=== PATIENT | male | born 1970 | race Hispanic/Latino ===

== ENCOUNTER 2020-05-13 13:30 | Observation (INO) | payer OTHER ==
--- OUTSIDE RECORDS SUMMARY | 2020-05-13 13:32 | XMS REPORT | Continuity of Care Document ---
:1970 Author Organization [facility] t Address [facility] John [address] [place] [id number] Care Team Providers Name Role Phone Unavailable Unavailable Unavailable Problems This patient has no known problems. Allergies, Adverse Reactions, Alerts This patient has no known allergies or adverse reactions. Medications This patient has no known medications. Procedures This patient has no known procedures. Results Test Description Test Time Test Comments Results Result Comments Source Comprehensive Metabolic Panel 2019-04-06 10:54:12 Test Item Value Reference Range Interpretation Comme nts Sodium Level (test code = Sodium Level) 142 mmol/L 136-145 Potassium Level (test code = Potassium Level) 4.3 mmol/L 3.5-5.1 Chloride Level (test code = Chloride Level) 110 mmol/L 98-107 H CO2 (test code = CO2) 25 mmol/L 21-32 Anion Gap (test code = Anion Gap) 7 mmol/L 7-16 BUN (test code = BUN) 13 mg/dL 7-18 Creatinine Level (test code = Creatinine Level) 1.1 mg/dL 0.7-1. 3 Glucose Level (test code = Glucose Level) 91 mg/dL 74-106 Calcium Level (test code = Calcium Level) 8.9 mg/dL 8.5-10.1 Alk Phos (test code = Alk Phos) 59 IntlUnit/L 45-122 Bilirubin Total (test code = Bilirubin Total) 0.5 mg/dL 0.2-1.0 Albumin Level (test code = Albumin Level) 4.2 g/dL 3.4-5.0 Protein Total (test code = Protein Total) 7.6 g/dL 6.4-8.2 ALT (test code = ALT) 51 IntlUnit/L 12-78 AST (test code = AST) 28 IntlUnit/L 10-34 Comprehensive Metabolic [id number] 10:54:12 Test Item Value Reference Range Interpretation Comments Sodium Level (test code = 142 mmol/L 136-145 Sodium Level) Potassium Level (test code 4.3 mmol/L 3.5-5.1 = Potassium Level) Chloride Level (test code 110 mmol/L 98-107 H = Chloride Level) CO2 (test code = CO2) 25 mmol/L 21-32 Anion Gap (test code = 7 mmol/L 7-16 Anion Gap) BUN (test code = BUN) 13 mg/dL 7-18 Creatinine Level (test 1.1 mg/dL 0.7-1.3 code = Creatinine Level) Glucose Level (test code = 91 mg/dL 74-106 Glucose Level) Calcium Level (test code = 8.9 mg/dL 8.5-10.1 Calcium Level) Alk Phos (test code = Alk 59 IntlUnit/L 45-122 Phos) Bilirubin Total (test code 0.5 mg/dL 0.2-1.0 = Bilirubin Total) Albumin Level (test code = 4.2 g/dL 3.4-5.0 Albumin Level) Protein Total (test code = 7.6 g/dL 6.4-8.2 Protein Total) ALT (test code = ALT) 51 IntlUnit/L 12-78 AST (test code = AST) 28 IntlUnit/L 10-34 eGFR AA (test code = eGFR >60 mL/min/1.73 m2 N AA) Comprehensive Metabolic [id number] 10:54:12 Test Item Value Reference Range Interpretation Comments Sodium Level (test code = 142 mmol/L 136-145 Sodium Level) Potassium Level (test code 4.3 mmol/L 3.5-5.1 = Potassium Level) Chloride Level (test code 110 mmol/L 98-107 H = Chloride Level) CO2 (test code = CO2) 25 mmol/L 21-32 Anion Gap (test code = 7 mmol/L 7-16 Anion Gap) BUN (test code = BUN) 13 mg/dL 7-18 Creatinine Level (test 1.1 mg/dL 0.7-1.3 code = Creatinine Level) Glucose Level (test code = 91 mg/dL 74-106 Glucose Level) Calcium Level (test code = 8.9 mg/dL 8.5-10.1 Calcium Level) Alk Phos (test code = Alk 59 IntlUnit/L 45-122 Phos) Bilirubin Total (test code 0.5 mg/dL 0.2-1.0 = Bilirubin Total) Albumin Level (test code = 4.2 g/dL 3.4-5.0 Albumin Level) Protein Total (test code = 7.6 g/dL 6.4-8.2 Protein Total) ALT (test code = ALT) 51 IntlUnit/L 12-78 AST (test code = AST) 28 IntlUnit/L 10-34 eGFR AA (test code = eGFR >60 mL/min/1.73 m2 N AA) eGFR Non-AA (test code = >60 mL/min/1.73 m2 N eGFR Non-AA) CT Brain/Head w/o [id number] 10:40:27Patient: PADMINI ENG Date/Time04/06/2019 10:30 CDTReason for ExamFacial droopReportInformation: Left facial droop, Bagley's palsyCT scan of the brain without contrastMultiplanar reformatted images of the head were obtained without intravenous contrastNo acute intracranial hemorrhage, gross masses, mass effects, midline shifts or extra-axial collections are noted. The ventricular system is normal and midline. Ruiz-white matter interface is pre served. No focal bony calvarial abnormality is noted.IMPRESSION:1. Negative CT scan of the brainRadiation dose lowering techniques were used with automated exposure control, adjusting the mA according to patient's size. Final Dictated by: MD Myrick Gustavo MDictated DT/TM: 04/06/2019 10:33 amSigned by: MD Myrick Gustavo MSigned (Electronic Signature): 04/06/2019 10:40 amComplete Blood Count with [id number] 10:36:20 Test Item Value Reference Range Interpretation Comments WBC (test code = WBC) 7.4 x10 4.8-10.8 RBC (test code = RBC) 4.85 x10 4.60-6.20 Hgb (test code = Hgb) 15.9 g/dL 14.0-18.0 MCV (test code = MCV) 94.6 fL 80.0-95.0 Hct (test code = Hct) 45.9 % 38.0-52.0 RDW (test code = RDW) 13.5 % 11.5-14.5 MCHC (test code = MCHC) 34.7 g/dL 31.0-36.0 MCH (test code = MCH) 32.8 pg 26.0-32.0 H Platelets (test code = 247 x10 140-440 Platelets) MPV (test code = MPV) 8.7 fL 7.5-11.2 Slide Review (test code Auto N Resu lt created by = Slide Review) GL_SET_SLIDE _REVIEW_A UTO Automated [id number] 10:36:20 Test Item Value Reference Range Interpretation Comments Neutro Auto (test code = Neutro Auto) 66.4 % N Lymph Auto (test code = Lymph Auto) 20.4 % N Citrus Auto (test code = Citrus Auto) 9.2 % N Eos, Auto (test code = Eos, Auto) 2.9 % N Basophil Auto (test code = Basophil 1.1 % N Auto) Neutro Absolute (test code = Neutro 4.9 x10 2.7-7.3 Absolute) Lymph Absolute (test code = Lymph 1.5 x10 0.8-3.5 Absolute) Citrus Absolute (test code = Citrus 0.7 x10 0.3-0.9 Absolute) Eos Absolute (test code = Eos 0.2 x10 0.0-0.3 Absolute) Baso Absolute (test code = Baso 0.1 x10 0.0-0.1 Absolute)
[2020-05-13] MEDS ORDERED: Ringers Lactate 1,000 ML IV ONE ×2 (14:37→15:43)
[2020-05-13 14:48] LABS: Absolute Lymphocytes (CBC) 1.7 K/uL (0.7-4.9); Basophils % 0.7 % (0-1.3); Hematocrit 43.9 % (39.6-49.0); Lymphocytes % 14.5 % (15.3-44.8); MPV 9.5 fL (7.6-11.3); RBC Red Blood Cell Count 4.49 M/uL (4.33-5.43)
[2020-05-13 15:05] LABS: ALT/SGPT 68 U/L (12-78); AST/SGOT 41 U/L (15-37); Albumin 3.8 g/dL (3.4-5.0); Alkaline Phosphatase 56 U/L (45-117); BUN Blood Urea Nitrogen 27 mg/dL (7-18); Bicarbonate 24 mmol/L (21-32); Bilirubin Direct < 0.1 mg/dL (0-0.2); Bilirubin Total 0.4 mg/dL (0.2-1.0); Creatine Phosphokinase 275 U/L (39-308); Glucose Level 164 mg/dL (74-106); Magnesium 2.2 mg/dL (1.8-2.4); NT PRO-BNP 64 pg/mL (<125); Potassium 4.4 mmol/L (3.5-5.1); Protein, Total 7.2 g/dL (6.4-8.2); Sodium Level 139 mmol/L (136-145); Troponin (Emerg Dept Use Only) < 0.02 ng/mL (0.0-0.045)
--- NOTE | 2020-05-13 15:18 | RAD REPORT ---
EXAM DESCRIPTION: RAD - Chest Single View - 05/13/2020 3:00 pm CLINICAL HISTORY: dizzy, shortness of breath COMPARISON: None TECHNIQUE: AP portable chest image was obtained 05/13/2020 3:00 pm . FINDINGS: Lung volumes are low. Large body habitus contributes to accentuated lung markings. No pulm onary edema, failure or focal lung parenchymal process suspected. Heart and vasculature are normal. N o measurable pleural effusion and no pneumothorax. No acute bony abnormality seen. No acute aortic fi ndings suspected. IMPRESSION: Limited portable study without acute cardiopulmonary finding.
--- NOTE | 2020-05-13 16:02 | ER ---
Nurse's Notes [facility] Name: Bebo Diaz Jr Age: 49 yrs Sex: Male : 1970 Arrival Date: 05/13/2020 Time: 13:33 Bed 6 Private MD: Diagnosis: Hypotension;Acute kidney failure Presentation: 05/13 13:43 Chief complaint: Dizziness and lethargy after working in the heat since 0700 today. hb Also reports taking diet pills form [place]. [place] N/V/D/cough. VAN NEGATIVE. Coronavirus screen: At this time, the client does not indicate any symptoms associated with coronavirus-19. Ebola Screen: No symptoms or risks identified at this time. Initial Sepsis Screen: Does the patient meet any 2 criteria? Systolic BP < 90 mmHg. HR > 90 bpm. No. Patient's initial sepsis screen is negative. Does the patient have a suspected source of infection? No. Patient's initial sepsis screen is negative. Risk Assessment: Do you want to hurt yourself or someone else? Patient reports no desire to harm self or others. Onset of symptoms was May 13, 2020. 13:43 Method Of Arrival: Ambulatory hb 13:43 Acuity: SOFIA 2 hb Historical: - Allergies: 13:46 No Known Allergies; hb - Home Meds: 13:46 Lisinopril Oral [Active]; unknown diet pill [Active]; hb - PMHx: 13:46 Hypertension; hb - PSHx: 13:46 Kidney CA removal; hb - Immunization history:: Adult Immunizations up to date. - Social history:: Smoking status: Patient reports the use of cigarette tobacco products, denies chronic smoking, but will smoke occasionally. Screenin:31 Abuse screen: Denies threats or abuse. Denies injuries from another. Nutritional iw screening: No deficits noted. Tuberculosis screening: No symptoms or risk factors identified. Fall Risk IV access (20 points). Assessment: 14:31 General: Appears in no apparent distress. Behavior is calm, cooperative. General: iw Denies fever, feeling ill, fatigue. Pain: Denies pain. Neuro: Level of Consciousness is awake, alert, obeys commands, Oriented to person, place, time, situation, Moves all extremities. Full function Reports dizziness. Cardiovascular: Patient's skin is warm and dry. Respiratory: Airway is patent Respiratory effort is even, unlabored, Respiratory pattern is regular, Denies cough, shortness of breath labored breathing. GI: Patient currently denies diarrhea, nausea, vomiting. : Denies burning with urination. Derm: Skin is intact, is healthy with good turgor. Musculoskeletal: Range of motion: intact in all extremities. 16:30 Reassessment: Patient appears in no apparent distress at this time. Patient and/or iw family updated on plan of care and expected duration. Pain level reassessed. Patient is alert, oriented x 3, equal unlabored respirations, skin warm/dry/pink. 18:00 Reassessment: Patient appears in no apparent distress at this time. Patient and/or iw family updated on plan of care and expected duration. Pain level reassessed. Patient is alert, oriented x 3, equal unlabored respirations, skin warm/dry/pink. Patient states feeling better. Patient states symptoms have improved. 19:21 Reassessment: was reported that pt went to bathroom and never came back to the room. pt iw not in bathroom, not in lobby. Vital Signs: 13:43 BP 76 / 49; Pulse 103; Resp 16; Temp 97.2; Pulse Ox 95% on R/A; Weight 130.18 kg; hb Height 5 ft. 10 in. (177.80 cm); Pain 6/10; 14:55 BP 77 / 51; Pulse 97; Resp 18 S; Pulse Ox 95% on R/A; iw 15:01 BP 81 / 47; iw 16:38 BP 104 / 67; Pulse 87; Resp 16 S; Pulse Ox 98% on R/A; iw 18:00 BP 110 / 68; Pulse 79; Resp 16; Pulse Ox 98% on R/A; Pain 0/10; iw 13:43 Body Mass Index 41.18 (130.18 kg, 177.80 cm) hb ED Course: 13:33 Patient arrived in ED. mr 13:45 Triage completed. hb 13:46 Cayden Brooks PA is PHCP. jr8 13:46 Steven Morrison MD is Attending Physician. jr8 13:46 Arm band placed on. hb 13:48 Janessa Estrada, RN is Primary Nurse. iw 14:30 Initial lab(s) drawn, by me, sent to lab. Inserted saline lock: 20 gauge in left iw antecubital area, using aseptic technique. Blood collected. 15:00 XRAY Chest (1 view) In Process Unspecified. EDMS 16:01 Levi Rawls MD is Hospitalizing Provider. jr8 18:00 No provider procedures requiring assistance completed. Patient admitted, IV remains in iw place. Administered Medications: 14:30 Drug: Ringers - Lactated Ringers Solution 1000 ml Route: IV; Rate: bolus; Site: left iw antecubital; 15:30 Follow up: IV Status: Completed infusion iw 15:51 Drug: Ringers - Lactated Ringers Solution 1000 ml Route: IV; Rate: bolus; Site: left iw antecubital; 17:00 Follow up: IV Status: Completed infusion iw Outcome: 16:01 Decision to Hospitalize by Provider. jr8 19:20 Eloped from patient exam room, after seeing physician Time discovered patient gone: iw May 13, 2020 at 19:20 19:22 Patient left the ED. iw Signatures: Dispatcher [employer] EDAL Tracy Carvajal mr Janessa Estrada, RN RN Cayden Brooks PA PA jr8 Pauline Cox, PEYTON RN hb
--- NOTE | 2020-05-13 16:02 | EDPHYS ---
Physician Documentation [facility] Name: Bebo Diaz Jr Age: 49 yrs Sex: Male : 1970 Arrival Date: 05/13/2020 Time: 13:33 Bed 6 Private MD: ED Physician Steevn Morrison HPI: 05/13 16:09 This 49 yrs old Male presents to ER via Ambulatory with complaints of Blood jr8 Pressure Problem. 16:09 Patient stated that after he got home from work this afternoon for break. Started to jr8 feel "foggy" and dizzy. Stated that his significant other took his BP and found that it was low. Initially went back to work but told his boss after he started to feel worse. Brought him to ED at that time. Patient hypotensive in triage upon arrival. History of partial nephrectomies from renal cancer in past. Has been seeing pencil inspector for routine check up and was started recently on lisinopril 40mg QD. Has also been taking phentermine for weight loss . Onset: The symptoms/episode began/occurred acutely, today. Severity of symptoms: At their worst the symptoms were moderate. The patient has not experienced similar symptoms in the past. The patient has not recently seen a physician. Historical: - Allergies: 13:46 No Known Allergies; hb - Home Meds: 13:46 Lisinopril Oral [Active]; unknown diet pill [Active]; hb - PMHx: 13:46 Hypertension; hb - PSHx: 13:46 Kidney CA removal; hb - Immunization history:: Adult Immunizations up to date. - Social history:: Smoking status: Patient reports the use of cigarette tobacco products, denies chronic smoking, but will smoke occasionally. ROS: 16:09 Eyes: Negative for injury, pain, redness, and discharge, ENT: Negative for injury, jr8 pain, and discharge, Neck: Negative for injury, pain, and swelling, Cardiovascular: Negative for chest pain, palpitations, and edema, Respiratory: Negative for shortness of breath, cough, wheezing, and pleuritic chest pain, Abdomen/GI: Negative for abdominal pain, nausea, vomiting, diarrhea, and constipation, Back: Negative for injury and pain, MS/Extremity: Negative for injury and deformity, Skin: Negative for injury, rash, and discoloration. 16:09 Constitutional: Positive for fatigue. 16:09 Neuro: Positive for dizziness. Exam: 16:09 Eyes: Pupils equal round and reactive to light, extra-ocular motions intact. Lids and jr8 lashes normal. Conjunctiva and sclera are non-icteric and not injected. Cornea within normal limits. Periorbital areas with no swelling, redness, or edema. ENT: Nares patent. No nasal discharge, no septal abnormalities noted. Tympanic membranes are normal and external auditory canals are clear. Oropharynx with no redness, swelling, or masses, exudates, or evidence of obstruction, uvula midline. Mucous membranes moist. Neck: Trachea midline, no thyromegaly or masses palpated, and no cervical lymphadenopathy. Supple, full range of motion without nuchal rigidity, or vertebral point tenderness. No Meningismus. Cardiovascular: Regular rate and rhythm with a normal S1 and S2. No gallops, murmurs, or rubs. Normal PMI, no JVD. No pulse deficits. Respiratory: Lungs have equal breath sounds bilaterally, clear to auscultation and percussion. No rales, rhonchi or wheezes noted. No increased work of breathing, no retractions or nasal flaring. Abdomen/GI: Soft, non-tender, with normal bowel sounds. No distension or tympany. No guarding or rebound. No evidence of tenderness throughout. Back: No spinal tenderness. No costovertebral tenderness. Full range of motion. Skin: Warm, dry with normal turgor. Normal color with no rashes, no lesions, and no evidence of cellulitis. MS/ Extremity: Pulses equal, no cyanosis. Neurovascular intact. Full, normal range of motion. Neuro: Awake and alert, GCS 15, oriented to person, place, time, and situation. Cranial nerves II-XII grossly intact. Motor strength 5/5 in all extremities. Sensory grossly intact. Cerebellar exam normal. Normal gait. Vital Signs: 13:43 BP 76 / 49; Pulse 103; Resp 16; Temp 97.2; Pulse Ox 95% on R/A; Weight 130.18 kg; hb Height 5 ft. 10 in. (177.80 cm); Pain 6/10; 14:55 BP 77 / 51; Pulse 97; Resp 18 S; Pulse Ox 95% on R/A; iw 15:01 BP 81 / 47; iw 16:38 BP 104 / 67; Pulse 87; Resp 16 S; Pulse Ox 98% on R/A; iw 18:00 BP 110 / 68; Pulse 79; Resp 16; Pulse Ox 98% on R/A; Pain 0/10; iw 13:43 Body Mass Index 41.18 (130.18 kg, 177.80 cm) hb MDM: 14:00 Patient medically screened. noy 16:12 Data reviewed: vital signs, nurses notes, lab test result(s), radiologic studies, plain jr films, ultrasound. Data interpreted: Pulse oximetry: on room air is 95 %. Interpretation: normal. Counseling: I had a detailed discussion with the patient and/or guardian regarding: the historical points, exam findings, and any diagnostic results supporting the discharge/admit diagnosis, lab results, radiology results, the need for further work-up and treatment in the hospital. ED course: Reviewed labs that patient had drawn by pencil inspector about 2 weeks ago. Shows normal renal function at that time. Now in Acute Kidney failure. 05/13 14:01 Order name: Basic Metabolic Panel; Complete Time: 15:10 [facility] 05/13 14:01 Order name: CBC with Diff; Complete Time: 14:51 05/13 14:01 Order name: LFT's; Complete Time: 15:10 [facility] 05/13 14:01 Order name: Magnesium; Complete Time: 15:10 05/13 14:01 Order name: NT PRO-BNP; Complete Time: 15:10 05/13 14:01 Order name: PT-INR; Complete Time: 15:10 05/13 14:01 Order name: Troponin (emerg Dept Use Only); Complete Time: 15:10 05/13 14:01 Order name: XRAY Chest (1 view); Complete Time: 15:35 05/13 14:01 Order name: CK; Complete Time: 15:10 [facility] 05/13 16:01 Order name: Rp Exam Complete US 05/13 17:23 Order name: US; Complete Time: 17:31 EDMO 05/13 14:01 Order name: EKG; Complete Time: 14:01 05/13 14:01 Order name: Cardiac monitoring; Complete Time: 17:22 [facility] 05/13 14:01 Order name: EKG - Nurse/Tech; Complete Time: 17:22 [facility] 05/13 14:01 Order name: IV Saline Lock; Complete Time: 17:22 [facility] 05/13 14:01 Order name: Labs collected and sent; Complete Time: 17: [facility] 05/13 14:01 Order name: O2 Per Protocol; Complete Time: 17: 05/13 14:01 Order name: O2 Sat Monitoring; Complete Time: 17: [facility] 05/13 16:46 Order name: CONS Physician Consult EDMS Administered Medications: 14:30 Drug: Ringers - Lactated Ringers Solution 1000 ml Route: IV; Rate: bolus; Site: left iw antecubital; 15:30 Follow up: IV Status: Completed infusion iw 15:51 Drug: Ringers - Lactated Ringers Solution 1000 ml Route: IV; Rate: bolus; Site: left iw antecubital; 17:00 Follow up: IV Status: Completed infusion Disposition: 05/14 08:04 Co-signature as Attending Physician, Steven Morrison MD I agree with the assessment and noy plan of care. Disposition: 05/13/20 19:11 Patient left the facility after being seen by provider. Preliminary diagnosis are Hypotension, Acute kidney failure. - Patient left due to unknown. - Condition is Serious. - Problem is new. - Symptoms are unchanged. Signatures: Dispatcher [employer] Kavita Duarte RN RN dw Anderson, Corey, MD MD cha Williams, Irene RN PEYTON Cayden Brooks PA PA jr8 Pauline Cox RN RN Corrections: (The following items were deleted from the chart) 05/13 17:56 16:01 Hospitalization Ordered by Levi Rawls MD for Inpatient Admission. Preliminary diagnosis is Acute kidney failure; Hypotension. Bed requested for Telemetry/MedSurg (Inpatient). Status is Inpatient Admission. Condition is Fair. Problem is new. Symptoms have improved. [facility] 19:09 17:56 05/13/2020 16:01 Hospitalization Ordered by Levi Rawls MD for Inpatient noy Admission. Preliminary diagnosis is Acute kidney failure; Hypotension. Bed requested for Telemetry/MedSurg (Inpatient). Status is Inpatient Admission. Condition is Fair. Problem is new. Symptoms have improved. 19:22 19:11 05/13/2020 19:11 Patient left the facility after being seen by provider. iw Preliminary diagnosis is Hypotension; Acute kidney failure. Reason stated they are leaving due to unknown. Condition is Serious. Problem is new. Symptoms are unchanged. noy
[2020-05-13] MEDS ORDERED: ONDANSETRON 4 MG/2 ML VIAL IV PRN (16:46)
[2020-05-13] MEDS ORDERED: ACETAMINOPHEN 500 MG TAB PO PRN (16:46)
--- NOTE | 2020-05-13 16:54 | P.HP ---
Certification for Inpatient Patient admitted to: Observation With expected LOS: <2 Midnights Patient will require the following post-hospital care: None Practitioner: I am a practitioner with admitting privileges, knowledge of patient current condition, hospital course, and medical plan of care. Services: Services provided to patient in accordance with Admission requirements found in Title 42 Section 412.3 of the Code of Federal Regulations <Jhoan Melgoza - Last Filed: 05/13/20 16:49> Patient History Date of Service: 05/13/20 Primary Care Provider: Александр Mcfarlane MD Reason for admission: Acute kidney injury/hypotension History of Present Illness: 49-year-old male with past medical history of essential hypertension and partial bilateral nephrectomies greater than 10 years ago presents to the emergency room with complaints of dizziness and lethargy after working in the heat all day starting at 7:00 a.m.. Patient states that after going home for lunch he felt dizzy. His girlfriend took his blood pressure and it was low. His girlfriend encourage him to come to the emergency room. In the emergency room patient was hypotensive on arrival. Blood pressure of 76/49. Pulse rate of 103 and a respiratory rate of 16. His temperature is 97.2 and his room air oxygen was 95%. He is not septic. Patient states he was started on lisinopril 40 mg daily dose approximately 1 month ago. In the emergency room lab work indicates it elevated creatinine level of 2.73. Patient's prior lab work done at his PCPs office shows a creatinine level of 0.90 one month ago prior to starting the lisinopril. Renal ultrasound shows no acute pathology. There is evidence of prior scarring from the nephrectomies 10 years ago. On exam patient is stable. He is alert and oriented x4. Denies pain better after IV fluids. His concerned about his kidneys. Patient also states that he has been taking phentermine. A diet medication he got from [place]. Patient will be placed in observation overnite and further evaluated. Home medications list reviewed: No - Past Medical/Surgical History Has patient received pneumonia vaccine in the past: No Diabetic: No -: Essential hypertension -: Partial bilateral nephrectomy Psychosocial/ Personal History: Lives at home with girlfriend. - Social History Smoking Status: Never smoker Alcohol use: No CD- Drugs: No Caffeine use: No Place of Residence: Home <Jhoan Melgoza - Last Filed: 05/13/20 16:49> Date of Service: 05/13/20 <CurlyAlistairaskar - Last Filed: 05/13/20 18:04> Review of Systems General: Weakness, As per HPI Eyes: Unremarkable ENT: Unremarkable Respiratory: Unremarkable Cardiovascular: Light Headedness, As per HPI Gastrointestinal: Unremarkable Genitourinary: Unremarkable Musculoskeletal: As per HPI Integumentary: Unremarkable Neurological: Weakness, As per HPI <Jhoan Melgoza - Last Filed: 05/13/20 16:49> Physical Examination - Vital Signs Temperature: 97.2 F Blood Pressure: 81/47 Pulse: 97 Respirations: 18 Pulse Ox (%): 95 (RA) - Physical Exam General: Alert, In no apparent distress, Oriented x3, Cooperative HEENT: Atraumatic, Normocephalic, PERRLA Neck: Supple, No Thyromegaly, Other (Trachea midline) Respiratory: Clear to auscultation bilaterally, Normal air movement Cardiovascular: No edema, Normal pulses, Normal S1 S2, Irregular heart rate/rhythm (Tachycardic) Capillary refill: <2 Seconds Gastrointestinal: Normal bowel sounds, Soft and benign, Non-distended Musculoskeletal: No clubbing, No swelling, No contractures, No erythema Integumentary: No rashes, No breakdown, No significant lesion, No tenderness/swelling Neurological: Normal gait, Normal speech, Normal strength at 5/5 x4 extr, Normal tone - Studies Laboratory Data (last 24 hrs) 05/13/20 14:20: PT 11.8, INR 1.00 05/13/20 14:20: WBC 11.5 H, Hgb 14.5, Hct 43.9, Plt Count 275 05/13/20 14:20: Sodium 139, Potassium 4.4, BUN 27 H, Creatinine 2.73 H, Glucose 164 H, Magnesium 2.2, Total Bilirubin 0.4, AST 41 H, ALT 68, Alkaline Phosphatase 56 <hJoan Melgoza - Last Filed: 05/13/20 16:49> - Studies Laboratory Data (last 24 hrs) 05/13/20 14:20: PT 11.8, INR 1.00 05/13/20 14:20: WBC 11.5 H, Hgb 14.5, Hct 43.9, Plt Count 275 05/13/20 14:20: Sodium 139, Potassium 4.4, BUN 27 H, Creatinine 2.73 H, Glucose 164 H, Magnesium 2.2, Total Bilirubin 0.4, AST 41 H, ALT 68, Alkaline Phosphatase 56 <Alistair Rawls - Last Filed: 05/13/20 18:04> Assessment and Plan - Plan Impression: Acute kidney injury with hypotension: Dehydration: Phentermine Diet pills: Plan: Acute kidney injury with hypotension: Patient was recently started on lisinopril 40 mg daily dose. 1 month ago patient's renal function was normal at 0.90 from lab work faxed by PCP. Will stop lisinopril. Will continue IV hydration and monitoring creatinine levels daily. Will consult Nephrology. Patient was also hypotensive on arrival. This was likely a combination of the medications as well as dehydration. Patient was working all day in the heat and was not drinking enough fluids. Will continue with hydration as above and monitor vitals and daily labs. Dehydration: Continue IV fluids as above. Monitor vitals. Phentermine Diet pills: Patient states that he has been taking phentermine diet pills that he bought in [place]. Counseled. Discharge Plan: Home Plan to discharge in: 48 Hours - Advance Directives Does patient have a Living Will: No Does patient have a Durable POA for Healthcare: No - Code Status/Comfort Care Code Status Assessed: Yes Time Spent Managing Pts Care (In Minutes): 55 <Jhoan Melgoza - Last Filed: 05/13/20 16:49> Physician Review: Patient Assessed, Agree with Above Assessment and Plan Physician Review Additional Text: Patient was seen and examined and findings were discussed Agree with the assessment and plan as documented by the SUSAN <Alistair Rawls - Last Filed: 05/13/20 18:04>
[2020-05-13] MEDS ORDERED: NA CHLORIDE 0.9% 1,000 ML IV SCH (17:00)
[2020-05-13] MEDS ORDERED: HEPARIN 5000 UNIT/ML 1 ML VIAL SQ SCH (17:00)
[2020-05-13 17:09] VITALS: TEMP 97.2
--- NOTE | 2020-05-13 17:21 | RAD REPORT ---
EXAM DESCRIPTION: US - Renal Ultrasound-Complete - 05/13/2020 4:57 pm CLINICAL HISTORY: renal failure COMPARISON: None FINDINGS: The right kidney measures 9.1 x 6.9 cm. The left kidney measures 13.5 x 6.3 cm. History i ndicates prior partial right nephrectomy. This may explain the size asymmetry. Renal cortical thickne ss and echogenicity are normal. No hydronephrosis or suspicious renal mass. Normal perfusion evident both kidneys. No bladder wall thickening or mass. No intraluminal stone or mass. IMPRESSION: No hydronephrosis or suspicious renal mass. No other significant findings.
[2020-05-13 19:34] VITALS: O2SAT 98
[2020-05-13 19:35] VITALS: BP 110/68
== END 2020-05-13 19:00 | disposition left against medical advice (07) ==
LOC: ER 13:30 → ERHOLD 16:47 → 2ND 18:50
PROVIDERS: ADMIT Family Medicine; ATTEND Family Medicine
DX: N17.9 Acute kidney failure, unspecified (principal); I95.9 Hypotension, unspecified; E86.0 Dehydration; I10 Essential (primary) hypertension; Z85.528 Personal history of other malignant neoplasm of kidney; Z90.5 Acquired absence of kidney; F17.210 Nicotine dependence, cigarettes, uncomplicated
CPT/HCPCS: 96365; 93005; 85025; 80048; 36415; 83735; 82550; 85610; 80076; 84484; 83880; 71045; 76770; 99284; 96366; J7120 ×2; G0378 ×2

== ENCOUNTER 2021-01-20 09:51 | Emergency (ER) | payer OTHER ==
--- OUTSIDE RECORDS SUMMARY | 2021-01-20 09:53 | XMS REPORT | Continuity of Care Document ---
:1970 Author Organization [facility] t Address [address] [place] [address] Care Team Providers Name Role Phone Lab, [facility] Fam Pob I Attending Clinician Unavailable Doctor Unassigned, Name Attending Clinician Unavailable Problems This patient has no known problems. Allergies, Adverse Reactions, Alerts This patient has no known allergies or adverse reactions. Medications This patient has no known medications. Procedures This patient has no known procedures. Encounters Start End Encounter Admission Attending Care Care Encounter Source Date/Time Date/Time Type Type Clinicians Facility Department ID 2020-09-28 2020-09-28 Laboratory Lab, [facility] [id number] 10:19:14 10:39:14 Only Fam Pob I Health [id number] [place] [id number] Professio [phone] nal [address] One 2020-09-28 2020-09-28 Letter Doctor ENA [id number] 00:00:00 00:00:00 (Out) Unassigned, ALEX [id number] [place] [facility] [id number] 2020-05-19 2020-05-19 Laboratory Lab, [facility] [id number] 09:26:05 09:46:05 Only Fam Pob I Health [id number] [place] [id number] [facility] [phone] nal 044 [address] One 2020-05-19 2020-05-19 Letter Doctor ENA [id number] 00:00:00 00:00:00 (Out) UnassignedALEX [id number] [place] [facility] [id number] 2020-05-19 2020-05-19 Letter Doctor ENA [id number] 00:00:00 00:00:00 (Out) UnassignedALEX [id number] [place] [facility] [id number] Results Test Description Test Time Test Comments [...] = AST) 28 IntlUnit/L 10-34 Comprehensive Metabolic [id number] 10:54:12 Test Item Value Reference Range Interpretation [...] >60 mL/min/1.73 m2 N AA) Comprehensive Metabolic [id number] 10:54:12 Test Item Value Reference Range Interpretation [...] m2 N eGFR Non-AA) CT Brain/Head w/o [id number] 10:40:27Patient: PADMINI ENG Date/Time04/06/2019 10:30 CDTReason for [...] Myrick Gustavo MSigned (Electronic Signature): 04/06/2019 10:40 amAutomated [id number] 10:36:20 Test Item Value Reference Range Interpretation Comments Neutro Auto (test code = Neutro Auto) 66.4 % N Lymph Auto (test code = Lymph Auto) 20.4 % N [place] Auto (test code = [place] Auto) 9.2 % N Eos, Auto (test code = Eos, Auto) 2.9 % N Basophil Auto (test code = Basophil 1.1 % N Auto) Neutro Absolute (test code = Neutro 4.9 x10 2.7-7.3 Absolute) Lymph Absolute (test code = Lymph 1.5 x10 0.8-3.5 Absolute) [place] Absolute (test code = [place] 0.7 x10 0.3-0.9 Absolute) Eos Absolute (test code = Eos 0.2 x10 0.0-0.3 Absolute) Baso Absolute (test code = Baso 0.1 x10 0.0-0.1 Absolute) Complete Blood Count with [id number] 10:36:20 Test Item Value Reference Range Interpretation [...]
[2021-01-20 10:51] LABS: Absolute Lymphocytes (CBC) 1.3 K/uL (0.7-4.9); Basophils % 0.6 % (0-1.3); Hematocrit 46.9 % (39.6-49.0); Lymphocytes % 14.1 % (15.3-44.8); MPV 9.4 fL (7.6-11.3); RBC Red Blood Cell Count 4.79 M/uL (4.33-5.43)
[2021-01-20 10:58] LABS: Protime INR 1.08
[2021-01-20 11:12] LABS: ALT/SGPT 49 U/L (12-78); AST/SGOT 29 U/L (15-37); Albumin 3.6 g/dL (3.4-5.0); Alkaline Phosphatase 60 U/L (45-117); BUN Blood Urea Nitrogen 24 mg/dL (7-18); Bicarbonate 29 mmol/L (21-32); Bilirubin Direct 0.2 mg/dL (0-0.2); Bilirubin Total 0.8 mg/dL (0.2-1.0); Glucose Level 103 mg/dL (74-106); Magnesium 2.3 mg/dL (1.8-2.4); NT PRO-BNP 110 pg/mL (<125); Potassium 3.8 mmol/L (3.5-5.1); Protein, Total 7.2 g/dL (6.4-8.2); Sodium Level 139 mmol/L (136-145); Troponin (Emerg Dept Use Only) < 0.02 ng/mL (0.0-0.045)
--- NOTE | 2021-01-20 11:55 | RAD REPORT ---
EXAM DESCRIPTION: RAD - Chest Single View - 01/20/2021 11:45 am CLINICAL HISTORY: Dyspnea;Chest pain COMPARISON: April 2020 TECHNIQUE: AP portable chest image was obtained 01/20/2021 11:45 am . FINDINGS: Lungs are clear. Heart and vasculature are normal. No measurable pleural effusion and no p neumothorax. No acute bony abnormality seen. No acute aortic findings suspected. IMPRESSION: No acute cardiopulmonary process. No significant change from comparison study.
--- NOTE | 2021-01-20 12:04 | ER ---
Nurse's Notes [facility] Name: Bebo Diaz Jr Age: 50 yrs Sex: Male : 1970 Arrival Date: 01/20/2021 Time: 09:54 Bed 14 Private MD: Diagnosis: Malaise and fatigue;Dyspnea;Chest pain, unspecified Presentation: 01/20 10:16 Chief complaint: Patient states: Intermittent SOB and chest pain x months. Coronavirus ss screen: Client denies travel out of the [place] in the last 14 days. Ebola Screen: Patient denies exposure to infectious person. Patient denies travel to an Ebola-affected area in the 21 days before illness onset. Initial Sepsis Screen: Does the patient meet any 2 criteria? No. Patient's initial sepsis screen is negative. Does the patient have a suspected source of infection? No. Patient's initial sepsis screen is negative. Risk Assessment: Do you want to hurt yourself or someone else? Patient reports no desire to harm self or others. Onset of symptoms is unknown. 10:16 Method Of Arrival: Ambulatory ss 10:16 Acuity: SOFIA 3 ss Triage Assessment: 10:20 General: Appears in no apparent distress. Behavior is calm, cooperative, appropriate ll1 for age. Pain: Complains of pain in chest Quality of pain is described as aching, Pain began off/on for months. Neuro: No deficits noted. Cardiovascular: Reports chest pain, shortness of breath, Heart tones S1 S2 Capillary refill < 3 seconds Clubbing of nail beds is absent JVD is absent Patient's skin is warm and dry. Rhythm is regular. Respiratory: Reports shortness of breath at rest Airway is patent Trachea midline Respiratory effort is even, unlabored, Respiratory pattern is regular, symmetrical, Breath sounds are clear bilaterally. GI: No deficits noted. Historical: - Allergies: 10:18 No Known Allergies; ss - Home Meds: 10:18 "sometimes takes 's BP meds from [place]. Reportedly Atenolol." [Active]; ss - PMHx: 10:18 Hypertension; ss - PSHx: 10:18 Kidney CA removal; ss - Immunization history:: Adult Immunizations up to date. - Social history:: Smoking status: Patient reports the use of cigarette tobacco products, smokes one pack cigarettes per day. Screenin:55 Abuse screen: Denies threats or abuse. Nutritional screening: No deficits noted. ll1 Tuberculosis screening: No symptoms or risk factors identified. Fall Risk IV access (20 points). Total Johansen Fall Scale indicates No Risk (0-24 pts). Assessment: 11:20 Reassessment: No changes from previously documented assessment. Patient and/or family ll1 updated on plan of care and expected duration. Pain level reassessed. Patient is alert, oriented x 3, equal unlabored respirations, skin warm/dry/pink. 12:13 Pain: Pain does not radiate. ll1 Vital Signs: 10:16 BP 106 / 79; Pulse 70; Resp 17; Temp 97.9(O); Pulse Ox 96% on R/A; Weight 127.01 kg; ss Height 5 ft. 10 in. (177.80 cm); Pain 7/10; 11:39 BP 108 / 67; Pulse 66; Resp 17; Pulse Ox 94% on R/A; ll1 12:13 BP 118 / 79; Pulse 69; Resp 18; Pulse Ox 95% on R/A; ll1 10:16 Body Mass Index 40.18 (127.01 kg, 177.80 cm) ED Course: 09:54 Patient arrived in ED. ds1 10:06 Arm band placed on Patient placed in an exam room, on a stretcher. ll1 10:07 Lucinda Flores FNP-C is PHCP. kb 10:07 Steven Morrison MD is Attending Physician. kb 10:17 Triage completed. ss 10:20 Inserted saline lock: 20 gauge in right antecubital area, using aseptic technique. ll1 Blood collected. 10:34 Mary Truong, PEYTON is Primary Nurse. ll1 10:55 Patient has correct armband on for positive identification. Bed in low position. Call ll1 light in reach. Side rails up X 1. panel monitor on. Pulse ox on. NIBP on. 10:55 No provider procedures requiring assistance completed. Patient maintains SpO2 ll1 saturation greater than 95% on room air. 11:45 XRAY Chest (1 view) In Process Unspecified. EDMS 12:12 IV discontinued, intact, bleeding controlled, No redness/swelling at site. Pressure ll1 dressing applied. Administered Medications: No medications were administered Outcome: 12:04 Discharge ordered by . kb 12:13 Discharged to home ambulatory. ll1 12:13 Condition: stable 12:13 Discharge instructions given to patient, family, Instructed on discharge instructions, follow up and referral plans. Demonstrated understanding of instructions, follow-up care. 12:14 Patient left the ED. ll1 Signatures: Dispatcher [employer] EDHI Lucinda Flores, GRACE-C MEN'S CUSTOM HAIR PIECE CONSULTANT-Lorin Comer ds1 Lizette Horan RN RN ss Lewis, Lynsay, RN RN [facility]
--- NOTE | 2021-01-20 12:04 | EDPHYS ---
Physician Documentation [facility] Name: Bebo Diaz Jr Age: 50 yrs Sex: Male : 1970 Arrival Date: 01/20/2021 Time: 09:54 Bed 14 Private MD: ED Physician Steven Morrison HPI: 01/20 16:32 This 50 yrs old Male presents to ER via Ambulatory with complaints of Chest kb Pain, Shortness Of Breath. 16:32 The patient or guardian reports chest pain that is located primarily in the chest kb diffusely. Onset: "months ago". The pain does not radiate. Associated signs and symptoms: Pertinent positives: shortness of breath. The chest pain is described as dull. Duration: The patient or guardian reports multiple episodes, that are intermittent, that wax and wane, with no pattern. Modifying factors: The symptoms are alleviated by nothing. the symptoms are aggravated by nothing. Severity of pain: At its worst the pain was mild in the emergency department the pain has resolved. The patient has not experienced similar symptoms in the past. The patient has not recently seen a physician. Pt reports chest pain and shortness of breath that started months ago. Pt states "I'm just tired of it." Pt reports fatigue as well. States he thinks he has hypertension and his is treating it with atenolol that was purchased in [place]. States he doesn't always take it, only when he's feeling like his BP is high. . Historical: - Allergies: 10:18 No Known Allergies; ss - Home Meds: 10:18 "sometimes takes 's BP meds from [place]. Reportedly Atenolol." [Active]; ss - PMHx: 10:18 Hypertension; ss - PSHx: 10:18 Kidney CA removal; ss - Immunization history:: Adult Immunizations up to date. - Social history:: Smoking status: Patient reports the use of cigarette tobacco products, smokes one pack cigarettes per day. ROS: 16:31 Constitutional: Negative for fever, chills, and weight loss, Abdomen/GI: Negative for kb abdominal pain, nausea, vomiting, diarrhea, and constipation, Back: Negative for injury and pain, MS/Extremity: Negative for injury and deformity, Skin: Negative for injury, rash, and discoloration, Neuro: Negative for headache, weakness, numbness, tingling, and seizure. 16:31 Cardiovascular: Positive for chest pain, Negative for edema, orthopnea, palpitations, paroxysmal nocturnal dyspnea. 16:31 Respiratory: Positive for shortness of breath. Exam: 16:31 Constitutional: This is a well developed, well nourished patient who is awake, alert, kb and in no acute distress. Head/Face: Normocephalic, atraumatic. Cardiovascular: Regular rate and rhythm with a normal S1 and S2. No gallops, murmurs, or rubs. No pulse deficits. Respiratory: Respirations even and unlabored. No increased work of breathing, no retractions or nasal flaring. Abdomen/GI: Soft, non-tender. No distention Skin: Warm, dry with normal turgor. Normal color. MS/ Extremity: Pulses equal, no cyanosis. Neurovascular intact. Full, normal range of motion. Neuro: Awake and alert, GCS 15, oriented to person, place, time, and situation. Moves all extremities. Normal gait. 16:31 Cardiovascular: Edema: pedal edema. Vital Signs: 10:16 BP 106 / 79; Pulse 70; Resp 17; Temp 97.9(O); Pulse Ox 96% on R/A; Weight 127.01 kg; ss Height 5 ft. 10 in. (177.80 cm); Pain 7/10; 11:39 BP 108 / 67; Pulse 66; Resp 17; Pulse Ox 94% on R/A; ll1 12:13 BP 118 / 79; Pulse 69; Resp 18; Pulse Ox 95% on R/A; ll1 10:16 Body Mass Index 40.18 (127.01 kg, 177.80 cm) ss MDM: 10:07 Patient medically screened. kb 16:30 Data reviewed: vital signs, nurses notes. Data interpreted: Pulse oximetry: on room air kb is 95 %. Interpretation: normal. Counseling: I had a detailed discussion with the patient and/or guardian regarding: the historical points, exam findings, and any diagnostic results supporting the discharge/admit diagnosis, lab results, radiology results, the need for outpatient follow up, a refuse driver, a family practitioner, to return to the emergency department if symptoms worsen or persist or if there are any questions or concerns that arise at home. 16:39 ED course: Pt has first appt with a PCP on Saturday. Educated not to take any atenolol kb unless it is prescribed to him. Educated to check BP morning and night, keep a log and take it to the appt on Saturday. . 01/20 10:19 Order name: Basic Metabolic Panel kb 01/20 10:19 Order name: CBC with Diff; Complete Time: 11:07 kb 01/20 10:19 Order name: LFT's kb 01/20 10:19 Order name: Magnesium; Complete Time: 11:15 kb 01/20 10:19 Order name: NT PRO-BNP; Complete Time: 11:15 kb 01/20 10:19 Order name: PT-INR; Complete Time: 11:07 kb 01/20 10:19 Order name: Troponin (emerg Dept Use Only); Complete Time: 11:15 kb 01/20 10:19 Order name: XRAY Chest (1 view); Complete Time: 11:56 kb 01/20 10:19 Order name: EKG; Complete Time: 10:20 kb 01/20 10:19 Order name: Cardiac monitoring; Complete Time: 10:34 kb 01/20 10:19 Order name: EKG - Nurse/Tech; Complete Time: 10:34 kb 01/20 10:20 Order name: Basic Metabolic Panel; Complete Time: 11:15 EDMS 01/20 10:20 Order name: Liver (Hepatic) Function; Complete Time: 11:15 EDMS 01/20 12:04 Order name: TSH; Complete Time: 16:40 kb 01/20 10:19 Order name: IV Saline Lock; Complete Time: 10:34 kb 01/20 10:19 Order name: Labs collected and sent; Complete Time: 10:34 kb 01/20 10:19 Order name: O2 Per Protocol; Complete Time: 10:34 kb 01/20 10:19 Order name: O2 Sat Monitoring; Complete Time: 10:34 kb Administered Medications: No medications were administered Disposition: 01/21 07:27 Co-signature as Attending Physician, Steven Morrison MD I agree with the assessment and noy plan of care. Disposition: 01/20/21 12:04 Discharged to Home. Impression: Malaise and fatigue, Dyspnea, Chest pain, unspecified. - Condition is Stable. - Discharge Instructions: Shortness of Breath, [id number], Nonspecific Chest Pain, [id number]. - Work release form, Medication Reconciliation Form, Thank You Letter, Antibiotic Education, Prescription Opioid Use form. - Follow up: Emergency Department; When: As needed; Reason: Worsening of condition. Follow up: Private Physician; When: 2 - 3 days; Reason: Recheck today's complaints, Continuance of care, Re-evaluation by your physician. Signatures: Dispatcher [employer] EDNH Lucinda Flores, PARTY SUPPLY SPECIALIST-C PARTY SUPPLY SPECIALIST-Steven Cristina MD MD cha Smirch, Shelby, RN RN ss Mary Truong RN RN ll1 Corrections: (The following items were deleted from the chart) 01/20 12:14 12:04 01/20/2021 12:04 Discharged to Home. Impression: Malaise and fatigue; Dyspnea; ll1 Chest pain, unspecified. Condition is Stable. Forms are Medication Reconciliation Form, Thank You Letter, Antibiotic Education, Prescription Opioid Use. Follow up: Emergency Department; When: As needed; Reason: Worsening of condition. Follow up: Private Physician; When: 2 - 3 days; Reason: Recheck today's complaints, Continuance of care, Re-evaluation by your physician. kb
[2021-01-20 15:04] VITALS: TEMP 97.9
[2021-01-20 15:05] VITALS: BP 118/79; O2SAT 95
--- NOTE | 2021-01-21 10:18 | EKG ---
Test Date: 2021-01-20 Test Time: 10:32:49 Internet Marketing Analyst: JACQUES MEASUREMENT RESULTS: Intervals: Rate: 68 [place]: 256 QRSD: 102 QT: 400 QTc: 425 [place]: P: 24 [place]: 256 QRS: -40 T: 101 INTERPRETIVE STATEMENTS: Sinus rhythm with 1st degree AV block Left axis deviation T wave abnormality, consider lateral ischemia Abnormal ECG Compared to ECG 05/13/2020 16:59:24 Left-axis deviation now present T-wave abnormality now present Possible ischemia now present Electronically Signed On 01-21-21 10:15:35 CDT by Zak Rodriguez
== END 2021-01-20 12:14 | disposition home or self-care (01) ==
LOC: ER 09:51
DX: R07.9 Chest pain, unspecified (principal); R53.81 Other malaise; R53.83 Other fatigue; I10 Essential (primary) hypertension; F17.210 Nicotine dependence, cigarettes, uncomplicated; Z85.528 Personal history of other malignant neoplasm of kidney
CPT/HCPCS: 36415; 71045; 80048; 80076; 83735; 83880; 84443; 84484; 85025; 85610; 93005; 99285

== ENCOUNTER 2023-04-21 11:35 | Emergency (ER) | payer OTHER ==
--- OUTSIDE RECORDS SUMMARY | 2023-04-21 11:47 | XMS REPORT | Continuity of Care Document ---
:1970 Author Organization [facility] t Address [address] [facility] [address] [place] [address] Care Team Providers Name Role Phone Zack Wilcox MD Primary Care Physician Ángel Redman Attending Clinician Unavailable HOLLY DE PAZ Attending Clinician Unavailable JOSEPH DEL VALLE Attending Clinician Unavailable CHANELLE DIAZ Attending Clinician Unavailable NGOZI KWOK Attending Clinician Unavailable Zack Wilcox MD Attending Clinician Ngozi Mireles Attending Clinician Lab, [facility] Attending Clinician Unavailable ELSI DIMAS Attending Clinician Unavailable ELSI DIMAS Attending Clinician Unavailable ZACK WILCOX Attending Clinician Unavailable GOLDIE ALCALA Attending Clinician Unavailable Goldie Alcala OD Attending Clinician Nilton Cain MD Attending Clinician Doctor Unassigned, [place] Attending Clinician Unavailable NILTON CAIN Attending Clinician Unavailable Draw, [facility] Attending Clinician Unavailable Diamond Sneed MD Attending Clinician [phone] [facility], [facility] Attending Clinician UnavailARRON Rizvi Attending Clinician Unavailable VITALIY IVERSON Attending Clinician Unavailable VITALIY IVERSON Attending Clinician Unavailable Collette Salinas MD Attending Clinician [phone] COLLETTE SALINAS Attending Clinician Unavailable Poncho Barlow MD Attending Clinician PONCHO BARLOW Attending Clinician Unavailable PONCHO BARLOW Attending Clinician Unavailable 1, [facility] Sleep Lab Bed Attending Clinician Unavailable JYOTI ANTHONY Attending Clinician Unavailable PRAVEENA PABON Attending Clinician Unavailable Efrain Sousa Attending Clinician Unavailable KERRI FUENTES Attending Clinician Unavailable Kerri Roberson Attending Clinician FELIPE BRADSHAW Attending Clinician Unavailable Be Barber Attending Clinician BE CASEY Attending Clinician Unavailable Adam Rutherford Attending Clinician ADAM PAULA Attending Clinician Unavailable PAIGE BERNAL Attending Clinician Unavailable [facility] Attending Clinician Unavailable SHAW CRAMER Attending Clinician Unavailable 2, [facility] Lab Attending Clinician Unavailable LILY ANGULO Attending Clinician Unavailable SPENCER PAGAN Attending Clinician Unavailable Spencer Pagan MD Attending Clinician Holly De Paz MD Attending Clinician Frank Solorio MD Attending Clinician Santy Charles Attending Clinician Unavailable Jb NAVAS Attending Clinician Unavailable Ekaterina PACJb Attending Clinician Only, Adc Test Attending Clinician Unavailable Johanny Hill Attending Clinician KEVIN ORTEGA Attending Clinician Unavailable TALHA VASQUEZ Attending Clinician Unavailable Lab, Adc Fam Pob I Attending Clinician Unavailable CHUYITA BRADSHAW Attending Clinician Unavailable ALIDA ROBBINS Attending Clinician Unavailable Cardiology, Tdc Attending Clinician Unavailable Michelle Douglass MD Attending Clinician Unavailable Chon Cabrera MD Attending Clinician HOLLY DE PAZ Admitting Clinician Unavailable ELSI DIMAS Admitting Clinician Unavailable NILTON CAIN Admitting Clinician Unavailable Zack Wilcox Admitting Clinician Unavailable KERRI FUENTES Admitting Clinician Unavailable BE CASEY Admitting Clinician Unavailable ZACK WILCOX Admitting Clinician Unavailable SPENCER PAGAN Admitting Clinician Unavailable Jb NAVAS Admitting Clinician Unavailable Holly De Paz MD Admitting Clinician Payers Payer Name Policy Type Policy Number Effective Date Expiration Date S triston CIGNA II [id number] 2019 00:00:00 CIGNA C1 [id number] 2020 [facility] - 00:00:00 [facility] Problems Condition Condition Condition Status Onset Resolution Last Treating Co mments Source Name Details Category Date Date Treatment Clinician Date 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 2-08 ity of 00:00: [place] 00 Medical Branch Watery Watery Disease Active 2021-10 Univers eyes eyes 2-08 ity of 00:00: [place] 00 Medical Branch Acute Acute Disease Active Univers renal renal 9- ity of failure failure 00:00: [place] syndrome syndrome 00 [facility] Cystic Cystic Disease Active Univers kidney kidney 9- ity of disease, disease, 00:00: [place] acquired acquired [facility] Alcoholism Alcoholism Disease Active U nivers 9- ity of 00:00: [place] 00 Medical Branch Chronic Chronic Disease Active Univers pain of pain of 8-17 ity of left knee left [place] 00:[place] JOCELIN JOCELIN Disease Active Univers (obstructi (obstructi 8-17 it y of ve sleep ve sleep 00:00: [place] apnea) apnea) 00 Medical Branch Lesion of Lesion of Disease Active Uni vers left left 5-31 ity of [place] 00:00: [place] kidney kidney 00 Medical Branch Lesion of Lesion of Disease Active Uni vers left left 5-31 ity of [place] 00:00: [place] kidney kidney 00 Medical Branch Pyelonephr Pyelonephr Disease Active U nivers itis of itis of 5-31 ity of right right 00:00: [place] kidney kidney 00 Medical Branch Chronic Chronic Disease Active Univers midline midline 531 ity of low back low back 00:00: [place] pain pain 00 Medical without without Branch sciatica sciatica Pain Pain Disease Active Univers management management 5 it y of contract contract 00:00: [place] signed signed 00 Medical Branch Arthritis, Arthritis, Disease Active U nivers multiple multiple 5-31 ity of joint joint 00:00: [place] involvemen involvemen 00 Me dical t t Branch E-coli UTI E-coli UTI Disease Active U nivers 4-21 ity of 00:00: [place] 00 Medical Branch Hyperglyce Hyperglyce Disease Active U nivers jennifer due to jennifer due to 4-21 it y of type 2 type 2 00:00: [place] diabetes diabetes 00 Medica l mellitus mellitus Branch Primary Primary Disease Active Univers malignant malignant 4-21 ity of neoplasm neoplasm 00:00: [place] of kidney of kidney 00 [facility] Branch Vitamin D Vitamin D Disease Active Uni vers deficiency deficiency 4-21 it y of 00:00: [place] 00 Medical Branch Need for Need for Disease Active Unive rs hepatitis hepatitis 4-21 ity of C C 00:00: [place] screening screening 00 [facility] test test Branch Need for Need for Disease Active Unive rs influenza influenza 4-21 ity of vaccinatio vaccinatio 00:[place] 00 [place] Dyslipidem Dyslipidem Disease Active U nivers ia ia 4-21 ity of 00:00: [place] 00 Medical Branch Hepatic Hepatic Disease Active Univers steatosis steatosis 4-21 ity of 00:00: [place] 00 Medical Branch Enlarged Enlarged Disease Active Unive rs liver liver 4-21 ity of 00:00: [place] 00 Medical Branch Gouty Gouty Disease Active Univers arthritis arthritis 4-07 ity of 00:00: [place] 00 Medical Branch Gouty Gouty Disease Active Univers arthritis arthritis 4-07 ity of 00:00: [place] 00 Medical Branch Moderate Moderate Disease Active Unive rs right right 4-07 ity of ankle ankle 00:00: [place] sprain, sprain, 00 Medical initial initial Branch encounter encounter Anxiety, Anxiety, Disease Active Unive rs generalize generalize 4-07 it y of d d 00:00: [place] 00 Medical Branch Mild Mild Disease Active Univers depression depression 4-07 it y of 00:00: [place] 00 Medical Branch Bladder Bladder Disease Active Univers wall wall 4-07 ity of thickening thickening 00:00[place] Primary Primary Disease Active Univers insomnia insomnia 4-07 ity of 00:00: [place] 00 Medical Branch Hyperplast Hyperplast Disease Active U nivers ic polyp ic polyp 4-07 ity of of sigmoid of sigmoid 00:[place] colon colon 00 Medical [place] Alcohol Alcohol Disease Active Univers use use 4-07 ity of 00:00: [place] 00 Medical Branch Chronic Chronic Disease Active Univers seasonal seasonal 4-07 ity of allergic allergic 00:00: [place] rhinitis rhinitis 00 Medica l Branch Diverticul Diverticul Disease Active U nivers osis of osis of 4-07 ity of colon colon 00:00: [place] without without 00 Medical diverticul diverticul Br anch itis itis Acute Acute Disease Active Univers renal renal 7-17 ity of failure failure 00:00: [place] 00 Medical Branch Hyperkalem Hyperkalem Disease Active U nivers ia ia 7-17 ity of 00:00: [place] 00 Medical Branch Chronic Chronic Disease Active Univers right right 7-17 ity of flank pain flank pain 00:00: [place] Type 2 Type 2 Disease Active Univers diabetes diabetes 7-17 ity of mellitus mellitus 00:00: [place] without without 00 Medical complicati complicati Br anch on, on, without without long-term long-term current current use of use of insulin insulin Benign Benign Disease Active Univers hypertensi hypertensi 7-17 it y of on with on with 00:00: [place] chronic chronic 00 Medical kidney kidney Branch disease disease Morbid Morbid Disease Active Univers obesity obesity 6-18 ity of 00:00: [place] Medical Branch Obesity Obesity Disease Active Univers (BMI (BMI 6-05 ity of 30-39.9) 30-39.9) 00:00: [place] Medical Branch Screening, Screening, Disease Active U nivers lipid lipid 6-05 ity of 00:00: [place] Medical Branch Right Right Disease Active Overview: Univer s renal mass renal mass 5-29 Formattin ity of 00:00: g of this note Medical might be Branch different from the original. Added automatic ally from request for surgery [id number] Carcinoma Problem Active Com mon of kidney, Spirit unspecifie - [facility] d [facility] [id number] RUQ Problem Active Common abdominal Spirit pain - [facility] [id number] NICOLAS (acute Problem Active C ommon [id number] kidney Spirit injury) [facility] [id number] History of Problem Active Co mmon partial Spirit nephrectom - [facility] y [facility] [id number] History of Problem Active Co mmon incarcerat Spirit ion [facility] [id number] Urinary Problem Active Common tract Spirit infection - [facility] without [facility] site Medical unspecifie Center d [id number] Right hand Problem Active C ommon [id number] pain Spirit [facility] [id number] Essential Problem Active Comm on hypertensi Spirit on [facility] [id number] Mixed Problem Active Common hyperlipid Spirit emia [facility] [id number] Noncomplia Problem Active Co mmon nce with Spirit medication - [facility] regimen [facility] Weight Weight Problem Active Common gain gain Spirit [facility] Hyperglyce Elevated Problem Active Com mon jennifer blood Spirit sugar - [facility] Joint Joint Problem Active Common swelling swelling Spirit - [facility] [id number] BMI Problem Active Common 40.0-44.9, Spirit adult - [facility] [id number] Type 2 Problem Active Common diabetes [facility] mellitus - [facility] with [facility] long-term current use of insulin Allergies, Adverse Reactions, Alerts Allergy Allergy Status Severity Reaction(s) Onset Inactive Treating Comm ents Source Name Type Date Date Clinician No Known DA Active U 2021-10 [facility] Allergie 0-04 Clear s 00:00: [place] 00 [facility] NO KNOWN Drug Active Univers ALLERGIE Class ity of S [facility] Social History Social Habit Start Date Stop Date Quantity Comments Source History SDOH University o f [facility] SDOH University o f Alcohol Std Drinks [facility] History SDWV University o f Alcohol Binge [facility] Gender identity [facility] Sexual orientation [facility] History of Tobacco Current Smoker Co mmon Spirit - Use [facility] Alcohol intake 2023-03-19 2023-03-19 Ex-drinker University 00:00:00 00:00:00 (finding) [facility] Exposure to 2023-01-04 2023-01-14 Not sure University SARS-CoV-2 (event) 00:00:00 13:31:00 [facility] Cigarettes smoked 2022-05-10 2022-05-10 Univers ity of current (pack per 00:00:00 00:00:00 [facility]) - Reported Branch Cigarette 2022-05-10 2022-05-10 University of pack-years 00:00:00 00:00:00 [facility] Tobacco use and 2022-05-10 2022-05-10 Former smokeless Uni versity of exposure 00:00:00 00:00:00 tobacco user [facility] [place] [facility] Tobacco Comment 2022-05-10 2022-05-10 smokes on Universit y of 00:00:00 00:00:00 weekends [facility] History of Social 2022-02-28 2022-02-[address] function 00:00:00 00:00:00 Hospital Alcohol Comment 2021-12-01 2021-12-01 quit 10/2021 Universi ty of 00:00:00 00:00:00 [facility] Sex [birth year] [facility] 00:00:[facility] 00:[facility]:00 Hospital Smoking Status Start Date Stop Date Source Tobacco smoking [facility] consumption unknown Ex-smoker 2022-05-10 00:00:00 2022-05-10 University o f [place] 00:00:00 [facility] Current Smoker 2021-04-12 00:00:00 [facility] - [facility] Ce nter Medications Ordered Filled Start Stop Current Ordering Indication Dosage Frequency Signature Comments Components Source Medication Medication Date Date Medication? Clinician (SIG) Name Name TRIAMTERENE Yes [id number] TAKE 1/2 Univers -HYDROCHLOR 7-03 TABLET BY ity of OTHIAZID 00:00: MOUTH IN [place] 37.5-25 mg 00 THE Medical tablet MORNING Branch FLUTICASONE Yes [id number] SPRAY 1 Univers PROPIONATE 6-22 SPRAY INTO ity of 50 00:00: EACH [place] mcg/actuati 00 NOSTRIL Medic al on nasal EVERY DAY Branch spray FLUTICASONE Yes [id number] SPRAY 1 Univers PROPIONATE 6-22 SPRAY INTO ity of 50 00:00: EACH [place] mcg/actuati 00 NOSTRIL Medic al on nasal EVERY DAY Branch spray iopamidol 2022- No [id number] 100mL 100 mL, Univers (ISOVUE 03-26 Intravenou ity o f 370-500 mL) 16:00: 15:13 s, ONCE, 1 [place] injection 00 :00 dose, On Medica l 100 mL [facility] 03/26/23 at 1100, Routine GLIPIZIDE 5 Yes [id number] TAKE 1 Univers mg tablet 6-12 TABLET BY ity o f 00:00: MOUTH [place] 00 EVERY DAY Medical IN THE Branch MORNING GLIPIZIDE 5 Yes [id number] TAKE 1 Univers mg tablet 6-12 TABLET BY ity o f 00:00: MOUTH [place] 00 EVERY DAY Medical IN THE Branch MORNING GLIPIZIDE 5 Yes [id number] TAKE 1 Univers mg tablet 6-12 TABLET BY ity o f 00:00: MOUTH [place] 00 EVERY DAY Medical IN THE [place] MORNING GLIPIZIDE 5 Yes [id number] TAKE 1 Univers mg tablet 6-12 TABLET BY ity o f 00:00: MOUTH [place] 00 EVERY DAY Medical IN THE [place] MORNING GLIPIZIDE 5 2022-0 Yes [id number] TAKE 1 Univers mg tablet 6-12 TABLET BY ity o f 00:00: MOUTH [place] 00 EVERY DAY Medical IN THE [place] MORNING NaCl 0.9% 2022-0 2023- No 1000mL at 999 Uni vers (NS) bolus 6-06 06-06 mL/hr, ity of infusion 17:30: 17:59 1,000 mL, [place] as 1,000 mL 00 :00 IV Medical Infusion, [place] ONCE, 1 dose, On Sat03/19/23 at 1230, FELI cyclobenzap 0 Yes 1 TABLET Un daly rine 10 mg 4-11 NEEDED ity of tablet 00:00: FOR MUSCLE [place] 00 SPASMS Medical ORALLY AT Branch BEDTIME 30 DAYS cyclobenzap 0 Yes 1 TABLET Un daly rine 10 mg 4-11 NEEDED ity of tablet 00:00: FOR MUSCLE [place] 00 SPASMS Medical ORALLY AT Branch BEDTIME 30 DAYS cyclobenzap 2022-0 Yes 1 TABLET Un daly rine 10 mg 4-11 NEEDED ity of tablet 00:00: FOR MUSCLE [place] 00 SPASMS Medical ORALLY AT Branch BEDTIME 30 DAYS cyclobenzap 2022-0 Yes 1 TABLET Un daly rine 10 mg 4-11 NEEDED ity of tablet 00:00: FOR MUSCLE [place] 00 SPASMS Medical ORALLY AT Branch BEDTIME 30 DAYS cyclobenzap 2022-0 Yes 1 TABLET Un daly rine 10 mg 4-11 NEEDED ity of tablet 00:00: FOR MUSCLE [place] 00 SPASMS Medical ORALLY AT Branch BEDTIME 30 DAYS cyclobenzap 2022-0 Yes 1 TABLET Un daly rine 10 mg 4-11 NEEDED ity of tablet 00:00: FOR MUSCLE [place] 00 SPASMS Medical ORALLY AT Branch BEDTIME 30 DAYS cyclobenzap 2022-0 Yes 1 TABLET Un daly rine 10 mg 4-11 NEEDED ity of tablet 00:00: FOR MUSCLE [place] 00 SPASMS Medical ORALLY AT Branch BEDTIME 30 DAYS cyclobenzap 2022-0 Yes 1 TABLET Un daly rine 10 mg 4-11 NEEDED ity of tablet 00:00: FOR MUSCLE [place] 00 SPASMS Medical ORALLY AT Branch BEDTIME 30 DAYS cyclobenzap 3-0 Yes 1 TABLET Un daly rine 10 mg 4-11 NEEDED ity of tablet 00:00: FOR MUSCLE SPASMS Medical ORALLY AT Branch BEDTIME 30 DAYS cyclobenzap 3-0 Yes 1 TABLET Un daly rine 10 mg 4-11 NEEDED ity of tablet 00:00: FOR MUSCLE SPASMS Medical ORALLY AT Branch BEDTIME 30 DAYS cyclobenzap 3-0 Yes 1 TABLET Un daly rine 10 mg 4-11 NEEDED ity of tablet 00:00: FOR MUSCLE SPASMS Medical ORALLY AT Branch BEDTIME 30 DAYS cyclobenzap 3-0 Yes 1 TABLET Un daly rine 10 mg 4-11 NEEDED ity of tablet 00:00: FOR MUSCLE SPASMS Medical ORALLY AT Branch BEDTIME 30 DAYS cyclobenzap 3-0 Yes 1 TABLET Un daly rine 10 mg 4-11 NEEDED ity of tablet 00:00: FOR MUSCLE SPASMS Medical ORALLY AT Branch BEDTIME 30 DAYS METHOCARBAM 2023-0 Yes [id number] TAKE 1 Univers OL 750 mg 2-07 TABLET BY ity o f tablet 00:00: MOUTH [place] 00 EVERY 6 Medical HOURS Branch NEEDED FOR MUSCLE SPASM METHOCARBAM 2023-0 Yes [id number] TAKE 1 Univers OL 750 mg 2-07 TABLET BY ity o f tablet 00:00: MOUTH [place] 00 EVERY 6 Medical HOURS Branch NEEDED FOR MUSCLE SPASM METHOCARBAM 2023-0 Yes [id number] TAKE 1 Univers OL 750 mg 2-07 TABLET BY ity o f tablet 00:00: MOUTH [place] 00 EVERY 6 Medical HOURS Branch NEEDED FOR MUSCLE SPASM METHOCARBAM 2023-0 Yes [id number] TAKE 1 Univers OL 750 mg 2-07 TABLET BY ity o f tablet 00:00: MOUTH [place] 00 EVERY 6 Medical HOURS Branch NEEDED FOR MUSCLE SPASM METHOCARBAM 2023-0 Yes [id number] TAKE 1 Univers OL 750 mg 2-07 TABLET BY ity o f tablet 00:00: MOUTH [place] 00 EVERY 6 Medical HOURS Branch NEEDED FOR MUSCLE SPASM METHOCARBAM 2023-0 Yes [id number] TAKE 1 Univers OL 750 mg 2-07 TABLET BY ity o f tablet 00:00: MOUTH [place] 00 EVERY 6 Medical HOURS Branch NEEDED FOR MUSCLE SPASM METHOCARBAM 2023-0 Yes [id number] TAKE 1 Univers OL 750 mg 2-07 TABLET BY ity o f tablet 00:00: MOUTH [place] 00 EVERY 6 Medical HOURS Branch NEEDED FOR MUSCLE SPASM METHOCARBAM 2023-0 Yes [id number] TAKE 1 Univers OL 750 mg 2-07 TABLET BY ity o f tablet 00:00: MOUTH [place] 00 EVERY 6 Medical HOURS Branch NEEDED FOR MUSCLE SPASM METHOCARBAM 2023-0 Yes [id number] TAKE 1 Univers OL 750 mg 2-07 TABLET BY ity o f tablet 00:00: MOUTH [place] 00 EVERY 6 Medical HOURS Branch NEEDED FOR MUSCLE SPASM METHOCARBAM 2023-0 Yes [id number] TAKE 1 Univers OL 750 mg 2-07 TABLET BY ity o f tablet 00:00: MOUTH [place] 00 EVERY 6 Medical HOURS Branch NEEDED FOR MUSCLE SPASM METHOCARBAM 2023-0 Yes [id number] TAKE 1 Univers OL 750 mg 2-07 TABLET BY ity o f tablet 00:00: MOUTH [place] 00 EVERY 6 Medical HOURS Branch NEEDED FOR MUSCLE SPASM METHOCARBAM 2023-0 Yes [id number] TAKE 1 Univers OL 750 mg 2-07 TABLET BY ity o f tablet 00:00: MOUTH [place] 00 EVERY 6 Medical HOURS Branch NEEDED FOR MUSCLE SPASM METHOCARBAM 2023-0 Yes [id number] TAKE 1 Univers OL 750 mg 2-07 TABLET BY ity o f tablet 00:00: MOUTH [place] 00 EVERY 6 Medical HOURS Branch NEEDED FOR MUSCLE SPASM METHOCARBAM 2023-0 Yes [id number] TAKE 1 Univers OL 750 mg 2-07 TABLET BY ity o f tablet 00:00: MOUTH [place] 00 EVERY 6 Medical HOURS Branch NEEDED FOR MUSCLE SPASM METHOCARBAM 2023-0 Yes [id number] TAKE 1 Univers OL 750 mg 2-07 TABLET BY ity o f tablet 00:00: MOUTH [place] 00 EVERY 6 Medical HOURS Branch NEEDED FOR MUSCLE SPASM METHOCARBAM 2023-0 Yes [id number] TAKE 1 Univers OL 750 mg 2-07 TABLET BY ity o f tablet 00:00: MOUTH [place] 00 EVERY 6 Medical HOURS Branch NEEDED FOR MUSCLE SPASM METHOCARBAM 2023-0 Yes [id number] TAKE 1 Univers OL 750 mg 2-07 TABLET BY ity o f tablet 00:00: MOUTH [place] 00 EVERY 6 Medical HOURS Branch NEEDED FOR MUSCLE SPASM METHOCARBAM 2023-0 Yes [id number] TAKE 1 Univers OL 750 mg 2-07 TABLET BY ity o f tablet 00:00: MOUTH [place] 00 EVERY 6 Medical HOURS Branch NEEDED FOR MUSCLE SPASM METHOCARBAM 2023-0 Yes [id number] TAKE 1 Univers OL 750 mg 2-07 TABLET BY ity o f tablet 00:00: MOUTH [place] 00 EVERY 6 Medical HOURS Branch NEEDED FOR MUSCLE SPASM METHOCARBAM 2023-0 Yes [id number] TAKE 1 Univers OL 750 mg 2-07 TABLET BY ity o f tablet 00:00: MOUTH [place] 00 EVERY 6 Medical HOURS Branch NEEDED FOR MUSCLE SPASM METHOCARBAM 2023-0 Yes [id number] TAKE 1 Univers OL 750 mg 2-07 TABLET BY ity o f tablet 00:00: MOUTH [place] 00 EVERY 6 Medical HOURS Branch NEEDED FOR MUSCLE SPASM METHOCARBAM 2023-0 Yes [id number] TAKE 1 Univers OL 750 mg 2-07 TABLET BY ity o f tablet 00:00: MOUTH [place] 00 EVERY 6 Medical HOURS Branch NEEDED FOR MUSCLE SPASM METHOCARBAM 2023-0 Yes [id number] TAKE 1 Univers OL 750 mg 2-07 TABLET BY ity o f tablet 00:00: MOUTH [place] 00 EVERY 6 Medical HOURS Branch NEEDED FOR MUSCLE SPASM METHOCARBAM 2023-0 Yes [id number] TAKE 1 Univers OL 750 mg 2-07 TABLET BY ity o f tablet 00:00: MOUTH [place] 00 EVERY 6 Medical HOURS Branch NEEDED FOR MUSCLE SPASM METHOCARBAM 2023-0 Yes [id number] TAKE 1 Univers OL 750 mg 2-07 TABLET BY ity o f tablet 00:00: MOUTH [place] 00 EVERY 6 Medical HOURS Branch NEEDED FOR MUSCLE SPASM METHOCARBAM 2023-0 Yes [id number] TAKE 1 Univers OL 750 mg 2-07 TABLET BY ity o f tablet 00:00: MOUTH [place] 00 EVERY 6 Medical HOURS Branch NEEDED FOR MUSCLE SPASM METHOCARBAM 2023-0 Yes [id number] TAKE 1 Univers OL 750 mg 2-07 TABLET BY ity o f tablet 00:00: MOUTH [place] 00 EVERY 6 Medical HOURS Branch NEEDED FOR MUSCLE SPASM METHOCARBAM 2023-0 Yes [id number] TAKE 1 Univers OL 750 mg 2-07 TABLET BY ity o f tablet 00:00: MOUTH [place] 00 EVERY 6 Medical HOURS Branch NEEDED FOR MUSCLE SPASM METHOCARBAM 2023-0 Yes [id number] TAKE 1 Univers OL 750 mg 2-07 TABLET BY ity o f tablet 00:00: MOUTH [place] 00 EVERY 6 Medical HOURS Branch NEEDED FOR MUSCLE SPASM METHOCARBAM 2023-0 Yes [id number] TAKE 1 Univers OL 750 mg 2-07 TABLET BY ity o f tablet 00:00: MOUTH [place] 00 EVERY 6 Medical HOURS Branch NEEDED FOR MUSCLE SPASM METHOCARBAM 2023-0 Yes [id number] TAKE 1 Univers OL 750 mg 1-17 TABLET BY ity o f tablet 00:00: MOUTH [place] 00 EVERY 6 Medical HOURS Branch NEEDED FOR MUSCLE SPASM METHOCARBAM 2023-0 Yes [id number] TAKE 1 Univers OL 750 mg 1-17 TABLET BY ity o f tablet 00:00: MOUTH [place] 00 EVERY 6 Medical HOURS Branch NEEDED FOR MUSCLE SPASM METHOCARBAM 2023-0 Yes [id number] TAKE 1 Univers OL 750 mg 1-17 TABLET BY ity o f tablet 00:00: MOUTH [place] 00 EVERY 6 Medical HOURS Branch NEEDED FOR MUSCLE SPASM METHOCARBAM 2023-0 Yes [id number] TAKE 1 Univers OL 750 mg 1-17 TABLET BY ity o f tablet 00:00: MOUTH [place] 00 EVERY 6 Medical HOURS Branch NEEDED FOR MUSCLE SPASM METHOCARBAM 2023-0 Yes [id number] TAKE 1 Univers OL 750 mg 1-17 TABLET BY ity o f tablet 00:00: MOUTH [place] 00 EVERY 6 Medical HOURS Branch NEEDED FOR MUSCLE SPASM METHOCARBAM 2023-0 2023- No [id number] TAKE 1 Univers OL 750 mg 1-17 02-07 TABLET BY ity of tablet 00:00: 00:00 MOUTH [place] 00 :00 EVERY 6 Medical HOURS Branch NEEDED FOR MUSCLE SPASM metFORMIN 2021-10 Yes [id number] 1000mg Take 1 Univers 1,000 mg 2-08 tablet by ity of tablet 00:00: mouth in [place] 00 the Medical morning Branch and 1 tablet in the evening. Take with meals. glipiZIDE 5 2021-10 Yes [id number] 5mg Take 1 Univers mg tablet 2-08 tablet by ity o f 00:00: mouth in [place] 00 the Medical morning. Branch PEG 2021-10 Yes [id number] 1[drp] Place 1 U nivers 400-Hyprome 2-08 9109 Drop in ity o f llose-Glyce 00:00: each eye 2 [place] rin (DRY 00 (two) Medical EYE RELIEF) times Branch 1-0.2-0.2 % daily as Drop needed (Dry Eye). Lidocaine 5 2021-10 Yes [id number] APPLY 5 Univers % cream 2-08 GRAM TO ity of 00:00: AREA(S) 2 [place] 00 (TWO) Medical TIMES Branch DAILY NEEDED FOR PAIN (SCALE 4-6) NEEDED Diclofenac 2021-10 Yes [id number] Apply to Univers Sodium 2-08 area(s) 4 ity of (VOLTAREN) 00:00: (four) [place] 1 % gel 00 times Medical daily. Branch Apply 4 g qid ezetimibe 2021-10 Yes [id number] 10mg Take 1 U nivers 10 mg 2-08 tablet by ity of tablet 00:00: mouth in [place] 00 the Medical morning. Branch atorvastati 2021-10 Yes [id number] 20mg Take 1 Univers n 20 mg 2-08 tablet by ity of tablet 00:00: mouth at [place] 00 bedtime. Medical Branch allopurinoL 2021-10 Yes [id number] 100mg Take 1 [facility] 100 mg 2-08 tablet by [facility] tablet 00:00: mouth in [place] the Medical morning. Branch amLODIPine 2021-10 Yes [id number] 5mg Take 1 [facility] 5 mg tablet 2-08 tablet by [facility] of 00:00: mouth in [place] 00 the Medical morning. Branch atenoloL 2021-10 Yes [id number] 100mg Take 1 [facility] 100 mg 2-08 tablet by [facility] tablet 00:00: mouth in [place] 00 the Medical morning. Branch triamterene 2021-10 Yes [id number] .5{tbl} Take 0.5 [facility] -hydrochlor 2-08 tablets by it y of othiazid 00:00: mouth in [place] 37.5-25 mg 00 the Medical tablet morning. Branch metFORMIN 2021-10 Yes [id number] 1000mg Take 1 [facility] 1,000 mg 2-08 tablet by [facility] of tablet 00:00: mouth in [place] 00 the Medical morning Branch and 1 tablet in the evening. Take with meals. glipiZIDE 5 2021-10 Yes [id number] 5mg Take 1 [facility] mg tablet 2-08 tablet by it[facility] o f 00:00: mouth in [place] 00 the Medical morning. Branch PEG 2021-10 Yes [id number] 1[drp] Place 1 [facility] n[facility] 400-Hyprome 2-08 9109 Drop in ity o f llose-Glyce 00:00: each eye 2 [place] rin (DRY 00 (two) Medical EYE RELIEF) times Branch 1-0.2-0.2 % daily as Drop needed (Dry Eye). Lidocaine 5 2021-10 Yes [id number] APPLY 5 [facility] % cream 2-08 GRAM TO ity of 00:00: AREA(S) 2 [place] 00 (TWO) Medical TIMES Branch DAILY NEEDED FOR PAIN (SCALE 4-6) NEEDED Diclofenac 2021-10 Yes [id number] Apply to [facility] Sodium 2-08 area(s) 4 ity of (VOLTAREN) 00:00: (four) [place] 1 % gel 00 times Medical daily. Branch Apply 4 g qid ezetimibe 2021-10 Yes [id number] 10mg Take 1 [facility] 10 mg 2-08 tablet by [facility] of tablet 00:00: mouth in [place] 00 the Medical morning. Branch atorvastati 2021-10 Yes [id number] 20mg Take 1 [facility] n 20 mg 2-08 tablet by [facility] of tablet 00:00: mouth at [place] 00 bedtime. Medical Branch allopurinoL 2021-10 Yes [id number] 100mg Take 1 [facility] 100 mg 2-08 tablet by [facility] of tablet 00:00: mouth in [place] 00 the Medical morning. Branch amLODIPine 2021-10 Yes [id number] 5mg Take 1 [facility] 5 mg tablet 2-08 tablet by [facility] of 00:00: mouth in [place] 00 the Medical morning. Branch atenoloL 2021-10 Yes [id number] 100mg Take 1 [facility] 100 mg 2-08 tablet by [facility] of tablet 00:00: mouth in [place] 00 the Medical morning. Branch triamterene 2021-10 Yes [id number] .5{tbl} Take 0.5 [facility] -hydrochlor 2-08 tablets by it y of othiazid 00:00: mouth in [place] 37.5-25 mg 00 the Medical tablet morning. Branch metFORMIN 2021-10 Yes [id number] 1000mg Take 1 [facility] 1,000 mg 2-08 tablet by [facility] of tablet 00:00: mouth in [place] 00 the Medical morning Branch and 1 tablet in the evening. Take with meals. glipiZIDE 5 2021-10 Yes [id number] 5mg Take 1 [facility] mg tablet 2-08 tablet by it[facility] o f 00:00: mouth in [place] 00 the Medical morning. Branch PEG 2021-10 Yes [id number] 1[drp] Place 1 [facility] n[facility] 400-Hyprome 2-08 9109 Drop in ity o f llose-Glyce 00:00: each eye 2 [place] rin (DRY 00 (two) Medical EYE RELIEF) times Branch 1-0.2-0.2 % daily as Drop needed (Dry Eye). Lidocaine 5 2021-10 Yes [id number] APPLY 5 [facility] % cream 2-08 GRAM TO ity of 00:00: AREA(S) 2 [place] 00 (TWO) Medical TIMES Branch DAILY NEEDED FOR PAIN (SCALE 4-6) NEEDED Diclofenac 2021-10 Yes [id number] Apply to [facility] Sodium 2-08 area(s) 4 ity of (VOLTAREN) 00:00: (four) [place] 1 % gel 00 times Medical daily. Branch Apply 4 g qid ezetimibe 2021-10 Yes [id number] 10mg Take 1 [facility] 10 mg 2-08 tablet by [facility] of tablet 00:00: mouth in [place] 00 the Medical morning. Branch atorvastati 2021-10 Yes [id number] 20mg Take 1 [facility] n 20 mg 2-08 tablet by [facility] of tablet 00:00: mouth at [place] 00 bedtime. Medical Branch allopurinoL 2021-10 Yes [id number] 100mg Take 1 [facility] 100 mg 2-08 tablet by [facility] of tablet 00:00: mouth in [place] 00 the Medical morning. Branch amLODIPine 2021-10 Yes [id number] 5mg Take 1 [facility] 5 mg tablet 2-08 tablet by [facility] of 00:00: mouth in [place] 00 the Medical morning. Branch atenoloL 2021-10 Yes [id number] 100mg Take 1 [facility] 100 mg 2-08 tablet by [facility] of tablet 00:00: mouth in [place] 00 the Medical morning. Branch triamterene 2021-10 Yes [id number] .5{tbl} Take 0.5 [facility] -hydrochlor 2-08 tablets by it y of othiazid 00:00: mouth in [place] 37.5-25 mg 00 the Medical tablet morning. Branch metFORMIN 2021-10 Yes [id number] 1000mg Take 1 [facility] 1,000 mg 2-08 tablet by [facility] of tablet 00:00: mouth in [place] 00 the Medical morning Branch and 1 tablet in the evening. Take with meals. glipiZIDE 5 2021-10 Yes [id number] 5mg Take 1 [facility] mg tablet 2-08 tablet by ity o f 00:00: mouth in [place] 00 the Medical morning. Branch PEG 2021-10 Yes [id number] 1[drp] Place 1 [facility] n[facility] 400-Hyprome 2-08 9109 Drop in ity o f llose-Glyce 00:00: each eye 2 [place] rin (DRY 00 (two) Medical EYE RELIEF) times Branch 1-0.2-0.2 % daily as Drop needed (Dry Eye). Lidocaine 5 2021-10 Yes [id number] APPLY 5 [facility] % cream 2-08 GRAM TO ity of 00:00: AREA(S) 2 [place] 00 (TWO) Medical TIMES Branch DAILY NEEDED FOR PAIN (SCALE 4-6) NEEDED Diclofenac 2021-10 Yes [id number] Apply to [facility] Sodium 2-08 area(s) 4 ity of (VOLTAREN) 00:00: (four) [place] 1 % gel 00 times Medical daily. Branch Apply 4 g qid ezetimibe 2021-10 Yes [id number] 10mg Take 1 [facility] 10 mg 2-08 tablet by [facility] of tablet 00:00: mouth in [place] 00 the Medical morning. Branch atorvastati 2021-10 Yes [id number] 20mg Take 1 [facility] n 20 mg 2-08 tablet by [facility] of tablet 00:00: mouth at [place] 00 bedtime. Medical Branch allopurinoL 2021-10 Yes [id number] 100mg Take 1 [facility] 100 mg 2-08 tablet by [facility] of tablet 00:00: mouth in [place] 00 the Medical morning. Branch amLODIPine 2021-10 Yes [id number] 5mg Take 1 [facility] 5 mg tablet 2-08 tablet by [facility] of 00:00: mouth in [place] 00 the Medical morning. Branch atenoloL 2021-10 Yes [id number] 100mg Take 1 [facility] 100 mg 2-08 tablet by [facility] of tablet 00:00: mouth in [place] 00 the Medical morning. Branch triamterene 2021-10 Yes [id number] .5{tbl} Take 0.5 [facility] -hydrochlor 2-08 tablets by it y of othiazid 00:00: mouth in [place] 37.5-25 mg 00 the Medical tablet morning. Branch metFORMIN 2021-10 Yes [id number] 1000mg Take 1 [facility] 1,000 mg 2-08 tablet by [facility] of tablet 00:00: mouth in [place] 00 the Medical morning Branch and 1 tablet in the evening. Take with meals. glipiZIDE 5 2021-10 Yes [id number] 5mg Take 1 [facility] mg tablet 2-08 tablet by ity o f 00:00: mouth in [place] 00 the Medical morning. Branch PEG 2021-10 Yes [id number] 1[drp] Place 1 [facility] n[facility] 400-Hyprome 2-08 9109 Drop in ity o f llose-Glyce 00:00: each eye 2 [place] rin (DRY 00 (two) Medical EYE RELIEF) times Branch 1-0.2-0.2 % daily as Drop needed (Dry Eye). Lidocaine 5 2021-10 Yes [id number] APPLY 5 [facility] % cream 2-08 GRAM TO ity of 00:00: AREA(S) 2 [place] 00 (TWO) Medical TIMES Branch DAILY NEEDED FOR PAIN (SCALE 4-6) NEEDED Diclofenac 2021-10 Yes [id number] Apply to [facility] Sodium 2-08 area(s) 4 ity of (VOLTAREN) 00:00: (four) [place] 1 % gel 00 times Medical daily. Branch Apply 4 g qid ezetimibe 2021-10 Yes [id number] 10mg Take 1 [facility] 10 mg 2-08 tablet by [facility] of tablet 00:00: mouth in [place] 00 the Medical morning. Branch atorvastati 2021-10 Yes [id number] 20mg Take 1 [facility] n 20 mg 2-08 tablet by [facility] of tablet 00:00: mouth at [place] 00 bedtime. Medical Branch allopurinoL 2021-10 Yes [id number] 100mg Take 1 [facility] 100 mg 2-08 tablet by [facility] of tablet 00:00: mouth in [place] 00 the Medical morning. Branch amLODIPine 2021-10 Yes [id number] 5mg Take 1 [facility] 5 mg tablet 2-08 tablet by [facility] of 00:00: mouth in [place] 00 the Medical morning. Branch atenoloL 2021-10 Yes [id number] 100mg Take 1 [facility] 100 mg 2-08 tablet by [facility] of tablet 00:00: mouth in [place] 00 the Medical morning. Branch triamterene 2021-10 Yes [id number] .5{tbl} Take 0.5 [facility] -hydrochlor 2-08 tablets by it y of othiazid 00:00: mouth in [place] 37.5-25 mg 00 the Medical tablet morning. Branch metFORMIN 2021-10 Yes [id number] 1000mg Take 1 [facility] 1,000 mg 2-08 tablet by [facility] of tablet 00:00: mouth in [place] 00 the Medical morning Branch and 1 tablet in the evening. Take with meals. glipiZIDE 5 2021-10 Yes [id number] 5mg Take 1 [facility] mg tablet 2-08 tablet by ity o f 00:00: mouth in [place] 00 the Medical morning. Branch PEG 2021-10 Yes [id number] 1[drp] Place 1 [facility] n[facility] 400-Hyprome 2-08 9109 Drop in ity o f llose-Glyce 00:00: each eye 2 [place] rin (DRY 00 (two) Medical EYE RELIEF) times Branch 1-0.2-0.2 % daily as Drop needed (Dry Eye). Lidocaine 5 2021-10 Yes [id number] APPLY 5 [facility] % cream 2-08 GRAM TO ity of 00:00: AREA(S) 2 [place] 00 (TWO) Medical TIMES Branch DAILY NEEDED FOR PAIN (SCALE 4-6) NEEDED Diclofenac 2021-10 Yes [id number] Apply to [facility] Sodium 2-08 area(s) 4 ity of (VOLTAREN) 00:00: (four) [place] 1 % gel 00 times Medical daily. Branch Apply 4 g qid ezetimibe 2021-10 Yes [id number] 10mg Take 1 [facility] 10 mg 2-08 tablet by [facility] of tablet 00:00: mouth in [place] 00 the Medical morning. Branch atorvastati 2021-10 Yes [id number] 20mg Take 1 [facility] n 20 mg 2-08 tablet by it[facility] of tablet 00:00: mouth at [place] 00 bedtime. Medical Branch allopurinoL 2021-10 Yes [id number] 100mg Take 1 [facility] 100 mg 2-08 tablet by it[facility] of tablet 00:00: mouth in [place] 00 the Medical morning. Branch amLODIPine 2021-10 Yes [id number] 5mg Take 1 [facility] 5 mg tablet 2-08 tablet by [facility] of 00:00: mouth in [place] the Medical morning. Branch atenoloL 2021-10 Yes [id number] 100mg Take 1 [facility] 100 mg 2-08 tablet by [facility] of tablet 00:00: mouth in [place] 00 the Medical morning. Branch triamterene 2021-10 Yes [id number] .5{tbl} Take 0.5 [facility] -hydrochlor 2-08 tablets by it y of othiazid 00:00: mouth in [place] 37.5-25 mg 00 the Medical tablet morning. Branch metFORMIN 2021-10 Yes [id number] 1000mg Take 1 [facility] 1,000 mg 2-08 tablet by it[facility] of tablet 00:00: mouth in [place] 00 the Medical morning Branch and 1 tablet in the evening. Take with meals. glipiZIDE 5 2021-10 Yes [id number] 5mg Take 1 [facility] mg tablet 2-08 tablet by ity o f 00:00: mouth in [place] the Medical morning. Branch PEG 2021-10 Yes [id number] 1[drp] Place 1 [facility] n[facility] 400-Hyprome 2-08 9109 Drop in ity o f llose-Glyce 00:00: each eye 2 [place] rin (DRY 00 (two) Medical EYE RELIEF) times Branch 1-0.2-0.2 % daily as Drop needed (Dry Eye). Lidocaine 5 2021-10 Yes [id number] APPLY 5 [facility] % cream 2-08 GRAM TO ity of 00:00: AREA(S) 2 [place] 00 (TWO) Medical TIMES Branch DAILY NEEDED FOR PAIN (SCALE 4-6) NEEDED Diclofenac 2021-10 Yes [id number] Apply to [facility] Sodium 2-08 area(s) 4 ity of (VOLTAREN) 00:00: (four) [place] 1 % gel 00 times Medical daily. Branch Apply 4 g qid ezetimibe 2021-10 Yes [id number] 10mg Take 1 [facility] 10 mg 2-08 tablet by [facility] of tablet 00:00: mouth in [place] 00 the Medical morning. Branch atorvastati 2021-10 Yes [id number] 20mg Take 1 [facility] n 20 mg 2-08 tablet by it[facility] of tablet 00:00: mouth at [place] 00 bedtime. Medical Branch allopurinoL 2021-10 Yes [id number] 100mg Take 1 [facility] 100 mg 2-08 tablet by it[facility] of tablet 00:00: mouth in [place] 00 the Medical morning. Branch amLODIPine 2021-10 Yes [id number] 5mg Take 1 [facility] 5 mg tablet 2-08 tablet by [facility] of 00:00: mouth in [place] 00 the Medical morning. Branch atenoloL 2021-10 Yes [id number] 100mg Take 1 [facility] 100 mg 2-08 tablet by [facility] of tablet 00:00: mouth in [place] 00 the Medical morning. Branch triamterene 2021-10 Yes [id number] .5{tbl} Take 0.5 [facility] -hydrochlor 2-08 tablets by it y of othiazid 00:00: mouth in [place] 37.5-25 mg 00 the Medical tablet morning. Branch metFORMIN 2021-10 Yes [id number] 1000mg Take 1 [facility] 1,000 mg 2-08 tablet by [facility] of tablet 00:00: mouth in [place] 00 the Medical morning Branch and 1 tablet in the evening. Take with meals. glipiZIDE 5 2021-10 Yes [id number] 5mg Take 1 [facility] mg tablet 2-08 tablet by ity o f 00:00: mouth in [place] 00 the Medical morning. Branch PEG 2021-10 Yes [id number] 1[drp] Place 1 [facility] n[facility] 400-Hyprome 2-08 9109 Drop in ity o f llose-Glyce 00:00: each eye 2 [place] rin (DRY 00 (two) Medical EYE RELIEF) times Branch 1-0.2-0.2 % daily as Drop needed (Dry Eye). Lidocaine 5 2021-10 Yes [id number] APPLY 5 [facility] % cream 2-08 GRAM TO ity of 00:00: AREA(S) 2 [place] 00 (TWO) Medical TIMES Branch DAILY NEEDED FOR PAIN (SCALE 4-6) NEEDED Diclofenac 2021-10 Yes [id number] Apply to [facility] Sodium 2-08 area(s) 4 ity of (VOLTAREN) 00:00: (four) [place] 1 % gel 00 times Medical daily. Branch Apply 4 g qid ezetimibe 2021-10 Yes [id number] 10mg Take 1 [facility] 10 mg 2-08 tablet by it[facility] of tablet 00:00: mouth in [place] 00 the Medical morning. Branch atorvastati 2021-10 Yes [id number] 20mg Take 1 [facility] n 20 mg 2-08 tablet by [facility] of tablet 00:00: mouth at [place] 00 bedtime. Medical Branch allopurinoL 2021-10 Yes [id number] 100mg Take 1 [facility] 100 mg 2-08 tablet by [facility] of tablet 00:00: mouth in [place] 00 the Medical morning. Branch amLODIPine 2021-10 Yes [id number] 5mg Take 1 [facility] 5 mg tablet 2-08 tablet by [facility] of 00:00: mouth in [place] 00 the Medical morning. Branch atenoloL 2021-10 Yes [id number] 100mg Take 1 [facility] 100 mg 2-08 tablet by [facility] of tablet 00:00: mouth in [place] 00 the Medical morning. Branch triamterene 2021-10 Yes [id number] .5{tbl} Take 0.5 [facility] -hydrochlor 2-08 tablets by it y of othiazid 00:00: mouth in [place] 37.5-25 mg 00 the Medical tablet morning. Branch metFORMIN 2021-10 Yes [id number] 1000mg Take 1 [facility] 1,000 mg 2-08 tablet by ity of tablet 00:00: mouth in [place] 00 the Medical morning Branch and 1 tablet in the evening. Take with meals. glipiZIDE 5 2021-10 Yes [id number] 5mg Take 1 [facility] mg tablet 2-08 tablet by ity o f 00:00: mouth in [place] 00 the Medical morning. Branch PEG 2021-10 Yes [id number] 1[drp] Place 1 [facility] n[facility] 400-Hyprome 2-08 9109 Drop in ity o f llose-Glyce 00:00: each eye 2 [place] rin (DRY 00 (two) Medical EYE RELIEF) times Branch 1-0.2-0.2 % daily as Drop needed (Dry Eye). Lidocaine 5 2021-10 Yes [id number] APPLY 5 [facility] % cream 2-08 GRAM TO ity of 00:00: AREA(S) 2 [place] 00 (TWO) Medical TIMES Branch DAILY NEEDED FOR PAIN (SCALE 4-6) NEEDED Diclofenac 2021-10 Yes [id number] Apply to [facility] Sodium 2-08 area(s) 4 ity of (VOLTAREN) 00:00: (four) [place] 1 % gel 00 times Medical daily. Branch Apply 4 g qid ezetimibe 2021-10 Yes [id number] 10mg Take 1 [facility] 10 mg 2-08 tablet by ity of tablet 00:00: mouth in [place] 00 the Medical morning. Branch atorvastati 2021-10 Yes [id number] 20mg Take 1 [facility] n 20 mg 2-08 tablet by ity of tablet 00:00: mouth at [place] 00 bedtime. Medical Branch allopurinoL 2021-10 Yes [id number] 100mg Take 1 [facility] 100 mg 2-08 tablet by ity of tablet 00:00: mouth in [place] 00 the Medical morning. Branch amLODIPine 2021-10 Yes [id number] 5mg Take 1 [facility] 5 mg tablet 2-08 tablet by ity of 00:00: mouth in [place] 00 the Medical morning. Branch atenoloL 2021-10 Yes [id number] 100mg Take 1 [facility] 100 mg 2-08 tablet by [facility] of tablet 00:00: mouth in [place] 00 the Medical morning. Branch triamterene 2021-10 Yes [id number] .5{tbl} Take 0.5 [facility] -hydrochlor 2-08 tablets by it y of othiazid 00:00: mouth in [place] 37.5-25 mg 00 the Medical tablet morning. Branch metFORMIN 2021-10 Yes [id number] 1000mg Take 1 [facility] 1,000 mg 2-08 tablet by ity of tablet 00:00: mouth in [place] 00 the Medical morning Branch and 1 tablet in the evening. Take with meals. glipiZIDE 5 2021-10 Yes [id number] 5mg Take 1 [facility] mg tablet 2-08 tablet by ity o f 00:00: mouth in [place] 00 the Medical morning. Branch PEG 2021-10 Yes [id number] 1[drp] Place 1 [facility] n[facility] 400-Hyprome 2-08 9109 Drop in ity o f llose-Glyce 00:00: each eye 2 [place] rin (DRY 00 (two) Medical EYE RELIEF) times Branch 1-0.2-0.2 % daily as Drop needed (Dry Eye). Lidocaine 5 2021-10 Yes [id number] APPLY 5 [facility] % cream 2-08 GRAM TO ity of 00:00: AREA(S) 2 [place] 00 (TWO) Medical TIMES Branch DAILY NEEDED FOR PAIN (SCALE 4-6) NEEDED Diclofenac 2021-10 Yes [id number] Apply to [facility] Sodium 2-08 area(s) 4 ity of (VOLTAREN) 00:00: (four) [place] 1 % gel 00 times Medical daily. Branch Apply 4 g qid ezetimibe 2021-10 Yes [id number] 10mg Take 1 [facility] 10 mg 2-08 tablet by it[facility] of tablet 00:00: mouth in [place] 00 the Medical morning. Branch atorvastati 2021-10 Yes [id number] 20mg Take 1 [facility] n 20 mg 2-08 tablet by it[facility] of tablet 00:00: mouth at [place] [address] bedtime. Medical Branch allopurinoL 2021-10 Yes [id number] 100mg Take 1 [facility] 100 mg 2-08 tablet by it[facility] of tablet 00:00: mouth in [place] the Medical morning. Branch amLODIPine 2021-10 Yes [id number] 5mg Take 1 [facility] 5 mg tablet 2-08 tablet by ity of 00:00: mouth in [place] 00 the Medical morning. Branch atenoloL 2021-10 Yes [id number] 100mg Take 1 [facility] 100 mg 2-08 tablet by [facility] of tablet 00:00: mouth in [place] the Medical morning. Branch triamterene 2021-10 Yes [id number] .5{tbl} Take 0.5 [facility] -hydrochlor 2-08 tablets by it y of othiazid 00:00: mouth in [place] 37.5-25 mg 00 the Medical tablet morning. Branch metFORMIN 2021-10 Yes [id number] 1000mg Take 1 [facility] 1,000 mg 2-08 tablet by ity of tablet 00:00: mouth in [place] 00 the Medical morning Branch and 1 tablet in the evening. Take with meals. glipiZIDE 5 2021-10 Yes [id number] 5mg Take 1 [facility] mg tablet 2-08 tablet by ity o f 00:00: mouth in [place] 00 the Medical morning. Branch PEG 2021-10 Yes [id number] 1[drp] Place 1 U n[facility] 400-Hyprome 2-08 9109 Drop in ity o f llose-Glyce 00:00: each eye 2 [place] rin (DRY 00 (two) Medical EYE RELIEF) times Branch 1-0.2-0.2 % daily as Drop needed (Dry Eye). Lidocaine 5 2021-10 Yes [id number] APPLY 5 [facility] % cream 2-08 GRAM TO ity of 00:00: AREA(S) 2 [place] 00 (TWO) Medical TIMES Branch DAILY NEEDED FOR PAIN (SCALE 4-6) NEEDED Diclofenac 2021-10 Yes [id number] Apply to [facility] Sodium 2-08 area(s) 4 ity of (VOLTAREN) 00:00: (four) [place] 1 % gel 00 times Medical daily. Branch Apply 4 g qid ezetimibe 2021-10 Yes [id number] 10mg Take 1 [facility] 10 mg 2-08 tablet by [facility]y of tablet 00:00: mouth in [place] 00 the Medical morning. Branch atorvastati 2021-10 Yes [id number] 20mg Take 1 [facility] n 20 mg 2-08 tablet by it[facility] of tablet 00:00: mouth at [place] 00 bedtime. Medical Branch allopurinoL 2021-10 Yes [id number] 100mg Take 1 [facility] 100 mg 2-08 tablet by ity of tablet 00:00: mouth in [place] 00 the Medical morning. Branch amLODIPine 2021-10 Yes [id number] 5mg Take 1 [facility] 5 mg tablet 2-08 tablet by [facility]y of 00:00: mouth in [place] 00 the Medical morning. Branch atenoloL 2021-10 Yes [id number] 100mg Take 1 [facility] 100 mg 2-08 tablet by [facility] of tablet 00:00: mouth in [place] 00 the Medical morning. Branch triamterene 2021-10 Yes [id number] .5{tbl} Take 0.5 [facility] -hydrochlor 2-08 tablets by it y of othiazid 00:00: mouth in [place] 37.5-25 mg 00 the Medical tablet morning. Branch metFORMIN 2021-10 Yes [id number] 1000mg Take 1 [facility] 1,000 mg 2-08 tablet by ity of tablet 00:00: mouth in [place] 00 the Medical morning Branch and 1 tablet in the evening. Take with meals. glipiZIDE 5 2021-10 Yes [id number] 5mg Take 1 [facility] mg tablet 2-08 tablet by ity o f 00:00: mouth in [place] 00 the Medical morning. Branch PEG 2021-10 Yes [id number] 1[drp] Place 1 U nivers 400-Hyprome 2-08 9109 Drop in ity o f llose-Glyce 00:00: each eye 2 [place] rin (DRY 00 (two) Medical EYE RELIEF) times Branch 1-0.2-0.2 % daily as Drop needed (Dry Eye). Lidocaine 5 2021-10 Yes [id number] APPLY 5 [facility] % cream 2-08 GRAM TO ity of 00:00: AREA(S) 2 [place] 00 (TWO) Medical TIMES Branch DAILY NEEDED FOR PAIN (SCALE 4-6) NEEDED Diclofenac 2021-10 Yes [id number] Apply to [facility] Sodium 2-08 area(s) 4 ity of (VOLTAREN) 00:00: (four) [place] 1 % gel 00 times Medical daily. Branch Apply 4 g qid ezetimibe 2021-10 Yes [id number] 10mg Take 1 [facility] 10 mg 2-08 tablet by ity of tablet 00:00: mouth in [place] 00 the Medical morning. Branch atorvastati 2021-10 Yes [id number] 20mg Take 1 [facility] n 20 mg 2-08 tablet by ity of tablet 00:00: mouth at [place] 00 bedtime. Medical Branch allopurinoL 2021-10 Yes [id number] 100mg Take 1 [facility] 100 mg 2-08 tablet by ity of tablet 00:00: mouth in [place] 00 the Medical morning. Branch amLODIPine 2021-10 Yes [id number] 5mg Take 1 [facility] 5 mg tablet 2-08 tablet by ity of 00:00: mouth in [place] 00 the Medical morning. Branch atenoloL 2021-10 Yes [id number] 100mg Take 1 [facility] 100 mg 2-08 tablet by [facility]y of tablet 00:00: mouth in [place] 00 the Medical morning. Branch triamterene 2021-10 Yes [id number] .5{tbl} Take 0.5 [facility] -hydrochlor 2-08 tablets by it y of othiazid 00:00: mouth in [place] 37.5-25 mg 00 the Medical tablet morning. Branch metFORMIN 2021-10 Yes [id number] 1000mg Take 1 [facility] 1,000 mg 2-08 tablet by ity of tablet 00:00: mouth in [place] 00 the Medical morning Branch and 1 tablet in the evening. Take with meals. glipiZIDE 5 2021-10 Yes [id number] 5mg Take 1 [facility] mg tablet 2-08 tablet by ity o f 00:00: mouth in [place] 00 the Medical morning. Branch PEG 2021-10 Yes [id number] 1[drp] Place 1 U nivers 400-Hyprome 2-08 9109 Drop in ity o f llose-Glyce 00:00: each eye 2 [place] rin (DRY 00 (two) Medical EYE RELIEF) times Branch 1-0.2-0.2 % daily as Drop needed (Dry Eye). Lidocaine 5 2021-10 Yes [id number] APPLY 5 [facility] % cream 2-08 GRAM TO ity of 00:00: AREA(S) 2 [place] 00 (TWO) Medical TIMES Branch DAILY NEEDED FOR PAIN (SCALE 4-6) NEEDED Diclofenac 2021-10 Yes [id number] Apply to [facility] Sodium 2-08 area(s) 4 ity of (VOLTAREN) 00:00: (four) [place] 1 % gel 00 times Medical daily. Branch Apply 4 g qid ezetimibe 2021-10 Yes [id number] 10mg Take 1 [facility] n[facility] 10 mg 2-08 tablet by ity of tablet 00:00: mouth in [place] 00 the Medical morning. Branch atorvastati 2021-10 Yes [id number] 20mg Take 1 [facility] n 20 mg 2-08 tablet by ity of tablet 00:00: mouth at [place] 00 bedtime. Medical Branch allopurinoL 2021-10 Yes [id number] 100mg Take 1 [facility] 100 mg 2-08 tablet by ity of tablet 00:00: mouth in [place] 00 the Medical morning. Branch amLODIPine 2021-10 Yes [id number] 5mg Take 1 [facility] n[facility] 5 mg tablet 2-08 tablet by [facility]y of 00:00: mouth in [place] 00 the Medical morning. Branch atenoloL 2021-10 Yes [id number] 100mg Take 1 [facility] 100 mg 2-08 tablet by ity of tablet 00:00: mouth in [place] 00 the Medical morning. Branch triamterene 2021-10 Yes [id number] .5{tbl} Take 0.5 [facility] -hydrochlor 2-08 tablets by it y of othiazid 00:00: mouth in [place] 37.5-25 mg 00 the Medical tablet morning. Branch metFORMIN 2021-10 Yes [id number] 1000mg Take 1 [facility] 1,000 mg 2-08 tablet by ity of tablet 00:00: mouth in [place] 00 the Medical morning Branch and 1 tablet in the evening. Take with meals. glipiZIDE 5 2021-10 Yes [id number] 5mg Take 1 [facility] mg tablet 2-08 tablet by ity o f 00:00: mouth in [place] 00 the Medical morning. Branch PEG 2021-10 Yes [id number] 1[drp] Place 1 U nivers 400-Hyprome 2-08 9109 Drop in ity o f llose-Glyce 00:00: each eye 2 [place] rin (DRY 00 (two) Medical EYE RELIEF) times Branch 1-0.2-0.2 % daily as Drop needed (Dry Eye). Lidocaine 5 2021-10 Yes [id number] APPLY 5 [facility] % cream 2-08 GRAM TO ity of 00:00: AREA(S) 2 [place] 00 (TWO) Medical TIMES Branch DAILY NEEDED FOR PAIN (SCALE 4-6) NEEDED Diclofenac 2021-10 Yes [id number] Apply to [facility] Sodium 2-08 area(s) 4 ity of (VOLTAREN) 00:00: (four) [place] 1 % gel 00 times Medical daily. Branch Apply 4 g qid ezetimibe 2021-10 Yes [id number] 10mg Take 1 [facility] 10 mg 2-08 tablet by [facility] of tablet 00:00: mouth in [place] 00 the Medical morning. Branch atorvastati 2021-10 Yes [id number] 20mg Take 1 [facility] n 20 mg 2-08 tablet by [facility]y of tablet 00:00: mouth at [place] [address] bedtime. Medical Branch allopurinoL 2021-10 Yes [id number] 100mg Take 1 [facility] 100 mg 2-08 tablet by [facility]y of tablet 00:00: mouth in [place] 00 the Medical morning. Branch amLODIPine 2021-10 Yes [id number] 5mg Take 1 [facility] 5 mg tablet 2-08 tablet by [facility] of 00:00: mouth in [place] 00 the Medical morning. Branch atenoloL 2021-10 Yes [id number] 100mg Take 1 [facility] 100 mg 2-08 tablet by [facility] of tablet 00:00: mouth in [place] 00 the Medical morning. Branch triamterene 2021-10 Yes [id number] .5{tbl} Take 0.5 [facility] -hydrochlor 2-08 tablets by it y of othiazid 00:00: mouth in [place] 37.5-25 mg 00 the Medical tablet morning. Branch metFORMIN 2021-10 Yes [id number] 1000mg Take 1 [facility] 1,000 mg 2-08 tablet by ity of tablet 00:00: mouth in [place] 00 the Medical morning Branch and 1 tablet in the evening. Take with meals. glipiZIDE 5 2021-10 Yes [id number] 5mg Take 1 [facility] mg tablet 2-08 tablet by ity o f 00:00: mouth in [place] 00 the Medical morning. Branch PEG 2021-10 Yes [id number] 1[drp] Place 1 [facility] nivers 400-Hyprome 2-08 9109 Drop in ity o f llose-Glyce 00:00: each eye 2 [place] rin (DRY 00 (two) Medical EYE RELIEF) times Branch 1-0.2-0.2 % daily as Drop needed (Dry Eye). Lidocaine 5 2021-10 Yes [id number] APPLY 5 [facility] % cream 2-08 GRAM TO ity of 00:00: AREA(S) 2 [place] 00 (TWO) Medical TIMES Branch DAILY NEEDED FOR PAIN (SCALE 4-6) NEEDED Diclofenac 2021-10 Yes [id number] Apply to [facility] Sodium 2-08 area(s) 4 ity of (VOLTAREN) 00:00: (four) [place] 1 % gel 00 times Medical daily. Branch Apply 4 g qid ezetimibe 2021-10 Yes [id number] 10mg Take 1 [facility] 10 mg 2-08 tablet by [facility] of tablet 00:00: mouth in [place] 00 the Medical morning. Branch atorvastati 2021-10 Yes [id number] 20mg Take 1 [facility] n 20 mg 2-08 tablet by [facility] of tablet 00:00: mouth at [place] 00 bedtime. Medical Branch allopurinoL 2021-10 Yes [id number] 100mg Take 1 [facility] 100 mg 2-08 tablet by [facility] of tablet 00:00: mouth in [place] 00 the Medical morning. Branch amLODIPine 2021-10 Yes [id number] 5mg Take 1 [facility] 5 mg tablet 2-08 tablet by [facility] of 00:00: mouth in [place] 00 the Medical morning. Branch atenoloL 2021-10 Yes [id number] 100mg Take 1 [facility] 100 mg 2-08 tablet by [facility] of tablet 00:00: mouth in [place] 00 the Medical morning. Branch triamterene 2021-10 Yes [id number] .5{tbl} Take 0.5 [facility] -hydrochlor 2-08 tablets by it y of othiazid 00:00: mouth in [place] 37.5-25 mg 00 the Medical tablet morning. Branch metFORMIN 2021-10 Yes [id number] 1000mg Take 1 [facility] 1,000 mg 2-08 tablet by ity of tablet 00:00: mouth in [place] 00 the Medical morning Branch and 1 tablet in the evening. Take with meals. glipiZIDE 5 2021-10 Yes [id number] 5mg Take 1 [facility] mg tablet 2-08 tablet by ity o f 00:00: mouth in [place] 00 the Medical morning. Branch PEG 2021-10 Yes [id number] 1[drp] Place 1 [facility] nivers 400-Hyprome 2-08 9109 Drop in ity o f llose-Glyce 00:00: each eye 2 [place] rin (DRY 00 (two) Medical EYE RELIEF) times Branch 1-0.2-0.2 % daily as Drop needed (Dry Eye). Lidocaine 5 2021-10 Yes [id number] APPLY 5 [facility] % cream 2-08 GRAM TO ity of 00:00: AREA(S) 2 [place] 00 (TWO) Medical TIMES Branch DAILY NEEDED FOR PAIN (SCALE 4-6) NEEDED Diclofenac 2021-10 Yes [id number] Apply to [facility] Sodium 2-08 area(s) 4 ity of (VOLTAREN) 00:00: (four) [place] 1 % gel 00 times Medical daily. Branch Apply 4 g qid ezetimibe 2021-10 Yes [id number] 10mg Take 1 [facility] 10 mg 2-08 tablet by [facility] of tablet 00:00: mouth in [place] 00 the Medical morning. Branch atorvastati 2021-10 Yes [id number] 20mg Take 1 [facility] n 20 mg 2-08 tablet by [facility] of tablet 00:00: mouth at [place] 00 bedtime. Medical Branch allopurinoL 2021-10 Yes [id number] 100mg Take 1 [facility] 100 mg 2-08 tablet by [facility] of tablet 00:00: mouth in [place] 00 the Medical morning. Branch amLODIPine 2021-10 Yes [id number] 5mg Take 1 [facility] 5 mg tablet 2-08 tablet by [facility] of 00:00: mouth in [place] 00 the Medical morning. Branch atenoloL 2021-10 Yes [id number] 100mg Take 1 [facility] 100 mg 2-08 tablet by [facility] of tablet 00:00: mouth in [place] 00 the Medical morning. Branch triamterene 2021-10 Yes [id number] .5{tbl} Take 0.5 [facility] -hydrochlor 2-08 tablets by it y of othiazid 00:00: mouth in [place] 37.5-25 mg 00 the Medical tablet morning. Branch metFORMIN 2021-10 Yes [id number] 1000mg Take 1 [facility] 1,000 mg 2-08 tablet by ity of tablet 00:00: mouth in [place] 00 the Medical morning Branch and 1 tablet in the evening. Take with meals. glipiZIDE 5 2021-10 Yes [id number] 5mg Take 1 [facility] mg tablet 2-08 tablet by ity o f 00:00: mouth in [place] 00 the Medical morning. Branch PEG 2021-10 Yes [id number] 1[drp] Place 1 [facility] nivers 400-Hyprome 2-08 9109 Drop in ity o f llose-Glyce 00:00: each eye 2 [place] rin (DRY 00 (two) Medical EYE RELIEF) times Branch 1-0.2-0.2 % daily as Drop needed (Dry Eye). Lidocaine 5 2021-10 Yes [id number] APPLY 5 [facility] % cream 2-08 GRAM TO ity of 00:00: AREA(S) 2 [place] 00 (TWO) Medical TIMES Branch DAILY NEEDED FOR PAIN (SCALE 4-6) NEEDED Diclofenac 2021-10 Yes [id number] Apply to [facility] Sodium 2-08 area(s) 4 ity of (VOLTAREN) 00:00: (four) [place] 1 % gel 00 times Medical daily. Branch Apply 4 g qid ezetimibe 2021-10 Yes [id number] 10mg Take 1 [facility] 10 mg 2-08 tablet by [facility] of tablet 00:00: mouth in [place] 00 the Medical morning. Branch atorvastati 2021-10 Yes [id number] 20mg Take 1 [facility] n 20 mg 2-08 tablet by [facility] of tablet 00:00: mouth at [place] 00 bedtime. Medical Branch allopurinoL 2021-10 Yes [id number] 100mg Take 1 [facility] 100 mg 2-08 tablet by ity of tablet 00:00: mouth in [place] 00 the Medical morning. Branch amLODIPine 2021-10 Yes [id number] 5mg Take 1 [facility] 5 mg tablet 2-08 tablet by [facility] of 00:00: mouth in [place] 00 the Medical morning. Branch atenoloL 2021-10 Yes [id number] 100mg Take 1 [facility] 100 mg 2-08 tablet by [facility] of tablet 00:00: mouth in [place] 00 the Medical morning. Branch triamterene 2021-10 Yes [id number] .5{tbl} Take 0.5 [facility] -hydrochlor 2-08 tablets by it y of othiazid 00:00: mouth in [place] 37.5-25 mg 00 the Medical tablet morning. Branch metFORMIN 2021-10 Yes [id number] 1000mg Take 1 [facility] 1,000 mg 2-08 tablet by ity of tablet 00:00: mouth in [place] 00 the Medical morning Branch and 1 tablet in the evening. Take with meals. glipiZIDE 5 2021-10 Yes [id number] 5mg Take 1 [facility] mg tablet 2-08 tablet by ity o f 00:00: mouth in [place] 00 the Medical morning. Branch PEG 2021-10 Yes [id number] 1[drp] Place 1 [facility] nivers 400-Hyprome 2-08 9109 Drop in ity o f llose-Glyce 00:00: each eye 2 [place] rin (DRY 00 (two) Medical EYE RELIEF) times Branch 1-0.2-0.2 % daily as Drop needed (Dry Eye). Lidocaine 5 2021-10 Yes [id number] APPLY 5 [facility] % cream 2-08 GRAM TO ity of 00:00: AREA(S) 2 [place] 00 (TWO) Medical TIMES Branch DAILY NEEDED FOR PAIN (SCALE 4-6) NEEDED Diclofenac 2021-10 Yes [id number] Apply to [facility] Sodium 2-08 area(s) 4 [facility]y of (VOLTAREN) 00:00: (four) [place] 1 % gel 00 times Medical daily. Branch Apply 4 g qid ezetimibe 2021-10 Yes [id number] 10mg Take 1 [facility] 10 mg 2-08 tablet by [facility] of tablet 00:00: mouth in [place] 00 the Medical morning. Branch atorvastati 2021-10 Yes [id number] 20mg Take 1 [facility] n 20 mg 2-08 tablet by ity of tablet 00:00: mouth at [place] [address] bedtime. Medical Branch allopurinoL 2021-10 Yes [id number] 100mg Take 1 [facility] 100 mg 2-08 tablet by ity of tablet 00:00: mouth in [place] 00 the Medical morning. Branch amLODIPine 2021-10 Yes [id number] 5mg Take 1 [facility] 5 mg tablet 2-08 tablet by it[facility] of 00:00: mouth in [place] 00 the Medical morning. Branch atenoloL 2021-10 Yes [id number] 100mg Take 1 [facility] 100 mg 2-08 tablet by [facility] of tablet 00:00: mouth in [place] 00 the Medical morning. Branch triamterene 2021-10 Yes [id number] .5{tbl} Take 0.5 [facility] -hydrochlor 2-08 tablets by it y of othiazid 00:00: mouth in [place] 37.5-25 mg 00 the Medical tablet morning. Branch metFORMIN 2021-10 Yes [id number] 1000mg Take 1 [facility] 1,000 mg 2-08 tablet by ity of tablet 00:00: mouth in [place] 00 the Medical morning Branch and 1 tablet in the evening. Take with meals. glipiZIDE 5 2021-10 Yes [id number] 5mg Take 1 [facility] mg tablet 2-08 tablet by ity o f 00:00: mouth in [place] 00 the Medical morning. Branch PEG 2021-10 Yes [id number] 1[drp] Place 1 [facility] n[facility] 400-Hyprome 2-08 9109 Drop in ity o f llose-Glyce 00:00: each eye 2 [place] rin (DRY 00 (two) Medical EYE RELIEF) times Branch 1-0.2-0.2 % daily as Drop needed (Dry Eye). Lidocaine 5 2021-10 Yes [id number] APPLY 5 [facility] % cream 2-08 GRAM TO ity of 00:00: AREA(S) 2 [place] 00 (TWO) Medical TIMES Branch DAILY NEEDED FOR PAIN (SCALE 4-6) NEEDED Diclofenac 2021-10 Yes [id number] Apply to [facility] Sodium 2-08 area(s) 4 ity of (VOLTAREN) 00:00: (four) [place] 1 % gel 00 times Medical daily. Branch Apply 4 g qid ezetimibe 2021-10 Yes [id number] 10mg Take 1 [facility] 10 mg 2-08 tablet by it[facility] of tablet 00:00: mouth in [place] 00 the Medical morning. Branch atorvastati 2021-10 Yes [id number] 20mg Take 1 [facility] n 20 mg 2-08 tablet by it[facility] of tablet 00:00: mouth at [place] 00 bedtime. Medical Branch allopurinoL 2021-10 Yes [id number] 100mg Take 1 [facility] 100 mg 2-08 tablet by ity of tablet 00:00: mouth in [place] 00 the Medical morning. Branch amLODIPine 2021-10 Yes [id number] 5mg Take 1 [facility] 5 mg tablet 2-08 tablet by [facility] of 00:00: mouth in [place] the Medical morning. Branch atenoloL 2021-10 Yes [id number] 100mg Take 1 [facility] 100 mg 2-08 tablet by [facility] of tablet 00:00: mouth in [place] the Medical morning. Branch triamterene 2021-10 Yes [id number] .5{tbl} Take 0.5 [facility] -hydrochlor 2-08 tablets by it y of othiazid 00:00: mouth in [place] 37.5-25 mg 00 the Medical tablet morning. Branch metFORMIN 2021-10 Yes [id number] 1000mg Take 1 [facility] 1,000 mg 2-08 tablet by ity of tablet 00:00: mouth in [place] 00 the Medical morning Branch and 1 tablet in the evening. Take with meals. glipiZIDE 5 2021-10 Yes [id number] 5mg Take 1 [facility] mg tablet 2-08 tablet by ity o f 00:00: mouth in [place] 00 the Medical morning. Branch PEG 2021-10 Yes [id number] 1[drp] Place 1 [facility] nivers 400-Hyprome 2-08 9109 Drop in ity o f llose-Glyce 00:00: each eye 2 [place] rin (DRY 00 (two) Medical EYE RELIEF) times Branch 1-0.2-0.2 % daily as Drop needed (Dry Eye). Lidocaine 2021-10 Yes [id number] APPLY 5 [facility] % cream 2-08 GRAM TO ity of 00:00: AREA(S) 2 [place] 00 (TWO) Medical TIMES Branch DAILY NEEDED FOR PAIN (SCALE 4-6) NEEDED Diclofenac 2021-10 Yes [id number] Apply to [facility] Sodium 2-08 area(s) 4 [facility]y of (VOLTAREN) 00:00: (four) [place] 1 % gel 00 times Medical daily. Branch Apply 4 g qid ezetimibe 2021-10 Yes [id number] 10mg Take 1 [facility] 10 mg 2-08 tablet by [facility] of tablet 00:00: mouth in [place] 00 the Medical morning. Branch atorvastati 2021-10 Yes [id number] 20mg Take 1 [facility] n 20 mg 2-08 tablet by ity of tablet 00:00: mouth at [place] [address] bedtime. Medical Branch allopurinoL 2021-10 Yes [id number] 100mg Take 1 [facility] 100 mg 2-08 tablet by ity of tablet 00:00: mouth in [place] the Medical morning. Branch amLODIPine 2021-10 Yes [id number] 5mg Take 1 [facility] 5 mg tablet 2-08 tablet by [facility] of 00:00: mouth in [place] the Medical morning. Branch atenoloL 2021-10 Yes [id number] 100mg Take 1 [facility] 100 mg 2-08 tablet by [facility] of tablet 00:00: mouth in [place] 00 the Medical morning. Branch triamterene 2021-10 Yes [id number] .5{tbl} Take 0.5 [facility] -hydrochlor 2-08 tablets by it y of othiazid 00:00: mouth in [place] 37.5-25 mg 00 the Medical tablet morning. Branch metFORMIN 2021-10 Yes [id number] 1000mg Take 1 [facility] 1,000 mg 2-08 tablet by ity of tablet 00:00: mouth in [place] 00 the Medical morning Branch and 1 tablet in the evening. Take with meals. glipiZIDE 5 2021-10 Yes [id number] 5mg Take 1 [facility] mg tablet 2-08 tablet by ity o f 00:00: mouth in [place] 00 the Medical morning. Branch PEG 2021-10 Yes [id number] 1[drp] Place 1 [facility] nivers 400-Hyprome 2-08 9109 Drop in ity o f llose-Glyce 00:00: each eye 2 [place] rin (DRY 00 (two) Medical EYE RELIEF) times Branch 1-0.2-0.2 % daily as Drop needed (Dry Eye). Lidocaine 5 2021-10 Yes [id number] APPLY 5 [facility] % cream 2-08 GRAM TO ity of 00:00: AREA(S) 2 [place] 00 (TWO) Medical TIMES Branch DAILY NEEDED FOR PAIN (SCALE 4-6) NEEDED Diclofenac 2021-10 Yes [id number] Apply to [facility] Sodium 2-08 area(s) 4 ity of (VOLTAREN) 00:00: (four) [place] 1 % gel 00 times Medical daily. Branch Apply 4 g qid ezetimibe 2021-10 Yes [id number] 10mg Take 1 [facility] 10 mg 2-08 tablet by ity of tablet 00:00: mouth in [place] 00 the Medical morning. Branch atorvastati 2021-10 Yes [id number] 20mg Take 1 [facility] n 20 mg 2-08 tablet by ity of tablet 00:00: mouth at [place] [address] bedtime. Medical Branch allopurinoL 2021-10 Yes [id number] 100mg Take 1 [facility] 100 mg 2-08 tablet by ity of tablet 00:00: mouth in [place] 00 the Medical morning. Branch amLODIPine 2021-10 Yes [id number] 5mg Take 1 [facility] 5 mg tablet 2-08 tablet by it[facility] of 00:00: mouth in [place] 00 the Medical morning. Branch atenoloL 2021-10 Yes [id number] 100mg Take 1 [facility] 100 mg 2-08 tablet by it[facility] of tablet 00:00: mouth in [place] 00 the Medical morning. Branch triamterene 2021-10 Yes [id number] .5{tbl} Take 0.5 [facility] -hydrochlor 2-08 tablets by it y of othiazid 00:00: mouth in [place] 37.5-25 mg 00 the Medical tablet morning. Branch metFORMIN 2021-10 Yes [id number] 1000mg Take 1 [facility] 1,000 mg 2-08 tablet by ity of tablet 00:00: mouth in [place] 00 the Medical morning Branch and 1 tablet in the evening. Take with meals. glipiZIDE 5 2021-10 Yes [id number] 5mg Take 1 [facility] mg tablet 2-08 tablet by ity o f 00:00: mouth in [place] 00 the Medical morning. Branch PEG 2021-10 Yes [id number] 1[drp] Place 1 [facility] nivers 400-Hyprome 2-08 9109 Drop in ity o f llose-Glyce 00:00: each eye 2 [place] rin (DRY 00 (two) Medical EYE RELIEF) times Branch 1-0.2-0.2 % daily as Drop needed (Dry Eye). Lidocaine 5 2021-10 Yes [id number] APPLY 5 [facility] % cream 2-08 GRAM TO ity of 00:00: AREA(S) 2 [place] 00 (TWO) Medical TIMES Branch DAILY NEEDED FOR PAIN (SCALE 4-6) NEEDED Diclofenac 2021-10 Yes [id number] Apply to [facility] Sodium 2-08 area(s) 4 ity of (VOLTAREN) 00:00: (four) [place] 1 % gel 00 times Medical daily. Branch Apply 4 g qid ezetimibe 2021-10 Yes [id number] 10mg Take 1 [facility] 10 mg 2-08 tablet by ity of tablet 00:00: mouth in [place] 00 the Medical morning. Branch atorvastati 2021-10 Yes [id number] 20mg Take 1 [facility] n 20 mg 2-08 tablet by ity of tablet 00:00: mouth at [place] [address] bedtime. Medical Branch allopurinoL 2021-10 Yes [id number] 100mg Take 1 [facility] 100 mg 2-08 tablet by ity of tablet 00:00: mouth in [place] 00 the Medical morning. Branch amLODIPine 2021-10 Yes [id number] 5mg Take 1 [facility] 5 mg tablet 2-08 tablet by ity of 00:00: mouth in [place] 00 the Medical morning. Branch atenoloL 2021-10 Yes [id number] 100mg Take 1 [facility] 100 mg 2-08 tablet by ity of tablet 00:00: mouth in [place] 00 the Medical morning. Branch triamterene 2021-10 Yes [id number] .5{tbl} Take 0.5 [facility] -hydrochlor 2-08 tablets by it y of othiazid 00:00: mouth in [place] 37.5-25 mg 00 the Medical tablet morning. Branch metFORMIN 2021-10 Yes [id number] 1000mg Take 1 [facility] 1,000 mg 2-08 tablet by ity of tablet 00:00: mouth in [place] 00 the Medical morning Branch and 1 tablet in the evening. Take with meals. glipiZIDE 5 2021-10 Yes [id number] 5mg Take 1 [facility] mg tablet 2-08 tablet by ity o f 00:00: mouth in [place] 00 the Medical morning. Branch PEG 2021-10 Yes [id number] 1[drp] Place 1 U nivers 400-Hyprome 2-08 9109 Drop in ity o f llose-Glyce 00:00: each eye 2 [place] rin (DRY 00 (two) Medical EYE RELIEF) times Branch 1-0.2-0.2 % daily as Drop needed (Dry Eye). Lidocaine 5 2021-10 Yes [id number] APPLY 5 [facility] % cream 2-08 GRAM TO ity of 00:00: AREA(S) 2 [place] 00 (TWO) Medical TIMES Branch DAILY NEEDED FOR PAIN (SCALE 4-6) NEEDED Diclofenac 2021-10 Yes [id number] Apply to [facility] Sodium 2-08 area(s) 4 ity of (VOLTAREN) 00:00: (four) [place] 1 % gel 00 times Medical daily. Branch Apply 4 g qid ezetimibe 2021-10 Yes [id number] 10mg Take 1 [facility] 10 mg 2-08 tablet by ity of tablet 00:00: mouth in [place] 00 the Medical morning. Branch atorvastati 2021-10 Yes [id number] 20mg Take 1 [facility] n 20 mg 2-08 tablet by ity of tablet 00:00: mouth at [place] 00 bedtime. Medical Branch allopurinoL 2021-10 Yes [id number] 100mg Take 1 [facility] 100 mg 2-08 tablet by ity of tablet 00:00: mouth in [place] 00 the Medical morning. Branch amLODIPine 2021-10 Yes [id number] 5mg Take 1 [facility] 5 mg tablet 2-08 tablet by ity of 00:00: mouth in [place] 00 the Medical morning. Branch atenoloL 2021-10 Yes [id number] 100mg Take 1 [facility] 100 mg 2-08 tablet by ity of tablet 00:00: mouth in [place] 00 the Medical morning. Branch triamterene 2021-10 Yes [id number] .5{tbl} Take 0.5 [facility] -hydrochlor 2-08 tablets by it y of othiazid 00:00: mouth in [place] 37.5-25 mg 00 the Medical tablet morning. Branch metFORMIN 2021-10 Yes [id number] 1000mg Take 1 [facility] 1,000 mg 2-08 tablet by ity of tablet 00:00: mouth in [place] 00 the Medical morning Branch and 1 tablet in the evening. Take with meals. glipiZIDE 5 2021-10 Yes [id number] 5mg Take 1 [facility] mg tablet 2-08 tablet by ity o f 00:00: mouth in [place] 00 the Medical morning. Branch PEG 2021-10 Yes [id number] 1[drp] Place 1 U nivers 400-Hyprome 2-08 9109 Drop in ity o f llose-Glyce 00:00: each eye 2 [place] rin (DRY 00 (two) Medical EYE RELIEF) times Branch 1-0.2-0.2 % daily as Drop needed (Dry Eye). Lidocaine 5 2021-10 Yes [id number] APPLY 5 [facility] % cream 2-08 GRAM TO ity of 00:00: AREA(S) 2 [place] 00 (TWO) Medical TIMES Branch DAILY NEEDED FOR PAIN (SCALE 4-6) NEEDED Diclofenac 2021-10 Yes [id number] Apply to [facility] Sodium 2-08 area(s) 4 ity of (VOLTAREN) 00:00: (four) [place] 1 % gel 00 times Medical daily. Branch Apply 4 g qid ezetimibe 2021-10 Yes [id number] 10mg Take 1 [facility] 10 mg 2-08 tablet by ity of tablet 00:00: mouth in [place] 00 the Medical morning. Branch atorvastati 2021-10 Yes [id number] 20mg Take 1 [facility] n 20 mg 2-08 tablet by ity of tablet 00:00: mouth at [place] 00 bedtime. Medical Branch allopurinoL 2021-10 Yes [id number] 100mg Take 1 [facility] 100 mg 2-08 tablet by ity of tablet 00:00: mouth in [place] 00 the Medical morning. Branch amLODIPine 2021-10 Yes [id number] 5mg Take 1 [facility] 5 mg tablet 2-08 tablet by ity of 00:00: mouth in [place] 00 the Medical morning. Branch atenoloL 2021-10 Yes [id number] 100mg Take 1 [facility] 100 mg 2-08 tablet by ity of tablet 00:00: mouth in [place] 00 the Medical morning. Branch triamterene 2021-10 Yes [id number] .5{tbl} Take 0.5 [facility] -hydrochlor 2-08 tablets by it y of othiazid 00:00: mouth in [place] 37.5-25 mg 00 the Medical tablet morning. Branch metFORMIN 2021-10 Yes [id number] 1000mg Take 1 [facility] 1,000 mg 2-08 tablet by ity of tablet 00:00: mouth in [place] 00 the Medical morning Branch and 1 tablet in the evening. Take with meals. glipiZIDE 5 2021-10 Yes [id number] 5mg Take 1 [facility] mg tablet 2-08 tablet by ity o f 00:00: mouth in [place] 00 the Medical morning. Branch PEG 2021-10 Yes [id number] 1[drp] Place 1 U nivers 400-Hyprome 2-08 9109 Drop in ity o f llose-Glyce 00:00: each eye 2 [place] rin (DRY 00 (two) Medical EYE RELIEF) times Branch 1-0.2-0.2 % daily as Drop needed (Dry Eye). Lidocaine 5 2021-10 Yes [id number] APPLY 5 [facility] % cream 2-08 GRAM TO ity of 00:00: AREA(S) 2 [place] 00 (TWO) Medical TIMES Branch DAILY NEEDED FOR PAIN (SCALE 4-6) NEEDED Diclofenac 2021-10 Yes [id number] Apply to [facility] Sodium 2-08 area(s) 4 ity of (VOLTAREN) 00:00: (four) [place] 1 % gel 00 times Medical daily. Branch Apply 4 g qid ezetimibe 2021-10 Yes [id number] 10mg Take 1 [facility] n[facility] 10 mg 2-08 tablet by ity of tablet 00:00: mouth in [place] 00 the Medical morning. Branch atorvastati 2021-10 Yes [id number] 20mg Take 1 [facility] n 20 mg 2-08 tablet by ity of tablet 00:00: mouth at [place] 00 bedtime. Medical Branch allopurinoL 2021-10 Yes [id number] 100mg Take 1 [facility] 100 mg 2-08 tablet by ity of tablet 00:00: mouth in [place] 00 the Medical morning. Branch amLODIPine 2021-10 Yes [id number] 5mg Take 1 [facility] n[facility] 5 mg tablet 2-08 tablet by ity of 00:00: mouth in [place] 00 the Medical morning. Branch atenoloL 2021-10 Yes [id number] 100mg Take 1 [facility] 100 mg 2-08 tablet by ity of tablet 00:00: mouth in [place] 00 the Medical morning. Branch triamterene 2021-10 Yes [id number] .5{tbl} Take 0.5 [facility] -hydrochlor 2-08 tablets by it y of othiazid 00:00: mouth in [place] 37.5-25 mg 00 the Medical tablet morning. Branch metFORMIN 2021-10 Yes [id number] 1000mg Take 1 [facility] 1,000 mg 2-08 tablet by ity of tablet 00:00: mouth in [place] 00 the Medical morning Branch and 1 tablet in the evening. Take with meals. glipiZIDE 5 2021-10 Yes [id number] 5mg Take 1 [facility] mg tablet 2-08 tablet by ity o f 00:00: mouth in [place] 00 the Medical morning. Branch PEG 2021-10 Yes [id number] 1[drp] Place 1 U nivers 400-Hyprome 2-08 9109 Drop in ity o f llose-Glyce 00:00: each eye 2 [place] rin (DRY 00 (two) Medical EYE RELIEF) times Branch 1-0.2-0.2 % daily as Drop needed (Dry Eye). Lidocaine 5 2021-10 Yes [id number] APPLY 5 [facility] % cream 2-08 GRAM TO ity of 00:00: AREA(S) 2 [place] 00 (TWO) Medical TIMES Branch DAILY NEEDED FOR PAIN (SCALE 4-6) NEEDED Diclofenac 2021-10 Yes [id number] Apply to [facility] Sodium 2-08 area(s) 4 ity of (VOLTAREN) 00:00: (four) [place] 1 % gel 00 times Medical daily. Branch Apply 4 g qid ezetimibe 2021-10 Yes [id number] 10mg Take 1 [facility] nivers 10 mg 2-08 tablet by [facility]y of tablet 00:00: mouth in [place] 00 the Medical morning. Branch atorvastati 2021-10 Yes [id number] 20mg Take 1 [facility] n 20 mg 2-08 tablet by ity of tablet 00:00: mouth at [place] 00 bedtime. Medical Branch allopurinoL 2021-10 Yes [id number] 100mg Take 1 [facility] 100 mg 2-08 tablet by ity of tablet 00:00: mouth in [place] 00 the Medical morning. Branch amLODIPine 2021-10 Yes [id number] 5mg Take 1 [facility] n[facility] 5 mg tablet 2-08 tablet by [facility]y of 00:00: mouth in [place] 00 the Medical morning. Branch atenoloL 2021-10 Yes [id number] 100mg Take 1 [facility] 100 mg 2-08 tablet by [facility] of tablet 00:00: mouth in [place] 00 the Medical morning. Branch triamterene 2021-10 Yes [id number] .5{tbl} Take 0.5 [facility] -hydrochlor 2-08 tablets by it y of othiazid 00:00: mouth in [place] 37.5-25 mg 00 the Medical tablet morning. Branch metFORMIN 2021-10 Yes [id number] 1000mg Take 1 [facility] 1,000 mg 2-08 tablet by ity of tablet 00:00: mouth in [place] 00 the Medical morning Branch and 1 tablet in the evening. Take with meals. PEG 2021-10 Yes [id number] 1[drp] Place 1 U nivers 400-Hyprome 2-08 9109 Drop in ity o f llose-Glyce 00:00: each eye 2 [place] rin (DRY 00 (two) Medical EYE RELIEF) times Branch 1-0.2-0.2 % daily as Drop needed (Dry Eye). Lidocaine 5 2021-10 Yes [id number] APPLY 5 [facility] % cream 2-08 GRAM TO ity of 00:00: AREA(S) 2 [place] 00 (TWO) Medical TIMES Branch DAILY NEEDED FOR PAIN (SCALE 4-6) NEEDED Diclofenac 2021-10 Yes [id number] Apply to [facility] Sodium 2-08 area(s) 4 ity of (VOLTAREN) 00:00: (four) [place] 1 % gel 00 times Medical daily. Branch Apply 4 g qid ezetimibe 2021-10 Yes [id number] 10mg Take 1 [facility] nivers 10 mg 2-08 tablet by [facility]y of tablet 00:00: mouth in [place] 00 the Medical morning. Branch atorvastati 2021-10 Yes [id number] 20mg Take 1 [facility] n 20 mg 2-08 tablet by ity of tablet 00:00: mouth at [place] 00 bedtime. Medical Branch allopurinoL 2021-10 Yes [id number] 100mg Take 1 [facility] 100 mg 2-08 tablet by ity of tablet 00:00: mouth in [place] 00 the Medical morning. Branch amLODIPine 2021-10 Yes [id number] 5mg Take 1 [facility] nivers 5 mg tablet 2-08 tablet by [facility]y of 00:00: mouth in [place] 00 the Medical morning. Branch atenoloL 2021-10 Yes [id number] 100mg Take 1 [facility] 100 mg 2-08 tablet by [facility] of tablet 00:00: mouth in [place] 00 the Medical morning. Branch triamterene 2021-10 Yes [id number] .5{tbl} Take 0.5 [facility] -hydrochlor 2-08 tablets by it y of othiazid 00:00: mouth in [place] 37.5-25 mg 00 the Medical tablet morning. Branch metFORMIN 2021-10 Yes [id number] 1000mg Take 1 [facility] 1,000 mg 2-08 tablet by ity of tablet 00:00: mouth in [place] 00 the Medical morning Branch and 1 tablet in the evening. Take with meals. PEG 2021-10 Yes [id number] 1[drp] Place 1 U nivers 400-Hyprome 2-08 9109 Drop in ity o f llose-Glyce 00:00: each eye 2 [place] rin (DRY 00 (two) Medical EYE RELIEF) times Branch 1-0.2-0.2 % daily as Drop needed (Dry Eye). Lidocaine 5 2021-10 Yes [id number] APPLY 5 [facility] % cream 2-08 GRAM TO ity of 00:00: AREA(S) 2 [place] 00 (TWO) Medical TIMES Branch DAILY NEEDED FOR PAIN (SCALE 4-6) NEEDED Diclofenac 2021-10 Yes [id number] Apply to [facility] Sodium 2-08 area(s) 4 ity of (VOLTAREN) 00:00: (four) [place] 1 % gel 00 times Medical daily. Branch Apply 4 g qid ezetimibe 2021-10 Yes [id number] 10mg Take 1 [facility] n[facility] 10 mg 2-08 tablet by [facility]y of tablet 00:00: mouth in [place] 00 the Medical morning. Branch atorvastati 2021-10 Yes [id number] 20mg Take 1 [facility] n 20 mg 2-08 tablet by ity of tablet 00:00: mouth at [place] 00 bedtime. Medical Branch allopurinoL 2021-10 Yes [id number] 100mg Take 1 [facility] 100 mg 2-08 tablet by [facility] of tablet 00:00: mouth in [place] 00 the Medical morning. Branch amLODIPine 2021-10 Yes [id number] 5mg Take 1 [facility] 5 mg tablet 2-08 tablet by ity of 00:00: mouth in [place] 00 the Medical morning. Branch atenoloL 2021-10 Yes [id number] 100mg Take 1 [facility] 100 mg 2-08 tablet by ity of tablet 00:00: mouth in [place] 00 the Medical morning. Branch triamterene 2021-10 Yes [id number] .5{tbl} Take 0.5 [facility] -hydrochlor 2-08 tablets by it y of othiazid 00:00: mouth in [place] 37.5-25 mg 00 the Medical tablet morning. Branch metFORMIN 2021-10 Yes [id number] 1000mg Take 1 [facility] 1,000 mg 2-08 tablet by ity of tablet 00:00: mouth in [place] 00 the Medical morning Branch and 1 tablet in the evening. Take with meals. PEG 2021-10 Yes [id number] 1[drp] Place 1 U nivers 400-Hyprome 2-08 9109 Drop in ity o f llose-Glyce 00:00: each eye 2 [place] rin (DRY 00 (two) Medical EYE RELIEF) times Branch 1-0.2-0.2 % daily as Drop needed (Dry Eye). Lidocaine 5 2021-10 Yes [id number] APPLY 5 [facility] % cream 2-08 GRAM TO ity of 00:00: AREA(S) 2 [place] 00 (TWO) Medical TIMES Branch DAILY NEEDED FOR PAIN (SCALE 4-6) NEEDED Diclofenac 2021-10 Yes [id number] Apply to [facility] Sodium 2-08 area(s) 4 ity of (VOLTAREN) 00:00: (four) [place] 1 % gel 00 times Medical daily. Branch Apply 4 g qid ezetimibe 2021-10 Yes [id number] 10mg Take 1 [facility] 10 mg 2-08 tablet by ity of tablet 00:00: mouth in [place] 00 the Medical morning. Branch atorvastati 2021-10 Yes [id number] 20mg Take 1 [facility] n 20 mg 2-08 tablet by ity of tablet 00:00: mouth at [place] 00 bedtime. Medical Branch allopurinoL 2021-10 Yes [id number] 100mg Take 1 [facility] 100 mg 2-08 tablet by ity of tablet 00:00: mouth in [place] 00 the Medical morning. Branch amLODIPine 2021-10 Yes [id number] 5mg Take 1 [facility] 5 mg tablet 2-08 tablet by ity of 00:00: mouth in [place] 00 the Medical morning. Branch atenoloL 2021-10 Yes [id number] 100mg Take 1 [facility] 100 mg 2-08 tablet by ity of tablet 00:00: mouth in [place] 00 the Medical morning. Branch triamterene 2021-10 Yes [id number] .5{tbl} Take 0.5 [facility] -hydrochlor 2-08 tablets by it y of othiazid 00:00: mouth in [place] 37.5-25 mg 00 the Medical tablet morning. Branch metFORMIN 2021-10 Yes [id number] 1000mg Take 1 [facility] 1,000 mg 2-08 tablet by ity of tablet 00:00: mouth in [place] 00 the Medical morning Branch and 1 tablet in the evening. Take with meals. PEG 2021-10 Yes [id number] 1[drp] Place 1 [facility] nivers 400-Hyprome 2-08 9109 Drop in ity o f llose-Glyce 00:00: each eye 2 [place] rin (DRY 00 (two) Medical EYE RELIEF) times Branch 1-0.2-0.2 % daily as Drop needed (Dry Eye). Lidocaine 5 2021-10 Yes [id number] APPLY 5 [facility] % cream 2-08 GRAM TO ity of 00:00: AREA(S) 2 [place] 00 (TWO) Medical TIMES Branch DAILY NEEDED FOR PAIN (SCALE 4-6) NEEDED Diclofenac 2021-10 Yes [id number] Apply to [facility] Sodium 2-08 area(s) 4 ity of (VOLTAREN) 00:00: (four) [place] 1 % gel 00 times Medical daily. Branch Apply 4 g qid ezetimibe 2021-10 Yes [id number] 10mg Take 1 [facility] 10 mg 2-08 tablet by ity of tablet 00:00: mouth in [place] 00 the Medical morning. Branch atorvastati 2021-10 Yes [id number] 20mg Take 1 [facility] n 20 mg 2-08 tablet by ity of tablet 00:00: mouth at [place] 00 bedtime. Medical Branch allopurinoL 2021-10 Yes [id number] 100mg Take 1 [facility] 100 mg 2-08 tablet by ity of tablet 00:00: mouth in [place] 00 the Medical morning. Branch amLODIPine 2021-10 Yes [id number] 5mg Take 1 [facility] 5 mg tablet 2-08 tablet by ity of 00:00: mouth in [place] 00 the Medical morning. Branch atenoloL 2021-10 Yes [id number] 100mg Take 1 [facility] 100 mg 2-08 tablet by ity of tablet 00:00: mouth in [place] 00 the Medical morning. Branch triamterene 2021-10 Yes [id number] .5{tbl} Take 0.5 [facility] -hydrochlor 2-08 tablets by it y of othiazid 00:00: mouth in [place] 37.5-25 mg 00 the Medical tablet morning. Branch metFORMIN 2021-10 Yes [id number] 1000mg Take 1 [facility] 1,000 mg 2-08 tablet by ity of tablet 00:00: mouth in [place] 00 the Medical morning Branch and 1 tablet in the evening. Take with meals. PEG 2021-10 Yes [id number] 1[drp] Place 1 [facility] nivers 400-Hyprome 2-08 9109 Drop in ity o f llose-Glyce 00:00: each eye 2 [place] rin (DRY 00 (two) Medical EYE RELIEF) times Branch 1-0.2-0.2 % daily as Drop needed (Dry Eye). Lidocaine 5 2021-10 Yes [id number] APPLY 5 [facility] % cream 2-08 GRAM TO ity of 00:00: AREA(S) 2 [place] 00 (TWO) Medical TIMES Branch DAILY NEEDED FOR PAIN (SCALE 4-6) NEEDED Diclofenac 2021-10 Yes [id number] Apply to [facility] Sodium 2-08 area(s) 4 ity of (VOLTAREN) 00:00: (four) [place] 1 % gel 00 times Medical daily. Branch Apply 4 g qid ezetimibe 2021-10 Yes [id number] 10mg Take 1 [facility] 10 mg 2-08 tablet by ity of tablet 00:00: mouth in [place] 00 the Medical morning. Branch atorvastati 2021-10 Yes [id number] 20mg Take 1 [facility] n 20 mg 2-08 tablet by ity of tablet 00:00: mouth at [place] 00 bedtime. Medical Branch allopurinoL 2021-10 Yes [id number] 100mg Take 1 [facility] 100 mg 2-08 tablet by ity of tablet 00:00: mouth in [place] 00 the Medical morning. Branch amLODIPine 2021-10 Yes [id number] 5mg Take 1 [facility] 5 mg tablet 2-08 tablet by ity of 00:00: mouth in [place] the Medical morning. Branch atenoloL 2021-10 Yes [id number] 100mg Take 1 [facility] 100 mg 2-08 tablet by ity of tablet 00:00: mouth in [place] 00 the Medical morning. Branch metFORMIN 2021-10 Yes [id number] 1000mg Take 1 [facility] 1,000 mg 2-08 tablet by ity of tablet 00:00: mouth in [place] 00 the Medical morning Branch and 1 tablet in the evening. Take with meals. PEG 2021-10 Yes [id number] 1[drp] Place 1 [facility] nivers 400-Hyprome 2-08 9109 Drop in ity o f llose-Glyce 00:00: each eye 2 [place] rin (DRY 00 (two) Medical EYE RELIEF) times Branch 1-0.2-0.2 % daily as Drop needed (Dry Eye). Lidocaine 5 2021-10 Yes [id number] APPLY 5 [facility] % cream 2-08 GRAM TO ity of 00:00: AREA(S) 2 [place] 00 (TWO) Medical TIMES Branch DAILY NEEDED FOR PAIN (SCALE 4-6) NEEDED Diclofenac 2021-10 Yes [id number] Apply to [facility] Sodium 2-08 area(s) 4 ity of (VOLTAREN) 00:00: (four) [place] 1 % gel 00 times Medical daily. Branch Apply 4 g qid ezetimibe 2021-10 Yes [id number] 10mg Take 1 [facility] 10 mg 2-08 tablet by ity of tablet 00:00: mouth in [place] 00 the Medical morning. Branch atorvastati 2021-10 Yes [id number] 20mg Take 1 [facility] n 20 mg 2-08 tablet by ity of tablet 00:00: mouth at [place] [address] bedtime. Medical Branch allopurinoL 2021-10 Yes [id number] 100mg Take 1 [facility] 100 mg 2-08 tablet by ity of tablet 00:00: mouth in [place] 00 the Medical morning. Branch amLODIPine 2021-10 Yes [id number] 5mg Take 1 [facility] 5 mg tablet 2-08 tablet by ity of 00:00: mouth in [place] 00 the Medical morning. Branch atenoloL 2021-10 Yes [id number] 100mg Take 1 [facility] 100 mg 2-08 tablet by ity of tablet 00:00: mouth in [place] 00 the Medical morning. Branch triamterene 2021-10 Yes [id number] .5{tbl} Take 0.5 [facility] -hydrochlor 2-08 tablets by it y of othiazid 00:00: mouth in [place] 37.5-25 mg 00 the Medical tablet morning. Branch methocarbam 2021-10 Yes [id number] 750mg Take 1 [facility] oL 750 mg 2-08 tablet by ity o f tablet 00:00: mouth [place] 00 every 6 Medical (six) Branch hours as needed (MUSCLE SPASM). metFORMIN 2021-10 Yes [id number] 1000mg Take 1 [facility] 1,000 mg 2-08 tablet by ity of tablet 00:00: mouth in [place] 00 the Medical morning Branch and 1 tablet in the evening. Take with meals. glipiZIDE 5 2021-10 Yes [id number] 5mg Take 1 [facility] mg tablet 2-08 tablet by ity o f 00:00: mouth in [place] 00 the Medical morning. Branch PEG 2021-10 Yes [id number] 1[drp] Place 1 [facility] n[facility] 400-Hyprome 2-08 9109 Drop in ity o f llose-Glyce 00:00: each eye 2 [place] rin (DRY 00 (two) Medical EYE RELIEF) times Branch 1-0.2-0.2 % daily as Drop needed (Dry Eye). Lidocaine 5 2021-10 Yes [id number] APPLY 5 [facility] % cream 2-08 GRAM TO ity of 00:00: AREA(S) 2 [place] 00 (TWO) Medical TIMES Branch DAILY NEEDED FOR PAIN (SCALE 4-6) NEEDED Diclofenac 2021-10 Yes [id number] Apply to [facility] Sodium 2-08 area(s) 4 ity of (VOLTAREN) 00:00: (four) [place] 1 % gel 00 times Medical daily. Branch Apply 4 g qid ezetimibe 2021-10 Yes [id number] 10mg Take 1 [facility] 10 mg 2-08 tablet by ity of tablet 00:00: mouth in [place] 00 the Medical morning. Branch atorvastati 2021-10 Yes [id number] 20mg Take 1 [facility] n 20 mg 2-08 tablet by ity of tablet 00:00: mouth at [place] 00 bedtime. Medical Branch allopurinoL 2021-10 Yes [id number] 100mg Take 1 [facility] 100 mg 2-08 tablet by ity of tablet 00:00: mouth in [place] 00 the Medical morning. Branch amLODIPine 2021-10 Yes [id number] 5mg Take 1 [facility] 5 mg tablet 2-08 tablet by ity of 00:00: mouth in [place] 00 the Medical morning. Branch atenoloL 2021-10 Yes [id number] 100mg Take 1 [facility] 100 mg 2-08 tablet by ity of tablet 00:00: mouth in [place] 00 the Medical morning. Branch triamterene 2021-10 Yes [id number] .5{tbl} Take 0.5 [facility] -hydrochlor 2-08 tablets by it y of othiazid 00:00: mouth in [place] 37.5-25 mg 00 the Medical tablet morning. Branch methocarbam 2021-10 Yes [id number] 750mg Take 1 [facility] oL 750 mg 2-08 tablet by ity o f tablet 00:00: mouth [place] 00 every 6 Medical (six) Branch hours as needed (MUSCLE SPASM). metFORMIN 2021-10 Yes [id number] 1000mg Take 1 [facility] 1,000 mg 2-08 tablet by ity of tablet 00:00: mouth in [place] 00 the Medical morning Branch and 1 tablet in the evening. Take with meals. glipiZIDE 5 2021-10 Yes [id number] 5mg Take 1 [facility] mg tablet 2-08 tablet by ity o f 00:00: mouth in [place] 00 the Medical morning. Branch PEG 2021-10 Yes [id number] 1[drp] Place 1 [facility] nivers 400-Hyprome 2-08 9109 Drop in ity o f llose-Glyce 00:00: each eye 2 [place] rin (DRY 00 (two) Medical EYE RELIEF) times Branch 1-0.2-0.2 % daily as Drop needed (Dry Eye). Lidocaine 5 2021-10 Yes [id number] APPLY 5 [facility] % cream 2-08 GRAM TO ity of 00:00: AREA(S) 2 [place] 00 (TWO) Medical TIMES Branch DAILY NEEDED FOR PAIN (SCALE 4-6) NEEDED Diclofenac 2021-10 Yes [id number] Apply to [facility] Sodium 2-08 area(s) 4 ity of (VOLTAREN) 00:00: (four) [place] 1 % gel 00 times Medical daily. Branch Apply 4 g qid ezetimibe 2021-10 Yes [id number] 10mg Take 1 [facility] n[facility] 10 mg 2-08 tablet by ity of tablet 00:00: mouth in [place] 00 the Medical morning. Branch atorvastati 2021-10 Yes [id number] 20mg Take 1 [facility] n 20 mg 2-08 tablet by ity of tablet 00:00: mouth at [place] 00 bedtime. Medical Branch allopurinoL 2021-10 Yes [id number] 100mg Take 1 [facility] 100 mg 2-08 tablet by ity of tablet 00:00: mouth in [place] 00 the Medical morning. Branch amLODIPine 2021-10 Yes [id number] 5mg Take 1 [facility] 5 mg tablet 2-08 tablet by ity of 00:00: mouth in [place] 00 the Medical morning. Branch atenoloL 2021-10 Yes [id number] 100mg Take 1 [facility] d[facility] 100 mg 2-08 tablet by ity of tablet 00:00: mouth in [place] 00 the Medical morning. Branch triamterene 2021-10 Yes [id number] .5{tbl} Take 0.5 [facility] -hydrochlor 2-08 tablets by it y of othiazid 00:00: mouth in [place] 37.5-25 mg 00 the Medical tablet morning. Branch methocarbam 2021-10 Yes [id number] 750mg Take 1 [facility] oL 750 mg 2-08 tablet by ity o f tablet 00:00: mouth [place] 00 every 6 Medical (six) Branch hours as needed (MUSCLE SPASM). metFORMIN 2021-10 Yes [id number] 1000mg Take 1 [facility] 1,000 mg 2-08 tablet by ity of tablet 00:00: mouth in [place] 00 the Medical morning Branch and 1 tablet in the evening. Take with meals. glipiZIDE 5 2021-10 Yes [id number] 5mg Take 1 [facility] mg tablet 2-08 tablet by ity o f 00:00: mouth in [place] 00 the Medical morning. Branch PEG 2021-10 Yes [id number] 1[drp] Place 1 U nivers 400-Hyprome 2-08 9109 Drop in ity o f llose-Glyce 00:00: each eye 2 [place] rin (DRY 00 (two) Medical EYE RELIEF) times Branch 1-0.2-0.2 % daily as Drop needed (Dry Eye). Lidocaine 5 2021-10 Yes [id number] APPLY 5 [facility] % cream 2-08 GRAM TO ity of 00:00: AREA(S) 2 [place] 00 (TWO) Medical TIMES Branch DAILY NEEDED FOR PAIN (SCALE 4-6) NEEDED Diclofenac 2021-10 Yes [id number] Apply to [facility] Sodium 2-08 area(s) 4 ity of (VOLTAREN) 00:00: (four) [place] 1 % gel 00 times Medical daily. Branch Apply 4 g qid ezetimibe 2021-10 Yes [id number] 10mg Take 1 [facility] n[facility] 10 mg 2-08 tablet by ity of tablet 00:00: mouth in [place] 00 the Medical morning. Branch atorvastati 2021-10 Yes [id number] 20mg Take 1 [facility] n 20 mg 2-08 tablet by ity of tablet 00:00: mouth at [place] [address] bedtime. Medical Branch allopurinoL 2021-10 Yes [id number] 100mg Take 1 [facility] 100 mg 2-08 tablet by ity of tablet 00:00: mouth in [place] 00 the Medical morning. Branch amLODIPine 2021-10 Yes [id number] 5mg Take 1 [facility] 5 mg tablet 2-08 tablet by ity of 00:00: mouth in [place] 00 the Medical morning. Branch atenoloL 2021-10 Yes [id number] 100mg Take 1 [facility] 100 mg 2-08 tablet by ity of tablet 00:00: mouth in [place] 00 the Medical morning. Branch triamterene 2021-10 Yes [id number] .5{tbl} Take 0.5 [facility] -hydrochlor 2-08 tablets by it y of othiazid 00:00: mouth in [place] 37.5-25 mg 00 the Medical tablet morning. Branch methocarbam 2021-10 Yes [id number] 750mg Take 1 [facility] oL 750 mg 2-08 tablet by ity o f tablet 00:00: mouth [place] 00 every 6 Medical (six) Branch hours as needed (MUSCLE SPASM). metFORMIN 2021-10 Yes [id number] 1000mg Take 1 [facility] 1,000 mg 2-08 tablet by ity of tablet 00:00: mouth in [place] 00 the Medical morning Branch and 1 tablet in the evening. Take with meals. glipiZIDE 5 2021-10 Yes [id number] 5mg Take 1 [facility] mg tablet 2-08 tablet by ity o f 00:00: mouth in [place] 00 the Medical morning. Branch PEG 2021-10 Yes [id number] 1[drp] Place 1 U nivers 400-Hyprome 2-08 9109 Drop in ity o f llose-Glyce 00:00: each eye 2 [place] rin (DRY 00 (two) Medical EYE RELIEF) times Branch 1-0.2-0.2 % daily as Drop needed (Dry Eye). Lidocaine 5 2021-10 Yes [id number] APPLY 5 [facility] % cream 2-08 GRAM TO ity of 00:00: AREA(S) 2 [place] 00 (TWO) Medical TIMES Branch DAILY NEEDED FOR PAIN (SCALE 4-6) NEEDED Diclofenac 2021-10 Yes [id number] Apply to [facility] Sodium 2-08 area(s) 4 ity of (VOLTAREN) 00:00: (four) [place] 1 % gel 00 times Medical daily. Branch Apply 4 g qid ezetimibe 2021-10 Yes [id number] 10mg Take 1 [facility] nivers 10 mg 2-08 tablet by ity of tablet 00:00: mouth in [place] 00 the Medical morning. Branch atorvastati 2021-10 Yes [id number] 20mg Take 1 [facility] n 20 mg 2-08 tablet by ity of tablet 00:00: mouth at [place] 00 bedtime. Medical Branch allopurinoL 2021-10 Yes [id number] 100mg Take 1 [facility] 100 mg 2-08 tablet by ity of tablet 00:00: mouth in [place] 00 the Medical morning. Branch amLODIPine 2021-10 Yes [id number] 5mg Take 1 [facility] n[facility] 5 mg tablet 2-08 tablet by ity of 00:00: mouth in [place] 00 the Medical morning. Branch atenoloL 2021-10 Yes [id number] 100mg Take 1 [facility] d[facility] 100 mg 2-08 tablet by ity of tablet 00:00: mouth in [place] 00 the Medical morning. Branch triamterene 2021-10 Yes [id number] .5{tbl} Take 0.5 [facility] -hydrochlor 2-08 tablets by it y of othiazid 00:00: mouth in [place] 37.5-25 mg 00 the Medical tablet morning. Branch metFORMIN 2021-10 Yes [id number] 1000mg Take 1 [facility] 1,000 mg 2-08 tablet by ity of tablet 00:00: mouth in [place] 00 the Medical morning Branch and 1 tablet in the evening. Take with meals. glipiZIDE 5 2021-10 Yes [id number] 5mg Take 1 [facility] mg tablet 2-08 tablet by ity o f 00:00: mouth in [place] 00 the Medical morning. Branch PEG 2021-10 Yes [id number] 1[drp] Place 1 U nivers 400-Hyprome 2-08 9109 Drop in ity o f llose-Glyce 00:00: each eye 2 [place] rin (DRY 00 (two) Medical EYE RELIEF) times Branch 1-0.2-0.2 % daily as Drop needed (Dry Eye). Lidocaine 5 2021-10 Yes [id number] APPLY 5 [facility] % cream 2-08 GRAM TO ity of 00:00: AREA(S) 2 [place] 00 (TWO) Medical TIMES Branch DAILY NEEDED FOR PAIN (SCALE 4-6) NEEDED Diclofenac 2021-10 Yes [id number] Apply to [facility] Sodium 2-08 area(s) 4 ity of (VOLTAREN) 00:00: (four) [place] 1 % gel 00 times Medical daily. Branch Apply 4 g qid ezetimibe 2021-10 Yes [id number] 10mg Take 1 [facility] nivers 10 mg 2-08 tablet by ity of tablet 00:00: mouth in [place] 00 the Medical morning. Branch atorvastati 2021-10 Yes [id number] 20mg Take 1 [facility] n 20 mg 2-08 tablet by ity of tablet 00:00: mouth at [place] 00 bedtime. Medical Branch allopurinoL 2021-10 Yes [id number] 100mg Take 1 [facility] 100 mg 2-08 tablet by ity of tablet 00:00: mouth in [place] 00 the Medical morning. Branch amLODIPine 2021-10 Yes [id number] 5mg Take 1 [facility] n[facility] 5 mg tablet 2-08 tablet by ity of 00:00: mouth in [place] 00 the Medical morning. Branch atenoloL 2021-10 Yes [id number] 100mg Take 1 [facility] d[facility] 100 mg 2-08 tablet by ity of tablet 00:00: mouth in [place] 00 the Medical morning. Branch triamterene 2021-10 Yes [id number] .5{tbl} Take 0.5 [facility] -hydrochlor 2-08 tablets by it y of othiazid 00:00: mouth in [place] 37.5-25 mg 00 the Medical tablet morning. Branch metFORMIN 2021-10 Yes [id number] 1000mg Take 1 [facility] 1,000 mg 2-08 tablet by ity of tablet 00:00: mouth in [place] 00 the Medical morning Branch and 1 tablet in the evening. Take with meals. glipiZIDE 5 2021-10 Yes [id number] 5mg Take 1 [facility] mg tablet 2-08 tablet by ity o f 00:00: mouth in [place] 00 the Medical morning. Branch PEG 2021-10 Yes [id number] 1[drp] Place 1 U nivers 400-Hyprome 2-08 9109 Drop in ity o f llose-Glyce 00:00: each eye 2 [place] rin (DRY 00 (two) Medical EYE RELIEF) times Branch 1-0.2-0.2 % daily as Drop needed (Dry Eye). Lidocaine 5 2021-10 Yes [id number] APPLY 5 [facility] % cream 2-08 GRAM TO ity of 00:00: AREA(S) 2 [place] 00 (TWO) Medical TIMES Branch DAILY NEEDED FOR PAIN (SCALE 4-6) NEEDED Diclofenac 2021-10 Yes [id number] Apply to [facility] Sodium 2-08 area(s) 4 ity of (VOLTAREN) 00:00: (four) [place] 1 % gel 00 times Medical daily. Branch Apply 4 g qid ezetimibe 2021-10 Yes [id number] 10mg Take 1 [facility] nivers 10 mg 2-08 tablet by ity of tablet 00:00: mouth in [place] 00 the Medical morning. Branch atorvastati 2021-10 Yes [id number] 20mg Take 1 [facility] n 20 mg 2-08 tablet by ity of tablet 00:00: mouth at [place] 00 bedtime. Medical Branch allopurinoL 2021-10 Yes [id number] 100mg Take 1 [facility] 100 mg 2-08 tablet by ity of tablet 00:00: mouth in [place] 00 the Medical morning. Branch amLODIPine 2021-10 Yes [id number] 5mg Take 1 U nivers 5 mg tablet 2-08 tablet by ity of 00:00: mouth in [place] 00 the Medical morning. Branch atenoloL 2021-10 Yes [id number] 100mg Take 1 Un d[facility] 100 mg 2-08 tablet by ity of tablet 00:00: mouth in [place] 00 the Medical morning. Branch triamterene 2021-10 Yes [id number] .5{tbl} Take 0.5 [facility] -hydrochlor 2-08 tablets by it y of othiazid 00:00: mouth in [place] 37.5-25 mg 00 the Medical tablet morning. Branch metFORMIN 2021-10 Yes [id number] 1000mg Take 1 [facility] 1,000 mg 2-08 tablet by ity of tablet 00:00: mouth in [place] 00 the Medical morning Branch and 1 tablet in the evening. Take with meals. glipiZIDE 5 2021-10 Yes [id number] 5mg Take 1 [facility] mg tablet 2-08 tablet by ity o f 00:00: mouth in [place] 00 the Medical morning. Branch PEG 2021-10 Yes [id number] 1[drp] Place 1 U nivers 400-Hyprome 2-08 9109 Drop in ity o f llose-Glyce 00:00: each eye 2 [place] rin (DRY 00 (two) Medical EYE RELIEF) times Branch 1-0.2-0.2 % daily as Drop needed (Dry Eye). Lidocaine 5 2021-10 Yes [id number] APPLY 5 [facility] % cream 2-08 GRAM TO ity of 00:00: AREA(S) 2 [place] 00 (TWO) Medical TIMES Branch DAILY NEEDED FOR PAIN (SCALE 4-6) NEEDED Diclofenac 2021-10 Yes [id number] Apply to [facility] Sodium 2-08 area(s) 4 ity of (VOLTAREN) 00:00: (four) [place] 1 % gel 00 times Medical daily. Branch Apply 4 g qid ezetimibe 2021-10 Yes [id number] 10mg Take 1 U nivers 10 mg 2-08 tablet by ity of tablet 00:00: mouth in [place] 00 the Medical morning. Branch atorvastati 2021-10 Yes [id number] 20mg Take 1 [facility] n 20 mg 2-08 tablet by ity of tablet 00:00: mouth at [place] 00 bedtime. Medical Branch allopurinoL 2021-10 Yes [id number] 100mg Take 1 [facility] 100 mg 2-08 tablet by ity of tablet 00:00: mouth in [place] 00 the Medical morning. Branch amLODIPine 2021-10 Yes [id number] 5mg Take 1 U nivers 5 mg tablet 2-08 tablet by ity of 00:00: mouth in [place] 00 the Medical morning. Branch atenoloL 2021-10 Yes [id number] 100mg Take 1 Un daly 100 mg 2-08 tablet by ity of tablet 00:00: mouth in [place] 00 the Medical morning. Branch triamterene 2021-10 Yes [id number] .5{tbl} Take 0.5 [facility] -hydrochlor 2-08 tablets by it y of othiazid 00:00: mouth in [place] 37.5-25 mg 00 the Medical tablet morning. Branch triamterene 2021-10- No [id number] .5{tbl} Take 0.5 [facility] -hydrochlor 2-08 - tablets by i ty of othiazid 00:00: 00:00 mouth in [facility] s 37.5-25 mg 00 :00 the Medical tablet morning. Branch glipiZIDE 5 2021-10- No [id number] 5mg Take 1 [facility] mg tablet 2-05 19-12 tablet by ity of 00:00: 00:00 mouth in [place] 00 :00 the Medical morning. Branch glipiZIDE 5 2021-10- No [id number] 5mg Take 1 [facility] mg tablet 2-08 -12 tablet by ity of 00:00: 00:00 mouth in [place] 00 :00 the Medical morning. Branch methocarbam 2021-10- No [id number] 750mg Take 1 [facility] oL 750 mg 2-10-30 tablet by ity of tablet 00:00: 00:00 mouth [place] 00 :00 every 6 Medical (six) Branch hours as needed (MUSCLE SPASM). ATORVASTATI 2021-10 Yes [id number] TAKE 1 [facility] N 20 mg 0-03 TABLET BY ity of tablet 00:00: MOUTH [place] 00 EVERYDAY Medical AT BEDTIME Branch ATORVASTATI 2021-10 Yes [id number] TAKE 1 [facility] N 20 mg 0-03 TABLET BY ity of tablet 00:00: MOUTH [place] 00 EVERYDAY Medical AT BEDTIME Branch ATORVASTATI 2021-10 Yes [id number] TAKE 1 [facility] N 20 mg 0-03 TABLET BY ity of tablet 00:00: MOUTH [place] 00 EVERYDAY Medical AT BEDTIME [facility] 2021-10 Yes [id number] TAKE 1 [facility] N 20 mg 0-03 TABLET BY ity of tablet 00:00: MOUTH [place] 00 EVERYDAY Medical AT BEDTIME [facility] 2021-10 Yes [id number] TAKE 1 [facility] N 20 mg 0-03 TABLET BY ity of tablet 00:00: MOUTH [place] 00 EVERYDAY Medical AT BEDTIME [facility] 2021-10 Yes [id number] TAKE 1 [facility] N 20 mg 0-03 TABLET BY ity of tablet 00:00: MOUTH [place] 00 EVERYDAY Medical AT BEDTIME [facility] 2021-10 Yes [id number] TAKE 1 [facility] N 20 mg 0-03 TABLET BY ity of tablet 00:00: MOUTH [place] 00 EVERYDAY Medical AT BEDTIME [facility] 2021-10 Yes [id number] TAKE 1 [facility] N 20 mg 0-03 TABLET BY ity of tablet 00:00: MOUTH [place] 00 EVERYDAY Medical AT BEDTIME [facility] 2021-10 Yes [id number] TAKE 1 [facility] N 20 mg 0-03 TABLET BY ity of tablet 00:00: MOUTH [place] 00 EVERYDAY Medical AT BEDTIME [facility] 2021-10 Yes [id number] TAKE 1 [facility] N 20 mg 0-03 TABLET BY ity of tablet 00:00: MOUTH [place] 00 EVERYDAY Medical AT BEDTIME [facility] 2021-10 Yes [id number] TAKE 1 [facility] N 20 mg 0-03 TABLET BY ity of tablet 00:00: MOUTH [place] 00 EVERYDAY Medical AT BEDTIME [facility] 2021-10- No [id number] TAKE 1 [facility] N 20 mg 0-03 12-08 TABLET BY ity of tablet 00:00: 00:00 MOUTH [place] 00 :00 EVERYDAY Medical AT BEDTIME [place] [facility] No [id number] TAKE 1 [facility] N 20 mg 0-03 12-08 TABLET BY ity of tablet 00:00: 00:00 MOUTH [place] 00 :00 EVERYDAY Medical AT BEDTIME [place] CHOLECALCIF 0 Yes [id number] TAKE 1 [facility] LILLI, 9-30 CAPSULE BY ity of VITAMIN D3, 00:00: MOUTH [place] 50 mcg 00 EVERY DAY Medical (2,000 Branch unit) capsule fluticasone 0 Yes [id number] SPRAY 1 [facility] propionate 9-30 SPRAY INTO ity of 50 00:00: EACH [place] mcg/actuati 00 NOSTRIL Medic al on nasal EVERY DAY Branch spray METFORMIN 0 Yes [id number] TAKE 1 U nivers 1,000 mg 9-30 TABLET BY ity of tablet 00:00: MOUTH [place] 00 TWICE A Medical DAY WITH Branch MEALS ATENOLOL 2021-0 Yes [id number] TAKE 1 [facility] vers 100 mg 9-30 TABLET BY ity of tablet 00:00: MOUTH [place] 00 EVERY DAY Medical Branch CHOLECALCIF 2021-0 Yes [id number] TAKE 1 [facility] LILLI, 9-30 CAPSULE BY ity of VITAMIN D3, 00:00: MOUTH [place] 50 mcg 00 EVERY DAY Medical (2,000 Branch unit) capsule fluticasone 2021-0 Yes [id number] SPRAY 1 [facility] propionate 9-30 SPRAY INTO ity of 50 00:00: EACH [place] mcg/actuati 00 NOSTRIL Medic al on nasal EVERY DAY Branch spray METFORMIN 2021-0 Yes [id number] TAKE 1 U nivers 1,000 mg 9-30 TABLET BY ity of tablet 00:00: MOUTH [place] 00 TWICE A Medical DAY WITH Branch MEALS ATENOLOL 2021-0 Yes [id number] TAKE 1 [facility] vers 100 mg 9-30 TABLET BY ity of tablet 00:00: MOUTH [place] 00 EVERY DAY Medical Branch CHOLECALCIF 2021-0 Yes [id number] TAKE 1 [facility] LILLI, 9-30 CAPSULE BY ity of VITAMIN D3, 00:00: MOUTH [place] 50 mcg 00 EVERY DAY Medical (2,000 Branch unit) capsule fluticasone 2021-0 Yes [id number] SPRAY 1 [facility] propionate 9-30 SPRAY INTO ity of 50 00:00: EACH [place] mcg/actuati 00 NOSTRIL Medic al on nasal EVERY DAY Branch spray METFORMIN 2021-0 Yes [id number] TAKE 1 [facility] nivers 1,000 mg 9-30 TABLET BY ity of tablet 00:00: MOUTH [place] 00 TWICE A Medical DAY WITH Branch MEALS ATENOLOL 2021-0 Yes [id number] TAKE 1 [facility] vers 100 mg 9-30 TABLET BY ity of tablet 00:00: MOUTH [place] 00 EVERY DAY Medical Branch CHOLECALCIF 2021-0 Yes [id number] TAKE 1 [facility] LILLI, 9-30 CAPSULE BY ity of VITAMIN D3, 00:00: MOUTH [place] 50 mcg 00 EVERY DAY Medical (2,000 Branch unit) capsule fluticasone 2021-0 Yes [id number] SPRAY 1 [facility] propionate 9-30 SPRAY INTO ity of 50 00:00: EACH [place] mcg/actuati 00 NOSTRIL Medic al on nasal EVERY DAY Branch spray METFORMIN 2021-0 Yes [id number] TAKE 1 [facility] nivers 1,000 mg 9-30 TABLET BY ity of tablet 00:00: MOUTH [place] 00 TWICE A Medical DAY WITH Branch MEALS ATENOLOL 2021-0 Yes [id number] TAKE 1 [facility] vers 100 mg 9-30 TABLET BY ity of tablet 00:00: MOUTH [place] 00 EVERY DAY Medical Branch CHOLECALCIF 2021-0 Yes [id number] TAKE 1 [facility] LILLI, 9-30 CAPSULE BY ity of VITAMIN D3, 00:00: MOUTH [place] 50 mcg 00 EVERY DAY Medical (2,000 Branch unit) capsule fluticasone 2021-0 Yes [id number] SPRAY 1 [facility] propionate 9-30 SPRAY INTO ity of 50 00:00: EACH [place] mcg/actuati 00 NOSTRIL Medic al on nasal EVERY DAY Branch spray METFORMIN 2021-0 Yes [id number] TAKE 1 [facility] nivers 1,000 mg 9-30 TABLET BY ity of tablet 00:00: MOUTH [place] 00 TWICE A Medical DAY WITH Branch MEALS ATENOLOL 2021-0 Yes [id number] TAKE 1 [facility] vers 100 mg 9-30 TABLET BY ity of tablet 00:00: MOUTH [place] 00 EVERY DAY Medical Branch CHOLECALCIF 2021-0 Yes [id number] TAKE 1 [facility] LILLI, 9-30 CAPSULE BY ity of VITAMIN D3, 00:00: MOUTH [place] 50 mcg 00 EVERY DAY Medical (2,000 Branch unit) capsule fluticasone 2021-0 Yes [id number] SPRAY 1 [facility] propionate 9-30 SPRAY INTO ity of 50 00:00: EACH [place] mcg/actuati 00 NOSTRIL Medic al on nasal EVERY DAY Branch spray METFORMIN 2021-0 Yes [id number] TAKE 1 [facility] 1,000 mg 9-30 TABLET BY ity of tablet 00:00: MOUTH [place] 00 TWICE A Medical DAY WITH Branch MEALS ATENOLOL 2021-0 Yes [id number] TAKE 1 [facility] vers 100 mg 9-30 TABLET BY ity of tablet 00:00: MOUTH [place] 00 EVERY DAY Medical Branch CHOLECALCIF 2021-0 Yes [id number] TAKE 1 [facility] LILLI, 9-30 CAPSULE BY ity of VITAMIN D3, 00:00: MOUTH [place] 50 mcg 00 EVERY DAY Medical (2,000 Branch unit) capsule fluticasone 2021-0 Yes [id number] SPRAY 1 [facility] propionate 9-30 SPRAY INTO ity of 50 00:00: EACH [place] mcg/actuati 00 NOSTRIL Medic al on nasal EVERY DAY Branch spray METFORMIN 2021-0 Yes [id number] TAKE 1 [facility] nivers 1,000 mg 9-30 TABLET BY ity of tablet 00:00: MOUTH [place] 00 TWICE A Medical DAY WITH Branch MEALS ATENOLOL 2021-0 Yes [id number] TAKE 1 [facility] vers 100 mg 9-30 TABLET BY ity of tablet 00:00: MOUTH [place] 00 EVERY DAY Medical Branch CHOLECALCIF 2021-0 Yes [id number] TAKE 1 [facility] LILLI, 9-30 CAPSULE BY ity of VITAMIN D3, 00:00: MOUTH [place] 50 mcg 00 EVERY DAY Medical (2,000 Branch unit) capsule fluticasone 2021-0 Yes [id number] SPRAY 1 [facility] propionate 9-30 SPRAY INTO ity of 50 00:00: EACH [place] mcg/actuati 00 NOSTRIL Medic al on nasal EVERY DAY Branch spray METFORMIN 2021-0 Yes [id number] TAKE 1 [facility] nivers 1,000 mg 9-30 TABLET BY ity of tablet 00:00: MOUTH [place] 00 TWICE A Medical DAY WITH Branch MEALS ATENOLOL 2021-0 Yes [id number] TAKE 1 [facility] vers 100 mg 9-30 TABLET BY ity of tablet 00:00: MOUTH [place] 00 EVERY DAY Medical Branch CHOLECALCIF 2021-0 Yes [id number] TAKE 1 [facility] LILLI, 9-30 CAPSULE BY ity of VITAMIN D3, 00:00: MOUTH [place] 50 mcg 00 EVERY DAY Medical (2,000 Branch unit) capsule fluticasone 2021-0 Yes [id number] SPRAY 1 [facility] propionate 9-30 SPRAY INTO ity of 50 00:00: EACH [place] mcg/actuati 00 NOSTRIL Medic al on nasal EVERY DAY Branch spray METFORMIN 2021-0 Yes [id number] TAKE 1 [facility] nivers 1,000 mg 9-30 TABLET BY ity of tablet 00:00: MOUTH [place] 00 TWICE A Medical DAY WITH Branch MEALS ATENOLOL 2021-0 Yes [id number] TAKE 1 [facility] vers 100 mg 9-30 TABLET BY ity of tablet 00:00: MOUTH [place] 00 EVERY DAY Medical Branch CHOLECALCIF 2021-0 Yes [id number] TAKE 1 [facility] LILLI, 9-30 CAPSULE BY ity of VITAMIN D3, 00:00: MOUTH [place] 50 mcg 00 EVERY DAY Medical (2,000 Branch unit) capsule fluticasone 2021-0 Yes [id number] SPRAY 1 [facility] propionate 9-30 SPRAY INTO ity of 50 00:00: EACH [place] mcg/actuati 00 NOSTRIL Medic al on nasal EVERY DAY Branch spray METFORMIN 2021-0 Yes [id number] TAKE 1 [facility] nivers 1,000 mg 9-30 TABLET BY ity of tablet 00:00: MOUTH [place] 00 TWICE A Medical DAY WITH Branch MEALS ATENOLOL 2021-0 Yes [id number] TAKE 1 [facility] vers 100 mg 9-30 TABLET BY ity of tablet 00:00: MOUTH [place] 00 EVERY DAY Medical Branch CHOLECALCIF 2021-0 Yes [id number] TAKE 1 [facility] LILLI, 9-30 CAPSULE BY ity of VITAMIN D3, 00:00: MOUTH [place] 50 mcg 00 EVERY DAY Medical (2,000 Branch unit) capsule fluticasone 2021-0 Yes [id number] SPRAY 1 [facility] propionate 9-30 SPRAY INTO ity of 50 00:00: EACH [place] mcg/actuati 00 NOSTRIL Medic al on nasal EVERY DAY Branch spray METFORMIN 2021-0 Yes [id number] TAKE 1 [facility] nivers 1,000 mg 9-30 TABLET BY ity of tablet 00:00: MOUTH [place] 00 TWICE A Medical DAY WITH Branch MEALS ATENOLOL 2021-0 Yes [id number] TAKE 1 [facility] vers 100 mg 9-30 TABLET BY ity of tablet 00:00: MOUTH [place] 00 EVERY DAY Medical Branch CHOLECALCIF 2021-0 Yes [id number] TAKE 1 [facility] LILLI, 9-30 CAPSULE BY ity of VITAMIN D3, 00:00: MOUTH [place] 50 mcg 00 EVERY DAY Medical (2,000 Branch unit) capsule fluticasone 2021-0 Yes [id number] SPRAY 1 [facility] propionate 9-30 SPRAY INTO ity of 50 00:00: EACH [place] mcg/actuati 00 NOSTRIL Medic al on nasal EVERY DAY Branch spray CHOLECALCIF 2021-0 Yes [id number] TAKE 1 [facility] LILLI, 9-30 CAPSULE BY ity of VITAMIN D3, 00:00: MOUTH [place] 50 mcg 00 EVERY DAY Medical (2,000 Branch unit) capsule fluticasone 2022-0 Yes [id number] SPRAY 1 [facility] propionate 9-30 SPRAY INTO ity of 50 00:00: EACH [place] mcg/actuati 00 NOSTRIL Medic al on nasal EVERY DAY Branch spray CHOLECALCIF 2022-0 Yes [id number] TAKE 1 [facility] LILLI, 9-30 CAPSULE BY ity of VITAMIN D3, 00:00: MOUTH [place] 50 mcg 00 EVERY DAY Medical (2,000 Branch unit) capsule fluticasone 2022-0 Yes [id number] SPRAY 1 [facility] propionate 9-30 SPRAY INTO ity of 50 00:00: EACH [place] mcg/actuati 00 NOSTRIL Medic al on nasal EVERY DAY Branch spray CHOLECALCIF 2022-0 Yes [id number] TAKE 1 [facility] LILLI, 9-30 CAPSULE BY ity of VITAMIN D3, 00:00: MOUTH [place] 50 mcg 00 EVERY DAY Medical (2,000 Branch unit) capsule fluticasone 2022-0 Yes [id number] SPRAY 1 [facility] propionate 9-30 SPRAY INTO ity of 50 00:00: EACH [place] mcg/actuati 00 NOSTRIL Medic al on nasal EVERY DAY Branch spray CHOLECALCIF 2022-0 Yes [id number] TAKE 1 [facility] LILLI, 9-30 CAPSULE BY ity of VITAMIN D3, 00:00: MOUTH [place] 50 mcg 00 EVERY DAY Medical (2,000 Branch unit) capsule fluticasone 2022-0 Yes [id number] SPRAY 1 [facility] propionate 9-30 SPRAY INTO ity of 50 00:00: EACH [place] mcg/actuati 00 NOSTRIL Medic al on nasal EVERY DAY Branch spray CHOLECALCIF 2022-0 Yes [id number] TAKE 1 [facility] LILLI, 9-30 CAPSULE BY ity of VITAMIN D3, 00:00: MOUTH [place] 50 mcg 00 EVERY DAY Medical (2,000 Branch unit) capsule fluticasone 2022-0 Yes [id number] SPRAY 1 [facility] propionate 9-30 SPRAY INTO ity of 50 00:00: EACH [place] mcg/actuati 00 NOSTRIL Medic al on nasal EVERY DAY Branch spray CHOLECALCIF 2022-0 Yes [id number] TAKE 1 [facility] LILLI, 9-30 CAPSULE BY ity of VITAMIN D3, 00:00: MOUTH [place] 50 mcg 00 EVERY DAY Medical (2,000 Branch unit) capsule fluticasone 2022-0 Yes [id number] SPRAY 1 [facility] propionate 9-30 SPRAY INTO ity of 50 00:00: EACH [place] mcg/actuati 00 NOSTRIL Medic al on nasal EVERY DAY Branch spray CHOLECALCIF 2022-0 Yes [id number] TAKE 1 [facility] LILLI, 9-30 CAPSULE BY ity of VITAMIN D3, 00:00: MOUTH [place] 50 mcg 00 EVERY DAY Medical (2,000 Branch unit) capsule fluticasone 2022-0 Yes [id number] SPRAY 1 [facility] propionate 9-30 SPRAY INTO ity of 50 00:00: EACH [place] mcg/actuati 00 NOSTRIL Medic al on nasal EVERY DAY Branch spray CHOLECALCIF 2022-0 Yes [id number] TAKE 1 [facility] LILLI, 9-30 CAPSULE BY ity of VITAMIN D3, 00:00: MOUTH [place] 50 mcg 00 EVERY DAY Medical (2,000 Branch unit) capsule fluticasone 2022-0 Yes [id number] SPRAY 1 [facility] propionate 9-30 SPRAY INTO ity of 50 00:00: EACH [place] mcg/actuati 00 NOSTRIL Medic al on nasal EVERY DAY Branch spray CHOLECALCIF 2022-0 Yes [id number] TAKE 1 [facility] LILLI, 9-30 CAPSULE BY ity of VITAMIN D3, 00:00: MOUTH [place] 50 mcg 00 EVERY DAY Medical (2,000 Branch unit) capsule fluticasone 2022-0 Yes [id number] SPRAY 1 [facility] propionate 9-30 SPRAY INTO ity of 50 00:00: EACH [place] mcg/actuati 00 NOSTRIL Medic al on nasal EVERY DAY Branch spray CHOLECALCIF 2022-0 Yes [id number] TAKE 1 [facility] LILLI, 9-30 CAPSULE BY ity of VITAMIN D3, 00:00: MOUTH [place] 50 mcg 00 EVERY DAY Medical (2,000 Branch unit) capsule fluticasone 2022-0 Yes [id number] SPRAY 1 [facility] propionate 9-30 SPRAY INTO ity of 50 00:00: EACH [place] mcg/actuati 00 NOSTRIL Medic al on nasal EVERY DAY Branch spray CHOLECALCIF 2022-0 Yes [id number] TAKE 1 [facility] LILLI, 9-30 CAPSULE BY ity of VITAMIN D3, 00:00: MOUTH [place] 50 mcg 00 EVERY DAY Medical (2,000 Branch unit) capsule fluticasone 2022-0 Yes [id number] SPRAY 1 [facility] propionate 9-30 SPRAY INTO ity of 50 00:00: EACH [place] mcg/actuati 00 NOSTRIL Medic al on nasal EVERY DAY Branch spray CHOLECALCIF 2022-0 Yes [id number] TAKE 1 [facility] LILLI, 9-30 CAPSULE BY ity of VITAMIN D3, 00:00: MOUTH [place] 50 mcg 00 EVERY DAY Medical (2,000 Branch unit) capsule fluticasone 2022-0 Yes [id number] SPRAY 1 [facility] propionate 9-30 SPRAY INTO ity of 50 00:00: EACH [place] mcg/actuati 00 NOSTRIL Medic al on nasal EVERY DAY Branch spray CHOLECALCIF 2021-0 Yes [id number] TAKE 1 [facility] LILLI, 9-30 CAPSULE BY ity of VITAMIN D3, 00:00: MOUTH [place] 50 mcg 00 EVERY DAY Medical (2,000 Branch unit) capsule fluticasone 2-0 Yes [id number] SPRAY 1 [facility] propionate 9-30 SPRAY INTO ity of 50 00:00: EACH [place] mcg/actuati 00 NOSTRIL Medic al on nasal EVERY DAY Branch spray CHOLECALCIF 2021-0 Yes [id number] TAKE 1 [facility] LILLI, 9-30 CAPSULE BY ity of VITAMIN D3, 00:00: MOUTH [place] 50 mcg 00 EVERY DAY Medical (2,000 Branch unit) capsule fluticasone 2022-0 Yes [id number] SPRAY 1 [facility] propionate 9-30 SPRAY INTO ity of 50 00:00: EACH [place] mcg/actuati 00 NOSTRIL Medic al on nasal EVERY DAY Branch spray CHOLECALCIF 2022-0 Yes [id number] TAKE 1 [facility] LILLI, 9-30 CAPSULE BY ity of VITAMIN D3, 00:00: MOUTH [place] 50 mcg 00 EVERY DAY Medical (2,000 Branch unit) capsule fluticasone 2022-0 Yes [id number] SPRAY 1 [facility] propionate 9-30 SPRAY INTO ity of 50 00:00: EACH [place] mcg/actuati 00 NOSTRIL Medic al on nasal EVERY DAY Branch spray CHOLECALCIF 2022-0 Yes [id number] TAKE 1 [facility] LILLI, 9-30 CAPSULE BY ity of VITAMIN D3, 00:00: MOUTH [place] 50 mcg 00 EVERY DAY Medical (2,000 Branch unit) capsule fluticasone 2022-0 Yes [id number] SPRAY 1 [facility] propionate 9-30 SPRAY INTO ity of 50 00:00: EACH [place] mcg/actuati 00 NOSTRIL Medic al on nasal EVERY DAY Branch spray CHOLECALCIF 2022-0 Yes [id number] TAKE 1 [facility] LILLI, 9-30 CAPSULE BY ity of VITAMIN D3, 00:00: MOUTH [place] 50 mcg 00 EVERY DAY Medical (2,000 Branch unit) capsule fluticasone 2022-0 Yes [id number] SPRAY 1 [facility] propionate 9-30 SPRAY INTO ity of 50 00:00: EACH [place] mcg/actuati 00 NOSTRIL Medic al on nasal EVERY DAY Branch spray CHOLECALCIF 2022-0 Yes [id number] TAKE 1 [facility] LILLI, 9-30 CAPSULE BY ity of VITAMIN D3, 00:00: MOUTH [place] 50 mcg 00 EVERY DAY Medical (2,000 Branch unit) capsule fluticasone 2022-0 Yes [id number] SPRAY 1 [facility] propionate 9-30 SPRAY INTO ity of 50 00:00: EACH [place] mcg/actuati 00 NOSTRIL Medic al on nasal EVERY DAY Branch spray CHOLECALCIF 2022-0 Yes [id number] TAKE 1 [facility] LILLI, 9-30 CAPSULE BY ity of VITAMIN D3, 00:00: MOUTH [place] 50 mcg 00 EVERY DAY Medical (2,000 Branch unit) capsule fluticasone 2022-0 Yes [id number] SPRAY 1 [facility] propionate 9-30 SPRAY INTO ity of 50 00:00: EACH [place] mcg/actuati 00 NOSTRIL Medic al on nasal EVERY DAY Branch spray CHOLECALCIF 2022-0 Yes [id number] TAKE 1 [facility] LILLI, 9-30 CAPSULE BY ity of VITAMIN D3, 00:00: MOUTH [place] 50 mcg 00 EVERY DAY Medical (2,000 Branch unit) capsule fluticasone 2022-0 Yes [id number] SPRAY 1 [facility] propionate 9-30 SPRAY INTO ity of 50 00:00: EACH [place] mcg/actuati 00 NOSTRIL Medic al on nasal EVERY DAY Branch spray CHOLECALCIF 2022-0 Yes [id number] TAKE 1 [facility] LILLI, 9-30 CAPSULE BY ity of VITAMIN D3, 00:00: MOUTH [place] 50 mcg 00 EVERY DAY Medical (2,000 Branch unit) capsule fluticasone 2022-0 Yes [id number] SPRAY 1 [facility] propionate 9-30 SPRAY INTO ity of 50 00:00: EACH [place] mcg/actuati 00 NOSTRIL Medic al on nasal EVERY DAY Branch spray CHOLECALCIF 2022-0 Yes [id number] TAKE 1 [facility] LILLI, 9-30 CAPSULE BY ity of VITAMIN D3, 00:00: MOUTH [place] 50 mcg 00 EVERY DAY Medical (2,000 Branch unit) capsule fluticasone 2022-0 Yes [id number] SPRAY 1 [facility] propionate 9-30 SPRAY INTO ity of 50 00:00: EACH [place] mcg/actuati 00 NOSTRIL Medic al on nasal EVERY DAY Branch spray CHOLECALCIF 2022-0 Yes [id number] TAKE 1 [facility] LILLI, 9-30 CAPSULE BY ity of VITAMIN D3, 00:00: MOUTH [place] 50 mcg 00 EVERY DAY Medical (2,000 Branch unit) capsule fluticasone 2022-0 Yes [id number] SPRAY 1 [facility] propionate 9-30 SPRAY INTO ity of 50 00:00: EACH [place] mcg/actuati 00 NOSTRIL Medic al on nasal EVERY DAY Branch spray CHOLECALCIF 2022-0 Yes [id number] TAKE 1 [facility] LILLI, 9-30 CAPSULE BY ity of VITAMIN D3, 00:00: MOUTH [place] 50 mcg 00 EVERY DAY Medical (2,000 Branch unit) capsule fluticasone 2022-0 Yes [id number] SPRAY 1 [facility] propionate 9-30 SPRAY INTO ity of 50 00:00: EACH [place] mcg/actuati 00 NOSTRIL Medic al on nasal EVERY DAY Branch spray CHOLECALCIF 2022-0 Yes [id number] TAKE 1 [facility] LILLI, 9-30 CAPSULE BY ity of VITAMIN D3, 00:00: MOUTH [place] 50 mcg 00 EVERY DAY Medical (2,000 Branch unit) capsule fluticasone 2022-0 Yes [id number] SPRAY 1 [facility] propionate 9-30 SPRAY INTO ity of 50 00:00: EACH [place] mcg/actuati 00 NOSTRIL Medic al on nasal EVERY DAY Branch spray CHOLECALCIF 2022-0 Yes [id number] TAKE 1 [facility] LILLI, 9-30 CAPSULE BY ity of VITAMIN D3, 00:00: MOUTH [place] 50 mcg 00 EVERY DAY Medical (2,000 Branch unit) capsule fluticasone 2022-0 Yes [id number] SPRAY 1 [facility] propionate 9-30 SPRAY INTO ity of 50 00:00: EACH [place] mcg/actuati 00 NOSTRIL Medic al on nasal EVERY DAY Branch spray CHOLECALCIF 2022-0 Yes [id number] TAKE 1 [facility] LILLI, 9-30 CAPSULE BY ity of VITAMIN D3, 00:00: MOUTH [place] 50 mcg 00 EVERY DAY Medical (2,000 Branch unit) capsule fluticasone 2022-0 Yes [id number] SPRAY 1 [facility] propionate 9-30 SPRAY INTO ity of 50 00:00: EACH [place] mcg/actuati 00 NOSTRIL Medic al on nasal EVERY DAY Branch spray CHOLECALCIF 2022-0 Yes [id number] TAKE 1 [facility] LILLI, 9-30 CAPSULE BY ity of VITAMIN D3, 00:00: MOUTH [place] 50 mcg 00 EVERY DAY Medical (2,000 Branch unit) capsule fluticasone 2022-0 Yes [id number] SPRAY 1 [facility] propionate 9-30 SPRAY INTO ity of 50 00:00: EACH [place] mcg/actuati 00 NOSTRIL Medic al on nasal EVERY DAY Branch spray CHOLECALCIF 2022-0 Yes [id number] TAKE 1 [facility] LILLI, 9-30 CAPSULE BY ity of VITAMIN D3, 00:00: MOUTH [place] 50 mcg 00 EVERY DAY Medical (2,000 Branch unit) capsule fluticasone 2022-0 Yes [id number] SPRAY 1 [facility] propionate 9-30 SPRAY INTO ity of 50 00:00: EACH [place] mcg/actuati 00 NOSTRIL Medic al on nasal EVERY DAY Branch spray CHOLECALCIF 2022-0 Yes [id number] TAKE 1 [facility] LILLI, 9-30 CAPSULE BY ity of VITAMIN D3, 00:00: MOUTH [place] 50 mcg 00 EVERY DAY Medical (2,000 Branch unit) capsule fluticasone 2022-0 Yes [id number] SPRAY 1 [facility] propionate 9-30 SPRAY INTO ity of 50 00:00: EACH [place] mcg/actuati 00 NOSTRIL Medic al on nasal EVERY DAY Branch spray CHOLECALCIF 2022-0 Yes [id number] TAKE 1 [facility] LILLI, 9-30 CAPSULE BY ity of VITAMIN D3, 00:00: MOUTH [place] 50 mcg 00 EVERY DAY Medical (2,000 Branch unit) capsule fluticasone 2022-0 Yes [id number] SPRAY 1 [facility] propionate 9-30 SPRAY INTO ity of 50 00:00: EACH [place] mcg/actuati 00 NOSTRIL Medic al on nasal EVERY DAY Branch spray CHOLECALCIF 2022-0 Yes [id number] TAKE 1 [facility] LILLI, 9-30 CAPSULE BY ity of VITAMIN D3, 00:00: MOUTH [place] 50 mcg 00 EVERY DAY Medical (2,000 Branch unit) capsule fluticasone 2022-0 Yes [id number] SPRAY 1 [facility] propionate 9-30 SPRAY INTO ity of 50 00:00: EACH [place] mcg/actuati 00 NOSTRIL Medic al on nasal EVERY DAY Branch spray CHOLECALCIF 2022-0 Yes [id number] TAKE 1 [facility] LILLI, 9-30 CAPSULE BY ity of VITAMIN D3, 00:00: MOUTH [place] 50 mcg 00 EVERY DAY Medical (2,000 Branch unit) capsule fluticasone 2022-0 Yes [id number] SPRAY 1 [facility] propionate 9-30 SPRAY INTO ity of 50 00:00: EACH [place] mcg/actuati 00 NOSTRIL Medic al on nasal EVERY DAY Branch spray CHOLECALCIF 2022-0 Yes [id number] TAKE 1 [facility] LILLI, 9-30 CAPSULE BY ity of VITAMIN D3, 00:00: MOUTH [place] 50 mcg 00 EVERY DAY Medical (2,000 Branch unit) capsule fluticasone 2022-0 Yes [id number] SPRAY 1 [facility] propionate 9-30 SPRAY INTO ity of 50 00:00: EACH [place] mcg/actuati 00 NOSTRIL Medic al on nasal EVERY DAY Branch spray CHOLECALCIF 2022-0 Yes [id number] TAKE 1 [facility] LLILI, 9-30 CAPSULE BY ity of VITAMIN D3, 00:00: MOUTH [place] 50 mcg 00 EVERY DAY Medical (2,000 Branch unit) capsule fluticasone 2022-0 Yes [id number] SPRAY 1 [facility] propionate 9-30 SPRAY INTO ity of 50 00:00: EACH [place] mcg/actuati 00 NOSTRIL Medic al on nasal EVERY DAY Branch spray CHOLECALCIF 2022-0 Yes [id number] TAKE 1 [facility] LILLI, 9-30 CAPSULE BY ity of VITAMIN D3, 00:00: MOUTH [place] 50 mcg 00 EVERY DAY Medical (2,000 Branch unit) capsule fluticasone 2022-0 Yes [id number] SPRAY 1 [facility] propionate 9-30 SPRAY INTO ity of 50 00:00: EACH [place] mcg/actuati 00 NOSTRIL Medic al on nasal EVERY DAY Branch spray CHOLECALCIF 2022-0 Yes [id number] TAKE 1 [facility] LILLI, 9-30 CAPSULE BY ity of VITAMIN D3, 00:00: MOUTH [place] 50 mcg 00 EVERY DAY Medical (2,000 Branch unit) capsule CHOLECALCIF 2022-0 Yes [id number] TAKE 1 [facility] LILLI, 9-30 CAPSULE BY ity of VITAMIN D3, 00:00: MOUTH [place] 50 mcg 00 EVERY DAY Medical (2,000 Branch unit) capsule fluticasone 2022- No [id number] SPRAY 1 [facility] propionate 07-13 SPRAY INTO it y of 50 00:00: 00:00 EACH [place] mcg/actuati 00 :00 NOSTRIL Medic al on nasal EVERY DAY Branch spray METFORMIN 2021- No [id number] TAKE 1 [facility] 1,000 mg 07-1308 TABLET BY ity o f tablet 00:00: 00:00 MOUTH [place] 00 :00 TWICE A Medical DAY WITH Branch MEALS ATENOLOL 2021- No [id number] TAKE 1 [facility] daly 100 mg 07-13 TABLET BY ity of tablet 00:00: 00:00 MOUTH [place] 00 :00 EVERY DAY Medical Branch METFORMIN 2021- No [id number] TAKE 1 [facility] 1,000 mg 07-13 TABLET BY ity o f tablet 00:00: 00:00 MOUTH [place] 00 :00 TWICE A Medical DAY WITH Branch MEALS ATENOLOL 2021- No [id number] TAKE 1 Un daly 100 mg 07-13 TABLET BY ity of tablet 00:00: 00:00 MOUTH [place] 00 :00 EVERY DAY Medical Branch colchicine Yes 1.2mg 1.2 mg, Uni vers (COLCRYS) 07-07 Oral, ity of tablet 1.2 14:00: DAILY, [place] mg 00 First dose Medical on Sat Branch 07/07/22 at 0900, Until Discontinu ed, FELI dexamethaso 2021- No 10mg 10 mg, Uni vers ne sod phos 07-06 Slow IV ity of PF 23:45: 23:42 Push, [place] injection 00 :00 ONCE, 1 Medical 10 mg dose, On Branch 07/06/22 at 1845, 1 mL ketorolac 2021- No 30mg 30 mg, Unive rs (TORADOL) 07-06 Slow IV ity of injection 23:45: 23:42 Push, [place] 30 mg 00 :00 ONCE, 1 Medical dose, On Branch 07/06/22 at 1845, FELI HYDROcodone 2021- No 1{tbl} 1 tablet, Univers -acetaminop 07-06 Oral, ONCE i ty of hen (NORCO) 23:00: 22:30 NOW, 1 [place] as 10-325 mg 00 :00 dose, On Medica l tablet 1 Fri Branch tablet 07/06/22 at 1800, Routine colchicine 2021- No [id number] .6mg Take 1 [facility] 0.6 mg 07-06 tablet by ity of tablet 00:00: 04:59 mouth in [place] 00 :00 the Medical morning Branch and 1 tablet in the evening. Do all this for 3 days. methylPREDN 2021- No [id number] 80mg [facility] ISolone 06-21 ity of acetate 22:45: 16:08 [place] (DEPO-MEDRO 00 :00 Medical L) Branch injection 80 mg methylPREDN 2021- No [id number] 80mg 80 mg, Univers ISolone 06-21 Intra-jovanna ity o f acetate 22:45: 16:08 [place], [place] (DEPO-MEDRO 00 :00 ONCE, 1 Medic al L) dose, On Branch injection Danni 06/21/22 80 mg at 1745, Routine amoxicillin Yes [id number] 1{tbl} Take 1 Univers -clavulanat 9-01 tablet by ity of e 00:00: mouth in [place] (AUGMENTIN) 00 the Medical 875-125 mg morning Branch per tablet and 1 tablet in the evening. TRIAMTERENE Yes [id number] TAKE 1/2 Univers -HYDROCHLOR 9-01 TABLET BY ity of OTHIAZID 00:00: MOUTH [place] 37.5-25 mg 00 EVERY DAY Medi terri tablet Branch amoxicillin 0 Yes [id number] 1{tbl} Take 1 Univers -clavulanat 9-01 tablet by ity of e 00:00: mouth in [place] (AUGMENTIN) 00 the Medical 875-125 mg morning Branch per tablet and 1 tablet in the evening. TRIAMTERENE 0 Yes [id number] TAKE 1/2 Univers -HYDROCHLOR 9-01 TABLET BY ity of OTHIAZID 00:00: MOUTH [place] 37.5-25 mg 00 EVERY DAY Medi terri tablet Branch amoxicillin 2022-0 Yes [id number] 1{tbl} Take 1 Univers -clavulanat 9-01 tablet by ity of e 00:00: mouth in [place] (AUGMENTIN) 00 the Medical 875-125 mg morning Branch per tablet and 1 tablet in the evening. TRIAMTERENE 2022-0 Yes [id number] TAKE 1/2 Univers -HYDROCHLOR 9-01 TABLET BY ity of OTHIAZID 00:00: MOUTH [place] 37.5-25 mg 00 EVERY DAY Medi terri tablet Branch amoxicillin 2022-0 Yes [id number] 1{tbl} Take 1 Univers -clavulanat 9-01 tablet by ity of e 00:00: mouth in [place] (AUGMENTIN) 00 the Medical 875-125 mg morning Branch per tablet and 1 tablet in the evening. TRIAMTERENE 2022-0 Yes [id number] TAKE 1/2 Univers -HYDROCHLOR 9-01 TABLET BY ity of OTHIAZID 00:00: MOUTH [place] 37.5-25 mg 00 EVERY DAY Medi terri tablet Branch amoxicillin 2022-0 Yes [id number] 1{tbl} Take 1 Univers -clavulanat 9-01 tablet by ity of e 00:00: mouth in [place] (AUGMENTIN) 00 the Medical 875-125 mg morning Branch per tablet and 1 tablet in the evening. TRIAMTERENE 2-0 Yes [id number] TAKE 1/2 Univers -HYDROCHLOR 9-01 TABLET BY ity of OTHIAZID 00:00: MOUTH [place] 37.5-25 mg 00 EVERY DAY Medi terir tablet Branch amoxicillin 2022-0 Yes [id number] 1{tbl} Take 1 Univers -clavulanat 9-01 tablet by ity of e 00:00: mouth in [place] (AUGMENTIN) 00 the Medical 875-125 mg morning Branch per tablet and 1 tablet in the evening. TRIAMTERENE 2022-0 Yes [id number] TAKE 1/2 Univers -HYDROCHLOR 9-01 TABLET BY ity of OTHIAZID 00:00: MOUTH [place] 37.5-25 mg 00 EVERY DAY Medi terri tablet Branch amoxicillin 2022-0 Yes [id number] 1{tbl} Take 1 Univers -clavulanat 9-01 tablet by ity of e 00:00: mouth in [place] (AUGMENTIN) 00 the Medical 875-125 mg morning Branch per tablet and 1 tablet in the evening. TRIAMTERENE 2022-0 Yes [id number] TAKE 1/2 [facility] -HYDROCHLOR 9-01 TABLET BY ity of OTHIAZID 00:00: MOUTH [place] 37.5-25 mg 00 EVERY DAY Medi terri tablet Branch amoxicillin 2022-0 Yes [id number] 1{tbl} Take 1 Univers -clavulanat 9-01 tablet by ity of e 00:00: mouth in [place] (AUGMENTIN) 00 the Medical 875-125 mg morning Branch per tablet and 1 tablet in the evening. TRIAMTERENE 2022-0 Yes [id number] TAKE 1/2 [facility] -HYDROCHLOR 9-01 TABLET BY ity of OTHIAZID 00:00: MOUTH [place] 37.5-25 mg 00 EVERY DAY Medi terri tablet Branch amoxicillin 2022-0 Yes [id number] 1{tbl} Take 1 [facility] -clavulanat 9-01 tablet by ity of e 00:00: mouth in [place] (AUGMENTIN) 00 the Medical 875-125 mg morning Branch per tablet and 1 tablet in the evening. TRIAMTERENE 2022-0 Yes [id number] TAKE 1/2 [facility] -HYDROCHLOR 9-01 TABLET BY [facility] of OTHIAZID 00:00: MOUTH [place] 37.5-25 mg 00 EVERY DAY Medi terri tablet Branch amoxicillin 2022-0 Yes [id number] 1{tbl} Take 1 [facility] -clavulanat 9-01 tablet by [facility]y of e 00:00: mouth in [place] (AUGMENTIN) 00 the Medical 875-125 mg morning Branch per tablet and 1 tablet in the evening. TRIAMTERENE 2022-0 Yes [id number] TAKE 1/2 [facility] -HYDROCHLOR 9-01 TABLET BY ity of OTHIAZID 00:00: MOUTH [place] 37.5-25 mg 00 EVERY DAY Medi terri tablet Branch amoxicillin 2022-0 Yes [id number] 1{tbl} Take 1 [facility] -clavulanat 9-01 tablet by [facility] of e 00:00: mouth in [place] (AUGMENTIN) 00 the Medical 875-125 mg morning Branch per tablet and 1 tablet in the evening. TRIAMTERENE 2022-0 Yes [id number] TAKE 1/2 [facility] -HYDROCHLOR 9-01 TABLET BY ity of OTHIAZID 00:00: MOUTH [place] 37.5-25 mg 00 EVERY DAY Medi terri tablet Branch amoxicillin 2022-0 Yes [id number] 1{tbl} Take 1 [facility] -clavulanat 9-01 tablet by ity of e 00:00: mouth in [place] (AUGMENTIN) 00 the Medical 875-125 mg morning Branch per tablet and 1 tablet in the evening. TRIAMTERENE 2022-0 Yes [id number] TAKE 1/2 [facility] -HYDROCHLOR 9-01 TABLET BY ity of OTHIAZID 00:00: MOUTH [place] 37.5-25 mg 00 EVERY DAY Medi terri tablet Branch amoxicillin 2-0 Yes [id number] 1{tbl} Take 1 [facility] -clavulanat 9-01 tablet by ity of e 00:00: mouth in [place] (AUGMENTIN) 00 the Medical 875-125 mg morning Branch per tablet and 1 tablet in the evening. TRIAMTERENE 2-0 Yes [id number] TAKE 1/2 [facility] -HYDROCHLOR 9-01 TABLET BY ity of OTHIAZID 00:00: MOUTH [place] 37.5-25 mg 00 EVERY DAY Medi terri tablet Branch amoxicillin 2-0 Yes [id number] 1{tbl} Take 1 [facility] -clavulanat 9-01 tablet by ity of e 00:00: mouth in [place] (AUGMENTIN) 00 the Medical 875-125 mg morning Branch per tablet and 1 tablet in the evening. TRIAMTERENE 2-0 Yes [id number] TAKE 1/2 [facility] -HYDROCHLOR 9-01 TABLET BY ity of OTHIAZID 00:00: MOUTH [place] 37.5-25 mg 00 EVERY DAY Medi terri tablet Branch amoxicillin 2022-0 Yes [id number] 1{tbl} Take 1 [facility] -clavulanat 9-01 tablet by ity of e 00:00: mouth in [place] (AUGMENTIN) 00 the Medical 875-125 mg morning Branch per tablet and 1 tablet in the evening. TRIAMTERENE 2-0 Yes [id number] TAKE 1/2 [facility] -HYDROCHLOR 9-01 TABLET BY ity of OTHIAZID 00:00: MOUTH [place] 37.5-25 mg 00 EVERY DAY Medi terri tablet Branch amoxicillin 2022-0 2022- No [id number] 1{tbl} Take 1 [facility] -clavulanat 9-01 12-08 tablet by it y of e 00:00: 00:00 mouth in [place] (AUGMENTIN) 00 :00 the Medical 875-125 mg morning Branch per tablet and 1 tablet in the evening. TRIAMTERENE 2021- No [id number] TAKE 1/2 [facility] -HYDROCHLOR 06-14 TABLET BY it y of OTHIAZID 00:00: 00:00 MOUTH [place] 37.5-25 mg 00 :00 EVERY DAY Medi terri tablet Branch amoxicillin 2021- No [id number] 1{tbl} Take 1 [facility] -clavulanat 06-14 tablet by it y of e 00:00: 00:00 mouth in [place] (AUGMENTIN) 00 :00 the Medical 875-125 mg morning Branch per tablet and 1 tablet in the evening. TRIAMTERENE 2021- No [id number] TAKE 1/2 [facility] -HYDROCHLOR 06-14 TABLET BY it y of OTHIAZID 00:00: 00:00 MOUTH [place] 37.5-25 mg 00 :00 EVERY DAY Medi terri tablet Branch LIDOCAINE 5 2021- Yes [id number] APPLY 5 [facility] % cream 8-19 GRAM TO ity of 00:00: AREA(S) 2 [place] [address] (TWO) Medical TIMES Branch DAILY NEEDED FOR PAIN (SCALE 4-6) NEEDED LIDOCAINE 5 2021-0 Yes [id number] APPLY 5 [facility] % cream 8-19 GRAM TO ity of 00:00: AREA(S) 2 [place] [address] (TWO) Medical TIMES Branch DAILY NEEDED FOR PAIN (SCALE 4-6) NEEDED LIDOCAINE 5 2021-0 Yes [id number] APPLY 5 [facility] % cream 8-19 GRAM TO ity of 00:00: AREA(S) 2 [place] [address] (TWO) Medical TIMES Branch DAILY NEEDED FOR PAIN (SCALE 4-6) NEEDED LIDOCAINE 5 2021-0 Yes [id number] APPLY 5 [facility] % cream 8-19 GRAM TO ity of 00:00: AREA(S) 2 [place] [address] (TWO) Medical TIMES Branch DAILY NEEDED FOR PAIN (SCALE 4-6) NEEDED LIDOCAINE 5 2021-0 Yes [id number] APPLY 5 [facility] % cream 8-19 GRAM TO ity of 00:00: AREA(S) 2 [place] [address] (TWO) Medical TIMES Branch DAILY NEEDED FOR PAIN (SCALE 4-6) NEEDED LIDOCAINE 5 2021-0 Yes [id number] APPLY 5 [facility] % cream 8-19 GRAM TO ity of 00:00: AREA(S) 2 [place] (TWO) Medical TIMES Branch DAILY NEEDED FOR PAIN (SCALE 4-6) NEEDED LIDOCAINE 5 2021-0 Yes [id number] APPLY 5 [facility] % cream 8-19 GRAM TO ity of 00:00: AREA(S) 2 [place] (TWO) Medical TIMES Branch DAILY NEEDED FOR PAIN (SCALE 4-6) NEEDED LIDOCAINE 5 2021-0 Yes [id number] APPLY 5 [facility] % cream 8-19 GRAM TO ity of 00:00: AREA(S) 2 [place] (TWO) Medical TIMES Branch DAILY NEEDED FOR PAIN (SCALE 4-6) NEEDED LIDOCAINE 5 2021-0 Yes [id number] APPLY 5 [facility] % cream 8-19 GRAM TO ity of 00:00: AREA(S) 2 [place] (TWO) Medical TIMES Branch DAILY NEEDED FOR PAIN (SCALE 4-6) NEEDED LIDOCAINE 5 2021-0 Yes [id number] APPLY 5 [facility] % cream 8-19 GRAM TO ity of 00:00: AREA(S) 2 [place] (TWO) Medical TIMES Branch DAILY NEEDED FOR PAIN (SCALE 4-6) NEEDED LIDOCAINE 5 2021-0 Yes [id number] APPLY 5 [facility] % cream 8-19 GRAM TO ity of 00:00: AREA(S) 2 [place] (TWO) Medical TIMES Branch DAILY NEEDED FOR PAIN (SCALE 4-6) NEEDED LIDOCAINE 5 2021-0 Yes [id number] APPLY 5 [facility] % cream 8-19 GRAM TO ity of 00:00: AREA(S) 2 [place] (TWO) Medical TIMES Branch DAILY NEEDED FOR PAIN (SCALE 4-6) NEEDED LIDOCAINE 5 2021-0 Yes [id number] APPLY 5 [facility] % cream 8-19 GRAM TO ity of 00:00: AREA(S) 2 [place] (TWO) Medical TIMES Branch DAILY NEEDED FOR PAIN (SCALE 4-6) NEEDED LIDOCAINE 5 2021-0 Yes [id number] APPLY 5 [facility] % cream 8-19 GRAM TO ity of 00:00: AREA(S) 2 [place] (TWO) Medical TIMES Branch DAILY NEEDED FOR PAIN (SCALE 4-6) NEEDED LIDOCAINE 5 2021-0 Yes [id number] APPLY 5 [facility] % cream 8-19 GRAM TO ity of 00:00: AREA(S) 2 [place] 00 (TWO) Medical TIMES Branch DAILY NEEDED FOR PAIN (SCALE 4-6) NEEDED LIDOCAINE 5 2021-0 2021- No [id number] APPLY 5 [facility] % cream 8-19 12-08 GRAM TO ity of 00:00: 00:00 AREA(S) 2 [place] 00 :00 (TWO) Medical TIMES Branch DAILY NEEDED FOR PAIN (SCALE 4-6) NEEDED LIDOCAINE 5 2-0 2021- No [id number] APPLY 5 [facility] % cream 8-19 12-08 GRAM TO ity of 00:00: 00:00 AREA(S) 2 [place] 00 :00 (TWO) Medical TIMES Branch DAILY NEEDED FOR PAIN (SCALE 4-6) NEEDED methocarbam 2022-0 Yes [id number] 750mg Take 1 [facility] oL 750 mg 8-17 tablet by ity o f tablet 00:00: mouth 4 [place] 00 (four) Medical times Branch daily. Diclofenac 2-0 Yes [id number] Apply to [facility] Sodium 8-17 area(s) 4 ity of (VOLTAREN) 00:00: (four) [place] 1 % gel 00 times Medical daily. Branch Apply 4 g qid methocarbam 2-0 Yes [id number] 750mg Take 1 [facility] oL 750 mg 8-17 tablet by ity o f tablet 00:00: mouth 4 [place] (four) Medical times Branch daily. Diclofenac 2022-0 Yes [id number] Apply to [facility] Sodium 8-17 area(s) 4 ity of (VOLTAREN) 00:00: (four) [place] 1 % gel 00 times Medical daily. Branch Apply 4 g qid methocarbam 2022-0 Yes [id number] 750mg Take 1 [facility] oL 750 mg 8-17 tablet by ity o f tablet 00:00: mouth 4 [place] 00 (four) Medical times Branch daily. Diclofenac 2022-0 Yes [id number] Apply to [facility] Sodium 8-17 area(s) 4 ity of (VOLTAREN) 00:00: (four) [place] 1 % gel 00 times Medical daily. Branch Apply 4 g qid methocarbam 2022-0 Yes [id number] 750mg Take 1 [facility] oL 750 mg 8-17 tablet by ity o f tablet 00:00: mouth 4 [place] 00 (four) Medical times Branch daily. Diclofenac 2022-0 Yes [id number] Apply to [facility] Sodium 8-17 area(s) 4 ity of (VOLTAREN) 00:00: (four) [place] 1 % gel 00 times Medical daily. Branch Apply 4 g qid methocarbam 2022-0 Yes [id number] 750mg Take 1 [facility] oL 750 mg 8-17 tablet by ity o f tablet 00:00: mouth 4 [place] 00 (four) Medical times Branch daily. Diclofenac 2022-0 Yes [id number] Apply to [facility] Sodium 8-17 area(s) 4 ity of (VOLTAREN) 00:00: (four) [place] 1 % gel 00 times Medical daily. Branch Apply 4 g qid methocarbam 2022-0 Yes [id number] 750mg Take 1 [facility] oL 750 mg 8-17 tablet by ity o f tablet 00:00: mouth 4 [place] 00 (four) Medical times Branch daily. Diclofenac 2022-0 Yes [id number] Apply to [facility] Sodium 8-17 area(s) 4 ity of (VOLTAREN) 00:00: (four) [place] 1 % gel 00 times Medical daily. Branch Apply 4 g qid methocarbam 2022-0 Yes [id number] 750mg Take 1 [facility] oL 750 mg 8-17 tablet by ity o f tablet 00:00: mouth 4 [place] (four) Medical times Branch daily. Diclofenac 2022-0 Yes [id number] Apply to [facility] Sodium 8-17 area(s) 4 ity of (VOLTAREN) 00:00: (four) [place] 1 % gel 00 times Medical daily. Branch Apply 4 g qid methocarbam 2022-0 Yes [id number] 750mg Take 1 [facility] oL 750 mg 8-17 tablet by ity o f tablet 00:00: mouth 4 [place] 00 (four) Medical times Branch daily. Diclofenac 2022-0 Yes [id number] Apply to [facility] Sodium 8-17 area(s) 4 ity of (VOLTAREN) 00:00: (four) [place] 1 % gel 00 times Medical daily. Branch Apply 4 g qid methocarbam 2022-0 Yes [id number] 750mg Take 1 [facility] oL 750 mg 8-17 tablet by ity o f tablet 00:00: mouth 4 [place] 00 (four) Medical times Branch daily. Diclofenac 2022-0 Yes [id number] Apply to [facility] Sodium 8-17 area(s) 4 ity of (VOLTAREN) 00:00: (four) [place] 1 % gel 00 times Medical daily. Branch Apply 4 g qid methocarbam 2022-0 Yes [id number] 750mg Take 1 [facility] oL 750 mg 8-17 tablet by ity o f tablet 00:00: mouth 4 [place] 00 (four) Medical times Branch daily. Diclofenac 2022-0 Yes [id number] Apply to [facility] Sodium 8-17 area(s) 4 ity of (VOLTAREN) 00:00: (four) [place] 1 % gel 00 times Medical daily. Branch Apply 4 g qid methocarbam 2022-0 Yes [id number] 750mg Take 1 [facility] oL 750 mg 8-17 tablet by ity o f tablet 00:00: mouth 4 [place] 00 (four) Medical times Branch daily. Diclofenac 2022-0 Yes [id number] Apply to [facility] Sodium 8-17 area(s) 4 ity of (VOLTAREN) 00:00: (four) [place] 1 % gel 00 times Medical daily. Branch Apply 4 g qid methocarbam 2022-0 Yes [id number] 750mg Take 1 [facility] oL 750 mg 8-17 tablet by ity o f tablet 00:00: mouth 4 00 (four) Medical times Branch daily. Diclofenac 2022-0 Yes [id number] Apply to [facility] Sodium 8-17 area(s) 4 ity of (VOLTAREN) 00:00: (four) [place] 1 % gel 00 times Medical daily. Branch Apply 4 g qid methocarbam 2022-0 Yes [id number] 750mg Take 1 [facility] oL 750 mg 8-17 tablet by ity o f tablet 00:00: mouth 4 [place] 00 (four) Medical times Branch daily. Diclofenac 2022-0 Yes [id number] Apply to [facility] Sodium 8-17 area(s) 4 ity of (VOLTAREN) 00:00: (four) [place] 1 % gel 00 times Medical daily. Branch Apply 4 g qid methocarbam 2022-0 Yes [id number] 750mg Take 1 [facility] oL 750 mg 8-17 tablet by ity o f tablet 00:00: mouth 4 [place] 00 (four) Medical times Branch daily. Diclofenac 2022-0 Yes [id number] Apply to [facility] Sodium 8-17 area(s) 4 ity of (VOLTAREN) 00:00: (four) [place] 1 % gel 00 times Medical daily. Branch Apply 4 g qid methocarbam 2-0 Yes [id number] 750mg Take 1 [facility] oL 750 mg 8-17 tablet by ity o f tablet 00:00: mouth 4 [place] 00 (four) Medical times Branch daily. Diclofenac 2022-0 Yes [id number] Apply to [facility] Sodium 8-17 area(s) 4 ity of (VOLTAREN) 00:00: (four) [place] 1 % gel 00 times Medical daily. Branch Apply 4 g qid methocarbam 2021-0 Yes [id number] 750mg Take 1 [facility] oL 750 mg 8-17 tablet by ity o f tablet 00:00: mouth 4 [place] 00 (four) Medical times Branch daily. methocarbam 2-0 Yes [id number] 750mg Take 1 [facility] oL 750 mg 8-17 tablet by ity o f tablet 00:00: mouth 4 [place] 00 (four) Medical times Branch daily. methocarbam 2-0 Yes [id number] 750mg Take 1 [facility] oL 750 mg 8-17 tablet by ity o f tablet 00:00: mouth 4 [place] 00 (four) Medical times Branch daily. methocarbam 2-0 Yes [id number] 750mg Take 1 [facility] oL 750 mg 8-17 tablet by ity o f tablet 00:00: mouth 4 [place] 00 (four) Medical times Branch daily. methocarbam 2-0 2023- No [id number] 750mg Take 1 [facility] oL 750 mg 8-17 01-17 tablet by ity of tablet 00:00: 00:00 mouth 4 [place] 00 :00 (four) Medical times Branch daily. Diclofenac 2-0 2022- No [id number] Apply to [facility] Sodium 8-17 12-08 area(s) 4 ity of (VOLTAREN) 00:00: 00:00 (four) [place] 1 % gel 00 :00 times Medical daily. Branch Apply 4 g qid Diclofenac 2021-0 2022- No [id number] Apply to [facility] Sodium 8-17 12-08 area(s) 4 ity of (VOLTAREN) 00:00: 00:00 (four) [place] 1 % gel 00 :00 times Medical daily. Branch Apply 4 g qid AMLODIPINE 2021-0 Yes [id number] TAKE 1 U nivers 5 mg tablet 7-11 TABLET BY ity of 00:00: MOUTH 00 EVERY DAY Medical Branch ALLOPURINOL 2-0 Yes [id number] TAKE 1 [facility] 100 mg 7-11 TABLET BY ity of tablet 00:00: MOUTH 00 EVERY DAY Medical Branch AMLODIPINE 2-0 Yes [id number] TAKE 1 U nivers 5 mg tablet 7-11 TABLET BY ity of 00:00: MOUTH EVERY DAY Medical Branch ALLOPURINOL 2021-0 Yes [id number] TAKE 1 [facility] 100 mg 7-11 TABLET BY ity of tablet 00:00: MOUTH 00 EVERY DAY Medical Branch AMLODIPINE 2021-0 Yes [id number] TAKE 1 U nivers 5 mg tablet 7-11 TABLET BY ity of 00:00: MOUTH EVERY DAY Medical Branch ALLOPURINOL 2021-0 Yes [id number] TAKE 1 [facility] 100 mg 7-11 TABLET BY ity of tablet 00:00: MOUTH EVERY DAY Medical Branch AMLODIPINE 2021-0 Yes [id number] TAKE 1 [facility] nivers 5 mg tablet 7-11 TABLET BY ity of 00:00: MOUTH EVERY DAY Medical Branch ALLOPURINOL 2021-0 Yes [id number] TAKE 1 [facility] 100 mg 7-11 TABLET BY ity of tablet 00:00: MOUTH 00 EVERY DAY Medical Branch AMLODIPINE 2-0 Yes [id number] TAKE 1 U nivers 5 mg tablet 7-11 TABLET BY ity of 00:00: MOUTH EVERY DAY Medical Branch ALLOPURINOL 2-0 Yes [id number] TAKE 1 [facility] 100 mg 7-11 TABLET BY ity of tablet 00:00: MOUTH 00 EVERY DAY Medical Branch AMLODIPINE 2-0 Yes [id number] TAKE 1 U nivers 5 mg tablet 7-11 TABLET BY ity of 00:00: MOUTH 00 EVERY DAY Medical Branch ALLOPURINOL 2-0 Yes [id number] TAKE 1 [facility] 100 mg 7-11 TABLET BY ity of tablet 00:00: MOUTH 00 EVERY DAY Medical Branch AMLODIPINE 2-0 Yes [id number] TAKE 1 U nivers 5 mg tablet 7-11 TABLET BY ity of 00:00: MOUTH 00 EVERY DAY Medical Branch ALLOPURINOL 2-0 Yes [id number] TAKE 1 [facility] 100 mg 7-11 TABLET BY ity of tablet 00:00: MOUTH 00 EVERY DAY Medical Branch AMLODIPINE 2022-0 Yes [id number] TAKE 1 U nivers 5 mg tablet 7-11 TABLET BY ity of 00:00: MOUTH 00 EVERY DAY Medical Branch ALLOPURINOL 2-0 Yes [id number] TAKE 1 [facility] 100 mg 7-11 TABLET BY ity of tablet 00:00: MOUTH 00 EVERY DAY Medical Branch AMLODIPINE 2-0 Yes [id number] TAKE 1 U nivers 5 mg tablet 7-11 TABLET BY ity of 00:00: MOUTH 00 EVERY DAY Medical Branch ALLOPURINOL 2-0 Yes [id number] TAKE 1 [facility] 100 mg 7-11 TABLET BY ity of tablet 00:00: MOUTH EVERY DAY Medical Branch AMLODIPINE 2-0 Yes [id number] TAKE 1 U nivers 5 mg tablet 7-11 TABLET BY ity of 00:00: MOUTH EVERY DAY Medical Branch ALLOPURINOL 2-0 Yes [id number] TAKE 1 [facility] 100 mg 7-11 TABLET BY ity of tablet 00:00: MOUTH EVERY DAY Medical Branch AMLODIPINE 2-0 Yes [id number] TAKE 1 [facility] nivers 5 mg tablet 7-11 TABLET BY ity of 00:00: MOUTH 00 EVERY DAY Medical Branch ALLOPURINOL 2-0 Yes [id number] TAKE 1 [facility] 100 mg 7-11 TABLET BY ity of tablet 00:00: MOUTH 00 EVERY DAY Medical Branch AMLODIPINE 2-0 Yes [id number] TAKE 1 [facility] nivers 5 mg tablet 7-11 TABLET BY ity of 00:00: MOUTH EVERY DAY Medical Branch ALLOPURINOL 2-0 Yes [id number] TAKE 1 [facility] 100 mg 7-11 TABLET BY ity of tablet 00:00: MOUTH 00 EVERY DAY Medical Branch AMLODIPINE 2-0 Yes [id number] TAKE 1 [facility] nivers 5 mg tablet 7-11 TABLET BY ity of 00:00: MOUTH 00 EVERY DAY Medical Branch ALLOPURINOL 2022-0 Yes [id number] TAKE 1 [facility] 100 mg 7-11 TABLET BY ity of tablet 00:00: MOUTH 00 EVERY DAY Medical Branch AMLODIPINE 2-0 Yes [id number] TAKE 1 [facility] nivers 5 mg tablet 7-11 TABLET BY ity of 00:00: MOUTH EVERY DAY Medical Branch ALLOPURINOL 2022-0 Yes [id number] TAKE 1 [facility] 100 mg 7-11 TABLET BY ity of tablet 00:00: MOUTH [place] 00 EVERY DAY Medical Branch AMLODIPINE 0 Yes [id number] TAKE 1 [facility] nivers 5 mg tablet 7-11 TABLET BY ity of 00:00: MOUTH [place] 00 EVERY DAY Medical Branch ALLOPURINOL 0 Yes [id number] TAKE 1 [facility] 100 mg 7-11 TABLET BY ity of tablet 00:00: MOUTH [place] EVERY DAY Medical Branch AMLODIPINE 2021-0 2021- No [id number] TAKE 1 [facility] 5 mg tablet 7-11 12-08 TABLET BY it y of 00:00: 00:00 MOUTH [place] 00 :00 EVERY DAY Medical Branch ALLOPURINOL 2021-0 2021- No [id number] TAKE 1 [facility] 100 mg 7-11 12-08 TABLET BY ity of tablet 00:00: 00:00 MOUTH [place] 00 :00 EVERY DAY Medical Branch AMLODIPINE 2021-0 2021- No [id number] TAKE 1 [facility] 5 mg tablet 7-11 12-08 TABLET BY it y of 00:00: 00:00 MOUTH [place] 00 :00 EVERY DAY Medical Branch ALLOPURINOL 0 2021- No [id number] TAKE 1 [facility] 100 mg 7-11 12-08 TABLET BY ity of tablet 00:00: 00:00 MOUTH [place] 00 :00 EVERY DAY Medical Branch FLUTICASONE Yes [id number] SPRAY 1 [facility] PROPIONATE 6-02 SPRAY INTO ity of 50 00:00: EACH [place] mcg/actuati 00 NOSTRIL Medic al on nasal EVERY DAY Branch spray FLUTICASONE Yes [id number] SPRAY 1 [facility] PROPIONATE 6-02 SPRAY INTO ity of 50 00:00: EACH [place] mcg/actuati 00 NOSTRIL Medic al on nasal EVERY DAY Branch spray FLUTICASONE Yes [id number] SPRAY 1 [facility] PROPIONATE 6-02 SPRAY INTO ity of 50 00:00: EACH [place] mcg/actuati 00 NOSTRIL Medic al on nasal EVERY DAY Branch spray FLUTICASONE Yes [id number] SPRAY 1 [facility] PROPIONATE 6-02 SPRAY INTO ity of 50 00:00: EACH [place] mcg/actuati 00 NOSTRIL Medic al on nasal EVERY DAY Branch spray atenoloL Yes [id number] 100mg Take 1 [facility] daly 100 mg 5-31 tablet by ity of tablet 00:00: mouth [place] 00 daily. Medical Branch atorvastati 2021-0 Yes [id number] 20mg Take 1 [facility] n 20 mg 5-31 tablet by ity of tablet 00:00: mouth at [place] 00 bedtime. Medical Branch metFORMIN 2021-0 Yes [id number] 1000mg Take 1 [facility] 1,000 mg 5-31 tablet by ity of tablet 00:00: mouth 2 (two) Medical times Branch daily with meals. ezetimibe 2021-0 Yes [id number] 10mg Take 1 [facility] nivers 10 mg 5-31 tablet by ity of tablet 00:00: mouth [place] 00 daily. Medical Branch atenoloL 2021-0 Yes [id number] 100mg Take 1 Un daly 100 mg 5-31 tablet by ity of tablet 00:00: mouth [place] 00 daily. Medical Branch atorvastati 2021-0 Yes [id number] 20mg Take 1 [facility] n 20 mg 5-31 tablet by ity of tablet 00:00: mouth at [place] 00 bedtime. Medical Branch metFORMIN 2021-0 Yes [id number] 1000mg Take 1 [facility] 1,000 mg 5-31 tablet by ity of tablet 00:00: mouth (two) Medical times Branch daily with meals. ezetimibe 2021-0 Yes [id number] 10mg Take 1 [facility] nivers 10 mg 5-31 tablet by ity of tablet 00:00: mouth [place] 00 daily. Medical Branch atenoloL 2021-0 Yes [id number] 100mg Take 1 Un daly 100 mg 5-31 tablet by ity of tablet 00:00: mouth [place] 00 daily. Medical Branch atorvastati 2021-0 Yes [id number] 20mg Take 1 [facility] n 20 mg 5-31 tablet by ity of tablet 00:00: mouth at [place] 00 bedtime. Medical Branch metFORMIN 2021-0 Yes [id number] 1000mg Take 1 [facility] 1,000 mg 5-31 tablet by ity of tablet 00:00: mouth 2 (two) Medical times Branch daily with meals. ezetimibe 2021-0 Yes [id number] 10mg Take 1 [facility] nivers 10 mg 5-31 tablet by ity of tablet 00:00: mouth [place] 00 daily. Medical Branch atenoloL 2021-0 Yes [id number] 100mg Take 1 Un daly 100 mg 5-31 tablet by ity of tablet 00:00: mouth [place] 00 daily. Medical Branch atorvastati 2021-0 Yes [id number] 20mg Take 1 [facility] n 20 mg 5-31 tablet by ity of tablet 00:00: mouth at [place] 00 bedtime. Medical Branch metFORMIN 2021-0 Yes [id number] 1000mg Take 1 [facility] 1,000 mg 5-31 tablet by ity of tablet 00:00: mouth 2 [place] 00 (two) Medical times Branch daily with meals. ezetimibe 2021-0 Yes [id number] 10mg Take 1 [facility] nivers 10 mg 5-31 tablet by ity of tablet 00:00: mouth [place] 00 daily. Medical Branch ezetimibe 2021-0 Yes [id number] 10mg Take 1 [facility] nivers 10 mg 5-31 tablet by ity of tablet 00:00: mouth [place] 00 daily. Medical Branch ezetimibe 2021-0 Yes [id number] 10mg Take 1 [facility] nivers 10 mg 5-31 tablet by ity of tablet 00:00: mouth [place] 00 daily. Medical Branch ezetimibe 2021-0 Yes [id number] 10mg Take 1 [facility] nivers 10 mg 5-31 tablet by ity of tablet 00:00: mouth [place] 00 daily. Medical Branch ezetimibe 2021-0 Yes [id number] 10mg Take 1 [facility] nivers 10 mg 5-31 tablet by ity of tablet 00:00: mouth [place] 00 daily. Medical Branch ezetimibe 2021-0 Yes [id number] 10mg Take 1 U nivers 10 mg 5-31 tablet by ity of tablet 00:00: mouth [place] 00 daily. Medical Branch ezetimibe 2021-0 Yes [id number] 10mg Take 1 [facility] nivers 10 mg 5-31 tablet by ity of tablet 00:00: mouth [place] 00 daily. Medical Branch ezetimibe 2021-0 Yes [id number] 10mg Take 1 [facility] nivers 10 mg 5-31 tablet by ity of tablet 00:00: mouth [place] 00 daily. Medical Branch ezetimibe 2021-0 Yes [id number] 10mg Take 1 [facility] nivers 10 mg 5-31 tablet by ity of tablet 00:00: mouth [place] 00 daily. Medical Branch ezetimibe 2021-0 Yes [id number] 10mg Take 1 [facility] nivers 10 mg 5-31 tablet by ity of tablet 00:00: mouth [place] 00 daily. Medical Branch ezetimibe 2021-0 Yes [id number] 10mg Take 1 [facility] nivers 10 mg 5-31 tablet by ity of tablet 00:00: mouth [place] 00 daily. Medical Branch ezetimibe 2021-0 Yes [id number] 10mg Take 1 [facility] nivers 10 mg 5-31 tablet by ity of tablet 00:00: mouth [place] 00 daily. Medical Branch ezetimibe 2021-0 2021- No [id number] 10mg Take 1 [facility] 10 mg 5-31 12-08 tablet by ity of tablet 00:00: 00:00 mouth [place] 00 :00 daily. Medical Branch ezetimibe 2021-0 2021- No [id number] 10mg Take 1 [facility] 10 mg 5-31 12-08 tablet by ity of tablet 00:00: 00:00 mouth [place] 00 :00 daily. Medical Branch atorvastati 2021-0 2021- No [id number] 20mg Take 1 [facility] n 20 mg 5-31 10-03 tablet by ity of tablet 00:00: 00:00 mouth at [place] 00 :00 bedtime. Medical Branch glipiZIDE 5 2021-0 Yes [id number] 5mg Take 1 [facility] mg tablet 5-01 tablet by ity o f 00:00: mouth [place] 00 daily. Medical Branch glipiZIDE 5 2021-0 Yes [id number] 5mg Take 1 [facility] mg tablet 5-01 tablet by ity o f 00:00: mouth [place] 00 daily. Medical Branch glipiZIDE 5 2021-0 Yes [id number] 5mg Take 1 [facility] mg tablet 5-01 tablet by ity o f 00:00: mouth [place] 00 daily. Medical Branch glipiZIDE 5 2021-0 Yes [id number] 5mg Take 1 [facility] mg tablet 5-01 tablet by ity o f 00:00: mouth [place] 00 daily. Medical Branch glipiZIDE 5 2021-0 Yes [id number] 5mg Take 1 [facility] mg tablet 5-01 tablet by ity o f 00:00: mouth [place] 00 daily. Medical Branch glipiZIDE 5 0 Yes [id number] 5mg Take 1 [facility] mg tablet 5-01 tablet by ity o f 00:00: mouth [place] 00 daily. Medical Branch glipiZIDE 5 2021-0 Yes [id number] 5mg Take 1 [facility] mg tablet 5-01 tablet by ity o f 00:00: mouth [place] 00 daily. Medical Branch glipiZIDE 5 2021-0 Yes [id number] 5mg Take 1 [facility] mg tablet 5-01 tablet by ity o f 00:00: mouth [place] 00 daily. Medical Branch glipiZIDE 5 0 Yes [id number] 5mg Take 1 [facility] mg tablet 5-01 tablet by ity o f 00:00: mouth [place] 00 daily. Medical Branch glipiZIDE 5 0 Yes [id number] 5mg Take 1 [facility] mg tablet 5-01 tablet by ity o f 00:00: mouth [place] 00 daily. Medical Branch glipiZIDE 5 0 Yes [id number] 5mg Take 1 [facility] mg tablet 5-01 tablet by ity o f 00:00: mouth [place] 00 daily. Medical Branch glipiZIDE 5 0 Yes [id number] 5mg Take 1 [facility] mg tablet 5-01 tablet by ity o f 00:00: mouth [place] 00 daily. Medical Branch glipiZIDE 5 0 Yes [id number] 5mg Take 1 [facility] mg tablet 5-01 tablet by ity o f 00:00: mouth [place] 00 daily. Medical Branch glipiZIDE 5 0 Yes [id number] 5mg Take 1 [facility] mg tablet 5-01 tablet by ity o f 00:00: mouth [place] 00 daily. Medical Branch glipiZIDE 5 0 Yes [id number] 5mg Take 1 [facility] mg tablet 5-01 tablet by ity o f 00:00: mouth [place] 00 daily. Medical Branch glipiZIDE 5 2021-0 2021- No [id number] 5mg Take 1 [facility] mg tablet 5-01 12-08 tablet by ity of 00:00: 00:00 mouth [place] 00 :00 daily. Medical Branch glipiZIDE 5 2021-0 2021- No [id number] 5mg Take 1 [facility] mg tablet 5- 12-08 tablet by ity of 00:00: 00:00 mouth [place] 00 :00 daily. Medical Branch methocarbam 2022-0 Yes [id number] 750mg Take 1 [facility] oL 750 mg 4-22 tablet by ity o f tablet 00:00: mouth [place] 00 every 6 Medical (six) Branch hours as needed (MUSCLE SPASM). methocarbam 2022-0 Yes [id number] 750mg Take 1 [facility] oL 750 mg 4-22 tablet by ity o f tablet 00:00: mouth [place] 00 every 6 Medical (six) Branch hours as needed (MUSCLE SPASM). methocarbam 2-0 Yes [id number] 750mg Take 1 [facility] oL 750 mg 4-22 tablet by ity o f tablet 00:00: mouth [place] 00 every 6 Medical (six) Branch hours as needed (MUSCLE SPASM). methocarbam 2022-0 Yes [id number] 750mg Take 1 [facility] oL 750 mg 4-22 tablet by ity o f tablet 00:00: mouth [place] 00 every 6 Medical (six) Branch hours as needed (MUSCLE SPASM). methocarbam 2-0 Yes [id number] 750mg Take 1 [facility] oL 750 mg 4-22 tablet by ity o f tablet 00:00: mouth [place] 00 every 6 Medical (six) Branch hours as needed (MUSCLE SPASM). methocarbam 2-0 Yes [id number] 750mg Take 1 [facility] oL 750 mg 4-22 tablet by ity o f tablet 00:00: mouth [place] 00 every 6 Medical (six) Branch hours as needed (MUSCLE SPASM). methocarbam 2022-0 Yes [id number] 750mg Take 1 [facility] oL 750 mg 4-22 tablet by ity o f tablet 00:00: mouth [place] 00 every 6 Medical (six) Branch hours as needed (MUSCLE SPASM). methocarbam 2022-0 Yes [id number] 750mg Take 1 [facility] oL 750 mg 4-22 tablet by [facility] o f tablet 00:00: mouth [place] 00 every 6 Medical (six) Branch hours as needed (MUSCLE SPASM). methocarbam 2022-0 Yes [id number] 750mg Take 1 [facility] o[facility] 750 mg 4-22 tablet by [facility] o f tablet 00:00: mouth [place] 00 every 6 Medical (six) Branch hours as needed (MUSCLE SPASM). methocarbam 2022-0 Yes [id number] 750mg Take 1 [facility] o[facility] 750 mg 4-22 tablet by [facility] o f tablet 00:00: mouth [place] 00 every 6 Medical (six) Branch hours as needed (MUSCLE SPASM). methocarbam 2021-0 Yes [id number] 750mg Take 1 [facility] oL 750 mg 4-22 tablet by [facility] o f tablet 00:00: mouth [place] 00 every 6 Medical (six) Branch hours as needed (MUSCLE SPASM). methocarbam 2021-0 Yes [id number] 750mg Take 1 [facility] oL 750 mg 4-22 tablet by [facility] o f tablet 00:00: mouth [place] 00 every 6 Medical (six) Branch hours as needed (MUSCLE SPASM). methocarbam 2021-0 Yes [id number] 750mg Take 1 [facility] oL 750 mg 4-22 tablet by [facility] o f tablet 00:00: mouth [place] 00 every 6 Medical (six) Branch hours as needed (MUSCLE SPASM). methocarbam 2021-0 Yes [id number] 750mg Take 1 [facility] oL 750 mg 4-22 tablet by [facility] o f tablet 00:00: mouth [place] 00 every 6 Medical (six) Branch hours as needed (MUSCLE SPASM). methocarbam 2021-0 Yes [id number] 750mg Take 1 [facility] oL 750 mg 4-22 tablet by [facility] o f tablet 00:00: mouth [place] 00 every 6 Medical (six) Branch hours as needed (MUSCLE SPASM). methocarbam 0 2021- No [id number] 750mg Take 1 [facility] oL 750 mg 4-22 12-08 tablet by [facility] of tablet 00:00: 00:00 mouth [place] 00 :00 every 6 Medical (six) Branch hours as needed (MUSCLE SPASM). methocarbam 2021-0 2021- No [id number] 750mg Take 1 [facility] oL 750 mg 4-22 12-08 tablet by [facility] of tablet 00:00: 00:00 mouth [place] 00 :00 every 6 Medical (six) Branch hours as needed (MUSCLE SPASM). doxepin 25 2021-0 Yes [id number] 25mg Take 1 [facility] mg capsule 4-21 capsule by [facility] of 00:00: mouth at [place] 00 bedtime. Medical Branch Cholecalcif 2021-0 Yes [id number] 2000U Take 1 [facility] lilli, 4-21 tablet by [facility] of Vitamin D3, 00:00: mouth [place] (VITAMIN 00 daily. Medical D3) 50 mcg Branch (2,000 unit) tablet doxepin 25 2021-0 Yes [id number] 25mg Take 1 [facility] mg capsule 4-21 capsule by [facility] of 00:00: mouth at [place] [address] bedtime. Medical Branch Cholecalcif 2021-0 Yes [id number] 2000U Take 1 [facility] lilli, 4-21 tablet by [facility] of Vitamin D3, 00:00: mouth [place] (VITAMIN 00 daily. Medical D3) 50 mcg Branch (2,000 unit) tablet doxepin 25 2021-0 Yes [id number] 25mg Take 1 [facility] mg capsule 4-21 capsule by [facility] of 00:00: mouth at [place] [address] bedtime. Medical Branch Cholecalcif 2021-0 Yes [id number] 1999U Take 1 [facility] lilli, 4-21 tablet by [facility] of Vitamin D3, 00:00: mouth [place] (VITAMIN 00 daily. Medical D3) 50 mcg Branch (2,000 unit) tablet doxepin 25 2021-0 Yes [id number] 25mg Take 1 [facility] mg capsule 4-21 capsule by [facility] of 00:00: mouth at [place] [address] bedtime. Medical Branch Cholecalcif 2021-0 Yes [id number] 1999U Take 1 [facility] lilli, 4-21 tablet by [facility] of Vitamin D3, 00:00: mouth [place] (VITAMIN 00 daily. Medical D3) 50 mcg Branch (2,000 unit) tablet doxepin 25 2021-0 Yes [id number] 25mg Take 1 [facility] mg capsule 4-21 capsule by [facility] of 00:00: mouth at [place] [address] bedtime. Medical Branch doxepin 25 2021-0 Yes [id number] 25mg Take 1 [facility] mg capsule 4-21 capsule by [facility] of 00:00: mouth at [place] [address] bedtime. Medical Branch doxepin 25 2021-0 Yes [id number] 25mg Take 1 [facility] mg capsule 4-21 capsule by [facility] of 00:00: mouth at [place] [address] bedtime. Medical Branch doxepin 25 2021-0 Yes [id number] 25mg Take 1 [facility] mg capsule 4-21 capsule by [facility] of 00:00: mouth at [place] [address] bedtime. Medical Branch doxepin 25 2021-0 Yes [id number] 25mg Take 1 [facility] mg capsule 4-21 capsule by [facility] of 00:00: mouth at [place] [address] bedtime. Medical Branch doxepin 25 0 Yes [id number] 25mg Take 1 [facility] mg capsule 4-21 capsule by [facility] of 00:00: mouth at [place] [address] bedtime. Medical Branch doxepin 25 0 Yes [id number] 25mg Take 1 [facility] mg capsule 4-21 capsule by [facility] of 00:00: mouth at [place] [address] bedtime. Medical Branch doxepin 25 2021-0 Yes [id number] 25mg Take 1 [facility] mg capsule 4-21 capsule by [facility] of 00:00: mouth at [place] [address] bedtime. Medical Branch doxepin 25 0 Yes [id number] 25mg Take 1 [facility] mg capsule 4-21 capsule by [facility] of 00:00: mouth at [place] [address] bedtime. Medical Branch doxepin 25 0 Yes [id number] 25mg Take 1 [facility] mg capsule 4-21 capsule by [facility] of 00:00: mouth at [place] [address] bedtime. Medical Branch doxepin 25 0 Yes [id number] 25mg Take 1 [facility] mg capsule 4-21 capsule by [facility] of 00:00: mouth at [place] [address] bedtime. Medical Branch doxepin 0 Yes [id number] 25mg Take 1 [facility] mg capsule 4-21 capsule by [facility] of 00:00: mouth at [place] [address] bedtime. Medical Branch doxepin 25 0 Yes [id number] 25mg Take 1 [facility] mg capsule 4-21 capsule by [facility] of 00:00: mouth at [place] [address] bedtime. Medical Branch doxepin 25 0 Yes [id number] 25mg Take 1 [facility] mg capsule 4-21 capsule by [facility] of 00:00: mouth at [place] [address] bedtime. Medical Branch doxepin 25 2021-0 Yes [id number] 25mg Take 1 [facility] mg capsule 4-21 capsule by [facility] of 00:00: mouth at [place] [address] bedtime. Medical Branch doxepin 25 2021-0 Yes [id number] 25mg Take 1 [facility] mg capsule 4-21 capsule by [facility] of 00:00: mouth at [place] [address] bedtime. Medical Branch doxepin 25 2021-0 Yes [id number] 25mg Take 1 [facility] mg capsule 4-21 capsule by [facility] of 00:00: mouth at [place] [address] bedtime. Medical Branch doxepin 25 0 Yes [id number] 25mg Take 1 [facility] mg capsule 4-21 capsule by [facility] of 00:00: mouth at [place] [address] bedtime. Medical Branch doxepin 25 0 Yes [id number] 25mg Take 1 [facility] mg capsule 4-21 capsule by [facility] of 00:00: mouth at [place] [address] bedtime. Medical Branch doxepin 25 0 Yes [id number] 25mg Take 1 [facility] mg capsule 4-21 capsule by [facility] of 00:00: mouth at [place] [address] bedtime. Medical Branch doxepin 25 0 Yes [id number] 25mg Take 1 [facility] mg capsule 4-21 capsule by [facility] of 00:00: mouth at [place] [address] bedtime. Medical Branch doxepin 25 0 Yes [id number] 25mg Take 1 [facility] mg capsule 4-21 capsule by [facility] of 00:00: mouth at [place] [address] bedtime. Medical Branch doxepin 25 0 Yes [id number] 25mg Take 1 [facility] mg capsule 4-21 capsule by [facility] of 00:00: mouth at [place] [address] bedtime. Medical Branch doxepin 0 Yes [id number] 25mg Take 1 [facility] mg capsule 4-21 capsule by [facility] of 00:00: mouth at [place] [address] bedtime. Medical Branch doxepin 25 0 Yes [id number] 25mg Take 1 [facility] mg capsule 4-21 capsule by [facility] of 00:00: mouth at [place] [address] bedtime. Medical Branch doxepin 25 0 Yes [id number] 25mg Take 1 [facility] mg capsule 4-21 capsule by [facility] of 00:00: mouth at [place] [address] bedtime. Medical Branch doxepin 25 0 Yes [id number] 25mg Take 1 [facility] mg capsule 4-21 capsule by [facility] of 00:00: mouth at [place] [address] bedtime. Medical Branch doxepin 25 2021-0 Yes [id number] 25mg Take 1 [facility] mg capsule 4-21 capsule by [facility] of 00:00: mouth at [place] [address] bedtime. Medical Branch doxepin 25 2021-0 Yes [id number] 25mg Take 1 [facility] mg capsule 4-21 capsule by [facility] of 00:00: mouth at [place] [address] bedtime. Medical Branch doxepin Yes [id number] 25mg Take 1 [facility] mg capsule 4-21 capsule by [facility] of 00:00: mouth at [place] bedtime. Medical Branch doxepin 25 0 Yes [id number] 25mg Take 1 [facility] mg capsule 4-21 capsule by [facility] of 00:00: mouth at [place] [address] bedtime. Medical Branch doxepin 25 0 Yes [id number] 25mg Take 1 [facility] mg capsule 4-21 capsule by [facility] of 00:00: mouth at [place] [address] bedtime. Medical Branch doxepin 25 0 Yes [id number] 25mg Take 1 [facility] mg capsule 4-21 capsule by [facility] of 00:00: mouth at [place] [address] bedtime. Medical Branch doxepin 25 0 Yes [id number] 25mg Take 1 [facility] mg capsule 4-21 capsule by [facility] of 00:00: mouth at [place] [address] bedtime. Medical Branch doxepin 0 Yes [id number] 25mg Take 1 [facility] mg capsule 4-21 capsule by [facility] of 00:00: mouth at [place] [address] bedtime. Medical Branch doxepin 0 Yes [id number] 25mg Take 1 [facility] mg capsule 4-21 capsule by [facility] of 00:00: mouth at [place] [address] bedtime. Medical Branch doxepin 0 Yes [id number] 25mg Take 1 [facility] mg capsule 4-21 capsule by [facility] of 00:00: mouth at [place] [address] bedtime. Medical Branch doxepin 25 0 Yes [id number] 25mg Take 1 [facility] mg capsule 4-21 capsule by [facility] of 00:00: mouth at [place] [address] bedtime. Medical Branch doxepin 25 0 Yes [id number] 25mg Take 1 [facility] mg capsule 4-21 capsule by [facility] of 00:00: mouth at [place] [address] bedtime. Medical Branch doxepin 25 0 Yes [id number] 25mg Take 1 [facility] mg capsule 4-21 capsule by [facility] of 00:00: mouth at [place] [address] bedtime. Medical Branch doxepin 25 0 Yes [id number] 25mg Take 1 [facility] mg capsule 4-21 capsule by [facility] of 00:00: mouth at [place] bedtime. Medical Branch doxepin 25 Yes [id number] 25mg Take 1 [facility] mg capsule 4-21 capsule by [facility] of 00:00: mouth at [place] bedtime. Medical Branch doxepin 25 Yes [id number] 25mg Take 1 [facility] mg capsule 4-21 capsule by [facility] of 00:00: mouth at [place] bedtime. Medical Branch doxepin 25 Yes [id number] 25mg Take 1 [facility] mg capsule 4-21 capsule by [facility] of 00:00: mouth at [place] bedtime. Medical Branch doxepin 25 Yes [id number] 25mg Take 1 [facility] mg capsule 4-21 capsule by [facility] of 00:00: mouth at [place] [address] bedtime. Medical Branch doxepin 25 Yes [id number] 25mg Take 1 [facility] mg capsule 4-21 capsule by [facility] of 00:00: mouth at [place] [address] bedtime. Medical Branch doxepin 25 Yes [id number] 25mg Take 1 [facility] mg capsule 4-21 capsule by [facility] of 00:00: mouth at [place] [address] bedtime. Medical Branch doxepin 25 Yes [id number] 25mg Take 1 [facility] mg capsule 4-21 capsule by [facility] of 00:00: mouth at [place] [address] bedtime. Medical Branch doxepin 25 Yes [id number] 25mg Take 1 [facility] mg capsule 4-21 capsule by [facility] of 00:00: mouth at [place] [address] bedtime. Medical Branch doxepin 25 Yes [id number] 25mg Take 1 [facility] mg capsule 4-21 capsule by [facility] of 00:00: mouth at [place] [address] bedtime. Medical Branch acetaminoph 0 Yes [id number] 1{tbl} Take 1 [facility] en-codeine 6-24 tablet by [facility] of 300-30 mg 00:00: mouth [place] tablet 00 every 6 Medical (six) Branch hours as needed for Pain (scale 7-10). Indication s: acute pain ondansetron 0 Yes [id number] 4mg Take 1 [facility] (ZOFRAN 6-24 tablet by [facility] of ODT) 4 mg 00:00: mouth [place] disintegrat 00 every 8 Medic al ing tablet (eight) Branch hours as needed for Nausea and Vomiting (N/V). acetaminoph 1-0 Yes [id number] 1{tbl} Take 1 [facility] en-codeine 6-24 tablet by [facility] of 300-30 mg 00:00: mouth [place] tablet 00 every 6 Medical (six) Branch hours as needed for Pain (scale 7-10). Indication s: acute pain ondansetron 2020-0 Yes [id number] 4mg Take 1 [facility] (ZOFRAN 6-24 tablet by [facility] of ODT) 4 mg 00:00: mouth [place] disintegrat 00 every 8 Medic al ing tablet (eight) Branch hours as needed for Nausea and Vomiting (N/V). acetaminoph 2020-0 Yes [id number] 1{tbl} Take 1 [facility] en-codeine 6-24 tablet by [facility] of 300-30 mg 00:00: mouth [place] tablet 00 every 6 Medical (six) Branch hours as needed for Pain (scale 7-10). Indication s: acute pain ondansetron 2020-0 Yes [id number] 4mg Take 1 [facility] (ZOFRAN 6-24 tablet by [facility] of ODT) 4 mg 00:00: mouth [place] disintegrat 00 every 8 Medic al ing tablet (eight) Branch hours as needed for Nausea and Vomiting (N/V). acetaminoph 2020-0 Yes [id number] 1{tbl} Take 1 [facility] en-codeine 6-24 tablet by [facility] of 300-30 mg 00:00: mouth [place] tablet 00 every 6 Medical (six) Branch hours as needed for Pain (scale 7-10). Indication s: acute pain ondansetron 2020-0 Yes [id number] 4mg Take 1 [facility] (ZOFRAN 6-24 tablet by [facility] of ODT) 4 mg 00:00: mouth [place] disintegrat 00 every 8 Medic al ing tablet (eight) Branch hours as needed for Nausea and Vomiting (N/V). acetaminoph 1-0 Yes 4647 1{tbl} Take 1 [facility] en-codeine 6-24 tablet by [facility] of 300-30 mg 00:00: mouth [place] tablet 00 every 6 Medical (six) Branch hours as needed for Pain (scale 7-10). Indication s: acute pain ondansetron 2021-0 Yes [id number] 4mg Take 1 [facility] (ZOFRAN 6-24 tablet by [facility] of ODT) 4 mg 00:00: mouth [place] disintegrat 00 every 8 Medic al ing tablet (eight) Branch hours as needed for Nausea and Vomiting (N/V). acetaminoph 2021-0 Yes [id number] 1{tbl} Take 1 [facility] en-codeine 6-24 tablet by [facility] of 300-30 mg 00:00: mouth [place] tablet 00 every 6 Medical (six) Branch hours as needed for Pain (scale 7-10). Indication s: acute pain ondansetron 2021-0 Yes [id number] 4mg Take 1 [facility] (ZOFRAN 6-24 tablet by [facility] of ODT) 4 mg 00:00: mouth [place] disintegrat 00 every 8 Medic al ing tablet (eight) Branch hours as needed for Nausea and Vomiting (N/V). acetaminoph 2021-0 Yes [id number] 1{tbl} Take 1 [facility] en-codeine 6-24 tablet by [facility] of 300-30 mg 00:00: mouth [place] tablet 00 every 6 Medical (six) Branch hours as needed for Pain (scale 7-10). Indication s: acute pain ondansetron 2021-0 Yes [id number] 4mg Take 1 [facility] (ZOFRAN 6-24 tablet by [facility] of ODT) 4 mg 00:00: mouth [place] disintegrat 00 every 8 Medic al ing tablet (eight) Branch hours as needed for Nausea and Vomiting (N/V). acetaminoph 2021-0 Yes [id number] 1{tbl} Take 1 [facility] en-codeine 6-24 tablet by [facility] of 300-30 mg 00:00: mouth [place] tablet 00 every 6 Medical (six) Branch hours as needed for Pain (scale 7-10). Indication s: acute pain ondansetron 2021-0 Yes [id number] 4mg Take 1 [facility] (ZOFRAN 6-24 tablet by [facility] of ODT) 4 mg 00:00: mouth [place] disintegrat 00 every 8 Medic al ing tablet (eight) Branch hours as needed for Nausea and Vomiting (N/V). acetaminoph 2021-0 Yes [id number] 1{tbl} Take 1 [facility] en-codeine 6-24 tablet by [facility] of 300-30 mg 00:00: mouth [place] tablet 00 every 6 Medical (six) Branch hours as needed for Pain (scale 7-10). Indication s: acute pain ondansetron 2021-0 Yes [id number] 4mg Take 1 [facility] (ZOFRAN 6-24 tablet by [facility]y of ODT) 4 mg 00:00: mouth [place] disintegrat 00 every 8 Medic al ing tablet (eight) Branch hours as needed for Nausea and Vomiting (N/V). acetaminoph 2021-0 Yes [id number] 1{tbl} Take 1 [facility] en-codeine 6-24 tablet by [facility] of 300-30 mg 00:00: mouth [place] tablet 00 every 6 Medical (six) Branch hours as needed for Pain (scale 7-10). Indication s: acute pain ondansetron 2021-0 Yes [id number] 4mg Take 1 [facility] (ZOFRAN 6-24 tablet by ity of ODT) 4 mg 00:00: mouth [place] disintegrat 00 every 8 Medic al ing tablet (eight) Branch hours as needed for Nausea and Vomiting (N/V). acetaminoph 2021-0 Yes 4647 1{tbl} Take 1 [facility] en-codeine 6-24 tablet by [facility] of 300-30 mg 00:00: mouth [place] tablet 00 every 6 Medical (six) Branch hours as needed for Pain (scale 7-10). Indication s: acute pain ondansetron 2021-0 Yes [id number] 4mg Take 1 [facility] (ZOFRAN 6-24 tablet by ity of ODT) 4 mg 00:00: mouth [place] disintegrat 00 every 8 Medic al ing tablet (eight) Branch hours as needed for Nausea and Vomiting (N/V). acetaminoph 2021-0 Yes 4647 1{tbl} Take 1 [facility] en-codeine 6-24 tablet by [facility] of 300-30 mg 00:00: mouth [place] tablet 00 every 6 Medical (six) Branch hours as needed for Pain (scale 7-10). Indication s: acute pain ondansetron 2021-0 Yes [id number] 4mg Take 1 [facility] (ZOFRAN 6-24 tablet by ity of ODT) 4 mg 00:00: mouth [place] disintegrat 00 every 8 Medic al ing tablet (eight) Branch hours as needed for Nausea and Vomiting (N/V). acetaminoph 2021-0 Yes [id number] 1{tbl} Take 1 [facility] en-codeine 6-24 tablet by [facility] of 300-30 mg 00:00: mouth [place] tablet 00 every 6 Medical (six) Branch hours as needed for Pain (scale 7-10). Indication s: acute pain ondansetron 2021-0 Yes [id number] 4mg Take 1 [facility] (ZOFRAN 6-24 tablet by ity of ODT) 4 mg 00:00: mouth [place] disintegrat 00 every 8 Medic al ing tablet (eight) Branch hours as needed for Nausea and Vomiting (N/V). acetaminoph 2021-0 Yes 4647 1{tbl} Take 1 [facility] en-codeine 6-24 tablet by [facility] of 300-30 mg 00:00: mouth [place] tablet 00 every 6 Medical (six) Branch hours as needed for Pain (scale 7-10). Indication s: acute pain ondansetron 2021-0 Yes [id number] 4mg Take 1 [facility] (ZOFRAN 6-24 tablet by ity of ODT) 4 mg 00:00: mouth [place] disintegrat 00 every 8 Medic al ing tablet (eight) Branch hours as needed for Nausea and Vomiting (N/V). acetaminoph 2021-0 Yes 4647 1{tbl} Take 1 [facility] en-codeine 6-24 tablet by [facility] of 300-30 mg 00:00: mouth [place] tablet 00 every 6 Medical (six) Branch hours as needed for Pain (scale 7-10). Indication s: acute pain ondansetron 2021-0 Yes [id number] 4mg Take 1 [facility] (ZOFRAN 6-24 tablet by ity of ODT) 4 mg 00:00: mouth [place] disintegrat 00 every 8 Medic al ing tablet (eight) Branch hours as needed for Nausea and Vomiting (N/V). acetaminoph 2021-0 Yes 4647 1{tbl} Take 1 [facility] en-codeine 6-24 tablet by [facility] of 300-30 mg 00:00: mouth [place] tablet 00 every 6 Medical (six) Branch hours as needed for Pain (scale 7-10). Indication s: acute pain ondansetron 2021-0 Yes [id number] 4mg Take 1 [facility] (ZOFRAN 6-24 tablet by ity of ODT) 4 mg 00:00: mouth [place] disintegrat 00 every 8 Medic al ing tablet (eight) Branch hours as needed for Nausea and Vomiting (N/V). acetaminoph 2021-0 Yes 4647 1{tbl} Take 1 [facility] en-codeine 6-24 tablet by [facility] of 300-30 mg 00:00: mouth [place] tablet 00 every 6 Medical (six) Branch hours as needed for Pain (scale 7-10). Indication s: acute pain ondansetron 202-0 Yes [id number] 4mg Take 1 [facility] (ZOFRAN 6-24 tablet by ity of ODT) 4 mg 00:00: mouth [place] disintegrat 00 every 8 Medic al ing tablet (eight) Branch hours as needed for Nausea and Vomiting (N/V). acetaminoph 2020-0 Yes 4647 1{tbl} Take 1 [facility] en-codeine 6-24 tablet by [facility] of 300-30 mg 00:00: mouth [place] tablet 00 every 6 Medical (six) Branch hours as needed for Pain (scale 7-10). Indication s: acute pain ondansetron 2020-0 Yes [id number] 4mg Take 1 [facility] (ZOFRAN 6-24 tablet by ity of ODT) 4 mg 00:00: mouth [place] disintegrat 00 every 8 Medic al ing tablet (eight) Branch hours as needed for Nausea and Vomiting (N/V). acetaminoph 2020-0 Yes 4647 1{tbl} Take 1 [facility] en-codeine 6-24 tablet by [facility] of 300-30 mg 00:00: mouth [place] tablet 00 every 6 Medical (six) Branch hours as needed for Pain (scale 7-10). Indication s: acute pain ondansetron 2020-0 Yes [id number] 4mg Take 1 [facility] (ZOFRAN 6-24 tablet by ity of ODT) 4 mg 00:00: mouth [place] disintegrat 00 every 8 Medic al ing tablet (eight) Branch hours as needed for Nausea and Vomiting (N/V). acetaminoph 1-0 Yes 4647 1{tbl} Take 1 [facility] en-codeine 6-24 tablet by [facility] of 300-30 mg 00:00: mouth [place] tablet 00 every 6 Medical (six) Branch hours as needed for Pain (scale 7-10). Indication s: acute pain ondansetron 2021-0 Yes [id number] 4mg Take 1 [facility] (ZOFRAN 6-24 tablet by ity of ODT) 4 mg 00:00: mouth [place] disintegrat 00 every 8 Medic al ing tablet (eight) Branch hours as needed for Nausea and Vomiting (N/V). acetaminoph 2021-0 Yes 4647 1{tbl} Take 1 [facility] en-codeine 6-24 tablet by [facility] of 300-30 mg 00:00: mouth [place] tablet 00 every 6 Medical (six) Branch hours as needed for Pain (scale 7-10). Indication s: acute pain ondansetron 2021-0 Yes [id number] 4mg Take 1 [facility] (ZOFRAN 6-24 tablet by ity of ODT) 4 mg 00:00: mouth [place] disintegrat 00 every 8 Medic al ing tablet (eight) Branch hours as needed for Nausea and Vomiting (N/V). acetaminoph 2021-0 Yes 4647 1{tbl} Take 1 [facility] en-codeine 6-24 tablet by [facility] of 300-30 mg 00:00: mouth [place] tablet 00 every 6 Medical (six) Branch hours as needed for Pain (scale 7-10). Indication s: acute pain ondansetron 2021-0 Yes [id number] 4mg Take 1 [facility] (ZOFRAN 6-24 tablet by ity of ODT) 4 mg 00:00: mouth [place] disintegrat 00 every 8 Medic al ing tablet (eight) Branch hours as needed for Nausea and Vomiting (N/V). acetaminoph 2021-0 Yes 4647 1{tbl} Take 1 [facility] en-codeine 6-24 tablet by [facility] of 300-30 mg 00:00: mouth [place] tablet 00 every 6 Medical (six) Branch hours as needed for Pain (scale 7-10). Indication s: acute pain ondansetron 2021-0 Yes [id number] 4mg Take 1 [facility] (ZOFRAN 6-24 tablet by ity of ODT) 4 mg 00:00: mouth [place] disintegrat 00 every 8 Medic al ing tablet (eight) Branch hours as needed for Nausea and Vomiting (N/V). acetaminoph 2021-0 Yes 4647 1{tbl} Take 1 [facility] en-codeine 6-24 tablet by [facility] of 300-30 mg 00:00: mouth [place] tablet 00 every 6 Medical (six) Branch hours as needed for Pain (scale 7-10). Indication s: acute pain ondansetron 2021-0 Yes [id number] 4mg Take 1 [facility] (ZOFRAN 6-24 tablet by ity of ODT) 4 mg 00:00: mouth [place] disintegrat 00 every 8 Medic al ing tablet (eight) Branch hours as needed for Nausea and Vomiting (N/V). acetaminoph 2021-0 Yes 4647 1{tbl} Take 1 [facility] en-codeine 6-24 tablet by [facility] of 300-30 mg 00:00: mouth [place] tablet 00 every 6 Medical (six) Branch hours as needed for Pain (scale 7-10). Indication s: acute pain ondansetron 2021-0 Yes [id number] 4mg Take 1 [facility] (ZOFRAN 6-24 tablet by ity of ODT) 4 mg 00:00: mouth [place] disintegrat 00 every 8 Medic al ing tablet (eight) Branch hours as needed for Nausea and Vomiting (N/V). acetaminoph 2021-0 Yes 4647 1{tbl} Take 1 [facility] en-codeine 6-24 tablet by [facility] of 300-30 mg 00:00: mouth [place] tablet 00 every 6 Medical (six) Branch hours as needed for Pain (scale 7-10). Indication s: acute pain ondansetron 2021-0 Yes [id number] 4mg Take 1 [facility] (ZOFRAN 6-24 tablet by ity of ODT) 4 mg 00:00: mouth [place] disintegrat 00 every 8 Medic al ing tablet (eight) Branch hours as needed for Nausea and Vomiting (N/V). acetaminoph 2021-0 Yes 4647 1{tbl} Take 1 [facility] en-codeine 6-24 tablet by [facility] of 300-30 mg 00:00: mouth [place] tablet 00 every 6 Medical (six) Branch hours as needed for Pain (scale 7-10). Indication s: acute pain ondansetron 2021-0 Yes [id number] 4mg Take 1 [facility] (ZOFRAN 6-24 tablet by ity of ODT) 4 mg 00:00: mouth [place] disintegrat 00 every 8 Medic al ing tablet (eight) Branch hours as needed for Nausea and Vomiting (N/V). acetaminoph 2021-0 Yes 4647 1{tbl} Take 1 [facility] en-codeine 6-24 tablet by [facility]y of 300-30 mg 00:00: mouth [place] tablet 00 every 6 Medical (six) Branch hours as needed for Pain (scale 7-10). Indication s: acute pain ondansetron 2021-0 Yes [id number] 4mg Take 1 [facility] (ZOFRAN 6-24 tablet by ity of ODT) 4 mg 00:00: mouth [place] disintegrat 00 every 8 Medic al ing tablet (eight) Branch hours as needed for Nausea and Vomiting (N/V). acetaminoph 2021-0 Yes 4647 1{tbl} Take 1 [facility] en-codeine 6-24 tablet by [facility]y of 300-30 mg 00:00: mouth [place] tablet 00 every 6 Medical (six) Branch hours as needed for Pain (scale 7-10). Indication s: acute pain ondansetron 2021-0 Yes [id number] 4mg Take 1 [facility] (ZOFRAN 6-24 tablet by ity of ODT) 4 mg 00:00: mouth [place] disintegrat 00 every 8 Medic al ing tablet (eight) Branch hours as needed for Nausea and Vomiting (N/V). acetaminoph 2021-0 Yes 4647 1{tbl} Take 1 [facility] en-codeine 6-24 tablet by [facility]y of 300-30 mg 00:00: mouth [place] tablet 00 every 6 Medical (six) Branch hours as needed for Pain (scale 7-10). Indication s: acute pain ondansetron 2021-0 Yes [id number] 4mg Take 1 [facility] (ZOFRAN 6-24 tablet by ity of ODT) 4 mg 00:00: mouth [place] disintegrat 00 every 8 Medic al ing tablet (eight) Branch hours as needed for Nausea and Vomiting (N/V). acetaminoph 2021-0 Yes 4647 1{tbl} Take 1 [facility] en-codeine 6-24 tablet by [facility] of 300-30 mg 00:00: mouth [place] tablet 00 every 6 Medical (six) Branch hours as needed for Pain (scale 7-10). Indication s: acute pain ondansetron 2021-0 Yes [id number] 4mg Take 1 [facility] (ZOFRAN 6-24 tablet by ity of ODT) 4 mg 00:00: mouth [place] disintegrat 00 every 8 Medic al ing tablet (eight) Branch hours as needed for Nausea and Vomiting (N/V). acetaminoph 2021-0 Yes 4647 1{tbl} Take 1 [facility] en-codeine 6-24 tablet by [facility] of 300-30 mg 00:00: mouth [place] tablet 00 every 6 Medical (six) Branch hours as needed for Pain (scale 7-10). Indication s: acute pain ondansetron 2021-0 Yes [id number] 4mg Take 1 [facility] (ZOFRAN 6-24 tablet by ity of ODT) 4 mg 00:00: mouth [place] disintegrat 00 every 8 Medic al ing tablet (eight) Branch hours as needed for Nausea and Vomiting (N/V). acetaminoph 2021-0 Yes 4647 1{tbl} Take 1 [facility] en-codeine 6-24 tablet by [facility] of 300-30 mg 00:00: mouth [place] tablet 00 every 6 Medical (six) Branch hours as needed for Pain (scale 7-10). Indication s: acute pain ondansetron 2021-0 Yes [id number] 4mg Take 1 [facility] (ZOFRAN 6-24 tablet by ity of ODT) 4 mg 00:00: mouth [place] disintegrat 00 every 8 Medic al ing tablet (eight) Branch hours as needed for Nausea and Vomiting (N/V). acetaminoph 2021-0 Yes 4647 1{tbl} Take 1 [facility] en-codeine 6-24 tablet by ity of 300-30 mg 00:00: mouth [place] tablet 00 every 6 Medical (six) Branch hours as needed for Pain (scale 7-10). Indication s: acute pain ondansetron 2021-0 Yes [id number] 4mg Take 1 [facility] (ZOFRAN 6-24 tablet by ity of ODT) 4 mg 00:00: mouth [place] disintegrat 00 every 8 Medic al ing tablet (eight) Branch hours as needed for Nausea and Vomiting (N/V). acetaminoph 2021-0 Yes 4647 1{tbl} Take 1 [facility] en-codeine 6-24 tablet by ity of 300-30 mg 00:00: mouth [place] tablet 00 every 6 Medical (six) Branch hours as needed for Pain (scale 7-10). Indication s: acute pain ondansetron 2021-0 Yes [id number] 4mg Take 1 [facility] (ZOFRAN 6-24 tablet by ity of ODT) 4 mg 00:00: mouth [place] disintegrat 00 every 8 Medic al ing tablet (eight) Branch hours as needed for Nausea and Vomiting (N/V). acetaminoph 2021-0 Yes 4647 1{tbl} Take 1 [facility] en-codeine 6-24 tablet by ity of 300-30 mg 00:00: mouth [place] tablet 00 every 6 Medical (six) Branch hours as needed for Pain (scale 7-10). Indication s: acute pain ondansetron 2021-0 Yes [id number] 4mg Take 1 [facility] (ZOFRAN 6-24 tablet by ity of ODT) 4 mg 00:00: mouth [place] disintegrat 00 every 8 Medic al ing tablet (eight) Branch hours as needed for Nausea and Vomiting (N/V). acetaminoph 2021-0 Yes 4647 1{tbl} Take 1 [facility] en-codeine 6-24 tablet by ity of 300-30 mg 00:00: mouth [place] tablet 00 every 6 Medical (six) Branch hours as needed for Pain (scale 7-10). Indication s: acute pain ondansetron 2021-0 Yes [id number] 4mg Take 1 [facility] (ZOFRAN 6-24 tablet by ity of ODT) 4 mg 00:00: mouth [place] disintegrat 00 every 8 Medic al ing tablet (eight) Branch hours as needed for Nausea and Vomiting (N/V). acetaminoph 2021-0 Yes 4647 1{tbl} Take 1 [facility] en-codeine 6-24 tablet by ity of 300-30 mg 00:00: mouth [place] tablet 00 every 6 Medical (six) Branch hours as needed for Pain (scale 7-10). Indication s: acute pain ondansetron 2021-0 Yes [id number] 4mg Take 1 [facility] (ZOFRAN 6-24 tablet by ity of ODT) 4 mg 00:00: mouth [place] disintegrat 00 every 8 Medic al ing tablet (eight) Branch hours as needed for Nausea and Vomiting (N/V). acetaminoph 2021-0 Yes 4647 1{tbl} Take 1 [facility] en-codeine 6-24 tablet by ity of 300-30 mg 00:00: mouth [place] tablet 00 every 6 Medical (six) Branch hours as needed for Pain (scale 7-10). Indication s: acute pain ondansetron 2021-0 Yes [id number] 4mg Take 1 [facility] (ZOFRAN 6-24 tablet by ity of ODT) 4 mg 00:00: mouth [place] disintegrat 00 every 8 Medic al ing tablet (eight) Branch hours as needed for Nausea and Vomiting (N/V). acetaminoph 2021-0 Yes 4647 1{tbl} Take 1 [facility] en-codeine 6-24 tablet by ity of 300-30 mg 00:00: mouth [place] tablet 00 every 6 Medical (six) Branch hours as needed for Pain (scale 7-10). Indication s: acute pain ondansetron 202-0 Yes [id number] 4mg Take 1 [facility] (ZOFRAN 6-24 tablet by ity of ODT) 4 mg 00:00: mouth [place] disintegrat 00 every 8 Medic al ing tablet (eight) Branch hours as needed for Nausea and Vomiting (N/V). acetaminoph 2020-0 Yes 4647 1{tbl} Take 1 [facility] en-codeine 6-24 tablet by ity of 300-30 mg 00:00: mouth [place] tablet 00 every 6 Medical (six) Branch hours as needed for Pain (scale 7-10). Indication s: acute pain ondansetron 2021-0 Yes [id number] 4mg Take 1 [facility] (ZOFRAN 6-24 tablet by ity of ODT) 4 mg 00:00: mouth [place] disintegrat 00 every 8 Medic al ing tablet (eight) Branch hours as needed for Nausea and Vomiting (N/V). acetaminoph 2021-0 Yes 4647 1{tbl} Take 1 [facility] en-codeine 6-24 tablet by ity of 300-30 mg 00:00: mouth [place] tablet 00 every 6 Medical (six) Branch hours as needed for Pain (scale 7-10). Indication s: acute pain ondansetron 2021-0 Yes [id number] 4mg Take 1 [facility] (ZOFRAN 6-24 tablet by ity of ODT) 4 mg 00:00: mouth [place] disintegrat 00 every 8 Medic al ing tablet (eight) Branch hours as needed for Nausea and Vomiting (N/V). acetaminoph 2021-0 Yes 4647 1{tbl} Take 1 [facility] en-codeine 6-24 tablet by ity of 300-30 mg 00:00: mouth [place] tablet 00 every 6 Medical (six) Branch hours as needed for Pain (scale 7-10). Indication s: acute pain ondansetron 2021-0 Yes [id number] 4mg Take 1 [facility] (ZOFRAN 6-24 tablet by ity of ODT) 4 mg 00:00: mouth [place] disintegrat 00 every 8 Medic al ing tablet (eight) Branch hours as needed for Nausea and Vomiting (N/V). acetaminoph 2021-0 Yes 4647 1{tbl} Take 1 [facility] en-codeine 6-24 tablet by ity of 300-30 mg 00:00: mouth [place] tablet 00 every 6 Medical (six) Branch hours as needed for Pain (scale 7-10). Indication s: acute pain ondansetron 2021-0 Yes [id number] 4mg Take 1 [facility] (ZOFRAN 6-24 tablet by ity of ODT) 4 mg 00:00: mouth [place] disintegrat 00 every 8 Medic al ing tablet (eight) Branch hours as needed for Nausea and Vomiting (N/V). acetaminoph 2021-0 Yes 4647 1{tbl} Take 1 [facility] en-codeine 6-24 tablet by ity of 300-30 mg 00:00: mouth [place] tablet 00 every 6 Medical (six) Branch hours as needed for Pain (scale 7-10). Indication s: acute pain ondansetron 2021-0 Yes [id number] 4mg Take 1 [facility] (ZOFRAN 6-24 tablet by ity of ODT) 4 mg 00:00: mouth [place] disintegrat 00 every 8 Medic al ing tablet (eight) Branch hours as needed for Nausea and Vomiting (N/V). acetaminoph 2021-0 Yes 4647 1{tbl} Take 1 [facility] en-codeine 6-24 tablet by ity of 300-30 mg 00:00: mouth [place] tablet 00 every 6 Medical (six) Branch hours as needed for Pain (scale 7-10). Indication s: acute pain ondansetron 2021-0 Yes [id number] 4mg Take 1 [facility] (ZOFRAN 6-24 tablet by ity of ODT) 4 mg 00:00: mouth [place] disintegrat 00 every 8 Medic al ing tablet (eight) Branch hours as needed for Nausea and Vomiting (N/V). acetaminoph 2021-0 Yes 4647 1{tbl} Take 1 [facility] en-codeine 6-24 tablet by ity of 300-30 mg 00:00: mouth [place] tablet 00 every 6 Medical (six) Branch hours as needed for Pain (scale 7-10). Indication s: acute pain ondansetron 2021-0 Yes [id number] 4mg Take 1 [facility] (ZOFRAN 6-24 tablet by ity of ODT) 4 mg 00:00: mouth [place] disintegrat 00 every 8 Medic al ing tablet (eight) Branch hours as needed for Nausea and Vomiting (N/V). acetaminoph 1-0 Yes 4647 1{tbl} Take 1 [facility] en-codeine 6-24 tablet by ity of 300-30 mg 00:00: mouth [place] tablet 00 every 6 Medical (six) Branch hours as needed for Pain (scale 7-10). Indication s: acute pain ondansetron 1-0 Yes [id number] 4mg Take 1 [facility] (ZOFRAN 6-24 tablet by ity of ODT) 4 mg 00:00: mouth [place] disintegrat 00 every 8 Medic al ing tablet (eight) Branch hours as needed for Nausea and Vomiting (N/V). acetaminoph 1-0 Yes 4647 1{tbl} Take 1 [facility] en-codeine 6-24 tablet by ity of 300-30 mg 00:00: mouth [place] tablet 00 every 6 Medical (six) Branch hours as needed for Pain (scale 7-10). Indication s: acute pain ondansetron 2021-0 Yes [id number] 4mg Take 1 [facility] (ZOFRAN 6-24 tablet by ity of ODT) 4 mg 00:00: mouth [place] disintegrat 00 every 8 Medic al ing tablet (eight) Branch hours as needed for Nausea and Vomiting (N/V). acetaminoph 2021-0 Yes 4647 1{tbl} Take 1 [facility] en-codeine 6-24 tablet by ity of 300-30 mg 00:00: mouth [place] tablet 00 every 6 Medical (six) Branch hours as needed for Pain (scale 7-10). Indication s: acute pain ondansetron 2021-0 Yes [id number] 4mg Take 1 [facility] (ZOFRAN 6-24 tablet by ity of ODT) 4 mg 00:00: mouth [place] disintegrat 00 every 8 Medic al ing tablet (eight) Branch hours as needed for Nausea and Vomiting (N/V). acetaminoph 2021-0 Yes 4647 1{tbl} Take 1 [facility] en-codeine 6-24 tablet by ity of 300-30 mg 00:00: mouth [place] tablet 00 every 6 Medical (six) Branch hours as needed for Pain (scale 7-10). Indication s: acute pain ondansetron 2021-0 Yes [id number] 4mg Take 1 [facility] (ZOFRAN 6-24 tablet by ity of ODT) 4 mg 00:00: mouth [place] disintegrat 00 every 8 Medic al ing tablet (eight) Branch hours as needed for Nausea and Vomiting (N/V). acetaminoph 2021-0 Yes 4647 1{tbl} Take 1 [facility] en-codeine 6-24 tablet by ity of 300-30 mg 00:00: mouth [place] tablet 00 every 6 Medical (six) Branch hours as needed for Pain (scale 7-10). Indication s: acute pain ondansetron 2021-0 Yes [id number] 4mg Take 1 [facility] (ZOFRAN 6-24 tablet by ity of ODT) 4 mg 00:00: mouth [place] disintegrat 00 every 8 Medic al ing tablet (eight) Branch hours as needed for Nausea and Vomiting (N/V). acetaminoph 2021-0 Yes 4647 1{tbl} Take 1 [facility] en-codeine 6-24 tablet by ity of 300-30 mg 00:00: mouth [place] tablet 00 every 6 Medical (six) Branch hours as needed for Pain (scale 7-10). Indication s: acute pain ondansetron 2021-0 Yes [id number] 4mg Take 1 [facility] (ZOFRAN 6-24 tablet by ity of ODT) 4 mg 00:00: mouth [place] disintegrat 00 every 8 Medic al ing tablet (eight) Branch hours as needed for Nausea and Vomiting (N/V). acetaminoph 2021-0 Yes 4647 1{tbl} Take 1 [facility] en-codeine 6-24 tablet by ity of 300-30 mg 00:00: mouth [place] tablet 00 every 6 Medical (six) Branch hours as needed for Pain (scale 7-10). Indication s: acute pain ondansetron Yes [id number] 4mg Take 1 [facility] (ZOFRAN 6-24 tablet by ity of ODT) 4 mg 00:00: mouth [place] disintegrat 00 every 8 Medic al ing tablet (eight) Branch hours as needed for Nausea and Vomiting (N/V). HYDROcodone Yes TAKE ONE [facility] -acetaminop 6-19 (1) ity of hen 5-325 00:00: TABLET(S) [place] [facility] mg tablet 00 BY MOUTH Medica l EVERY SIX Branch HOURS NEEDED FOR PAIN (SCALE 4 TO 6) OR (SCALE 7 TO 10). HYDROcodone Yes TAKE ONE [facility] -acetaminop 6-19 (1) ity of hen 5-325 00:00: TABLET(S) [place] mg tablet 00 BY MOUTH Medica l EVERY SIX Branch HOURS NEEDED FOR PAIN (SCALE 4 TO 6) OR (SCALE 7 TO 10). HYDROcodone Yes TAKE ONE [facility] -acetaminop 6-19 (1) ity of hen 5-325 00:00: TABLET(S) [place] mg tablet 00 BY MOUTH Medica l EVERY SIX Branch HOURS NEEDED FOR PAIN (SCALE 4 TO 6) OR (SCALE 7 TO 10). HYDROcodone Yes TAKE ONE [facility] -acetaminop 6-19 (1) ity of hen 5-325 00:00: TABLET(S) [place] mg tablet 00 BY MOUTH Medica l EVERY SIX Branch HOURS NEEDED FOR PAIN (SCALE 4 TO 6) OR (SCALE 7 TO 10). HYDROcodone Yes TAKE ONE [facility] -acetaminop 6-19 (1) ity of hen 5-325 00:00: TABLET(S) [place] mg tablet 00 BY MOUTH Medica l EVERY SIX Branch HOURS NEEDED FOR PAIN (SCALE 4 TO 6) OR (SCALE 7 TO 10). HYDROcodone Yes TAKE ONE [facility] -acetaminop 6-19 (1) ity of hen 5-325 00:00: TABLET(S) [place] mg tablet 00 BY MOUTH Medica l EVERY SIX Branch HOURS NEEDED FOR PAIN (SCALE 4 TO 6) OR (SCALE 7 TO 10). HYDROcodone Yes TAKE ONE [facility] -acetaminop 6-19 (1) ity of hen 5-325 00:00: TABLET(S) [place] mg tablet 00 BY MOUTH Medica l EVERY SIX Branch HOURS NEEDED FOR PAIN (SCALE 4 TO 6) OR (SCALE 7 TO 10). HYDROcodone Yes TAKE ONE [facility] -acetaminop 6-19 (1) ity of hen 5-325 00:00: TABLET(S) [place] mg tablet 00 BY MOUTH Medica l EVERY SIX Branch HOURS NEEDED FOR PAIN (SCALE 4 TO 6) OR (SCALE 7 TO 10). HYDROcodone Yes TAKE ONE [facility] -acetaminop 6-19 (1) ity of hen 5-325 00:00: TABLET(S) [place] mg tablet 00 BY MOUTH Medica l EVERY SIX Branch HOURS NEEDED FOR PAIN (SCALE 4 TO 6) OR (SCALE 7 TO 10). HYDROcodone Yes TAKE ONE [facility] -acetaminop 6-19 (1) ity of hen 5-325 00:00: TABLET(S) [place] mg tablet 00 BY MOUTH Medica l EVERY SIX Branch HOURS NEEDED FOR PAIN (SCALE 4 TO 6) OR (SCALE 7 TO 10). HYDROcodone Yes TAKE ONE [facility] -acetaminop 6-19 (1) ity of hen 5-325 00:00: TABLET(S) [place] mg tablet 00 BY MOUTH Medica [facility] EVERY SIX Branch HOURS NEEDED FOR PAIN (SCALE 4 TO 6) OR (SCALE 7 TO 10). HYDROcodone Yes TAKE ONE [facility] -acetaminop 6-19 (1) ity of hen 5-325 00:00: TABLET(S) [place] mg tablet 00 BY MOUTH Medica l EVERY SIX Branch HOURS NEEDED FOR PAIN (SCALE 4 TO 6) OR (SCALE 7 TO 10). HYDROcodone Yes TAKE ONE [facility] -acetaminop 6-19 (1) ity of hen 5-325 00:00: TABLET(S) [place] mg tablet 00 BY MOUTH Medica l EVERY SIX Branch HOURS NEEDED FOR PAIN (SCALE 4 TO 6) OR (SCALE 7 TO 10). HYDROcodone Yes TAKE ONE [facility] -acetaminop 6-19 (1) ity of hen 5-325 00:00: TABLET(S) [place] [facility] mg tablet 00 BY MOUTH Medica [facility] EVERY SIX Branch HOURS NEEDED FOR PAIN (SCALE 4 TO 6) OR (SCALE 7 TO 10). HYDROcodone Yes TAKE ONE [facility] -acetaminop 6-19 (1) ity of hen 5-325 00:00: TABLET(S) [place] mg tablet 00 BY MOUTH Medica [facility] EVERY SIX Branch HOURS NEEDED FOR PAIN (SCALE 4 TO 6) OR (SCALE 7 TO 10). HYDROcodone Yes TAKE ONE [facility] -acetaminop 6-19 (1) ity of hen 5-325 00:00: TABLET(S) [place] mg tablet 00 BY MOUTH Medica l EVERY SIX Branch HOURS NEEDED FOR PAIN (SCALE 4 TO 6) OR (SCALE 7 TO 10). HYDROcodone Yes TAKE ONE [facility] -acetaminop 6-19 (1) ity of hen 5-325 00:00: TABLET(S) [place] [facility] mg tablet 00 BY MOUTH Medica l EVERY SIX Branch HOURS NEEDED FOR PAIN (SCALE 4 TO 6) OR (SCALE 7 TO 10). HYDROcodone Yes TAKE ONE [facility] -acetaminop 6-19 (1) ity of hen 5-325 00:00: TABLET(S) [place] [facility] mg tablet 00 BY MOUTH Medica l EVERY SIX Branch HOURS NEEDED FOR PAIN (SCALE 4 TO 6) OR (SCALE 7 TO 10). HYDROcodone Yes TAKE ONE [facility] -acetaminop 6-19 (1) ity of hen 5-325 00:00: TABLET(S) [place] mg tablet 00 BY MOUTH Medica l EVERY SIX Branch HOURS NEEDED FOR PAIN (SCALE 4 TO 6) OR (SCALE 7 TO 10). HYDROcodone Yes TAKE ONE [facility] -acetaminop 6-19 (1) ity of hen 5-325 00:00: TABLET(S) [place] [facility] mg tablet 00 BY MOUTH Medica l EVERY SIX Branch HOURS NEEDED FOR PAIN (SCALE 4 TO 6) OR (SCALE 7 TO 10). HYDROcodone 0 Yes TAKE ONE [facility] -acetaminop 6-19 (1) ity of hen 5-325 00:00: TABLET(S) [place] [facility] mg tablet 00 BY MOUTH Medica l EVERY SIX Branch HOURS NEEDED FOR PAIN (SCALE 4 TO 6) OR (SCALE 7 TO 10). HYDROcodone 0 Yes TAKE ONE [facility] -acetaminop 6-19 (1) ity of hen 5-325 00:00: TABLET(S) [place] [facility] mg tablet 00 BY MOUTH Medica l EVERY SIX Branch HOURS NEEDED FOR PAIN (SCALE 4 TO 6) OR (SCALE 7 TO 10). HYDROcodone 0 Yes TAKE ONE [facility] -acetaminop 6-19 (1) ity of hen 5-325 00:00: TABLET(S) [place] mg tablet 00 BY MOUTH Medica l EVERY SIX Branch HOURS NEEDED FOR PAIN (SCALE 4 TO 6) OR (SCALE 7 TO 10). HYDROcodone 0 Yes TAKE ONE [facility] -acetaminop 6-19 (1) ity of hen 5-325 00:00: TABLET(S) [place] [facility] mg tablet 00 BY MOUTH Medica l EVERY SIX Branch HOURS NEEDED FOR PAIN (SCALE 4 TO 6) OR (SCALE 7 TO 10). HYDROcodone 0 Yes TAKE ONE [facility] -acetaminop 6-19 (1) ity of hen 5-325 00:00: TABLET(S) [place] mg tablet 00 BY MOUTH Medica l EVERY SIX Branch HOURS NEEDED FOR PAIN (SCALE 4 TO 6) OR (SCALE 7 TO 10). HYDROcodone 0 Yes TAKE ONE [facility] -acetaminop 6-19 (1) ity of hen 5-325 00:00: TABLET(S) [place] [facility] mg tablet 00 BY MOUTH Medica l EVERY SIX Branch HOURS NEEDED FOR PAIN (SCALE 4 TO 6) OR (SCALE 7 TO 10). HYDROcodone 0 Yes TAKE ONE [facility] -acetaminop 6-19 (1) ity of hen 5-325 00:00: TABLET(S) [place] [facility] mg tablet 00 BY MOUTH Medica l EVERY SIX Branch HOURS NEEDED FOR PAIN (SCALE 4 TO 6) OR (SCALE 7 TO 10). HYDROcodone 2021-0 Yes TAKE ONE [facility] -acetaminop 6-19 (1) ity of hen 5-325 00:00: TABLET(S) [place] [facility] mg tablet 00 BY MOUTH Medica l EVERY SIX Branch HOURS NEEDED FOR PAIN (SCALE 4 TO 6) OR (SCALE 7 TO 10). HYDROcodone Yes TAKE ONE [facility] -acetaminop 6-19 (1) ity of hen 5-325 00:00: TABLET(S) [place] [facility] mg tablet 00 BY MOUTH Medica l EVERY SIX Branch HOURS NEEDED FOR PAIN (SCALE 4 TO 6) OR (SCALE 7 TO 10). HYDROcodone 0 Yes TAKE ONE [facility] -acetaminop 6-19 (1) ity of hen 5-325 00:00: TABLET(S) [place] [facility] mg tablet 00 BY MOUTH Medica l EVERY SIX Branch HOURS NEEDED FOR PAIN (SCALE 4 TO 6) OR (SCALE 7 TO 10). HYDROcodone Yes TAKE ONE [facility] -acetaminop 6-19 (1) ity of hen 5-325 00:00: TABLET(S) [place] [facility] mg tablet 00 BY MOUTH Medica l EVERY SIX Branch HOURS NEEDED FOR PAIN (SCALE 4 TO 6) OR (SCALE 7 TO 10). HYDROcodone Yes TAKE ONE [facility] -acetaminop 6-19 (1) ity of hen 5-325 00:00: TABLET(S) [place] [facility] mg tablet 00 BY MOUTH Medica l EVERY SIX Branch HOURS NEEDED FOR PAIN (SCALE 4 TO 6) OR (SCALE 7 TO 10). HYDROcodone Yes TAKE ONE [facility] -acetaminop 6-19 (1) ity of hen 5-325 00:00: TABLET(S) [place] [facility] mg tablet 00 BY MOUTH Medica l EVERY SIX Branch HOURS NEEDED FOR PAIN (SCALE 4 TO 6) OR (SCALE 7 TO 10). HYDROcodone Yes TAKE ONE [facility] -acetaminop 6-19 (1) ity of hen 5-325 00:00: TABLET(S) [place] [facility] mg tablet 00 BY MOUTH Medica l EVERY SIX Branch HOURS NEEDED FOR PAIN (SCALE 4 TO 6) OR (SCALE 7 TO 10). HYDROcodone 0 Yes TAKE ONE [facility] -acetaminop 6-19 (1) ity of hen 5-325 00:00: TABLET(S) [place] [facility] mg tablet 00 BY MOUTH Medica l EVERY SIX Branch HOURS NEEDED FOR PAIN (SCALE 4 TO 6) OR (SCALE 7 TO 10). HYDROcodone Yes TAKE ONE [facility] -acetaminop 6-19 (1) ity of hen 5-325 00:00: TABLET(S) [place] [facility] mg tablet 00 BY MOUTH Medica l EVERY SIX Branch HOURS NEEDED FOR PAIN (SCALE 4 TO 6) OR (SCALE 7 TO 10). HYDROcodone Yes TAKE ONE [facility] -acetaminop 6-19 (1) ity of hen 5-325 00:00: TABLET(S) [place] mg tablet 00 BY MOUTH Medica l EVERY SIX Branch HOURS NEEDED FOR PAIN (SCALE 4 TO 6) OR (SCALE 7 TO 10). HYDROcodone Yes TAKE ONE [facility] -acetaminop 6-19 (1) ity of hen 5-325 00:00: TABLET(S) [place] [facility] mg tablet 00 BY MOUTH Medica l EVERY SIX Branch HOURS NEEDED FOR PAIN (SCALE 4 TO 6) OR (SCALE 7 TO 10). HYDROcodone Yes TAKE ONE [facility] -acetaminop 6-19 (1) ity of hen 5-325 00:00: TABLET(S) [place] [facility] mg tablet 00 BY MOUTH Medica l EVERY SIX Branch HOURS NEEDED FOR PAIN (SCALE 4 TO 6) OR (SCALE 7 TO 10). HYDROcodone Yes TAKE ONE [facility] -acetaminop 6-19 (1) ity of hen 5-325 00:00: TABLET(S) [place] [facility] mg tablet 00 BY MOUTH Medica l EVERY SIX Branch HOURS NEEDED FOR PAIN (SCALE 4 TO 6) OR (SCALE 7 TO 10). HYDROcodone Yes TAKE ONE [facility] -acetaminop 6-19 (1) ity of hen 5-325 00:00: TABLET(S) [place] [facility] mg tablet 00 BY MOUTH Medica l EVERY SIX Branch HOURS NEEDED FOR PAIN (SCALE 4 TO 6) OR (SCALE 7 TO 10). HYDROcodone Yes TAKE ONE [facility] -acetaminop 6-19 (1) ity of hen 5-325 00:00: TABLET(S) [place] [facility] mg tablet 00 BY MOUTH Medica l EVERY SIX Branch HOURS NEEDED FOR PAIN (SCALE 4 TO 6) OR (SCALE 7 TO 10). HYDROcodone Yes TAKE ONE [facility] -acetaminop 6-19 (1) ity of hen 5-325 00:00: TABLET(S) [place] [facility] mg tablet 00 BY MOUTH Medica l EVERY SIX Branch HOURS NEEDED FOR PAIN (SCALE 4 TO 6) OR (SCALE 7 TO 10). HYDROcodone Yes TAKE ONE [facility] -acetaminop 6-19 (1) ity of hen 5-325 00:00: TABLET(S) [place] [facility] mg tablet 00 BY MOUTH Medica l EVERY SIX Branch HOURS NEEDED FOR PAIN (SCALE 4 TO 6) OR (SCALE 7 TO 10). HYDROcodone Yes TAKE ONE [facility] -acetaminop 6-19 (1) ity of hen 5-325 00:00: TABLET(S) [place] [facility] mg tablet 00 BY MOUTH Medica l EVERY SIX Branch HOURS NEEDED FOR PAIN (SCALE 4 TO 6) OR (SCALE 7 TO 10). HYDROcodone Yes TAKE ONE [facility] -acetaminop 6-19 (1) ity of hen 5-325 00:00: TABLET(S) [place] [facility] mg tablet 00 BY MOUTH Medica l EVERY SIX Branch HOURS NEEDED FOR PAIN (SCALE 4 TO 6) OR (SCALE 7 TO 10). HYDROcodone Yes TAKE ONE [facility] -acetaminop 6-19 (1) ity of hen 5-325 00:00: TABLET(S) [place] [facility] mg tablet 00 BY MOUTH Medica l EVERY SIX Branch HOURS NEEDED FOR PAIN (SCALE 4 TO 6) OR (SCALE 7 TO 10). HYDROcodone Yes TAKE ONE [facility] -acetaminop 6-19 (1) ity of hen 5-325 00:00: TABLET(S) [facility] mg tablet 00 BY MOUTH Medica l EVERY SIX Branch HOURS NEEDED FOR PAIN (SCALE 4 TO 6) OR (SCALE 7 TO 10). HYDROcodone Yes TAKE ONE [facility] -acetaminop 6-19 (1) ity of hen 5-325 00:00: TABLET(S) [facility] mg tablet 00 BY MOUTH Medica l EVERY SIX Branch HOURS NEEDED FOR PAIN (SCALE 4 TO 6) OR (SCALE 7 TO 10). HYDROcodone Yes TAKE ONE [facility] -acetaminop 6-19 (1) ity of hen 5-325 00:00: TABLET(S) [place] mg tablet 00 BY MOUTH Medica l EVERY SIX Branch HOURS NEEDED FOR PAIN (SCALE 4 TO 6) OR (SCALE 7 TO 10). HYDROcodone Yes TAKE ONE [facility] -acetaminop 6-19 (1) ity of hen 5-325 00:00: TABLET(S) [place] [facility] mg tablet 00 BY MOUTH Medica l EVERY SIX Branch HOURS NEEDED FOR PAIN (SCALE 4 TO 6) OR (SCALE 7 TO 10). HYDROcodone Yes TAKE ONE [facility] -acetaminop 6-19 (1) ity of hen 5-325 00:00: TABLET(S) [place] mg tablet 00 BY MOUTH Medica l EVERY SIX Branch HOURS NEEDED FOR PAIN (SCALE 4 TO 6) OR (SCALE 7 TO 10). HYDROcodone Yes TAKE ONE [facility] -acetaminop 6-19 (1) ity of hen 5-325 00:00: TABLET(S) [place] [facility] mg tablet 00 BY MOUTH Medica l EVERY SIX Branch HOURS NEEDED FOR PAIN (SCALE 4 TO 6) OR (SCALE 7 TO 10). HYDROcodone Yes TAKE ONE [facility] -acetaminop 6-19 (1) ity of hen 5-325 00:00: TABLET(S) [place] [facility] mg tablet 00 BY MOUTH Medica l EVERY SIX Branch HOURS NEEDED FOR PAIN (SCALE 4 TO 6) OR (SCALE 7 TO 10). Atorvastati Atorvastati No 1{table QD Atorvastat n Calcium n Calcium 6-07 t} in Calcium 20 MG 20 MG 00:00: 20 MG 00 metFORMIN metFORMIN No 1{table BID metFORMIN HCl 1000 MG HCl 1000 MG 607 t_with_ HCl 1000 00:00: a_meal} MG 00 Atorvastati Atorvastati No 1{table QD Atorvastat n Calcium n Calcium 6-07 t} in Calcium 20 MG 20 MG 00:00: 20 MG 00 metFORMIN metFORMIN No 1{table BID metFORMIN HCl 1000 MG HCl 1000 MG 03-20 t_with_ HCl 1000 00:00: a_meal} MG 00 Atorvastati Atorvastati No 1{table QD Atorvastat n Calcium n Calcium 03-20 t} in Calcium 20 MG 20 MG 00:00: 20 MG 00 metFORMIN metFORMIN No 1{table BID metFORMIN HCl 1000 MG HCl 1000 MG 6 t_with_ HCl 1000 00:00: a_meal} MG 00 Lisinopril- Lisinopril- No 1{table QD Lisinopril hydroCHLORO hydroCHLORO 03-10 t} -hydroCHLO thiazide thiazide 00:00: ROthiazide 10-12.5 MG 10-12.5 MG 00 10-12.5 MG Naproxen Naproxen 2020- No 1{table BID Naproxen 250 MG 250 MG 03-10 t_with_ 250 MG 00:00: 00:00 food_or 00 :00 _milk} methylPREDN methylPREDN 2020- No QD methylPRED ISolone 4 ISolone 4 03-10 NISolone 4 MG MG 00:00: 00:00 MG 00 :00 atorvastati 2016- No 10mg Take 10 mg [facility] n (LIPITOR) 04-25 by mouth ity of 10 mg 19:36: 00:00 at [place] tablet 30 :00 bedtime. [facility] lisinopril 2016- No 10mg Take 10 mg [facility] (PRINIVIL,Z 04-25 by mouth ity of ESTRIL) 10 19:36: [place] tablet 30 :00 [facility] atorvastati 2016- No 10mg Take 10 mg Univers n (LIPITOR) 04-25 by mouth ity of 10 mg 19:36: 00:00 at [place] tablet 30 :00 bedtime. [facility] lisinopril 2016- No 10mg Take 10 mg [facility] (PRINIVIL,Z 04-25 by mouth ity of ESTRIL) 10 19:36: 00[place] tablet 30 :00 [facility] white 2015-10 2017- No .5[in_u Place 0.5 Uni vers petrolatum- 0-03 07-13 s] Inches in it y of mineral oil 00:00: 00:00 both eyes [place] (REFRESH 00 :00 at [facility]) bedtime. Bran ch 56.8-42.5 % ophthalmic ointment artificial 2015-10- No 1[drp] Place 1 U nivers tears,hypro 0-03 07-13 Drop in ity of mellose, 00:00: 00:00 both eyes [facility] (ISOPTO-TEA 00 :00 4 (four) Medi terri RS) 0.5 % times Branch ophthalmic daily. drops white 2015-10- No .5[in_u Place 0.5 Uni vers petrolatum- 0-03 07-13 s] Inches in it y of mineral oil 00:00: 00:00 both eyes [place] (REFRESH 00 :00 at [facility]) bedtime. Bran ch 56.8-42.5 % ophthalmic ointment artificial 2015-10- No 1[drp] Place 1 U nivers tears,hypro 0-03 07-13 Drop in ity of mellose, 00:00: 00:00 both eyes [facility] (ISOPTO-TEA 00 :00 4 (four) Medi terri RS) 0.5 % times Branch ophthalmic daily. drops Olopatadine 2016- No 1[drp] Place 1 [facility] ([facility]) 04-11 07-13 Drop in ity of 0.2 % 00:00: 00:00 each eye [place] ophthalmic 00 :00 daily.X 6 Medi terri drops MOS.HG.KOP Branch Olopatadine 2016- No 1[drp] Place 1 [facility] ([facility]) 04-11 07-13 Drop in ity of 0.2 % 00:00: 00:00 each eye [place] [facility] 00 :00 daily.X 6 Medi terri drops MOS.HG.KOP Branch methylPREDN methylPREDN No methylPRED ISolone ISolone NISolone Atenolol 50 Atenolol 50 No 1{table QD Atenolol MG MG t} 50 MG Naproxen Naproxen No 1{table BID Naproxen 250 MG 250 MG t_with_ 250 MG food_or _milk} Lisinopril- Lisinopril- No 1{table QD Lisinopril hydroCHLORO hydroCHLORO t} -hydroCHLO thiazide thiazide ROthiazide 20-12.5 MG 20-12.5 MG 20-12.5 MG Atorvastati Atorvastati No 1{table QD Atorvastat n Calcium n Calcium t} in Calcium 20 MG 20 MG 20 MG Naproxen Naproxen No 1{table BID Naproxen 250 MG 250 MG t_with_ 250 MG food_or _milk} Atenolol 50 Atenolol 50 No 1{table QD Atenolol MG MG t} 50 MG methylPREDN methylPREDN No methylPRED ISolone ISolone NISolone metFORMIN metFORMIN No 1{table BID metFORMIN HCl 1000 MG HCl 1000 MG t_with_ HCl 1000 a_meal} MG Lisinopril- Lisinopril- No 1{table QD Lisinopril hydroCHLORO hydroCHLORO t} -hydroCHLO thiazide thiazide ROthiazide 20-12.5 MG 20-12.5 MG 20-12.5 MG Atorvastati Atorvastati No 1{table QD Atorvastat n Calcium n Calcium t} in Calcium 20 MG 20 MG 20 MG Naproxen Naproxen No 1{table BID Naproxen 250 MG 250 MG t_with_ 250 MG food_or _milk} Atenolol 50 Atenolol 50 No 1{table QD Atenolol MG MG t} 50 MG methylPREDN methylPREDN No methylPRED ISolone ISolone NISolone metFORMIN metFORMIN No 1{table BID metFORMIN HCl 1000 MG HCl 1000 MG t_with_ HCl 1000 a_meal} MG Lisinopril- Lisinopril- No 1{table QD Lisinopril hydroCHLORO hydroCHLORO t} -hydroCHLO thiazide thiazide ROthiazide 20-12.5 MG 20-12.5 MG 20-12.5 MG Atorvastati Atorvastati No 1{table QD Atorvastat n Calcium n Calcium t} in Calcium 20 MG 20 MG 20 MG Naproxen Naproxen No 1{table BID Naproxen 250 MG 250 MG t_with_ 250 MG food_or _milk} Atenolol 50 Atenolol 50 No 1{table QD Atenolol MG MG t} 50 MG methylPREDN methylPREDN No methylPRED ISolone ISolone NISolone metFORMIN metFORMIN No 1{table BID metFORMIN HCl 1000 MG HCl 1000 MG t_with_ HCl 1000 a_meal} MG Lisinopril- Lisinopril- No 1{table QD Lisinopril hydroCHLORO hydroCHLORO t} -hydroCHLO thiazide thiazide ROthiazide 20-12.5 MG 20-12.5 MG 20-12.5 MG metFORMIN metFORMIN No 1{table BID metFORMIN HCl 1000 MG HCl 1000 MG t_with_ HCl 1000 a_meal} MG methylPREDN methylPREDN No methylPRED ISolone ISolone NISolone Naproxen Naproxen No 1{table BID Naproxen 250 MG 250 MG t_with_ 250 MG food_or _milk} Atorvastati Atorvastati No 1{table QD Atorvastat n Calcium n Calcium t} in Calcium 20 MG 20 MG 20 MG Atenolol 50 Atenolol 50 No 1{table QD Atenolol MG MG t} 50 MG Lisinopril- Lisinopril- No 1{table QD Lisinopril hydroCHLORO hydroCHLORO t} -hydroCHLO thiazide thiazide ROthiazide 20-12.5 MG 20-12.5 MG 20-12.5 MG metFORMIN metFORMIN No 1{table BID metFORMIN HCl 1000 MG HCl 1000 MG t_with_ HCl 1000 a_meal} MG methylPREDN methylPREDN No methylPRED ISolone ISolone NISolone Naproxen Naproxen No 1{table BID Naproxen 250 MG 250 MG t_with_ 250 MG food_or _milk} Atorvastati Atorvastati No 1{table QD Atorvastat n Calcium n Calcium t} in Calcium 20 MG 20 MG 20 MG Atenolol 50 Atenolol 50 No 1{table QD Atenolol MG MG t} 50 MG Lisinopril- Lisinopril- No 1{table QD Lisinopril hydroCHLORO hydroCHLORO t} -hydroCHLO thiazide thiazide ROthiazide 20-12.5 MG 20-12.5 MG 20-12.5 MG metFORMIN metFORMIN No 1{table BID metFORMIN HCl 1000 MG HCl 1000 MG t_with_ HCl 1000 a_meal} MG methylPREDN methylPREDN No methylPRED ISolone ISolone NISolone Naproxen Naproxen No 1{table BID Naproxen 250 MG 250 MG t_with_ 250 MG food_or _milk} Atorvastati Atorvastati No 1{table QD Atorvastat n Calcium n Calcium t} in Calcium 20 MG 20 MG 20 MG Atenolol 50 Atenolol 50 No 1{table QD Atenolol MG MG t} 50 MG Lisinopril- Lisinopril- No 1{table QD Lisinopril hydroCHLORO hydroCHLORO t} -hydroCHLO thiazide thiazide ROthiazide 20-12.5 MG 20-12.5 MG 20-12.5 MG metFORMIN metFORMIN No 1{table BID metFORMIN HCl 1000 MG HCl 1000 MG t_with_ HCl 1000 a_meal} MG methylPREDN methylPREDN No methylPRED ISolone ISolone NISolone Naproxen Naproxen No 1{table BID Naproxen 250 MG 250 MG t_with_ 250 MG food_or _milk} Atorvastati Atorvastati No 1{table QD Atorvastat n Calcium n Calcium t} in Calcium 20 MG 20 MG 20 MG Atenolol 50 Atenolol 50 No 1{table QD Atenolol MG MG t} 50 MG Lisinopril- Lisinopril- No 1{table QD Lisinopril hydroCHLORO hydroCHLORO t} -hydroCHLO thiazide thiazide ROthiazide 20-12.5 MG 20-12.5 MG 20-12.5 MG Naproxen Naproxen No 1{table BID Naproxen 250 MG 250 MG t_with_ 250 MG food_or _milk} metFORMIN metFORMIN No 1{table BID metFORMIN HCl 1000 MG HCl 1000 MG t_with_ HCl 1000 a_meal} MG Lisinopril- Lisinopril- No 1{table QD Lisinopril hydroCHLORO hydroCHLORO t} -hydroCHLO thiazide thiazide ROthiazide 20-12.5 MG 20-12.5 MG 20-12.5 MG methylPREDN methylPREDN No methylPRED ISolone ISolone NISolone Atorvastati Atorvastati No 1{table QD Atorvastat n Calcium n Calcium t} in Calcium 20 MG 20 MG 20 MG Atenolol 50 Atenolol 50 No 1{table QD Atenolol MG MG t} 50 MG Atenolol 50 Atenolol 50 No 1{table QD Atenolol MG MG t} 50 MG methylPREDN methylPREDN No methylPRED ISolone ISolone NISolone Atenolol 50 Atenolol 50 No 1{table QD Atenolol MG MG t} 50 MG Naproxen Naproxen No 1{table BID Naproxen 250 MG 250 MG t_with_ 250 MG food_or _milk} Lisinopril- Lisinopril- No 1{table QD Lisinopril hydroCHLORO hydroCHLORO t} -hydroCHLO thiazide thiazide ROthiazide 20-12.5 MG 20-12.5 MG 20-12.5 MG methylPREDN methylPREDN No methylPRED ISolone ISolone NISolone Atenolol 50 Atenolol 50 No 1{table QD Atenolol MG MG t} 50 MG Naproxen Naproxen No 1{table BID Naproxen 250 MG 250 MG t_with_ 250 MG food_or _milk} Lisinopril- Lisinopril- No 1{table QD Lisinopril hydroCHLORO hydroCHLORO t} -hydroCHLO thiazide thiazide ROthiazide 20-12.5 MG 20-12.5 MG 20-12.5 MG Immunizations Ordered Filled Immunization Date Status Comments [facility] e Immunization Name Name Influenza Virus 2022-08-22 Completed [facility], 00:00:00 [facility] dical Preserv and ABX Branch Free 6 MO-64 YRS Influenza Virus 2022-08-22 Completed [facility], 00:00:00 [place] [facility] Preserv and ABX Branch Free 6 MO-64 YRS Influenza Virus 2022-08-22 Completed [facility], 00:00:00 [place] [facility] Preserv and ABX Branch Free 6 MO-64 YRS Influenza Virus 2022-08-22 Completed [facility], 00:00:00 [place] [facility] Preserv and ABX Branch Free 6 MO-64 YRS Influenza Virus 2022-08-22 Completed [facility], 00:00:00 [place] [facility] Preserv and ABX Branch Free 6 MO-64 YRS Influenza Virus 2022-08-22 Completed [facility], 00:00:00 [place] [facility] Preserv and ABX Branch Free 6 MO-64 YRS Influenza Virus 2022-08-22 Completed [facility], 00:00:00 [place] [facility] Preserv and ABX Branch Free 6 MO-64 YRS Influenza Virus 2022-08-22 Completed [facility], 00:00:00 [place] [facility] Preserv and ABX Branch Free 6 MO-64 YRS Influenza Virus 2022-08-22 Completed [facility], 00:00:00 [place] [facility] Preserv and ABX Branch Free 6 MO-64 YRS Influenza Virus 2022-08-22 Completed [facility], 00:00:00 [place] [facility] Preserv and ABX Branch Free 6 MO-64 YRS Influenza Virus 2022-08-22 Completed [facility], 00:00:00 [place] [facility] Preserv and ABX Branch Free 6 MO-64 YRS Influenza Virus 2022-08-22 Completed [facility], 00:00:00 [place] [facility] Preserv and ABX Branch Free 6 MO-64 YRS Influenza Virus 2022-08-22 Completed [facility], 00:00:00 [place] [facility] Preserv and ABX Branch Free 6 MO-64 YRS Influenza Virus 2022-08-22 Completed [facility], 00:00:00 [place] [facility] Preserv and ABX Branch Free 6 MO-64 YRS Influenza Virus 2022-08-22 Completed [facility], 00:00:00 [place] [facility] Preserv and ABX Branch Free 6 MO-64 YRS Influenza Virus 2022-08-22 Completed [facility], 00:00:00 [place] [facility] Preserv and ABX Branch Free 6 MO-64 YRS Influenza Virus 2022-08-22 Completed [facility], 00:00:00 [place] [facility] Preserv and ABX Branch Free 6 MO-64 YRS Influenza Virus 2022-08-22 Completed [facility], 00:00:00 [place] [facility] Preserv and ABX Branch Free 6 MO-64 YRS Influenza Virus 2022-08-22 Completed [facility], 00:00:00 [place] [facility] Preserv and ABX Branch Free 6 MO-64 YRS Influenza Virus 2022-08-22 Completed [facility], 00:00:00 [place] [facility] Preserv and ABX Branch Free 6 MO-64 YRS Influenza Virus 2022-08-22 Completed [facility], 00:00:00 [place] [facility] Preserv and ABX Branch Free 6 MO-64 YRS Influenza Virus 2022-08-22 Completed [facility], 00:00:00 [place] [facility] Preserv and ABX Branch Free 6 MO-64 YRS Influenza Virus 2022-08-22 Completed [facility], 00:00:00 [place] [facility] Preserv and ABX Branch Free 6 MO-64 YRS Influenza Virus 2022-08-22 Completed [facility], 00:00:00 [place] [facility] Preserv and ABX Branch Free 6 MO-64 YRS Influenza Virus 2022-08-22 Completed [facility], 00:00:00 [place] [facility] Preserv and ABX Branch Free 6 MO-64 YRS Influenza Virus 2022-08-22 Completed [facility], 00:00:00 [place] [facility] Preserv and ABX Branch Free 6 MO-64 YRS Influenza Virus 2022-08-22 Completed [facility], 00:00:00 [place] [facility] Preserv and ABX Branch Free 6 MO-64 YRS Influenza Virus 2022-08-22 Completed [facility], 00:00:00 [place] [facility] Preserv and ABX Branch Free 6 MO-64 YRS Influenza Virus 2022-08-22 Completed [facility], 00:00:00 [place] [facility] Preserv and ABX Branch Free 6 MO-64 YRS Influenza Virus 2022-08-22 Completed [facility], 00:00:00 [place] [facility] Preserv and ABX Branch Free 6 MO-64 YRS Influenza Virus 2022-08-22 Completed [facility], 00:00:00 [place] [facility] Preserv and ABX Branch Free 6 MO-64 YRS Influenza Virus 2022-08-22 Completed [facility], 00:00:00 [place] [facility] Preserv and ABX Branch Free 6 MO-64 YRS Influenza Virus 2022-08-22 Completed [facility], 00:00:00 [place] [facility] Preserv and ABX Branch Free 6 MO-64 YRS Influenza Virus 2022-08-22 Completed [facility], 00:00:00 [place] [facility] Preserv and ABX Branch Free 6 MO-64 YRS Influenza Virus 2022-08-22 Completed [facility], 00:00:00 [place] [facility] Preserv and ABX Branch Free 6 MO-64 YRS Influenza Virus 2022-08-22 Completed [facility], 00:00:00 [place] [facility] Preserv and ABX Branch Free 6 MO-64 YRS Influenza Virus 2022-08-22 Completed [facility], 00:00:00 [place] [facility] Preserv and ABX Branch Free 6 MO-64 YRS Influenza Virus 2022-08-22 Completed [facility], 00:00:00 [place] [facility] Preserv and ABX Branch Free 6 MO-64 YRS Influenza Virus 2022-08-22 Completed [facility], 00:00:00 [place] [facility] Preserv and ABX Branch Free 6 MO-64 YRS Influenza Virus 2022-08-22 Completed [facility], 00:00:00 [place] [facility] Preserv and ABX Branch Free 6 MO-64 YRS Influenza Virus 2022-08-22 Completed [facility], 00:00:00 [place] [facility] Preserv and ABX Branch Free 6 MO-64 YRS Influenza Virus 2022-08-22 Completed [facility], 00:00:00 [place] [facility] Preserv and ABX Branch Free 6 MO-64 YRS Influenza Virus 2022-08-22 Completed [facility], 00:00:00 [place] [facility] Preserv and ABX Branch Free 6 MO-64 YRS Influenza Virus 2022-08-22 Completed [facility], 00:00:00 [place] [facility] Preserv and ABX Branch Free 6 MO-64 YRS Influenza Virus 2016-08-18 Completed [facility] Vaccine 00:00:00 [facility] Influenza Virus 2016-08-18 Completed [facility] Vaccine 00:00:00 [facility] Influenza Virus 2016-08-18 Completed [facility] Vaccine 00:00:00 [facility] Influenza Virus 2016-08-18 Completed [facility] Vaccine 00:00:00 [facility] Influenza Virus 2016-08-18 Completed [facility] Vaccine 00:00:00 [facility] Influenza Virus 2016-08-18 Completed [facility] Vaccine 00:00:00 [facility] Influenza Virus 2016-08-18 Completed [facility] Vaccine 00:00:00 [facility] Influenza Virus 2016-08-18 Completed [facility] Vaccine 00:00:00 [facility] Influenza Virus 2016-08-18 Completed [facility] Vaccine 00:00:00 [facility] Influenza Virus 2016-08-18 Completed [facility] Vaccine 00:00:00 [facility] Influenza Virus 2016-08-18 Completed [facility] Vaccine 00:00:00 [facility] Influenza Virus 2016-08-18 Completed [facility] Vaccine 00:00:00 [facility] Influenza Virus 2016-08-18 Completed [facility] Vaccine 00:00:00 [facility] Influenza Virus 2016-08-18 Completed [facility] Vaccine 00:00:00 [facility] Influenza Virus 2016-08-18 Completed [facility] Vaccine 00:00:00 [facility] Influenza Virus 2016-08-18 Completed [facility] Vaccine 00:00:00 [facility] Influenza Virus 2016-08-18 Completed [facility] Vaccine 00:00:00 [facility] Influenza Virus 2016-08-18 Completed [facility] Vaccine 00:00:00 [facility] Influenza Virus 2016-08-18 Completed [facility] Vaccine 00:00:00 [facility] Influenza Virus 2016-08-18 Completed [facility] Vaccine 00:00:00 [facility] Influenza Virus 2016-08-18 Completed [facility] Vaccine 00:00:00 [facility] Influenza Virus 2016-08-18 Completed [facility] Vaccine 00:00:00 [facility] Influenza Virus 2016-08-18 Completed [facility] Vaccine 00:00:00 [facility] Influenza Virus 2016-08-18 Completed [facility] Vaccine 00:00:00 [facility] Influenza Virus 2016-08-18 Completed [facility] Vaccine 00:00:00 [facility] Influenza Virus 2016-08-18 Completed [facility] Vaccine 00:00:00 [facility] Influenza Virus 2016-08-18 Completed [facility] Vaccine 00:00:00 [facility] Influenza Virus 2016-08-18 Completed [facility] Vaccine 00:00:00 [facility] Influenza Virus 2016-08-18 Completed [facility] Vaccine 00:00:00 [facility] Influenza Virus 2016-08-18 Completed [facility] Vaccine 00:00:00 [facility] Influenza Virus 2016-08-18 Completed [facility] Vaccine 00:00:00 [facility] Influenza Virus 2016-08-18 Completed [facility] Vaccine 00:00:00 [facility] Influenza Virus 2016-08-18 Completed [facility] Vaccine 00:00:00 [facility] Influenza Virus 2016-08-18 Completed [facility] Vaccine 00:00:00 [facility] Influenza Virus 2016-08-18 Completed [facility] Vaccine 00:00:00 [facility] Influenza Virus 2016-08-18 Completed [facility] Vaccine 00:00:00 [facility] Influenza Virus 2016-08-18 Completed [facility] Vaccine 00:00:00 [facility] Influenza Virus 2016-08-18 Completed [facility] Vaccine 00:00:00 [facility] Influenza Virus 2016-08-18 Completed [facility] Vaccine 00:00:00 [facility] Influenza Virus 2016-08-18 Completed [facility] Vaccine 00:00:00 [facility] Influenza Virus 2016-08-18 Completed [facility] Vaccine 00:00:00 [facility] Influenza Virus 2016-08-18 Completed [facility] Vaccine 00:00:00 [facility] Influenza Virus 2016-08-18 Completed [facility] Vaccine 00:00:00 [facility] Influenza Virus 2016-08-18 Completed [facility] Vaccine 00:00:00 [facility] Influenza Virus 2016-08-18 Completed [facility] Vaccine 00:00:00 [facility] Influenza Virus 2016-08-18 Completed [facility] Vaccine 00:00:00 [facility] Influenza Virus 2016-08-18 Completed [facility] Vaccine 00:00:00 [facility] Influenza Virus 2016-08-18 Completed [facility] Vaccine 00:00:00 [facility] Influenza Virus 2016-08-18 Completed [facility] Vaccine 00:00:00 [facility] Influenza Virus 2016-08-18 Completed [facility] Vaccine 00:00:00 [facility] Influenza Virus 2016-08-18 Completed [facility] Vaccine 00:00:00 [facility] Influenza Virus 2016-08-18 Completed [facility] Vaccine 00:00:00 [facility] Influenza Virus 2016-08-18 Completed [facility] Vaccine 00:00:00 [facility] Influenza Virus 2016-08-18 Completed [facility] Vaccine 00:00:00 [facility] Influenza Virus 2016-08-18 Completed [facility] Vaccine 00:00:00 [facility] Influenza Virus 2016-08-18 Completed [facility] Vaccine 00:00:00 [facility] Pneumococcal 2013-03-24 Completed [facility] f Polysaccharide, 00:00:00 [place] [facility] PPSV23 (PNEUMOVAX) Branch Pneumococcal 2013-03-24 Completed [facility] f Polysaccharide, 00:00:00 [place] [facility] PPSV23 (PNEUMOVAX) Branch Pneumococcal 2013-03-24 Completed [facility] f Polysaccharide, 00:00:00 [place] [facility] PPSV23 (PNEUMOVAX) Branch Pneumococcal 2013-03-24 Completed [facility] f Polysaccharide, 00:00:00 [place] [facility] PPSV23 (PNEUMOVAX) Branch Pneumococcal 2013-03-24 Completed [facility] f Polysaccharide, 00:00:00 [place] [facility] PPSV23 (PNEUMOVAX) Branch Pneumococcal 2013-03-24 Completed [facility] f Polysaccharide, 00:00:00 [place] [facility] PPSV23 (PNEUMOVAX) Branch Pneumococcal 2013-03-24 Completed [facility] f Polysaccharide, 00:00:00 [place] [facility] PPSV23 (PNEUMOVAX) Branch Pneumococcal 2013-03-24 Completed [facility] f Polysaccharide, 00:00:00 [place] [facility] PPSV23 (PNEUMOVAX) Branch Pneumococcal 2013-03-24 Completed [facility] f Polysaccharide, 00:00:00 [place] [facility] PPSV23 (PNEUMOVAX) Branch Pneumococcal 2013-03-24 Completed [facility] f Polysaccharide, 00:00:00 [place] [facility] PPSV23 (PNEUMOVAX) Branch Pneumococcal 2013-03-24 Completed [facility] f Polysaccharide, 00:00:00 [place] [facility] PPSV23 (PNEUMOVAX) Branch Pneumococcal 2013-03-24 Completed [facility] f Polysaccharide, 00:00:00 [place] [facility] PPSV23 (PNEUMOVAX) Branch Pneumococcal 2013-03-24 Completed [facility] f Polysaccharide, 00:00:00 [place] [facility] PPSV23 (PNEUMOVAX) Branch Pneumococcal 2013-03-24 Completed [facility] f Polysaccharide, 00:00:00 [place] [facility] PPSV23 (PNEUMOVAX) Branch Pneumococcal 2013-03-24 Completed [facility] f Polysaccharide, 00:00:00 [place] [facility] PPSV23 (PNEUMOVAX) Branch Pneumococcal 2013-03-24 Completed [facility] f Polysaccharide, 00:00:00 [place] [facility] PPSV23 (PNEUMOVAX) Branch Pneumococcal 2013-03-24 Completed [facility] f Polysaccharide, 00:00:00 [place] [facility] PPSV23 (PNEUMOVAX) Branch Pneumococcal 2013-03-24 Completed [facility] f Polysaccharide, 00:00:00 [place] [facility] PPSV23 (PNEUMOVAX) Branch Pneumococcal 2013-03-24 Completed [facility] f Polysaccharide, 00:00:00 [place] [facility] PPSV23 (PNEUMOVAX) Branch Pneumococcal 2013-03-24 Completed [facility] f Polysaccharide, 00:00:00 [place] [facility] PPSV23 (PNEUMOVAX) Branch Pneumococcal 2013-03-24 Completed [facility] f Polysaccharide, 00:00:00 [place] [facility] PPSV23 (PNEUMOVAX) Branch Pneumococcal 2013-03-24 Completed [facility] f Polysaccharide, 00:00:00 [place] [facility] PPSV23 (PNEUMOVAX) Branch Pneumococcal 2013-03-24 Completed [facility] f Polysaccharide, 00:00:00 [place] [facility] PPSV23 (PNEUMOVAX) Branch Pneumococcal 2013-03-24 Completed [facility] f Polysaccharide, 00:00:00 [place] [facility] PPSV23 (PNEUMOVAX) Branch Pneumococcal 2013-03-24 Completed [facility] f Polysaccharide, 00:00:00 [place] [facility] PPSV23 (PNEUMOVAX) Branch Pneumococcal 2013-03-24 Completed [facility] f Polysaccharide, 00:00:00 [place] [facility] PPSV23 (PNEUMOVAX) Branch Pneumococcal 2013-03-24 Completed [facility] f Polysaccharide, 00:00:00 [place] [facility] PPSV23 (PNEUMOVAX) Branch Pneumococcal 2013-03-24 Completed [facility] o f Polysaccharide, 00:00:00 [place] [facility] PPSV23 (PNEUMOVAX) Branch Pneumococcal 2013-03-24 Completed [facility] f Polysaccharide, 00:00:00 [place] [facility] PPSV23 (PNEUMOVAX) Branch Pneumococcal 2013-03-24 Completed [facility] f Polysaccharide, 00:00:00 [place] [facility] PPSV23 (PNEUMOVAX) Branch Pneumococcal 2013-03-24 Completed [facility] f Polysaccharide, 00:00:00 [place] [facility] PPSV23 (PNEUMOVAX) Branch Pneumococcal 2013-03-24 Completed [facility] f Polysaccharide, 00:00:00 [place] [facility] PPSV23 (PNEUMOVAX) Branch Pneumococcal 2013-03-24 Completed [facility] f Polysaccharide, 00:00:00 [place] [facility] PPSV23 (PNEUMOVAX) Branch Pneumococcal 2013-03-24 Completed [facility] o f Polysaccharide, 00:00:00 [place] [facility] PPSV23 (PNEUMOVAX) Branch Pneumococcal 2013-03-24 Completed [facility] o f Polysaccharide, 00:00:00 [place] [facility] PPSV23 (PNEUMOVAX) Branch Pneumococcal 2013-03-24 Completed [facility] o f Polysaccharide, 00:00:00 [place] [facility] PPSV23 (PNEUMOVAX) Branch Pneumococcal 2013-03-24 Completed [facility] o f Polysaccharide, 00:00:00 [place] [facility] PPSV23 (PNEUMOVAX) Branch Pneumococcal 2013-03-24 Completed [facility] o f Polysaccharide, 00:00:00 [place] [facility] PPSV23 (PNEUMOVAX) Branch Pneumococcal 2013-03-24 Completed [facility] o f Polysaccharide, 00:00:00 [place] [facility] PPSV23 (PNEUMOVAX) Branch Pneumococcal 2013-03-24 Completed [facility] f Polysaccharide, 00:00:00 [place] [facility] PPSV23 (PNEUMOVAX) Branch Pneumococcal 2013-03-24 Completed [facility] f Polysaccharide, 00:00:00 [place] [facility] PPSV23 (PNEUMOVAX) Branch Pneumococcal 2013-03-24 Completed [facility] o f Polysaccharide, 00:00:00 [place] [facility] PPSV23 (PNEUMOVAX) Branch Pneumococcal 2013-03-24 Completed [facility] o f Polysaccharide, 00:00:00 [place] [facility] PPSV23 (PNEUMOVAX) Branch Pneumococcal 2013-03-24 Completed [facility] o f Polysaccharide, 00:00:00 [place] [facility] PPSV23 (PNEUMOVAX) Branch Pneumococcal 2013-03-24 Completed [facility] f Polysaccharide, 00:00:00 [place] [facility] PPSV23 (PNEUMOVAX) Branch Pneumococcal 2013-03-24 Completed [facility] f Polysaccharide, 00:00:00 [place] [facility] PPSV23 (PNEUMOVAX) Branch Pneumococcal 2013-03-24 Completed [facility] f Polysaccharide, 00:00:00 [place] [facility] PPSV23 (PNEUMOVAX) Branch Pneumococcal 2013-03-24 Completed [facility] o f Polysaccharide, 00:00:00 [place] [facility] PPSV23 (PNEUMOVAX) Branch Pneumococcal 2013-03-24 Completed [facility] o f Polysaccharide, 00:00:00 [place] [facility] PPSV23 (PNEUMOVAX) Branch Pneumococcal 2013-03-24 Completed [facility] f Polysaccharide, 00:00:00 [place] [facility] PPSV23 (PNEUMOVAX) Branch Pneumococcal 2013-03-24 Completed [facility] o f Polysaccharide, 00:00:00 [place] [facility] PPSV23 (PNEUMOVAX) Branch Pneumococcal 2013-03-24 Completed [facility] o f Polysaccharide, 00:00:00 [place] [facility] PPSV23 (PNEUMOVAX) Branch Pneumococcal 2013-03-24 Completed [facility] o f Polysaccharide, 00:00:00 [place] [facility] PPSV23 (PNEUMOVAX) Branch Pneumococcal 2013-03-24 Completed [facility] o f Polysaccharide, 00:00:00 [place] [facility] PPSV23 (PNEUMOVAX) Branch Pneumococcal 2013-03-24 Completed [facility] o f Polysaccharide, 00:00:00 [place] [facility] PPSV23 (PNEUMOVAX) Branch Pneumococcal 2013-03-24 Completed [facility] Polysaccharide, 00:00:00 [place] [facility] PPSV23 (PNEUMOVAX) Branch Vital Signs Vital Name Observation Time Observation Value Comments Source Systolic blood 2023-03-19 18:35:00 124 mm[Hg] Univer sity of pressure [facility] Diastolic blood 2023-03-19 18:35:00 72 mm[Hg] Unive [facility] Heart rate 2023-03-19 18:35:00 60 /min [facility] Respiratory rate 2023-03-19 18:35:00 17 /min [facility] Oxygen saturation in 2023-03-19 18:35:00 98 /min [facility] Arterial blood by [facility] Pulse oximetry Branch Body temperature 2023-03-19 17:16:00 36.67 Laurie [facility] Body height 2023-03-19 16:10:00 177.8 cm [facility] Body weight 2023-03-19 16:10:00 119.75 kg [facility] BMI 2023-03-19 16:10:00 37.88 kg/m2 Universi ty of [facility] Systolic blood 2023-03-19 14:56:00 141 mm[Hg] Univer sity of pressure [facility] Diastolic blood 2023-03-19 14:56:00 97 mm[Hg] Unive rsity of pressure [facility] Heart rate 2023-03-19 14:53:00 59 /min [facility] Body temperature 2023-03-19 14:53:00 36.67 Laurie Univ ersity of [facility] Body height 2023-03-19 14:53:00 177.8 cm [facility] [place] [facility] [place] Body weight 2023-03-19 14:53:00 119.75 kg [facility] BMI 2023-03-19 14:53:00 37.88 kg/m2 Universi ty of [facility] Oxygen saturation in 2023-03-19 14:53:00 94 /min [facility] Arterial blood by [facility] Pulse oximetry Branch Body weight 2023-01-14 19:23:00 118.842 kg [facility] BMI 2023-01-14 19:23:00 37.59 kg/m2 [facility] Systolic blood 2022-12-31 15:44:00 137 mm[Hg] Univer sity of [facility] Diastolic blood 2022-12-31 15:44:00 83 mm[Hg] Unive rsity of pressure [facility] Heart rate 2022-12-31 15:44:00 55 /min Universi ty of [facility] Body temperature 2022-12-31 15:44:00 35.94 Laurie Univ ersity of [facility] Branch Respiratory rate 2022-12-31 15:44:00 18 /min Univ ersity of [facility] Body height 2022-12-31 15:44:00 177.8 cm [facility] Body weight 2022-12-31 15:44:00 119.251 kg [facility] BMI 2022-12-31 15:44:00 37.72 kg/m2 Universi ty of [facility] Oxygen saturation in 2022-12-31 15:44:00 93 /min University of Arterial blood by [facility] Pulse oximetry Branch Systolic blood 2022-12-11 15:07:00 127 mm[Hg] Univer [facility]ity [facility] Diastolic blood 2022-12-11 15:07:00 85 mm[Hg] Unive rsity of [facility] Heart rate 2022-12-11 15:07:00 54 /min [facility] Body temperature 2022-12-11 15:07:00 36.11 Laurie Univ [facility] Body height 2022-12-11 15:07:00 177.8 cm [facility] Body weight 2022-12-11 15:07:00 118.253 kg [facility] BMI 2022-12-11 15:07:00 37.41 kg/m2 [facility] Oxygen saturation in 2022-12-11 15:07:00 96 /min University of Arterial blood by [facility] Pulse oximetry Branch Systolic blood 2022-09-20 21:40:00 113 mm[Hg] Univer [facility]ity [facility] Diastolic blood 2022-09-20 21:40:00 75 mm[Hg] Unive rsity of [facility] Heart rate 2022-09-20 21:40:00 67 /min [facility] Body temperature 2022-09-20 21:40:00 36.11 Laurie Univ [facility] Body height 2022-09-20 21:40:00 177.8 cm [facility] Body weight 2022-09-20 21:40:00 124.195 kg [facility] BMI 2022-09-20 21:40:00 39.29 kg/m2 [facility] Systolic blood 2022-09-20 15:41:00 129 mm[Hg] Univer sity of [facility] Diastolic blood 2022-09-20 15:41:00 87 mm[Hg] Unive rsity of [facility] Heart rate 2022-09-20 15:41:00 60 /min [facility] Body temperature 2022-09-20 15:41:00 36.22 Laurie Univ [facility] Respiratory rate 2022-09-20 15:41:00 18 /min Univ ers[facility] Body height 2022-09-20 15:41:00 177.8 cm [facility] Body weight 2022-09-20 15:41:00 123.787 kg [facility] BMI 2022-09-20 15:41:00 39.16 kg/m2 [facility] Oxygen saturation in 2022-09-20 15:41:00 97 /min University of Arterial blood by [facility] [employer] [facility] Pulse oximetry Branch Systolic blood 2022-08-22 21:37:00 119 mm[Hg] Univer sity of [facility] Diastolic blood 2022-08-22 21:37:00 78 mm[Hg] Unive rsity of [facility] Heart rate 2022-08-22 21:37:00 64 /min [facility] Respiratory rate 2022-08-22 21:37:00 18 /min Univ [facility] Body height 2022-08-22 21:37:00 177.8 cm [facility] Body weight 2022-08-22 21:37:00 130.001 kg [facility] BMI 2022-08-22 21:37:00 41.12 kg/m2 [facility] Oxygen saturation in 2022-08-22 21:37:00 90 /min University of Arterial blood by [facility] [employer] [facility] Pulse oximetry Branch Systolic blood 2022-07-07 00:00:00 116 mm[Hg] Univer sity of [facility] Diastolic blood 2022-07-07 00:00:00 71 mm[Hg] Unive rsity of [facility] Heart rate 2022-07-07 00:00:00 67 /min [facility] Respiratory rate 2022-07-07 00:00:00 18 /min Univ ersity [facility] Oxygen saturation in 2022-07-07 00:00:00 96 /min [facility] of [facility] [place] [facility] Body temperature 2022-07-06 21:41:00 36.72 Laurie Univ [facility] Body height 2022-07-06 21:41:00 177.8 cm [facility] Body weight 2022-07-06 21:41:00 131.543 kg Universi ty [facility] BMI 2022-07-06 21:41:00 41.61 kg/m2 Universi ty [facility] Systolic blood 2022-06-21 21:00:00 126 mm[Hg] Univer sity of [facility] Diastolic blood 2022-06-21 21:00:00 85 mm[Hg] Unive rsity of [facility] Heart rate 2022-06-21 21:00:00 84 /min [facility] Body temperature 2022-06-21 21:00:00 35.94 Laurie [facility] Body height 2022-06-21 21:00:00 177.8 cm Universi [facility] Body weight 2022-06-21 21:00:00 131.997 kg [facility] BMI 2022-06-21 21:00:00 41.75 kg/m2 [facility] height 2021-04-12 16:00:00 70.00 [in_i] [facility] weight 2021-04-12 16:00:00 295.0 [lb_av] [facility] temperature 2021-04-12 16:00:00 97.4 [degF] [facility] bmi 2021-04-12 16:00:00 42.32 kg/m2 [facility] oximetry 2021-04-12 16:00:00 97 % [facility] respiratory rate 2021-04-12 16:00:00 16 /min Comm on [facility] blood pressure 2021-04-12 16:00:00 120 mm[Hg] Common [facility] - systolic [facility] blood pressure 2021-04-12 16:00:00 72 mm[Hg] Common [facility] - diastolic [facility] height 2021-03-20 13:30:00 70.00 [in_i] [facility] weight 2021-03-20 13:30:00 299 [lb_av] Common S pirit [facility] bmi 2021-03-20 13:30:00 42.9 kg/m2 Common S pirit [facility] blood pressure 2021-03-20 13:30:00 144 mm[Hg] Common [facility] - systolic [facility] blood pressure 2021-03-20 13:30:00 99 mm[Hg] Common [facility] - diastolic [facility] respiratory rate 2021-03-20 15:00:00 16 /min Comm on [facility] blood pressure 2021-03-20 15:00:00 132 mm[Hg] Common [facility] - systolic [facility] blood pressure 2021-03-20 15:00:00 76 mm[Hg] Common [facility] - diastolic [facility] height 2021-03-20 15:00:00 70.00 [in_i] [facility] weight 2021-03-20 15:00:00 298.0 [lb_av] [facility] temperature 2021-03-20 15:00:00 97.7 [degF] Common [facility] bmi 2021-03-20 15:00:00 42.75 kg/m2 [facility] oximetry 2021-03-20 15:00:00 96 % [facility] height 2021-03-09 08:30:00 70.00 [in_i] [facility] weight 2021-03-09 08:30:00 299.2 [lb_av] [facility] temperature 2021-03-09 08:30:00 98.1 [degF] Common S [facility] bmi 2021-03-09 08:30:00 42.93 kg/m2 [facility] oximetry 2021-03-09 08:30:00 95 % [facility] respiratory rate 2021-03-09 08:30:00 16 /min Comm on [facility] blood pressure 2021-03-09 08:30:00 136 mm[Hg] [facility] blood pressure 2021-03-09 08:30:00 78 mm[Hg] [facility] Systolic blood 2017-04-24 16:27:00 117 mm[facility]Hg] [facility] Diastolic blood 2017-04-24 16:27:00 67 mm[Hg] [facility] Heart rate 2017-04-24 16:27:00 61 /min [facility] Body temperature 2017-04-24 16:27:00 36.83 Laurie [facility] Respiratory rate 2017-04-24 16:27:00 18 /min [facility] Body height 2017-04-24 16:27:00 177.8 cm [facility] Body weight 2017-04-24 16:27:00 117.482 kg [facility] BMI 2017-04-24 16:27:00 37.16 kg/m2 [facility] Oxygen saturation in 2017-04-24 16:27:00 95 /min [facility] blood by [facility] Pulse oximetry [place] Procedures Procedure Date / Time Performing Clinician Source Performed BASIC METABOLIC PANEL 2023-03-26 14:55:00 Ngozi Kwok [facility] (NA, K, CL, CO2, [facility] GLUCOSE, BUN, CREATININE, CA) ALPHA FETOPROTEIN 2023-03-26 14:55:00 Sundar [facility] CBC WITH DIFF 2023-03-26 14:55:00 Sundar [facility] PROTHROMBIN TIME / INR 2023-03-26 14:55:00 Ngozi Kwok [facility] EKG-12 LEAD 2023-03-19 19:45:21 Quan Elsi [facility] XR CHEST 2 VW 2023-03-19 17:58:00 Quan [facility] POCT GLUCOSE (AUTOMATED) 2023-03-19 17:18:00 [facility] LIP[facility] 2023-03-19 16:56:00 Quan [facility] TROPONIN I 2023-03-19 16:56:00 Elsi Dimas [facility] COMP. METABOLIC PANEL 2023-03-19 16:56:00 Elsi Dimas [facility] ([id number]) Medical [place] URINALYSIS 2023-03-19 16:56:00 Elsi Dimas [facility] N-TERMINAL PRO-BNP 2023-03-19 16:56:00 Elsi Dimas [facility] POCT GLUCOSE (AUTOMATED) 2023-03-19 16:13:00 Elsi Dimas [facility] CONSENT/REFUSAL FOR 2023-03-19 16:05:36 Doctor Unassigned, No [facility] DIAGNOSIS AND TREATMENT Name Medical [place] CREATININE 2023-03-19 15:45:00 Sundar [facility] AMYLASE 2023-03-19 15:45:00 [facility] LIPASE 2023-03-19 15:45:00 [facility] HEPATIC FUNCTION PANEL 2023-03-19 15:45:00 Sundar, [facility] ([id number]) (ALB,T.PRO,BILI Medical Branch T,BU/BC,ALT,AST,ALK PHOS) MEDICAL 2023-01-03 05:01:00 Doctor Unassigned, No [facility] RELEASE/CLEARANCE FORMS Name Medical [place] HB ECG ROUTINE & RHYTHM 2022-12-31 15:47:56 Nilton Cain [facility] PATIENT FINANCIAL 2022-12-31 15:34:24 Doctor Unassigned, No [facility] POLICY Name Medical Branch AUTHORIZATION FOR 2022-11-13 06:01:00 Doctor Unassigned, No [facility] RELEASE OF [facility] Name Medical Branch AUTHORIZATION FOR 2022-09-12 06:01:00 Doctor Unassigned, No [facility] RELEASE OF PHI Name Medical Branch AUTHORIZATION FOR 2022-08-29 06:01:00 Doctor Unassigned, No [facility] RELEASE OF PHI Name Medical Branch FLU VACC (), 6 2022-08-22 21:55:16 Poncho Barlow [facility] MO-63 YRS, .5ML, IM, Medical Bra [facility] QUAD (FLUCELVAX) DME/SUPPLY JUSTIFICATION 2022-08-22 06:01:00 Doctor Unassigned, No [facility] SLEEP STUDY DATA REPORT 2022-08-11 05:01:00 Doctor Unassigned, N o [facility] AUTHORIZATION FOR 2022-07-16 05:01:00 Doctor Unassigned, No [facility] RELEASE OF PHI [facility] URIC ACID 2022-07-06 22:31:00 Kerri Fuentes [facility] COMP. METABOLIC PANEL 2022-07-06 22:31:00 FuentesKerri medellin [facility] ([id number]) [facility] SEDIMENTATION RATE 2022-07-06 22:31:00 Kerri Fuentes [facility] CBC WITH DIFF 2022-07-06 22:31:00 Kerri Fuentes [facility] XR ELBOW <3 VW RIGHT 2022-07-06 22:00:20 Kerri Fuentes [facility] CONSENT/REFUSAL FOR 2022-07-06 21:33:37 Doctor Unassigned, No [facility] DIAGNOSIS AND TREATMENT [facility] PATIENT QUESTIONNAIRE 2022-06-21 05:01:00 Doctor Unassigned, No [facility] PAIN MANAGEMENT 2022-06-21 05:01:00 Doctor Unassigned, No [facility] AGREEMENT & INFORMED Name [facility] CONSENT EKG-12 LEAD 2017-04-24 16:45:14 Chon Cabrera [place] o [facility] Plan of Care Planned Activity Planned Date Details Comments Source Future Scheduled 2023-04-01 SHINGLES VACCINES Method [facility] Hospital Test 17:40:16 (1 of 2) [code = SHINGLES VACCINES (1 of 2)] Future Scheduled 2023-04-01 INFLUENZA VACCINE Method is Hospital Test 17:40:16 [code = INFLUENZA VACCINE] Future Scheduled 2023-04-01 [facility] 17:40:16 VACCINES (1 of 3 - 3-dose series) [code = HEPATITIS B VACCINES (1 of 3 - 3-dose series)] Future Scheduled 2023-04-01 COVID-19 VACCINE [facility] Test 17:40:16 (#1) [code = COVID-19 VACCINE (#1)] Future Scheduled 2023-04-01 Hepatitis C [facility] Test 17:40:16 screening (procedure) [code = 597535403] Encounters Start End Encounter Admission Attending Care Care Encounter Source Date/Time Date/Time Type Type Clinicians Facility Department ID 2021-11-08 Outpatient Redman, [facility] [id number] Common 13:17:16 Avnee [id number] [facility] 2021-11-08 Outpatient Redman, [facility] [id number] Common 13:15:38 Avnee [id number] [facility] 2021-11-08 Outpatient Redman, [facility] [id number] Common 13:11:33 Avnee [id number] [facility] 2021-11-08 Outpatient Redman, [facility] [id number] Common 13:10:06 Avnee [id number] [facility] 2021-11-08 Outpatient Redman, [facility] [id number] Common 13:08:07 Avnee [id number] [facility] 2021-08-15 Outpatient Westley DE PAZ, [facility] [id number] Univers 02:59:05 HOLLY [facility] 2021-08-14 Emergency [facility] [id number] Univers 03:43:53 [facility] 2021-08-14 Emergency [facility] [id number] Univers 02:00[facility]39 [facility] 2023-04-14 2023-04-14 [facility] 1.2.840.114 [id number] Univers 00:00:00 00:00:00 Zack CERDA [id number] i Mina 4.2.7.2.686 Ashley MCWILLIAMS [id number] [address] 2023-04-03 2023-04-03 [facility] 1.2.840.114 [id number] Univers 00:00:00 00:00:00 Zack CERDA 350.1.13.10 i ty of [place] [id number] Ak dical NAL 044 [facility] 2023-03-26 2023-03-26 Outpatient R SUNDAR [facility] [id number] Univers 08:38:05 23:59:00 NGOZI ity [facility] 2023-03-26 2023-03-26 Hospital [facility] 1.2.840.114 [id number] Univers 08:38:05 23:59:00 Encounter Ngozi SPECIALTY [id number] it[id number] [id number] Ak dickirsten KHANY 801 [facility] 2023-03-26 2023-03-26 Basket [facility] 1.2.840.114 [id number] Univers 09:15:00 09:30:00 Visit Ngozi Kwok 350.1.13.10 it[place] [id number] Ak robertkirsten KHANTonny 353 [facility] 2023-03-23 2023-03-23 Omega WilcoxUN[facility] 1.2.840.114 [id number] Univers 00:00:00 00:00:00 Zack CERDA 350.1.13.10 i ty of [place] [id number] Ak dical NAL 044 [facility] 2023-03-21 2023-03-21 Telephone [facility] 1.2.721.550 [id number] Univers 00:00:00 00:00:00 Ngozi SPECIALTY [id number] ity [place] [id number] Ak dickirsten VICTORY 072 [facility] 2023-03-19 2023-03-19 Emergency X ELSI DIMAS [facility] ERT 1 [id number] Univers 11:14:00 14:57:00 ELSI DIMAS [facility] 2023-03-19 2023-03-19 Emergency [facility] [id number] Univers 11:14:00 14:57:00 [facility] [id number] it y of [place] 4.2.7.2.686 [facility] [id number] [address] ([facility]) 2023-03-19 2023-03-19 Office Sundar [facility] 1.2.840.114 [id number] Univers 10:00:00 13:28:34 Visit Ngozi SPECIALTY 350.1.13.10 ity of CARE 4.2.7.2.686 [facility] AT [id number] Ak sirena BURNS 072 [facility] 2023-03-19 2023-03-19 Basket [facility] 1.2.840.114 [id number] Univers 10:45:00 11:00:00 Visit Ngozi Kwok SPECIALTY 350.1.13.10 ity of CARE 4.2.7.2.686 [facility] AT [id number] Ak sirena UBRNS 353 [facility] 2023-03-19 2023-03-19 [facility] [id number] Univers 10:45:00 10:45:00 NGOZI garcía [facility] 2023-02-07 2023-02-07 Outpatient R JERI [facility] [id number] Univers 15:00:00 15:00:00 ZACK garcía [facility] 2023-01-14 2023-01-14 Outpatient R CARI [facility] [id number] Univers 14:00:00 15:11:11 GOLDIE ity o f [facility] 2023-01-14 2023-01-14 Office JUAN [place] 1..[id number] [id number] Univers 14:00:00 15:11:11 Visit Goldie Y 350.1.13.10 i ty of NATIONAL 4.2.7.2.686 Selvin as BANK [id number] [facility] BLDG. 136 [place] 2023-01-04 2023-01-04 Telephone [facility] [id number] [id number] Univers 00:00:00 00:00:00 Nilton CERDA 350.1.13.10 ity of [place] [id number] [place] 855259 [facility] 2023-01-03 2023-01-03 Telephone [facility] 1.2.189.034 [id number] Univers 00:00:00 00:00:00 Nilton CERDA 350.1.13.10 ity of [place] [id number] Ak dic[address] 2023-01-03 2023-01-03 [facility] [id number] [id number] Univers 00:00:00 00:00:00 Elielmaya CERDA 350.1.13.10 it[place] [id number] [address] 2023-01-03 2023-01-03 Orders Doctor ENA 1.2.840.114 [id number] Univers 00:00:00 00:00:00 Only Unassigned, ALEX 350.1.13.10 ity of [place] [facility] 4.2.7.2.686 Selvin as [id number] [address] 2023-01-02 2023-01-02 Outpatient R [facility] [id number] Univers 13:10:33 23:59:00 NILTON garcía o f [facility] 2022-12-31 2022-12-31 Outpatient R [facility] [id number] Univers 11:00:00 11:02:27 NILTON garcía o f [facility] 2022-12-31 2022-12-31 Office [facility] 1.2.840.114 [id number] Univers 11:00:00 11:02:27 Visit Nilton CERDA 350.1.13.10 it[place] [id number] Ak dic[address] 2022-12-31 2022-12-31 Orders Doctor ENA 1.2.840.114 [id number] Univers 00:00:00 00:00:00 Only Unassigned, ALEX 350.1.13.10 ity of [place] [facility] 4.2.7.2.686 Selvin as [id number] [place] [address] Branch 2022-12-31 2022-12-31 Telephone [facility] 1.2.683.114 [id number] Univers 00:00:00 00:00:00 Nilton CERDA 350.1.13.10 [place].2.[place] [facility] EDESSIO [id number] Ak dical NAL 059 Branch BUILDING 2022-12-20 2022-12-20 [facility]patient [facility] [id number] Univers 13:40:00 13:40:00 [facility] 2022-12-19 2022-12-19 Outpatient [facility] [id number] Univers 10:20:00 10:20:00 [facility] 2022-12-12 2022-12-12 Outpatient R [facility] [id number] Univers 10:00:00 10:00:00 [facility] 2022-12-11 2022-12-11 Basket Braider Draw, Clc-Bls Lab [facility] 1.2.8 40.114 [id number] Univers 10:15:00 10:30:00 Visit Ngozi Kwok 350.1.13.10 ity of [place].2.[place] LOM[place] [id number] [facility] [address] OFFICE BUILDING 2022-12-11 2022-12-11 Outpatient R SUNDAR [facility] [id number] Univers 08:30:00 09:30:06 [facility] 2022-12-11 2022-12-11 Office [facility] 1.2.840.114 [id number] Univers 08:30:00 09:30:06 Visit Ngozi [facility] 350.1.13.10 ity of C[place] [id number] Ak dical VICTORY 072 [facility] 2022-12-10 2022-12-10 Refill [facility] 1.2.840.114 [id number] Univers 00:00:00 00:00:00 Zack CERDA 350.1.13.10 i ty of [place] [id number] Ak sirena Recinos [facility] 2022-11-18 2022-11-18 Refill Nedra [facility] 1.2.840.114 [id number] Univers 00:00:00 00:00:00 , Diamond CERDA 350.1.13.10 ity of [place] [id number] Ak sirena SUAZO [address] [place] [address] 2022-11-15 2022-11-15 Telephone Team, [facility] ENA 1.2.840.114 [id number] Univers 00:00:00 00:00:00 Health ALEX 350.1.13.10 it y of [facility] 4.2.7.2.686 [place] [id number] [address] 2022-11-13 2022-11-13 Telephone [facility] 1.2.840.114 [id number] Univers 00:00:00 00:00:00 Zack CERDA 350.1.13.10 i [place] [id number] Ak sirena SUAZO [address] [place] [address] 2022-11-13 2022-11-13 Telephone [facility] 1.2.840.114 [id number] Univers 00:00:00 00:00:00 Zack CERDA 350.1.13.10 i [place] [id number] [facility] LAKEISHA [address] [place] [address] 2022-11-13 2022-11-13 Orders Doctor ENA 1.2.840.114 [id number] Univers 00:00:00 00:00:00 Only Unassigned, ALEX 350.1.13.10 ity of [place] [facility] 4.2.7.2.686 Selvin as [id number] [address] 2022-10-30 2022-10-30 Outpatient R CARI [facility] [id number] Univers 13:30:00 13:30:00 GOLDIE ly f [facility] 2022-10-27 2022-10-27 Refill [facility] 1.2.840.114 [id number] Univers 00:00:00 00:00:00 Zack CERDA 350.1.13.10 i ty [place] [id number] Ak dical NAL 044 [facility] 2022-09-20 2022-09-20 Office [facility] [id number] [id number] Univers 16:20:00 16:30:00 Visit Collette HAMILTON 350.1.13.10 ity of [facility] 4.2.7.2.[place] [id number] Ak dical VICTORY 198 [facility] 2022-09-20 2022-09-20 Outpatient [facility] [id number] Univers 16:20:00 16:20:00 COLLETTE brendantonny [facility] 2022-09-20 2022-09-20 Outpatient [facility] [id number] Univers 09:40:00 10:16:17 ZACK garcía [facility] 2022-09-20 2022-09-20 Office [facility] 1.2.840.114 [id number] Univers 09:40:00 10:16:17 Visit Zack CERDA 350.1.13.10 i ty of [place] [id number] Ak dical NAL 044 [facility] 2022-09-12 2022-09-12 Orders Doctor [place] 1.2.840.114 [id number] Univers 00:00:00 00:00:00 Only Unassigned, ALEX 350.1.13.10 ity of [place] [facility] 4.2.7.2.686 Selvin as [phone] [address] 2022-09-11 2022-09-11 Telephone Jakob [facility] 1.2.840.114 [id number] Univers 00:00:00 00:00:00 Strahil T [place] 350.1.13.10 ity of [place] [phone] Ak dic[address] 2022-08-29 2022-08-29 Orders Doctor ENA 1.2.840.114 [id number] Univers 00:00:00 00:00:00 Only Unassigned, ALEX 350.1.13.10 ity of [place] [facility] 4.2.7.2.686 Selvin as [id number] [address] 2022-08-22 2022-08-22 Office [facility] 1.2.824.947 [id number] Univers 16:00:00 16:30:00 Visit Poncho CERDA 350.1.13.10 it[place] of [place] [id number] [address] 2022-08-22 2022-08-22 Outpatient R PONCHO BARLOW [facility] [id number] Univers 16:00:00 16:00:00 PONCHO BARLOW ity [facility] 2022-08-22 2022-08-22 Orders Doctor ENA 1.2.840.114 [id number] Univers 00:00:00 00:00:00 Only Unassigned, ALEX 350.1.13.10 ity of [place] [facility]OSPITAL 4.2.7.2.686 [place] as [id number] [address] 2022-08-11 2022-08-11 Basket Braider 1, [facility] Sleep Lab Bed [facility] 1. 2.840.114 [id number] Univers 20:00:00 22:30:00 Visit Poncho Barlow 350.1.13. 10 ity of [place] [id number] [facility] [address] [place] 2022-08-11 2022-08-11 Outpatient R NELY BARLOWHIL [facility] [id number] Univers 20:00:00 20:00:00 PONCHO BARLOW [facility] 2022-08-11 2022-08-11 Orders Doctor ENA 1.2.840.114 [id number] Univers 00:00:00 00:00:00 Only Unassigned, ALEX 350.1.13.10 ity of [place] [facility] 4.2.7.2.686 [place] [phone] [address] 2022-08-07 2022-08-07 Outpatient [facility] [id number] Univers 15:45:00 15:45:00 [facility] 2022-08-05 2022-08-05 Emergency E GABRIELLE, [facility] 7500 [facility] 12:39:00 19:45:00 JYOTI 2022-08-04 2022-08-04 Outpatient R [facility] [id number] Univers 20:00:00 20:00:00 [facility] 2022-08-02 2022-08-02 Outpatient R [facility] [id number] Univers 11:00:00 11:00:00 [facility] 2022-07-25 2022-07-25 Outpatient [facility] [id number] Univers 10:40:00 10:40:00 ZACK [facility] 2022-07-20 2022-07-20 Outpatient [facility] [id number] Univers 10:30:00 10:30:00 PRAVEENA [facility] 2022-07-17 2022-07-17 Outpatient Efrain Sousa HCACL LABO G00 [id number] [facility] 22:40:00 22:40:00 67 [facility] 2022-07-17 2022-07-17 Emergency EM Efrain Sousa HCAPM CELESTE LA00 [id number] [facility] 13:59:00 16:49:00 61 [facility] 2022-07-16 2022-07-16 Orders Doctor ENA Garcia2.840.114 [id number] Univers 00:00:00 00:00:00 Only Unassigned, ALEX 350.1.13.10 ity of [place] [facility] 4.2.7.2.686 [place] [phone] [facility] [address] [place] 2022-07-14 2022-07-14 Refboris [facility]UN[facility] 1.2.840.114 [id number] Univers 00:00:00 00:00:00 Zack CERDA 350.1.13.10 i ty of [place] 4[place].7.2.[place] [facility] [id number] Ak dical NAL 044 [facility] 2022-07-06 2022-07-06 Emergency X [facility] ERT [id number] Univers 16:42:00 19:33:00 KERRI ity [facility] 2022-07-06 2022-07-06 Emergency [facility] 1.2.840.114 [id number] Univers 16:42:00 19:33:00 Kerri [facility] 350.1.13.10 i ty of [place] 4[place]2.7.2.[place] [id number] [facility] [address] [place] 2022-07-06 2022-07-06 Orders Doctor ENA 1.2.840.114 [id number] Univers 00:00:00 00:00:00 Only Unassigned, ALEX 350.1.13.[address] [facility] 4.2.7.2.686 [place] [id number] [address] 2022-07-05 2022-07-05 Outpatient R [facility] [id number] Univers 14:30:00 14:30:00 ity of [facility] 2022-06-29 2022-06-29 Outpatient R [facility] [id number] Univers 14:00:00 14:00:00 ZACK ittonny [facility] 2022-06-21 2022-06-21 Outpatient R [facility] [id number] Univers 16:10:00 16:36:40 COLLETTE ittonny [facility] 2022-06-21 2022-06-21 Office BradUN[facility] 1.2.728.647 [id number] Univers 16:10:00 16:36:40 Visit Collette H[place]IL[place] 350.1.13.10 ity of [facility] 4.2.7.2.[place] C[place] AT [id number] Ak sirena BURNS 198 [facility] 2022-06-21 2022-06-21 Outpatient R BRAD [facility] [id number] Univers 16:10:00 16:36:40 COLLETTE ittonny [facility] 2022-06-21 2022-06-21 Outpatient R [facility] [id number] Univers 13:00:00 13:00:00 ity [facility] 2022-06-21 2022-06-21 Orders Doctor ENA 1.2.840.114 [id number] Univers 00:00:00 00:00:00 Only Unassigned, ALEX 350.1.13.[address] [facility] 4.2.7.2.686 [place] [id number] [address] 2022-06-19 2022-06-19 Outpatient R BRAD [facility] [id number] Univers 09:50:00 09:50:00 COLLETTE tonny [facility] 2022-06-15 2022-06-15 Outpatient [facility] [id number] Univers 10:15:00 10:15:00 FELIPE [facility] 2022-06-14 2022-06-14 Outpatient R [facility] [id number] [id number] Univers 11:20:00 12:43:04 ZACK tonny [facility] 2022-06-14 2022-06-14 Office [facility] 1.2.840.114 [id number] Univers 11:20:00 12:43:04 Visit Zack CERDA 350.1.13.10 i ty of [place] [id number] Ak dical NAL 044 [facility] 2022-06-14 2022-06-14 Refill Jeri [facility] 1.2.840.114 [id number] Univers 00:00:00 00:00:00 Zack CERDA 350.1.13.10 i ty of [place] [id number] Ak dical NAL 044 [facility] 2022-06-13 2022-06-13 Outpatient R LEEANN [facility] [id number] Univers 14:30:00 14:30:00 FELIPE [facility] 2022-06-13 2022-06-13 Outpatient R LEEANN [facility] [id number] Univers 14:30:00 14:30:00 [facility] 2022-06-13 2022-06-13 Telephone JacintoUNM [facility] 1.2.001.462 [id number] Univers 00:00:00 00:00:00 Be GUERRA 350.1.13.10 ity of [facility] 4.2.7.2.686 [facility] [place] [id number] [facility] AND [address] [facility] 2022-06-08 2022-06-08 Telephone JeriUN[facility] 1.2.840.114 [id number] Univers 00:00:00 00:00:00 Zack CERDA 350.1.13.10 i ty of [place] 4.2.7.2.686 [facility]ESS[facility] [id number] Ak dickirsten NAL 231 [facility] 2022-06-07 2022-06-07 Outpatient R BE CASEY [facility] [id number] Univers 07:39:24 23:59:00 BE CASEY tonny [facility] 2022-06-07 2022-06-07 [facility] JacintoUN[facility] 1.2.840.114 [id number] Univers 07:39:24 23:59:00 Encounter Be CERDA 350.1.13.10 ity of [place].2.686 [place] [id number] [facility] [address] 2022-06-06 2022-06-06 [facility] 1.2.840.114 [id number] Univers 15:30:00 23:59:00 Encounter Zack CERDA 350.1.13.10 it[place] of [place].7.2.[place] [id number] [facility] [address] 2022-06-06 2022-06-06 Office JakobUN[facility] 1.2.997.984 [id number] Univers 16:20:00 16:40:00 Visit Poncho Divina PRASHANT 350.1.13.10 ity of [place] [id number] [facility] 085 [facility] 2022-06-06 2022-06-06 Outpatient R HEATHERNANDA [facility] [id number] Univers 16:20:00 16:20:00 NELY BARLOWDCLisa [facility] 2022-06-06 2022-06-06 Office [facility] 1.2.840.114 [id number] Univers 10:00:00 10:57:44 Visit [facility] 350.1.13.10 it y of [place] 4.2.7.2.686 Selvin as JAYA?BLEA [id number] [facility] 198 [facility] OFFICE [facility] 2022-06-06 2022-06-06 Outpatient [facility] [id number] Univers 10:00:00 10:57:44 [facility] 2022-06-06 2022-06-06 Outpatient [facility] [id number] Univers 10:05:00 10:05:00 [facility] 2022-06-06 2022-06-06 Outpatient [facility] [id number] Univers 10:00:00 10:00:00 [facility] 2022-06-05 2022-06-[address]840.114 9 [id number] Univers 00:00:00 00:00:00 Zack CERDA 350.1.13.10 i ty [place] [id number] [facility] 231 [facility] 2022-05-31 2022-05-31 Outpatient R BE CASEY [facility] [id number] Univers 00:00:00 00:00:00 BE CASEY [facility] 2022-05-30 2022-05-30 Outpatient [facility] [id number] Univers 15:40:00 16:52:42 ZACK ity [facility] 2022-05-30 2022-05-30 Office [facility] 1.2.840.114 [id number] [facility] 15:40:00 16:52:42 Visit Zack CERDA 350.1.13.10 i ty of [place] [id number] [facility] 044 [facility] 2022-05-30 2022-05-30 Orders Doctor ENA 1.2.840.114 [id number] Univers 00:00:00 00:00:00 Only Unassigned, ALEX 350.1.13.10 ity of [place] [facility] 4.2.7.2.686 [place] [id number] [address] 2022-05-30 2022-05-30 Telephone [facility] 1.2.840.114 9 [id number] Univers 00:00:00 00:00:00 Zack CERDA 350.1.13.10 i ty of [place] [id number] [facility] 353 [facility] 2022-05-30 2022-05-30 Refill [facility] 1.2.840.114 [id number] Univers 00:00:00 00:00:00 Zack CERDA 350.1.13.10 i ty of [place] 4[place].2.[place] [id number] [address] 2022-05-29 2022-05-29 Telephone [facility] 1.2.840.114 9 [id number] Univers 00:00:00 00:00:00 Zack CERDA 350.1.13.10 i ty of [place] [id number] [address] 2022-05-14 2022-05-14 Outpatient R DOLORES, [facility] [id number] Univers 14:00:00 14:00:00 PAIGE ity [facility] 2022-05-142022-05-14 Case ONEAL CaseyIT 1.2.475.925 [id number] Univers 00:00:00 00:00:00 Management Be Culp [facility] 350.1.13.10 ity of [facility] 4[place]2.7.2.[place] [id number] [facility] [address] 2022-05-10 2022-05-10 Basket Braider [facility] UN[facility]ERSIT 1.2.840.114 [id number] Univers 16:45:00 17:00:00 Visit Be Casey [facility] 350.1.13.10 ity of [place] 4[place]2.[place].2.[place] [id number] [facility] [address] 2022-05-10 2022-05-10 Outpatient R CASEYSANGE [facility] [id number] Univers 16:45:00 16:45:00 JACINTO BE raquel [facility] 2022-05-10 2022-05-10 Office JUAN Casey 1.2.117.116 [id number] Univers 15:00:00 16:00:00 Visit Be Culp [facility] 350.1.13.10 i ty of [place] 4[place]2.7.2.[place] [id number] [facility] [address] 2022-05-10 2022-05-10 Outpatient R JACINTO BE [facility] [id number] Univers 15:00:00 15:00:00 JACINTO BE raquel [facility] 2022-05-10 2022-05-10 Outpatient R BE CASEY [facility] [id number] Univers 15:00:00 15:00:00 JACINTO BE brendantonny [facility] 2022-05-10 2022-05-10 Outpatient R BE CASEY [facility] [id number] Univers 15:00:00 15:00:00 JACINTO BE brendantonny [facility] 2022-05-10 2022-05-10 Outpatient R BE CASEY [facility] [id number] Univers 15:00:00 15:00:00 BE CASEY [facility] 2022-05-10 2022-05-10 Outpatient [facility] [id number] Univers 10:00:00 10:00:00 ZACK garcía [facility] 2022-05-10 2022-05-10 Outpatient R [facility] [id number] [id number] Univers 10:00:00 10:00:00 ZACK garcía [facility] 2022-04-26 2022-04-26 Telephone JUAN Casey 1..840.114 95 [id number] Univers 00:00:00 00:00:00 [facility] 350.1.13.10 i ty of [facility] 4.2.7.2.[place] [id number] [address] 2022-04-23 2022-04-23 [facility] 1..840.114 [id number] Univers 00:00:00 00:00:00 Zack CERDA 350.1.13.10 i ty of [place] [id number] Ak dical NAL [address] [place] [address] 2022-04-18 2022-04-18 Outpatient [facility] [id number] Univers 10:00:00 10:00:00 SHAW ity [facility] 2022-04-17 2022-04-17 Outpatient R [facility] [id number] Univers 08:00:00 08:00:00 ZACK garcía [facility] 2022-04-17 2022-04-17 [facility] ..840.114 9 [id number] Univers 00:00:00 00:00:00 Zack CERDA 350.1.13.10 i ty of [place] 4[place]2.7.2.[place] [id number] Ak dical NAL [address] [place] [address] 2022-03-28 2022-03-28 Outpatient R [facility] [id number] [id number] Univers 12:42:42 23:59:00 ZACK raquel [facility] 2022-03-28 2022-03-28 [facility] .2.840.114 [id number] Univers 12:42:42 23:59:00 Encounter Zack CERDA 350.1.13.10 it[place] of [place]2.7.2.[place] [id number] [facility] [address] [place] [address] 2022-03-27 2022-03-27 Outpatient R [facility] 1040 [id number] Univers 13:00:00 13:00:00 ZACK raquel [facility] 2022-03-27 2022-03-27 Outpatient R [facility] 1040 [id number] Univers 13:00:00 13:00:00 ZACK tonny [facility] 2022-03-14 2022-03-14 Refill [facility] 1..840.114 939 [id number] Univers 00:00:00 00:00:00 Zack CERDA 350.1.13.10 i ty of [place] [id number] Ak dical NAL 044 [facility] 2022-03-13 2022-03-13 Basket Braider 2, Adc Lab [facility] 1..840.114 [id number] Univers 14:45:00 15:00:00 Visit Zack Wilcox 350.1.13.10 ity of [place] 4.2.[place].2.[place] [id number] Ak dical NAL 353 [facility] 2022-03-13 2022-03-13 Office [facility] 1.2.840.114 [id number] Univers 13:00:00 14:32:17 Visit aZck CERDA 350.1.13.10 i ty of [place] 4.2.7.2.[place] [id number] Ak dical NAL 044 [facility] 2022-03-13 2022-03-13 Outpatient R [facility] [id number] Univers 13:00:00 14:32:17 ZACK raquel [facility] 2022-03-13 2022-03-13 Orders Doctor [place] 1.2.840.114 [id number] Univers 00:00:00 00:00:00 Only Unassigned, ALEX 350.1.13.10 ity of [place] [facility] 4.2.7.2.686 Selvin as [id number] [address] 2022-03-08 2022-03-08 Telephone [facility] 1.2.840.114 9 [id number] Univers 00:00:00 00:00:00 Zack CERDA 350.1.13.10 i ty of [place] [id number] [facility] 231 [facility] 2022-03-06 2022-03-06 Refill [facility] 1.2.840.114 [id number] Univers 00:00:00 00:00:00 Zack CERDA 350.1.13.10 i ty of [place] [address].[place].2.[place] [id number] [facility] 044 [facility] 2022-02-28 2022-03-01 Emergency REHRER, [facility] [id number] [place] [address] 00:00:00 00:00:00 [place] [address] 2022-02-15 2022-02-15 Outpatient R DOLORES, [facility] [id number] Univers 13:30:00 13:30:00 PAIGE ity [facility] 2022-02-09 2022-02-09 [facility] 1.2.840.114 [id number] Univers 00:00:00 00:00:00 Zack CERDA 350.1.13.10 i ty [place] 4[place].2.[place] [id number] [address] 2022-02-06 2022-02-06 Refill [facility] 1.2.840.114 [id number] [id number] Univers 00:00:00 00:00:00 Zack CERDA 350.1.13.10 i ty of [place].2.[place] [id number] [address] 2022-02-02 2022-02-02 Emergency X NUNU, [facility] ERT [id number] Univers 20:19:00 22:57:00 SPENCER ittonny [facility] 2022-02-02 2022-02-02 Emergency [facility] 1..716.273 [id number] Univers 20:19:00 22:57:00 Spencer Donovan PRASHANT 350.1.13.10 it[place] of [place].2.[place] [id number] [facility] [address] [place] 2022-02-02 2022-02-02 Refill [facility] 1..840.114 [id number] Univers 00:00:00 00:00:00 Zack CERDA 350.1.13.10 i ty of [place] [id number] Ak dical NAL [address] [place] [address] 2022-02-01 2022-02-01 Office [facility]UN[facility] ..840.114 [id number] [id number] Univers 14:20:00 16:03:49 Visit Zack CERDA 350.1.13.10 i ty of [place] 4[place].2.[place] [id number] Ak dical NAL [address] [place] [address] 2022-02-01 2022-02-01 Outpatient [facility] 1038 [id number] Univers 14:20:00 16:03:49 ZACK cardonatonny [facility] 2022-02-01 2022-02-01 Outpatient R [facility] [id number] Univers 14:20:00 14:20:00 ZACK garcía [facility] 2022-02-01 2022-02-01 Outpatient R [facility] 1038 [id number] Univers 14:20:00 14:20:00 ZACK tonny [facility] 2022-02-01 2022-02-01 Letter [facility] 1.2.840.114 [id number] Univers 00:00:00 00:00:00 (Out) Zack CERDA 350.1.13.10 i ty of [place] [id number] Ak dical NAL [address] [place] [address] 2022-02-01 2022-02-01 Telephone [facility] 1.2.840.114 9 [id number] Univers 00:00:00 00:00:00 Zack CERDA 350.1.13.10 i ty of [place] [id number] [facility] 044 [facility] 2022-01-18 2022-01-18 Basket Braider 2, Adc Lab [facility] 1.2.840.114 [id number] Univers 11:30:00 11:45:00 Visit Zack Wilcox 350.1.13.10 ity of [place] [address].[place].2.[place] [id number] [facility] 353 [facility] 2022-01-18 2022-01-18 Outpatient R [facility] 1038 [id number] Univers 10:00:00 11:08:00 ZACK garcía [facility] 2022-01-18 2022-01-18 Office [facility] 1.2.840.114 [id number] Univers 10:00:00 11:08:00 Visit Zack CERDA 350.1.13.10 i ty [place] [id number] [address] 2022-01-18 2022-01-18 Refill [facility] 1.2.840.114 [id number] Univers 00:00:00 00:00:00 Zack CERDA 350.1.13.10 i ty of [place] [id number] [address] 2022-01-04 2022-01-04 Outpatient Westley DE PAZ [facility] [id number] Univers 09:00:00 23:59:00 HOLLY garcía [facility] 2022-01-04 2022-01-04 Outpatient R BRIAN [facility] [id number] Univers 09:00:00 23:59:00 HOLLY garcía [facility] 2022-01-04 2022-01-04 [facility] 1.2.840. 114 [id number] Univers 08:34:09 23:59:00 Encounter Frank Solorio 350.1.13.10 ity of [place] 4.2.7.2.686 [place] [id number] [facility] [address] ([facility]) 2021-12-21 2021-12-21 Office [facility] 1.2.166.893 [id number] Univers 10:30:00 11:03:57 Visit Holly CERDA 350.1.13.10 i ty of [place] [facility] [id number] [facility] [address] [place] BU[facility]ING 2021-12-21 2021-12-21 Outpatient [facility] [id number] Univers 10:30:00 11:03:57 HOLLY [facility] 2021-12-21 2021-12-21 Outpatient R [facility] [id number] Univers 10:30:00 10:30:00 [facility] 2021-12-13 2021-12-13 Emergency X EKATERINA, K [facility] ERT [id number] Univers 19:42:00 21:34:00 ity [facility] 2021-12-13 2021-12-13 Emergency Ekaterina, Jb [facility] 1.2.840.114 [id number] Univers 19:42:00 21:34:00 Mercedez CERDA 350.1.13.10 i ty of [place].2.[place].2.686 [place] [id number] [facility] [address] 2021-12-01 2021-12-01 Outpatient R [facility] MAMADOU [id number] Univers 08:07:00 11:14:00 HOLLY [facility] 2021-12-01 2021-12-01 [facility] 1.2.840.114 [id number] Univers 08:07:00 11:14:00 Encounter Hollysrinath CERDA 350.1.13.10 ity of [place]ICAL [id number] [facility] [address] 2021-12-01 2021-12-01 Surgery [facility] 1.2.684.365 [id number] Univers 09:19:00 10:14:00 Holly CERDA 350.1.13.10 [place] [phone] [facility] [address] 2021-12-01 2021-12-01 Orders Doctor ENA 1.2.840.114 [id number] Univers 00:00:00 00:00:00 Only Unassigned, ALEX 350.1.13.10 ity of [place] [facility] 4.2.7.2.686 Selvin as [phone] [facility] [address] [place] 2021-11-30 2021-11-30 Telephone [facility] 1.2.840.114 [id number] Univers 00:00:00 00:00:00 Holly CERDA 350.1.13.10 [place] [phone] Ak dical NAL 188 [facility] 2021-10-19 2021-10-19 Laboratory Only, Adc Test [facility] 1.2.840. 114 [id number] Univers 09:30:00 09:45:00 Only Holly De [place] 350.1.13.10 [place] [phone] [facility] [address] 2021-10-19 2021-10-19 [facility]patient [facility] [id number] Univers 09:30:00 09:30:00 HOLLY ittonny of [facility] 2021-10-19 2021-10-19 Orders Doctor ENA 1.2.840.114 [id number] Univers 00:00:00 00:00:00 Only Unassigned, ALEX 350.1.13.10 ity of [place] [facility] 4.2.7.2.686 Selvin as [phone] [facility] [address] [place] 2021-10-19 2021-10-19 Telephone [facility] 1.2.118.667 [id number] Univers 00:00:00 00:00:00 Johanny CERDA 350.1.13.10 [place] [phone] Ak dical NAL 204 [facility] 2021-08-02 2021-08-02 Telephone [facility] 1.2.840.114 [id number] Univers 00:00:00 00:00:00 Holly Cerda 350.1.13.10 i ty [place] [phone] Ak dical nal 188 [facility] 2021-07-21 2021-07-21 Telephone [facility] 1.2.243.300 [id number] Univers 00:00:00 00:00:00 Johanny Cerda 350.1.13.10 [place] [phone] [facility] 204 [facility] 2021-07-20 2021-07-20 Outpatient [facility] [id number] Univers 15:00:00 15:00:00 HOLLY [facility] 2021-07-18 2021-07-18 Outpatient [facility] [id number] Univers 15:45:00 15:45:00 HOLLY [facility] 2021-07-13 2021-07-13 Outpatient [facility] [id number] Univers 15:00:00 15:00:00 KEVIN [facility] 2021-05-25 2021-05-25 Outpatient [facility] [id number] Univers 14:30:00 14:30:00 HOLLY [facility] 2021-05-16 2021-05-16 Outpatient R [facility] [id number] Univers 14:00:00 14:00:00 HOLLY [facility] 2021-04-27 2021-04-27 Outpatient R [facility] [id number] Univers 16:00:00 16:00:00 [facility] 2021-04-24 2021-04-24 (TEL) STLMLC STLMLC [id number] Co mmon 00:00:00 00:00:00 [facility] 2021-04-19 2021-04-19 (TEL) STLMLC STLMLC [id number] Co mmon 00:00:00 00:00:00 [facility] 2021-04-17 2021-04-17 Outpatient Westley VASQUEZ [facility] [id number] Univers 09:45:00 09:45:00 [facility] 2021-04-14 2021-04-14 [facility] [id number] Univers 00:00:00 00:00:00 [facility] 2021-04-13 2021-04-13 (TEL) STLMLC STLMLC [id number] Co mmon 00:00:00 00:00:00 [facility] 2021-04-12 2021-04-12 OFFICE STLMLC STLMLC [id number] Co mmon 00:00:00 00:00:00 VISIT EST Spir it PT LEVEL 3 [facility] 2021-04-10 2021-04-10 Outpatient [facility] [id number] Univers 13:00:00 13:00:00 [facility] 2021-04-06 2021-04-06 (TEL) STLMLC STLMLC [id number] Co mmon 00:00:00 00:00:00 [facility] 2021-04-05 2021-04-05 (TEL) STLMLC STLMLC [id number] Co mmon 00:00:00 00:00:00 [facility] 2021-04-05 2021-04-05 (TEL) STLMLC STLMLC [id number] Co mmon 00:00:00 00:00:00 [facility] 2021-04-03 2021-04-03 OFFICE STLMLC STLMLC [id number] Co mmon 00:00:00 00:00:00 VISIT EST Spir it PT LEVEL 3 - [facility] 2021-03-22 2021-03-22 (TEL) STLMLC STLMLC [id number] Co mmon 00:00:00 00:00:00 [facility] 2021-03-20 2021-03-20 CONSULT - STLMLC STLMLC [id number] Common 00:00:00 00:00:00 OFFICE, L3 Spi rit [facility] 2021-03-20 2021-03-20 OFFICE STLMLC STLMLC [id number] Co mmon 00:00:00 00:00:00 VISIT Spirit ESTAB PT - CHI LEVEL 4 [facility] 2021-03-09 2021-03-09 (TEL) STLMLC STLMLC [id number] Co mmon 00:00:00 00:00:00 [facility] 2021-03-09 2021-03-09 OFFICE STLMLC STLMLC [id number] Co mmon 00:00:00 00:00:00 VISIT NEW Spir it PT LEVEL 4 [facility] 2020-09-28 2020-09-28 Laboratory Lab, [facility] [id number] 10:19:14 10:39:14 Only Fam [facility] 350.1.13.10 [place] 4.2.7.2.686 Professio [phone] nal 044 [address] 2020-09-28 2020-09-28 Outpatient R LEEANN, [facility] [id number] Univers 10:20:00 10:20:00 CHUYITA garcía of [facility] 2020-09-28 2020-09-28 Letter Doctor ENA 1.2.840.114 [id number] 00:00:00 00:00:00 (Out) Unassigned, ALEX 350.1.13.10 [place] [facility] 4.2.7.2.686 [id number] [id number] 2020-05-19 2020-05-19 Laboratory Lab, [facility] [id number] 09:26:05 09:46:05 Only Fam Pob I Health 350.1.13.10 [place] 4.2.7.2.686 Professio [phone] nal 044 [address] 2020-05-19 2020-05-19 Outpatient R ROSENDO, [facility] [id number] Univers 09:20:00 09:20:00 ALIDA garcía of [facility] 2020-05-19 2020-05-19 Letter Doctor ENA 1.2.840.114 [id number] 00:00:00 00:00:00 (Out) Unassigned, ALEX 350.1.13.10 [facility] 4.2.7.2.686 [id number] 044 2020-05-19 2020-05-19 Letter Doctor ENA 1.2.840.114 [id number] 00:00:00 00:00:00 (Out) Unassigned, ALEX 350.1.13.10 [place] [facility] 4.2.7.2.686 [id number] 044 2017-04-24 2017-04-24 Office Cardiology, [facility] 1.2.840.11 [id number] Univers 13:00:00 15:51:19 Visit Michelle Douglass [facility] 350.1.13.10 ity Chon Cabrera 4.2.7.2.686 [place] [phone] [address] Results Test Description Test Time Test Comments Results Result Comments Source POCT GLUCOSE (AUTOMATED) 2023-03-19 17:20:05 Test Item Value Reference Range Interpretation Comme nts POCT GLU (test code = 6465767001) 93 mg/dL 70-110 Lab Interpretation (test code = 04782-9) [facility] 16:17:04 Test Item Value Reference Range Interpretation Comments POCT GLU (test code = 5613720471) 55 mg/dL 70-110 L Lab Interpretation (test code = Abnormal 73859-9) [facility] [id number] 15:31:00 Test Item Value Reference Range Interpretation Comments COVID 19 Asymptomatic NEGATIVE Negative Per byron gunderson, IH AG (test code = negative results should COVNONPUIAG) be treated aspresumptive a nd, if inconsistent wi th clinical signs andsymptoms or necessary for p atient management, serafin uld betested with a n alternative mol ecular assay. Negative resultsdo not p reclude SARS-CoV-2 infe ction and should not be usedas the sole basis for patient man agement decisions. Nega tive results should be considered in t he context of apat ient's recent exposure s, history, presen ce of clinicalsigns a nd symptoms consis tent with COVID-19. UA RFLX MICR CULT IF [id number] 15:20:00 Test Item Value Reference Range Interpretation Comments UA COLOR (test code = YELLOW discript YEL/STRAW COLU) UA APPEARANCE (test code CLOUDY discript CLEAR A = APPU) UA GLUCOSE DIPSTICK (test NEGATIVE mg/dL NEG code = DGLUU) UA BILIRUBIN DIPSTICK NEGATIVE mg/dL NEG (test code = BILU) UA KETONE DIPSTICK (test NEGATIVE mg/dL NEG code = KETU) UA SPECIFIC GRAVITY (test 1.015 SG 1.005-1.030 code = SGU) UA BLOOD DIPSTICK (test TRACE mg/DL NEG code = CHRISTINE) UA PH DIPSTICK (test code 7.0 pH UNITS 5.0-7.0 = MYRA) UA PROTEIN DIPSTICK (test TRACE mg/dL NEG A code = PROU) UA UROBILINIOGEN DIPSTICK 0.2 mg/dL <2.0 (test code = URO) UA NITRITE DIPSTICK (test NEGATIVE SCREEN NEG code = DYLAN) UA LEUKOCYTE ESTERASE 1+ Leuk/mcL NEGATIVE A DIPSTICK (test code = LEUU) UA CULTURE NEEDED? (test YES,WBC>10 & EPI<25 Culture CHK code = UACULT) Criteria UA WBC (test code = WBCU) 20-30 #WBC/HPF 0-3 A UA RBC (test code = RBCU) 3-5 #RBC/HPF 0-3 A UA BACTERIA (test code = 2+ /HPF NONE-TRACE A BACU) UA SQUAMOUS CELLS (test 1+ /HPF NONE code = SQU) UA MUCUS (test code = TRACE /LPF NONE SEEN MUCU) Indication for culture: Flank PainBASIC METABOLIC [id number] 15:14:00 Test Item Value Reference Range Interpretation Comments SODIUM (test code = NA) 139 mmol/L 134-147 N POTASSIUM (test code = 4.0 mmol/L 3.4-5.0 N K) CHLORIDE (test code = 103 mmol/L 100-108 N CL) CARBON DIOXIDE (test 30 mmol/L 21-32 N code = CO2) ANION GAP (test code = 6.0 GAP calc 4.0-15.0 N GAP) GLUCOSE (test code = 116 MG/DL 70-110 H GLU) BLOOD UREA NITROGEN 16 MG/DL 7-18 N (test code = BUN) GLOMERULAR FILTRATION >=60 max estimate >60 RATE (test code = GFR) estGFR CREATININE (test code = 1.1 MG/DL 0.8-1.3 N CREAT) CALCIUM (test code = CA) 9.3 MG/DL 8.5-10.1 N HEPATIC FUNCTION [id number] 15:14:00 Test Item Value Reference Range Interpretation Comments TOTAL PROTEIN (test code = PROT) 8.1 G/DL 6.4-8.2 N ALBUMIN (test code = ALB) 3.5 G/DL 3.4-5.0 N BILIRUBIN TOTAL (test code = BILT) 0.40 MG/DL 0.2-1.2 N BILIRUBIN DIRECT (test code = 0.10 MG/DL 0.00-0.30 N BILD) BILIRUBIN INDIRECT (test code = 0.30 MG/DL 0.2-1.2 N BILIND) SGOT/AST (test code = AST) 20 Unit/L 15-37 N SGPT/ALT (test code = ALT) 35 Unit/L 12-78 N ALKALINE PHOSPHATASE TOTAL (test 66 Unit/L 50-136 N code = ALKP) [id number] 15:14:00 Test Item Value Reference Range Interpretation Comments LIPASE (test code = LIP) 85 Unit/L 114-286 L CBC W/AUTO [id number] 15:13:00 Test Item Value Reference Range Interpretation Comments WHITE BLOOD CELL (test code = 11.2 K/mm3 3.5-11.0 H WBC) RED BLOOD CELL (test code = 4.88 M/mm3 4.70-6.10 N RBC) HEMOGLOBIN (test code = HGB) 15.5 G/DL 12.3-15.9 N HEMATOCRIT (test code = HCT) 46.8 % 35.8-46.7 H MEAN CELL VOLUME (test code = 95.9 Fl 86.3-98.9 N MCV) MEAN CELL HGB (test code = MCH) 31.8 pg 28.9-34.4 N MEAN CELL HGB CONCETRATION 33.1 G/DL 32.1-34.5 N (test code = MCHC) RED CELL DISTRIBUTION WIDTH 12.7 SD 11.5-14.5 N (test code = RDW) PLATELET COUNT (test code = 298 K/mm3 150-450 N PLT) MEAN PLATELET VOLUME (test code 9.90 fL 7.0-9.6 H = MPV) NEUTROPHIL % (test code = NT%) 76.7 % 40-76 H IMMATURE GRANULOCYTE % (test 0.3 % 0.0-5.0 N code = IG%) LYMPHOCYTE % (test code = LY%) 12.7 % 20.5-51.1 L MONOCYTE % (test code = MO%) 8.3 % 1.7-9.3 N EOSINOPHIL % (test code = EO%) 1.6 % 0.0-6.0 N BASOPHIL % (test code = BA%) 0.4 % 0.0-2.0 N NUCLEATED RBC % (test code = 0.0 /100WBC% 0.0-1.0 N NRBC%) NEUTROPHIL # (test code = NT#) 8.6 K/mm3 1.8-7.6 H IMMATURE GRANULOCYTE # (test 0.03 x10 3/uL 0.00-0.03 N code = IG#) LYMPHOCYTE # (test code = LY#) 1.4 K/mm3 0.6-3.0 N MONOCYTE # (test code = MO#) 0.9 K/mm3 0.2-1.5 N EOSINOPHIL # (test code = EO#) 0.2 K/mm3 0.0-0.4 N BASOPHIL # (test code = BA#) 0.0 K/mm3 0.0-0.2 N NUCLEATED RBC # (test code = 0.0 K/mm3 0.00-0.01 N NRBC#) MANUAL DIFF REQUIRED (test code NO DIFF/SCN CRITERIA = MDIFF) SEDIMENTATION [id number] 00:02:14 Test Item Value Reference Range Interpretation Comments ESR (test code = See_Comment H [Automated message] 46531-1) The system [employer] generated this result transmitted ref erence range: 0 - 10 m m/HR. The reference r tommie was not used to interpret this result as normal/abnor mal. Lab Interpretation (test Abnormal code = 62570-0) [facility]. METABOLIC PANEL (71493)2022-07-06 23:30:09 Test Item Value Reference Range Interpretation Comments NA (test code = 137 mmol/L 135-145 7659608104) K (test code = 4.5 mmol/L 3.5-5 7047568024) CL (test code = 102 mmol/L 98-108 7921954982) CO2 TOTAL (test code 24 mmol/L 23-31 = 2892391525) AGAP (test code = 2-16 2328175417) BUN (test code = 18 mg/dL 7-23 7753404984) GLUCOSE (test code = 86 mg/dL 70-110 7794910337) CREATININE (test code 0.91 mg/dL 0.6-1.25 = 7765253951) TOTAL BILI (test code 0.4 mg/dL 0.1-1.1 = 3267025639) CALCIUM (test code = 9.5 mg/dL 8.6-10.6 9446807793) T PROTEIN (test code 7.1 g/dL 6.3-8.2 = 8706314889) ALBUMIN (test code = 4.5 g/dL 3.5-5 2920875133) ALK PHOS (test code = 54 U/L 34-122 1408546290) ALTv (test code = 33 U/L 5-50 1742-6) AST(SGOT) (test code 25 U/L 13-40 = 2116956587) eGFR (test code = mL/min/1.73m2 1603417020) NAYELI (test code = NAYELI) Association of Glomerular Filtration Rate (GFR) and Staging of Kidney Disease* + + +- +| GFR (mL/min/1.73 m2) ?| With Kidney Damage ?| ?Without Kidney Damage+ ------+ ----+ ------+| ?>90 ?| ?Stage one ?| ? Normal ?+ -+ + -+| ?60-89 ?| ?Stage two ?| ? Decreased GFR ? + + +- +| ?30-59 ?| ?Stage three ?| ? Stage three ? + + +- +| ?15-29 ?| ?Stage four ? | ? Stage four ?+ -+ + -+| ?<15 (or dialysis) ? ?| ?Stage five ? | ? Stage five ?+ -+ + -+ *Each stage assumes the associated GFR level has been in effect for at least three months. ?Stages 1 to 5, with or without kidney disease, indicate chronic kidney disease. Notes: Determination of stages one and two (with eGFR >59mL/min/1.73 m2) requires estimation of kidney damage for at least three months as defined by structural or functional abnormalities of the kidney, manifested by either:Pathological abnormalities or Markers of kidney damage (including abnormalities in the composition of the blood or urine or abnormalities in imaging tests). [facility] [id number] 23:29:48 Test Item Value Reference Range Interpretation Comments URIC ACID (test code = 9971563149) 6.2 mg/dL 3.6-8 Lab Interpretation (test code = Normal 83180-5) [facility] WITH [id number] 23:21:05 Test Item Value Reference Range Interpretation Comments WBC (test code = See_Comment [Automated 4390-2) message] The sy stem which generated this result transmitted reference range : 4.20 - 10.70 10*3/?L. The reference range was not used to interpret this result as normal/abnormal . RBC (test code = See_Comment [Automated 019-8) message] The sy stem which generated this result transmitted reference range : 4.26 - 5.52 10*6/?L. The reference range was not used to interpret this result as normal/abnormal . HGB (test code = 14.9 g/dL 12.2-16.4 718-7) HCT (test code = 44.3 % 38.4-49.3 4544-3) MCV (test code = 95.7 fL 81.7-95.6 H 787-2) MCH (test code = 32.2 pg 26.1-32.7 785-6) MCHC (test code = 33.6 g/dL 31.2-35 786-4) RDW-SD (test code = 43.8 fL 38.5-51.6 49406-6) RDW-CV (test code = 12.5 % 12.1-15.4 788-0) PLT (test code = See_Comment [Automated 777-3) message] The sy stem which generated this result transmitted reference range : 150 - 328 10*3/ ?L. The reference r tommie was not used to interpret this result as normal/abnormal . MPV (test code = 10.9 fL 9.8-13 97926-6) NRBC/100 WBC (test See_Comment [Automat ed code = 0429221830) message] The system which generated this result transmitted reference range : 0.0 - 10.0 /100 WBCs. The refer ence range was not u sed to interpret th is result as normal/abnormal . NRBC x10^3 (test code See_Comment [Auto mated = 7969739026) message] The s ystem which generated this result transmitted reference range : 10*3/?L. The reference range was not used to interpret this result as normal/abnormal . GRAN MAT (NEUT) % 60.4 % (test code = 770-8) IMM GRAN % (test code 0.60 % = 5446686311) LYMPH % (test code = 26.8 % 736-9) MONO % (test code = 9.5 % 5905-5) EOS % (test code = 2.1 % 713-8) BASO % (test code = 0.6 % 706-2) GRAN MAT x10^3(ANC) 6.15 10*3/uL 1.99-6.95 (test code = 0835859368) IMM GRAN x10^3 (test 0.06 10*3/uL 0-0.06 code = 1635652475) LYMPH x10^3 (test code 2.73 10*3/uL 1.09-3.23 = 731-0) MONO x10^3 (test code 0.97 10*3/uL 0.36-1.02 = 742-7) EOS x10^3 (test code = 0.21 10*3/uL 0.06-0.53 711-2) BASO x10^3 (test code 0.06 10*3/uL 0.01-0.09 = 704-7) Lab Interpretation Abnormal (test code = 36775-2) [facility] [id number] 10:54:12 Test Item Value Reference Range Interpretation Comments Sodium Level (test code = 142 mmol/L 136-145 Sodium Level) Potassium Level (test code = 4.3 mmol/L 3.5-5.1 Potassium Level) Chloride Level (test code = 110 mmol/L 98-107 H Chloride Level) CO2 (test code = CO2) 25 mmol/L 21-32 Anion Gap (test code = Anion 7 mmol/L 7-16 Gap) BUN (test code = BUN) 13 mg/dL 7-18 Creatinine Level (test code = 1.1 mg/dL 0.7-1.3 Creatinine Level) Glucose Level (test code = 91 mg/dL 74-106 Glucose Level) Calcium Level (test code = 8.9 mg/dL 8.5-10.1 Calcium Level) Alk Phos (test code = Alk Phos) 59 IntlUnit/L 45-122 Bilirubin Total (test code = 0.5 mg/dL 0.2-1.0 Bilirubin Total) Albumin Level (test code = 4.2 g/dL 3.4-5.0 Albumin Level) Protein Total (test code = 7.6 g/dL 6.4-8.2 Protein Total) ALT (test code = ALT) 51 IntlUnit/L 12-78 AST (test code = AST) 28 IntlUnit/L 10-34 Comprehensive Metabolic [id number] 10:54:12 Test Item Value Reference Range Interpretation [...] >60 mL/min/1.73 m2 N AA) Comprehensive Metabolic [id number] 10:54:12 Test Item Value Reference Range Interpretation [...] m2 N eGFR Non-AA) CT Brain/Head w/o [id number] 10:40:27Patient: PADMINI ENG Date/Time04/06/2019 10:30 CDTReason for ExamFacial droopRep ortInformation: Left facial droop, Bagley's palsyCT scan of the brain without contrastMultiplanar reformatted images of the head were obtained without intravenous contrastNo acute intracranial hemorrhage, gross masses, mass effects, midline shifts or extra-axial collections are noted. The ventricular system is normal and midline. Ruiz-white matter interface is preserved. No focal bony calvarial abnormality is noted.IMPRESSION:1. Negative CT scan of the brainRadiation dose lowering techniques were usedwith automated exposure control, adjusting the mA according to patient's size. Final Dictated by: MD Myrick Gustavo MDictated DT/TM: 04/06/2019 10:33 amSigned by: MD Myrick Gustavo MSigned (Electronic Signature): 04/06/2019 10:40 amComplete Blood Count with [id number] 10:36:20 Test Item Value Reference Range Interpretation [...] = Slide Review) GL_SET_SLIDE _REVIEW_A UTO Automated [id number] 10:36:20 Test Item Value Reference Range Interpretation Comments Neutro Auto (test code = Neutro Auto) 66.4 % N Lymph Auto (test code = Lymph Auto) 20.4 % N [place] Auto (test code = [place] Auto) 9.2 % N Eos, Auto (test code = Eos, Auto) 2.9 % N Basophil Auto (test code = Basophil 1.1 % N Auto) Neutro Absolute (test code = Neutro 4.9 x10 2.7-7.3 Absolute) Lymph Absolute (test code = Lymph 1.5 x10 0.8-3.5 Absolute) [place] Absolute (test code = [place] 0.7 x10 0.3-0.9 Absolute) Eos Absolute (test code = Eos 0.2 x10 0.0-0.3 Absolute) Baso Absolute (test code = Baso 0.1 x10 0.0-0.1 Absolute) Notes Date/Time Note Provider Source 2022-07-17 14:21:00-00:00 [id number] [place] [address] PATIENT NAME: PADMINI ENG JUNIOR ADMIT DATE: ACCOUNT NO: [id number] ROOM NO: AGE: 51 REPORT TYPE: eELECTROCARDIOGRAM SEX: M ADMITTING PHYSICIAN: ATTENDING PHYSICIAN: Order: [id number] Test Reason : ABD PAIN Test Date/Time Stamp: SatJul 17 2022 14:21:04 Blood Pressure : / mmHG Vent. Rate : 075 BPM Atrial Rate : 075 BPM P-R Int : 280 ms QRS Dur : 086 ms QT Int : 370 ms P-R-T Axes : 030 -37 045 degree s QTc Int : 413 ms Sinus rhythm with 1st degree AV block Possible Left atrial enlargement Left axis deviation Abnormal ECG No previous ECGs available Confirmed by Bryant Palma ([id number]) on 2 9:36:41 AM Referred By: Self Referred Confirmed by:Bryant Hinton Electronically Signed by Bryant Palma MD o n 07/20/22 at 0936 PATIENT NAME: PADMINI ENG JUNIOR ACCOUNT #: [id number] 2022-07-17 14:19:00-00:00 [facility] ([facility]) EMERGENCY PROVIDER REPORT REPORT#:[id number] REPORT STATUS: Signed DATE:07/17/22 TIME:141 PATIENT: PADMINI ENG MALORIE UNIT #: [id number] ROOM/BED: : 69 AGE: 51 SEX: M PCP PHYS: Zack Denson MD SERVICE AUTHOR: Efrain Sousa DO * ALL edits or amendments must be made on the eASIC/computer document * [id number] Illness General Confirmed Patient Yes Initial Greet Date/Time 07/17/22 1410 Presentation Chief Complaint Abdominal pain, Body aches, Chil ls, Cough, Diarrhea, Fatigue, Fever, Headache, Nasal congestion, Nausea, Upper resp infection, Vomiting Hx Obtained From Patient, Spouse Onset Occurred Days ago (3) Symptom Duration Since onset Progression since Onset Unchanged Location Head, body, abdomen Quality Aching Radiation Does not radiate Severity: Onset Moderate Severity: Current Mild Associated with Reports: Diarrhea, Myalgia. Denies: Chest pain, Neck pain, Rash, Shortness of breath. Exacerbated by Nothing Relieved by Nothing Review of Systems ROS Statements Complete sys rev neg except as marked. Focused Review of Systems Constitutional Reports: Chills, Fatigue, Fever. Denies: Letharg y. Eyes Denies: Eye pain bilat, Redness bilat, Visual lo ss bilat. Respiratory Reports: Cough, non-producti ve. Denies: Cough, productive, Shortness of breath. Cardiovascular Denies: Chest pain, Syncope. GI Reports: Abdominal pain, Diarrhea, Nausea, Vomit ing. Denies: Hematochezia. Musculoskeletal Reports: Myalgia. Denies: Extremity pain, Neck p ain. Hematologic Denies: Bleeding, Bruising. Skin Denies: Diaphoresis, Rash. Neurologic Denies: Change LOC, Dizziness, Focal weakness, H eadache, Numbness, Slurred speech. Past Medical History - Adult Stated Complaint CHILLS,ABD PAINS ON RIGHT, HEAD ACHE X 4 DAYS Allergies Coded Allergies: No Known Allergies (07/17/22) Calculated Suicide Risk (nurs) No risk Pt reports no significant: Past medical history, Past surgical history Smoking status for patients 13 years old or olde r: Former Smoker Physical Exam Vital Signs Vital Signs First Documented: Result Date Time Pulse Ox 98 07/17 1359 B/P 110/76 07/17 1359 B/P Mean 87 07/17 135 O2 Delivery Room air 07/17 135 Temp 98.0 07/17 135 Pulse 71 07/17 135 Resp 18 07/17 135 Last Documented: Result Date Time Pulse Ox 99 07/17 164 B/P 121/74 07/17 1646 B/P Mean 89 07/17 164 O2 Delivery Room air 07/17 1646 Temp 98.7 07/17 1646 Pulse 68 07/17 1646 Resp 16 07/17 1646 Review of Vital Signs Reviewed Focused PE General/Const General/Const Awake, Alert, Well appearing, Not toxic appearing Eyes Eyes PERRL, No photophobia, Conjunctiva NL Ears/Nose/Throat Ears/Nose/Throat Airway patent, Mucous membrane s moist, Pharynx NL, Tympanic membs NL, Ext aud canal NL, Nose exam NL, No sin us tenderness MS Neck Neck Supple, No meningismus, Full range of motion, No adenopathy, No swelling , Non-tender, No masses Resp/Chest Respiratory/Chest Breath sounds NL, Breath soun ds = bilat, No respiratory distress, No rales, No rhonchi, No wheezing, No retractions Cardiovascular Cardiovascular Heart rate NL, Regular rhythm, H eart sounds NL, No murmurs, Peripheral circulation NL Abdomen/GI Abdomen/GI Soft, Non-tender, No guarding, No re bound Lymphatic Lymphatic No gross adenopathy Skin Skin Color NL, No rash, Warm, Dry, Turgor NL Neurologic Neurologic Oriented X3, Speech NL, No motor def icits, No sensory deficits Additional PE MS Head Head Atraumatic, Normocephalic MS Back Back Atraumatic, Inspection NL MS Upper Extrem Upper Extremity/MS Atraumatic, Inspection NL Interpretation Diagnostics Lab Results Interpretation Results Laboratory Tests 07/17/22 1433: [Embedded Image Not Available] Laboratory Tests: 07/17 07/17 1433 1422 Chemistry Sodium (134 - 147 mmol/L) 139 Potassium (3.4 - 5.0 mmol/L) 4.0 Chloride (100 - 108 mmol/L) 103 Carbon Dioxide (21 - 32 mmol/L) 30 Anion Gap (4.0 - 15.0 GAP calc) 6.0 BUN (7 - 18 MG/DL) 16 Creatinine (0.8 - 1.3 MG/DL) 1.1 Glomerular Filtr Rate (>60 estGFR) >=60 max est imate Glucose (70 - 110 MG/DL) 116 H Calcium (8.5 - 10.1 MG/DL) 9.3 Total Bilirubin (0.2 - 1.2 MG/DL) 0.40 Direct Bilirubin (0.00 - 0.30 MG/DL) 0.10 Indirect Bilirubin (0.2 - 1.2 MG/DL) 0.30 AST (15 - 37 Unit/L) 20 ALT (12 - 78 Unit/L) 35 Total Alk Phosphatase (50 - 136 Unit/L) 66 Total Protein (6.4 - 8.2 G/DL) 8.1 Albumin (3.4 - 5.0 G/DL) 3.5 Lipase (114 - 286 Unit/L) 85 L Hematology WBC (3.5 - 11.0 K/mm3) 11.2 H RBC (4.70 - 6.10 M/mm3) 4.88 Hgb (12.3 - 15.9 G/DL) 15.5 Hct (35.8 - 46.7 %) 46.8 H MCV (86.3 - 98.9 Fl) 95.9 MCH (28.9 - 34.4 pg) 31.8 MCHC (32.1 - 34.5 G/DL) 33.1 RDW (11.5 - 14.5 SD) 12.7 Plt Count (150 - 450 K/mm3) 298 MPV (7.0 - 9.6 fL) 9.90 H Neut % (Auto) (40 - 76 %) 76.7 H Lymph % (Auto) (20.5 - 51.1 %) 12.7 L [place] % (Auto) (1.7 - 9.3 %) 8.3 Eos % (Auto) (0.0 - 6.0 %) 1.6 Baso % (Auto) (0.0 - 2.0 %) 0.4 Neut # (Auto) (1.8 - 7.6 K/mm3) 8.6 H Lymph # (Auto) (0.6 - 3.0 K/mm3) 1.4 [place] # (Auto) (0.2 - 1.5 K/mm3) 0.9 Eos # (Auto) (0.0 - 0.4 K/mm3) 0.2 Baso # (Auto) (0.0 - 0.2 K/mm3) 0.0 Abs Immat Gran (auto) (0.00 - 0.03 x10 3/uL) 0. 03 Add Manual Diff (CRITERIA DIFF/SCN) NO Immature Gran % (0.0 - 5.0 %) 0.3 Nucleated RBC % (0.0 - 1.0 /100WBC%) 0.0 Serology SARS-CoV-2 Ag (Rapid) (Negative) NEGATIVE 07/17 141 Urines Urine Color (YEL/STRAW discript) YELLOW Urine Appearance (CLEAR discript) CLOUDY H Urine pH (5.0 - 7.0 pH UNITS) 7.0 Ur Specific [place] (1.005 - 1.030 SG) 1.015 Urine Protein (NEG mg/dL) TRACE H Urine Glucose (UA) (NEG mg/dL) NEGATIVE Urine Ketones (NEG mg/dL) NEGATIVE Urine Blood (NEG mg/DL) TRACE Urine Nitrite (NEG SCREEN) NEGATIVE Urine Bilirubin (NEG mg/dL) NEGATIVE Urine Urobilinogen (<2.0 mg/dL) 0.2 Ur Leukocyte Esterase (NEGATIVE Leuk/mcL) 1+ H Urine RBC (0 - 3 #RBC/HPF) 3-5 H Urine WBC (0 - 3 #WBC/HPF) 20-30 H Ur Squamous Epith Cells (NONE /HPF) 1+ Urine Bacteria (NONE - TRACE /HPF) 2+ H Urine Mucus (NONE SEEN /LPF) TRACE Urine Culture Screen (Culture CHK Criteria) YES ,WBC>10 EPI<25 Microbiology: Date/Time Procedure - Status Source Growth 07/17 1520 Urine Culture - RECD URINE 07/17 142 Influenza Virus Type B Antigen - COM P NASOPHARG 07/17 142 Influenza Virus Type A Antigen - COM P NASOPHARG ECG #1 Interpretation Text/Dict Note Normal sinus rhythm Rate [address] Left axis No acute ST segment changes Nonspecific T wave changes First-degree AV block Date 07/17/22 Time 1421 Interpreted by and reviewed by me Re-Evaluation MDM Re-Evaluation/Progress Re-Evaluation/Progress Text/Dict Note Appears comfortable. at bedside. Time of Re-Eval 1540 ED Course Medication(s) Ordered Medication(s) Ordered: Central Nervous System Agents Sig/Yair Start time Last Medication Dose Route Stop Time Status Admin Acetaminophen 1,000 MG X1ED STA 07/17 1636 DC 07/17 PO 07/17 1637 1641 Ketorolac 30 MG X1ED STA 07/17 1518 DC 07/17 Tromethamine IV 07/17 1519 1527 Patient Discharge Departure Vital Signs/Condition Vital Signs First Documented: Result Date Time Pulse Ox 98 07/17 1359 B/P 110/76 07/17 1359 B/P Mean 87 07/17 1359 O2 Delivery Room air 07/17 1359 Temp 98.0 07/17 1359 Pulse 71 07/17 1359 Resp 18 07/17 1359 Last Documented: Result Date Time Pulse Ox 99 07/17 1646 B/P 121/74 07/17 1646 B/P Mean 89 07/17 1646 O2 Delivery Room air 07/17 1646 Temp 98.7 07/17 1646 Pulse 68 07/17 1646 Resp 16 07/17 1646 All vital signs available at the time of this en try have been reviewed. Clinical Impression Clinical Impression Primary Impression: UTI (urinary tract infection ) Disposition Decision Discharge )( Discharged to Home Yes )( Time 1551 )( Date 07/17/22 Discharge/Care Plan Counseled Regarding Diagnosi s, Lab results, Imaging studies, Prescriptions, Need for follow-up, When to return to ED (Auto) Prescriptions Current Visit Scripts ONDANSETRON ODT (ZOFRAN ODT) 4 MG PO Q6H PRN PRN NAUSEA/VOMITING ONDANSETRON ODT (ZOFRAN ODT) 4 MG PO Q6H PRN OH N NAUSEA/VOMITING #15 TABS CEFDINIR (OMNICEF) 300 MG PO Q12H CEFDINIR (OMNICEF) 300 MG PO Q12H #14 CAPS Patient Instructions Urinary Tract Infections in Men Additional Instructions Follow up with your primary care physcian in 1 w togiak. Referrals Provider Referral: Cornell Sepulveda DO Follow-Up: 1 Week Address: [address] [place] [address] [address] [place] [address] Provider Referral: Jefry Painting MD Follow-Up: As Needed Address: [address] [place] [id number] Electronically Signed by Efrain Sousa DO on at [address]27 [facility] #: [id number] END OF REPORT"
[2023-04-21] MEDS ORDERED: HYDROCODONE/APAP 10/325 TAB ONE (12:16)
[2023-04-21] MEDS ORDERED: ONDANSETRON 4 MG (ODT) TAB ONE (12:16)
[2023-04-21] MEDS ORDERED: TDAP (DIPHTH,PERTUSS(ACELL),TET VAC) 0.5 ML VIAL IMVAC ONE (12:16)
--- NOTE | 2023-04-21 12:25 | RAD REPORT ---
EXAM DESCRIPTION: MICHELLE ARECHIGA - 04/21/2023 12:19 pm CLINICAL HISTORY: chainsaw accident COMPARISON: No comparisons TECHNIQUE: Left hand, 2 views. FINDINGS: No fracture is identified. There is no dislocation or periosteal reaction noted. Joint alignment is maintained. Scattered degenerative changes, with osseous remodeling and hypertrophy most pronounced at the fourth digit proximal interphalangeal joint. No foreign body or other soft tissue abnormality. IMPRESSION: No acute osseous abnormality. Degenerative changes as above.
[2023-04-21] MEDS ORDERED: MORPHINE 4 MG/ML SYR ONE (12:59)
--- NOTE | 2023-04-21 13:25 | EDPHYS ---
Physician Documentation [facility] Name: Bebo Diaz Jr Age: 52 yrs Sex: Male : 1970 Arrival Date: 04/21/2023 Time: 11:35 Bed 4 Private MD: MIKE Physician Steven Morrison HPI: 04/21 15:08 This 52 yrs old Male presents to ER via Ambulatory with complaints of hand sb4 laceration. 15:08 The patient has a laceration related to: doing yard work, chain saw. The laceration(s) sb4 is(are) located on the palm of left hand. Onset: The symptoms/episode began/occurred just prior to arrival. Associated signs and symptoms: Pertinent negatives: deformity, dizziness, heavy bleeding, loss of consciousness, numbness distal to injury, suspected foreign body. patient's mom was using chain saw to cut tree branches. patient was trying to catch the branches and his hand got too close and made contact with the chain saw- left palm. Historical: - Allergies: 12:01 No Known Allergies; bp - Home Meds: 12:01 lisinopril Oral [Active]; bp - PMHx: 12:01 Hypertension; bp - Immunization history:: Adult Immunizations up to date, Last tetanus immunization: > 10 years ago. - Social history:: Smoking status: Patient denies any tobacco usage or history of. ROS: 15:08 Constitutional: Negative for fever, chills, and weight loss. sb4 15:08 Skin: Positive for laceration(s). 15:08 All other systems are negative. Exam: 15:08 Constitutional: This is a well developed, well nourished patient who is awake, alert, sb4 and in no acute distress. 15:08 Skin: injury, that can be described as contaminated, no foreign body, linear, with mild bleeding. Vital Signs: 11:59 BP 149 / 109; Pulse 90; Resp 13; Temp 98.6; Pulse Ox 98% ; Weight 121.11 kg; Height 5 bp ft. 10 in. ; 13:00 BP 136 / 92; Pulse 88; Resp 16; Pulse Ox 98% on R/A; hb 11:59 Body Mass Index 38.31 (121.11 kg, 177.8 cm) bp Laceration: 15:08 Wound Repair of 6cm ( 2.4in ) subcutaneous laceration to palm of left hand. Linear sb4 shaped.. Minimal contamination.. Minimal bleeding noted.. Distal neuro/vascular/tendon intact. Anesthesia: Local anesthetic administered with 10 mls of 1% lidocaine w/ Epi. Wound prep: Extensive cleansing with betadine by nurse, Wound irrigation with saline by me, Wound explored moderately, Copious irrigation. Skin closed with 8 4-0 Prolene using simple sutures and sterile technique. Dressed with 4x4's, non-adherent dressing. Patient tolerated well. MDM: 11:47 Patient medically screened. sb4 15:08 Differential diagnosis: superficial laceration, tendon injury, vascular injury. sb4 15:08 Data reviewed: vital signs, nurses notes, radiologic studies, plain films, I have sb4 discussed the patient's presentation/case with the attending Emergency Department Physician; and as a result, I will discharge patient. I considered the following discharge prescriptions or medication management in the emergency department Antibiotics: At this time antibiotics are not recommended. Independent interpretation of the following test(s) in the Emergency Department X-Ray: My interpretation is my interpretation of the hand xray images are no acute fracture or foreign body. Test considered but Not performed: Labs: not indicated. Historians other than the Patient: Parent: mother. Care significantly affected by the following chronic conditions: Hypertension. Counseling: I had a detailed discussion with the patient and/or guardian regarding: the historical points, exam findings, and any diagnostic results supporting the discharge/admit diagnosis, radiology results, the need for outpatient follow up, for suture removal in 7-10 days, to return to the emergency department if symptoms worsen or persist or if there are any questions or concerns that arise at home. Medication response: morphine partially relieved the patient's pain. Special discussion:. Special discussion: I discussed with the patient/guardian that the patient's current presentation does not indicate dosing of antibiotics. They should follow-up with their primary care provider and return if the symptoms persist or progress. 04/21 11:44 Order name: Hand Left 3 View XRAY; Complete Time: 12:31 eb 04/21 12:36 Order name: Suture Tray at Bedside; Complete Time: 12:52 sb4 Administered Medications: 12:11 Drug: Boostrix Tdap IM 0.5 ml Route: IM; Site: right deltoid; hb 13:36 Follow up: Response: No adverse reaction hb 12:11 Drug: [place] PO 10 mg-325 mg 1 tabs Route: PO; hb 13:36 Follow up: Response: No adverse reaction hb 12:11 Drug: Ondansetron PO 4 mg Route: PO; hb 13:36 Follow up: Response: No adverse reaction hb 12:52 Drug: morphine IM 4 mg Route: IM; Site: left deltoid; hb 13:36 Follow up: Response: No adverse reaction hb Disposition Summary: 04/21/23 13:25 Discharge Ordered Location: Home sb4 Problem: new sb4 Symptoms: have improved sb4 Condition: Stable sb4 Diagnosis - Laceration without foreign body of left hand, initial encounter sb4 Followup: sb4 - With: Emergency Department - When: 7 - 10 days - Reason: Staple/Suture removal Discharge Instructions: - Discharge Summary Sheet sb4 - Laceration Care, Adult sb4 Forms: - Medication Reconciliation Form sb4 - Thank You Letter sb4 - Antibiotic Education sb4 - Prescription Opioid Use sb4 - [email or web address]_[email or web address] sb4 Prescriptions: - Tramadol 50 mg Oral Tablet - take 1 tablet by ORAL route every 8 hours as needed; 12 tablet; Refills: 0, sb4 Product Selection Permitted Signatures: Dispatcher [employer] Pauline Carrasco RN RN Fer Bates, PEYTON RN Josephine Mcdaniel, PAKeiko PAKeiko sb4
--- NOTE | 2023-04-21 13:25 | ER ---
Nurse's Notes [facility] Name: Bebo Diaz Jr Age: 52 yrs Sex: Male : 1970 Arrival Date: 04/21/2023 Time: 11:35 Bed 4 Private MD: Diagnosis: Laceration without foreign body of left hand, initial encounter Presentation: 04/21 11:59 Chief complaint: Patient states: LEFT HAND LAC WITH CHAINSAW 20 MIN [employer]. Coronavirus bp screen: At this time, the client does not indicate any symptoms associated with coronavirus-19. Ebola Screen: No symptoms or risks identified at this time. Initial Sepsis Screen: Does the patient meet any 2 criteria? No. Patient's initial sepsis screen is negative. Does the patient have a suspected source of infection? No. Patient's initial sepsis screen is negative. Risk Assessment: Do you want to hurt yourself or someone else? Patient reports no desire to harm self or others. Onset of symptoms was April 21, 2023 at 11:30. 11:59 Method Of Arrival: Ambulatory bp 11:59 Acuity: SOFIA 3 bp Triage Assessment: 12:01 General: Appears distressed, uncomfortable, Behavior is cooperative, appropriate for bp age, anxious. Pain: Complains of pain in left hand. EENT: No deficits noted. Neuro: No deficits noted. Cardiovascular: No deficits noted. Respiratory: No deficits noted. GI: No signs and/or symptoms were reported involving the gastrointestinal system. : No signs and/or symptoms were reported regarding the genitourinary system. Derm: No deficits noted. Musculoskeletal: No deficits noted. Injury Description: Laceration sustained to palm of left hand is full thickness, 2.6 to 7.5 cm long, was sustained 30-60 minutes ago. a small amount of bleeding noted at this time. Historical: - Allergies: 12:01 No Known Allergies; bp - Home Meds: 12:01 lisinopril Oral [Active]; bp - PMHx: 12:01 Hypertension; bp - Immunization history:: Adult Immunizations up to date, Last tetanus immunization: > 10 years ago. - Social history:: Smoking status: Patient denies any tobacco usage or history of. Screenin:02 [facility] ED Fall Risk Assessment (Adult) History of falling in the last 3 months, bp including since admission No falls in past 3 months (0 pts). Abuse screen: Denies threats or abuse. Denies injuries from another. Nutritional screening: No deficits noted. Tuberculosis screening: No symptoms or risk factors identified. Assessment: 12:02 General: SEE TRIAGE NOTE. bp 12:48 Reassessment: Patient appears in no apparent distress at this time. Patient and/or hb family updated on plan of care and expected duration. Pain level reassessed. Patient is alert, oriented x 3, equal unlabored respirations, skin warm/dry/pink. 12:56 Reassessment: Rula CASTRO at [facility] for lac repair. hb 13:36 Reassessment: DC HOME AMBULATORY. hb Vital Signs: 11:59 BP 149 / 109; Pulse 90; Resp 13; Temp 98.6; Pulse Ox 98% ; Weight 121.11 kg; Height 5 bp ft. 10 in. ; 13:00 BP 136 / 92; Pulse 88; Resp 16; Pulse Ox 98% on R/A; hb 11:59 Body Mass Index 38.31 (121.11 kg, 177.8 cm) bp ED Course: 11:38 Patient arrived in ED. eb 11:44 Fer Prather, RN is Primary Nurse. bp 11:47 Josephine Walter PA-C is PHCP. sb4 11:47 Stveen Morrison MD is Attending Physician. sb4 12:01 Triage completed. bp 12:01 Arm band placed on. bp 12:02 Patient has correct armband on for positive identification. Bed in low position. Call bp light in reach. Side rails up X2. Adult w/ patient. 12:20 Hand Left 3 View XRAY In Process Unspecified. EDMS 13:25 Assist provider with laceration repair on palm of left hand that was between 2.6 to 7.5 hb cm using sutures. Set up tray. Performed by Josephine Walter PA-C Dressed with Chiqui, Patient tolerated well. 8 SUTURES. 13:36 Patient did not have IV access during this emergency room visit. hb Administered Medications: 12:11 Drug: Boostrix Tdap IM 0.5 ml Route: IM; Site: right deltoid; hb 13:36 Follow up: Response: No adverse reaction hb 12:11 Drug: [place] PO 10 mg-325 mg 1 tabs Route: PO; hb 13:36 Follow up: Response: No adverse reaction hb 12:11 Drug: Ondansetron PO 4 mg Route: PO; hb 13:36 Follow up: Response: No adverse reaction hb 12:52 Drug: morphine IM 4 mg Route: IM; Site: left deltoid; hb 13:36 Follow up: Response: No adverse reaction hb Medication: 12:02 VIS not applicable for this client. bp Outcome: 13:25 Discharge ordered by . sb4 13:36 Discharged to home ambulatory, with family. hb 13:36 Condition: stable 13:36 Discharge instructions given to patient, family, Instructed on discharge instructions, follow up and referral plans. medication usage, wound care, Demonstrated understanding of instructions, follow-up care, medications, wound care, Prescriptions given X 1. 13:37 Patient left the ED. hb Signatures: Dispatcher [employer] EDMS Pauline Cox, RN RN Fer Bates, PEYTON RN Rosetta Astorga Sophia, PA-C PA-Nathan sb4
[2023-04-21 14:02] VITALS: TEMP 98.6; O2SAT 98
[2023-04-21 14:03] VITALS: BP 136/92
== END 2023-04-21 13:37 | disposition home or self-care (01) ==
LOC: ER 11:35
PROC: 0HQGXZZ Repair Left Hand Skin, External Approach (ICD-10-PCS; principal; 2023-04-21)
DX: S61.412A Laceration without foreign body of left hand, initial encounter (principal); I10 Essential (primary) hypertension
CPT/HCPCS: 73130; 96372; 99284; 12002; Q0162

== ENCOUNTER 2023-04-29 09:52 | Emergency (ER) | payer OTHER ==
--- NOTE | 2023-04-29 16:53 | ER ---
Nurse's Notes [facility] Name: Bebo Diaz Jr Age: 52 yrs Sex: Male : 1970 Arrival Date: 04/29/2023 Time: 09:50 Bed Waiting Private MD: Diagnosis: Encounter for removal of sutures Presentation: 04/29 09:57 Chief complaint: Patient states: came back for removal of stitches received here [place] eh3 week ago for finger laceration. Coronavirus screen: Vaccine status: Patient reports being unvaccinated. Ebola Screen: No symptoms or risks identified at this time. Initial Sepsis Screen: Does the patient meet any 2 criteria? No. Patient's initial sepsis screen is negative. Does the patient have a suspected source of infection? Yes: Skin breakdown/wound. Risk Assessment: Do you want to hurt yourself or someone else? Patient reports no desire to harm self or others. Onset of symptoms was April 29, 2023. 09:57 Method Of Arrival: Ambulatory [facility] 09:57 Acuity: SOFIA 3 eh3 Triage Assessment: 10:01 General: Appears in no apparent distress. uncomfortable, Behavior is calm, cooperative, eh3 appropriate for age. Pain: Complains of pain in palm of left hand. Neuro: Level of Consciousness is awake, alert, obeys commands, Oriented to person, place, time, situation. Cardiovascular: Capillary refill < 3 seconds Patient's skin is warm and dry. Respiratory: Airway is patent Respiratory effort is even, unlabored, Respiratory pattern is regular, symmetrical. GI: Abdomen is round non-distended. Derm: Wound noted palm of left hand Wound is laceration with stitches, edges of wound . Musculoskeletal: Circulation, motion, and sensation intact. Historical: - Allergies: 10:01 No Known Allergies; eh3 - Home Meds: 10:01 lisinopril Oral [Active]; Metformin Oral [Active]; eh3 - PMHx: 10:01 Hypertension; eh3 - PSHx: 10:01 Kidney cancer; eh3 - Immunization history:: Adult Immunizations up to date. - Social history:: Smoking status: Patient reports the use of cigarette tobacco products, denies chronic smoking, but will smoke occasionally, Patient uses alcohol, weekly. Screenin:04 [facility] ED Fall Risk Assessment (Adult) Score/Fall Risk Level 0 - 2 = Low Risk. Abuse eh3 screen: Denies threats or abuse. Denies injuries from another. Nutritional screening: No deficits noted. Tuberculosis screening: No symptoms or risk factors identified. Vital Signs: 09:57 BP 135 / 96; Pulse 72; Resp 18; Temp 97.2(TE); Pulse Ox 99% on R/A; Weight 121.11 kg; eh3 Height 5 ft. 10 in. ; 09:57 Body Mass Index 38.31 (121.11 kg, 177.8 cm) eh3 ED Course: 09:50 Patient arrived in ED. am2 09:53 Lucinda Flores FNP-C is [facility]. kb 09:53 Ayad Martel MD is Attending Physician. kb 09:59 Triage completed. eh3 10:01 Arm band placed on. eh3 10:04 Patient has correct armband on for positive identification. Provided Education on: N/A. eh3 10:04 No provider procedures requiring assistance completed. Patient did not have IV access eh3 during this emergency room visit. Administered Medications: No medications were administered Medication: 10:07 VIS not applicable for this client. eh3 Outcome: 10:04 Discharge ordered by . kb 10:07 Discharged to home ambulatory, with significant other. eh3 10:07 Condition: stable 10:07 Discharge instructions given to patient, significant other, Instructed on discharge instructions, follow up and referral plans. wound care, Demonstrated understanding of instructions, follow-up care, wound care. 10:08 Patient left the ED. eh3 Signatures: Lucinda Flores FNP-C FNP-Ckb Moreno, Amanda am2 Marisa Angulo RN RN eh3
--- NOTE | 2023-04-29 16:53 | EDPHYS ---
Physician Documentation [facility] Name: Bebo Diaz Jr Age: 52 yrs Sex: Male : 1970 Arrival Date: 04/29/2023 Time: 09:50 Bed Waiting Private MD: ED Physician Ayad Martel HPI: 04/29 09:59 This 52 yrs old Male presents to ER via Unassigned with complaints of Suture kb Removal. 09:59 The patient has sutures on the palm of left hand. Previous treatment: The patient was kb initially treated 8 day(s) ago, the care was rendered at [facility], Treatment type: The patient's original treatment included sutures. Sutures/zi progress: The patient has no c/o's. The wound is well-healing with no redness, swelling, discharge, or dehiscence reported. The patient has not experienced similar symptoms in the past. The patient has been recently seen by a physician:. Historical: - Allergies: 10:01 No Known Allergies; eh3 - Home Meds: 10:01 lisinopril Oral [Active]; Metformin Oral [Active]; eh3 - PMHx: 10:01 Hypertension; eh3 - PSHx: 10:01 Kidney cancer; eh3 - Immunization history:: Adult Immunizations up to date. - Social history:: Smoking status: Patient reports the use of cigarette tobacco products, denies chronic smoking, but will smoke occasionally, Patient uses alcohol, weekly. ROS: 09:59 Constitutional: Negative for fever, chills, and weight loss. kb 09:59 Skin: Positive for laceration(s), of the palm of left hand, sutures in place. 09:59 All other systems are negative. Exam: 09:59 Constitutional: This is a well developed, well nourished patient who is awake, alert, kb and in no acute distress. Head/Face: Normocephalic, atraumatic. ENT: Moist Mucous membranes Cardiovascular: Regular rate and rhythm with a normal S1 and S2. No gallops, murmurs, or rubs. No pulse deficits. Respiratory: Respirations even and unlabored. No increased work of breathing. Talking in full sentences MS/ Extremity: Pulses equal, no cyanosis. Neurovascular intact. Full, normal range of motion. Neuro: Awake and alert, GCS 15, oriented to person, place, time, and situation. Moves all extremities. Normal gait. 09:59 Skin: Wound recheck: Suture laceration closure: the wound is healing well, no drainage, no erythema, no swelling, mild dehiscence. Vital Signs: 09:57 BP 135 / 96; Pulse 72; Resp 18; Temp 97.2(TE); Pulse Ox 99% on R/A; Weight 121.11 kg; eh3 Height 5 ft. 10 in. ; 09:57 Body Mass Index 38.31 (121.11 kg, 177.8 cm) [facility] Procedures: 09:59 Suture/Staple removal: Removed 1 sutures, from palm of left hand, Patient tolerated kb well. MDM: 09:53 Patient medically screened. kb 10:01 Data reviewed: vital signs, nurses notes. Counseling: I had a detailed discussion with kb the patient and/or guardian regarding: the historical points, exam findings, and any diagnostic results supporting the discharge/admit diagnosis, the need for outpatient follow up, a family practitioner, to return to the emergency department if symptoms worsen or persist or if there are any questions or concerns that arise at home. ED course: 1 suture removed because it was not intact. The other sutures left in place to allow for more healing time. Dehiscence noted to wound so I recommended to leave the sutures in place for another 2 to 6 days.. Administered Medications: No medications were administered Disposition: 11:03 Co-signature as Attending Physician, Ayad Martel MD I reviewed the patient's care rn provided by the Advanced Practice Provider and agree with the diagnosis and treatment plan. Disposition Summary: 04/29/23 10:04 Discharge Ordered Location: Home Condition: Stable kb Diagnosis - Encounter for removal of sutures kb Followup: kb - With: Emergency Department - When: As needed - Reason: Worsening of condition Followup: kb - With: Private Physician - When: 2 - 3 days - Reason: Recheck today's complaints, Continuance of care, Re-evaluation by your physician Discharge Instructions: - Discharge Summary Sheet kb - Suture Removal, Care After kb Forms: - Medication Reconciliation Form kb - Thank You Letter kb - Antibiotic Education kb - Prescription Opioid Use kb - Patient Portal Instructions kb Signatures: Lucinda Flores, GRACE-C DIRECTOR [employer]-Ckb Martel, Ayad, MD MD rn Angulo, Marisa, RN RN eh3
--- OUTSIDE RECORDS SUMMARY | 2023-04-29 17:10 | XMS REPORT | Continuity of Care Document ---
:1970 [facility] t Address [address] [facility] [address] [place] [address] Care Team Providers Name Role Phone Asked, No Pcp Primary Care Physician Unavailable Ángel Redman Attending Clinician Unavailable HOLLY DE PAZ Attending Clinician Unavailable JOSEPH DEL VALLE Attending Clinician Unavailable CHANELLE DIAZ Attending Clinician Unavailable NGOZI KWOK Attending Clinician Unavailable ARRON BENITEZ Attending Clinician Unavailable Zack Wilcox MD Attending Clinician Ngozi Mireles Attending Clinician Lab, [facility] Attending Clinician Unavailable ELSI DIMAS Attending Clinician Unavailable ELSI DIMAS Attending Clinician Unavailable ZACK WILCOX Attending Clinician Unavailable GOLDIE ALCALA Attending Clinician Unavailable Goldie Alcala OD Attending Clinician Nilton Cain MD Attending Clinician Doctor Unassigned, [place] Attending Clinician Unavailable NILTON CAIN Attending Clinician Unavailable Draw, [facility] Attending Clinician Unavailable Diamond Sneed MD Attending Clinician [phone] [facility], [facility] Attending Clinician UnavailVITALIY Ortega Attending Clinician Unavailable VITALIY IVERSON Attending Clinician Unavailable Collette Salinas MD Attending Clinician [phone] COLLETTE SALINAS Attending Clinician Unavailable Poncho Barlow MD Attending Clinician PONCHO BARLOW Attending Clinician Unavailable PONCHO BARLOW Attending Clinician Unavailable 1, [facility] Lab Bed Attending Clinician Unavailable JYOTI ANTHONY Attending Clinician Unavailable PRAVEENA PABON Attending Clinician Unavailable Efrain Sousa Attending Clinician Unavailable KERRI FUENTES Attending Clinician Unavailable Kerri Roberson Attending Clinician FELIPE BRADSHAW Attending Clinician Unavailable Be Barber Attending Clinician BE CASEY Attending Clinician Unavailable Adam Rutherford Attending Clinician ADAM PAULA Attending Clinician Unavailable PAIGE BERNAL Attending Clinician Unavailable [facility] Attending Clinician Unavailable SHAW CRAMER Attending Clinician Unavailable 2, [facility] Lab Attending Clinician Unavailable LILY ANGULO Attending Clinician Unavailable SPENCER PAGAN Attending Clinician Unavailable Spencer Pagan MD Attending Clinician Holly De Paz MD Attending Clinician Frank Solorio MD Attending Clinician Santy Charles Attending Clinician Unavailable Jb TOBAR Attending Clinician Unavailable Ekaterina PACJb Attending Clinician Only, Adc Test Attending Clinician Unavailable Petrona EDWARDS Johanny Shelton Attending Clinician KEVIN ORTEGA Attending Clinician Unavailable [...] Unavailable SPENCER PAGAN Admitting Clinician Unavailable Jb TOBAR Admitting Clinician Unavailable Holly De Paz MD Admitting Clinician Payers Payer Name Policy Type Policy Number Effective Date Expiration Date S triston CIGNA II [id number] 2019 00:00:00 CIGNA C1 [id number] 2020 [facility] - 00:00:00 [facility] Problems Condition Condition Condition Status Onset Resolution Last Treating Co mments Source Name Details Category Date Date Treatment Clinician Date 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 2-08 ity of 00:00: [place] [facility] [place] Watery Watery Disease Active 2021-10 Univers eyes eyes 2-08 ity of 00:00: [place] [facility] [place] Acute Acute Disease Active Univers renal renal 9- ity of failure failure 00:00: [place] syndrome syndrome [facility] Cystic Cystic Disease Active Univers kidney kidney 06-14 ity of disease, disease, 00:00: [place] acquired acquired 00 [facility] Alcoholism Alcoholism Disease Active U nivers 06-14 ity of 00:00: [place] [facility] [place] Chronic Chronic Disease Active Univers pain of pain of 8-17 ity of left knee [place] JOCELIN JOCELIN Disease Active Univers (obstructi (obstructi 8-17 it y of ve sleep ve sleep 00:00: [place] apnea) apnea) 00 Medical Branch Lesion of Lesion of Disease Active Uni vers left left 5-31 ity of [place] 00:00: [place] kidney kidney 00 Medical Branch Lesion of Lesion of Disease Active Uni vers left left 5-31 ity of [place] 00:00: [place] kidney kidney 00 Medical Branch Pyelonephr Pyelonephr Disease Active U nivers itis of itis of 5-31 ity of right right 00:00: [place] kidney kidney 00 Medical Branch Chronic Chronic Disease Active Univers midline midline 5-31 ity of low back low back 00:00: [place] pain pain 00 Medical without without Branch sciatica sciatica Pain Pain Disease Active Univers management management 03-13 it y of contract contract 00:00: [place] signed signed 00 Medical Branch Arthritis, Arthritis, Disease Active U nivers multiple multiple 5-31 ity of joint joint 00:00: [place] involvemen involvemen 00 Me dical t t Branch E-coli UTI E-coli UTI Disease Active U nivers 4-21 ity of 00:00: [place] 00 Medical Branch Hyperglyce Hyperglyce Disease Active U nivers jennifer due to jennifer due to 4-21 it y of type 2 type 2 00:00: [place] diabetes diabetes 00 Medica l mellitus mellitus Branch Primary Primary Disease Active Univers malignant malignant 4-21 ity of neoplasm neoplasm 00:00: [place] of kidney of kidney 00 [facility] Branch Vitamin D Vitamin D Disease Active Uni vers deficiency deficiency 4-21 it y of 00:00: [place] 00 Medical Branch Need for Need for Disease Active Unive rs hepatitis hepatitis 4-21 ity of C C 00:00: [place] screening screening 00 [facility] test test Branch Need for Need for Disease Active Unive rs influenza influenza 4-21 ity of vaccinatio vaccinatio 00:[place] 00 Medical [place] Dyslipidem Dyslipidem Disease Active U nivers ia ia 4-21 ity of 00:00: [place] 00 Medical Branch Hepatic Hepatic Disease Active Univers steatosis steatosis 4-21 ity of 00:00: [place] 00 Medical Branch Enlarged Enlarged Disease Active Unive rs liver liver 4-21 ity of 00:00: [place] 00 Medical Branch Gouty Gouty Disease Active Univers arthritis arthritis 4-07 ity of 00:00: [place] 00 Medical Branch Gouty Gouty Disease Active Univers arthritis arthritis 4-07 ity of 00:00: [place] 00 Medical Branch Moderate Moderate Disease Active Unive rs right right 4-07 ity of ankle ankle 00:00: [place] sprain, sprain, 00 Medical initial initial Branch encounter encounter Anxiety, Anxiety, Disease Active Unive rs generalize generalize 4-07 it y of d d 00:00: [place] 00 Medical Branch Mild Mild Disease Active Univers depression depression 4- it y of 00:00: [place] 00 Medical Branch Bladder Bladder Disease Active Univers wall wall 4-07 ity of thickening thickening 00:00[place] Primary Primary Disease Active Univers insomnia insomnia 4-07 ity of 00:00: [place] 00 Medical Branch Hyperplast Hyperplast Disease Active U nivers ic polyp ic polyp 4-07 ity of of sigmoid of [place]moid [place] colon colon 00 Medical [place] Alcohol Alcohol Disease Active Univers use use 4-07 ity of 00:00: [place] 00 Medical Branch [...] diabetes 7-17 ity of mellitus mellitus 00:00: [place] without without 00 Medical complicati complicati Br anch on, on, without without long-term long-term current current use of use of insulin insulin Benign Benign Disease Active Univers hypertensi hypertensi 7-17 it y of on with on with 00:00: [place] chronic chronic 00 Medical kidney kidney Branch disease disease Morbid Morbid Disease Active Univers obesity obesity 6-18 ity of 00:00: [place] 00 Medical Branch Obesity Obesity Disease Active Univers (BMI (BMI 6-05 ity of 30-39.9) 30-39.9) 00:00: [place] 00 Medical Branch Screening, Screening, Disease Active U nivers lipid lipid 6-05 ity of 00:00: [place] [facility] Right Right Disease Active Overview: Univer s renal mass renal mass 5-29 Formattin ity of 00:00: g of this 00 note Medical might be Branch different from the original. Added automatic ally from request for surgery [id number] Carcinoma Problem Active Com mon of kidney, Spirit unspecifie - [facility] d [facility] [id number] RUQ Problem Active Common abdominal Spirit pain - [facility] [id number] NICOLAS (acute Problem Active C ommon [id number] kidney Spirit injury) [facility] [id number] History of Problem Active Co mmon partial Spirit nephrectom - [facility] y [facility] [id number] History of Problem Active Co mmon incarcerat Spirit ion [facility] [id number] Urinary Problem Active Common tract Spirit infection - [facility] without [facility] Medical unspecifie Center d [id number] Right hand Problem Active C ommon [id number] pain Spirit [facility] [id number] Essential Problem Active Comm on hypertensi Spirit on [facility] [id number] Mixed Problem Active Common hyperlipid Spirit emia [facility] [id number] Noncomplia Problem Active Co mmon nce with Spirit medication - [facility] regimen [facility] Weight Weight Problem Active Common gain gain [facility] Hyperglyce Elevated Problem Active Com mon jennifer blood Spirit sugar [facility] Joint Joint Problem Active Common swelling swelling [facility] [id number] BMI Problem Active Common 40.0-44.9, Spirit adult - [facility] [id number] Type 2 Problem Active Common diabetes [facility] mellitus - [facility] with [facility] long-term current use of insulin Allergies, Adverse Reactions, Alerts Allergy Allergy Status Severity Reaction(s) Onset Inactive Treating Comm ents Source Name Type Date Date Clinician No Known DA Active U 2021-10 [facility] Allergie 0-04 Clear s 00:00: [place] 00 [facility] NO KNOWN Drug Active Univers ALLERGIE Class ity of S [facility] Social History Social Habit Start Date Stop Date Quantity Comments Source History SDOH University o f [facility] SDNJ University o f Alcohol Std Drinks [facility] History [facility] University o f Alcohol Binge [facility] [place] Gender identity [facility] Sexual orientation [facility] History of Tobacco Current Smoker Co mmon Spirit - Use [facility] Alcohol intake 2023-03-19 2023-03-19 Ex-drinker University 00:00:00 00:00:00 (finding) [facility] Exposure to 2023-01-04 2023-01-14 Not sure University SARS-CoV-2 (event) 00:00:00 13:31:00 [facility] Cigarettes smoked 2022-05-10 2022-05-10 Univers ity of current (pack per 00:00:00 00:00:00 [facility]) - Reported Branch Cigarette 2022-05-10 2022-05-10 University of pack-years 00:00:00 00:00:00 [facility] Tobacco use and 2022-05-10 2022-05-10 Former smokeless Uni versity of exposure 00:00:00 00:00:00 tobacco user [facility] [place] Tobacco Comment 2022-05-10 2022-05-10 smokes on Universit y of 00:00:00 00:00:00 weekends [facility] History of Social 2022-02-28 2022-02-[address] function 00:00:00 00:00:00 Hospital Alcohol Comment 2021-12-01 2021-12-01 quit 10/2021 Universi ty of 00:00:00 00:00:00 [facility] Sex [birth year] At [birth year] [facility] 00:[facility]00 [facility] Smoking Status Start Date Stop Date Source Tobacco smoking [facility] consumption unknown Ex-smoker 2022-05-10 00:00:00 2022-05-10 University o f [place] 00:00:00 Medical Branch Current Smoker 2021-04-12 00:00:00 [facility] - [facility] Ce nter Medications Ordered Filled Start Stop Current Ordering Indication Dosage Frequency Signature Comments Components Source Medication Medication Date Date Medication? Clinician (SIG) Name Name MARISEL Yes [id number] TAKE 1/2 Univers -HYDROCHLOR 7-03 TABLET BY ity of OTHIAZID 00:00: MOUTH IN [place] 37.5-25 mg 00 THE Medical tablet MORNING Branch FLUTICASONE Yes [id number] SPRAY 1 Univers PROPIONATE 6-22 SPRAY INTO ity of 50 00:00: EACH [place] mcg/actuati 00 NOSTRIL Medic al on nasal EVERY DAY Branch spray FLUTICASONE Yes [id number] SPRAY 1 Univers PROPIONATE 6-22 SPRAY INTO ity of 50 00:00: EACH [place] mcg/actuati 00 NOSTRIL Medic al on nasal EVERY DAY Branch spray iopamidol 2022- No [id number] 100mL 100 mL, Univers (ISOVUE 03-26 Intravenou ity o f 370-500 mL) 16:00: 15:13 s, ONCE, 1 [place] injection 00 :00 dose, On Medica l 100 mL [facility] 03/26/23 at 1100, Routine GLIPIZIDE 5 Yes [id number] TAKE 1 Univers mg tablet 6-12 TABLET BY ity o f 00:00: MOUTH [place] 00 EVERY DAY Medical IN THE Branch MORNING GLIPIZIDE 5 2022-0 Yes [id number] TAKE 1 Univers mg tablet 6-12 TABLET BY ity o f 00:00: MOUTH [place] 00 EVERY DAY Medical IN THE Branch MORNING GLIPIZIDE 5 2022-0 Yes [id number] TAKE 1 Univers mg tablet 6-12 TABLET BY ity o f 00:00: MOUTH [place] 00 EVERY DAY Medical IN THE [place] MORNING GLIPIZIDE 5 2022-0 Yes [id number] TAKE 1 Univers mg tablet 6-12 TABLET BY ity o f 00:00: MOUTH [place] 00 EVERY DAY Medical IN THE [place] MORNING GLIPIZIDE 5 2022-0 Yes [id number] TAKE 1 Univers mg tablet 6-12 TABLET BY ity o f 00:00: MOUTH [place] 00 EVERY DAY Medical IN THE [place] MORNING GLIPIZIDE 5 2022-0 Yes [id number] TAKE 1 Univers mg tablet 6-12 TABLET BY ity o f 00:00: MOUTH [place] 00 EVERY DAY Medical IN THE [place] MORNING NaCl 0.9% 0 2022- No 1000mL at 999 Uni vers (NS) bolus 606 06-06 mL/hr, ity of infusion 17:30: 17:59 1,000 mL, [place] as 1,000 mL 00 :00 IV Medical Infusion, [place] ONCE, 1 dose, On Sat03/19/23 at 1230, FELI cyclobenzap 0 Yes 1 TABLET Un daly rine 10 mg 4-11 NEEDED ity of tablet 00:00: FOR MUSCLE [place] 00 SPASMS Medical ORALLY AT [place] BEDTIME 30 DAYS cyclobenzap 0 Yes 1 TABLET Un daly rine 10 mg 4-11 NEEDED ity of tablet 00:00: FOR MUSCLE [place] 00 SPASMS Medical ORALLY AT [place] BEDTIME 30 DAYS cyclobenzap 0 Yes 1 TABLET Un daly rine 10 mg 4-11 NEEDED ity of tablet 00:00: FOR MUSCLE [place] 00 SPASMS Medical ORALLY AT [place] BEDTIME 30 DAYS cyclobenzap 0 Yes 1 [...] NEEDED ity of tablet 00:00: FOR MUSCLE 00 SPASMS Medical ORALLY AT Branch BEDTIME [...] NEEDED ity of tablet 00:00: FOR MUSCLE 00 SPASMS Medical ORALLY AT Branch BEDTIME 30 DAYS cyclobenzap 2022-0 Yes 1 TABLET Un daly rine 10 mg 4-11 NEEDED ity of tablet 00:00: FOR MUSCLE 00 SPASMS Medical ORALLY AT Branch BEDTIME 30 DAYS cyclobenzap 2022-0 Yes 1 TABLET Un daly rine 10 mg 4-11 NEEDED ity of tablet 00:00: FOR MUSCLE 00 SPASMS Medical ORALLY AT Branch BEDTIME 30 DAYS cyclobenzap 2022-0 Yes 1 TABLET Un daly rine 10 mg 4-11 NEEDED ity of tablet 00:00: FOR MUSCLE 00 SPASMS Medical ORALLY AT Branch BEDTIME 30 DAYS METHOCARBAM 2023-0 Yes [id number] TAKE 1 Univers OL 750 mg 2-07 TABLET BY ity o f tablet 00:00: MOUTH [place] 00 EVERY 6 Medical HOURS Branch NEEDED FOR MUSCLE SPASM METHOCARBAM 2023-0 Yes [id number] TAKE 1 Univers OL 750 mg 2-07 TABLET BY ity o f tablet 00:00: MOUTH [place] 00 EVERY 6 Medical HOURS Branch NEEDED FOR MUSCLE SPASM METHOCARBAM 2023-0 Yes [id number] TAKE 1 Univers OL 750 mg 2-07 TABLET BY ity o f tablet 00:00: MOUTH [place] 00 EVERY 6 Medical HOURS Branch NEEDED FOR MUSCLE SPASM METHOCARBAM 2023-0 Yes [id number] TAKE 1 Univers OL 750 mg 2-07 TABLET BY ity o f tablet 00:00: MOUTH [place] 00 EVERY 6 Medical HOURS Branch NEEDED FOR MUSCLE SPASM METHOCARBAM 2023-0 Yes [id number] TAKE 1 Univers OL 750 mg 2-07 TABLET BY ity o f tablet 00:00: MOUTH [place] 00 EVERY 6 Medical HOURS Branch NEEDED FOR MUSCLE SPASM METHOCARBAM 2023-0 Yes [id number] TAKE 1 Univers OL 750 mg 2-07 TABLET BY ity o f tablet 00:00: MOUTH [place] 00 EVERY 6 Medical HOURS Branch NEEDED FOR MUSCLE SPASM METHOCARBAM 2023-0 Yes [id number] TAKE 1 Univers OL 750 mg 2-07 TABLET BY ity o f tablet 00:00: MOUTH [place] 00 EVERY 6 Medical HOURS Branch NEEDED FOR MUSCLE SPASM METHOCARBAM 2023-0 Yes [id number] TAKE 1 Univers OL 750 mg 2-07 TABLET BY ity o f tablet 00:00: MOUTH [place] 00 EVERY 6 Medical HOURS Branch NEEDED FOR MUSCLE SPASM METHOCARBAM 2023-0 Yes [id number] TAKE 1 Univers OL 750 mg 2-07 TABLET BY ity o f tablet 00:00: MOUTH 00 EVERY 6 Medical HOURS Branch NEEDED FOR MUSCLE SPASM METHOCARBAM 2023-0 Yes [id number] TAKE 1 Univers OL 750 mg 2-07 TABLET BY ity o f tablet 00:00: MOUTH [place] 00 EVERY 6 Medical HOURS Branch NEEDED FOR MUSCLE SPASM METHOCARBAM 2023-0 Yes [id number] TAKE 1 Univers OL 750 mg 2-07 TABLET BY ity o f tablet 00:00: MOUTH 00 EVERY 6 Medical HOURS Branch NEEDED FOR MUSCLE SPASM METHOCARBAM 2023-0 Yes [id number] TAKE 1 Univers OL 750 mg 2-07 TABLET BY ity o f tablet 00:00: MOUTH [place] 00 EVERY 6 Medical HOURS Branch NEEDED FOR MUSCLE SPASM METHOCARBAM 2023-0 Yes [id number] TAKE 1 Univers OL 750 mg 2-07 TABLET BY ity o f tablet 00:00: MOUTH [place] 00 EVERY 6 Medical HOURS Branch NEEDED FOR MUSCLE SPASM METHOCARBAM 2023-0 Yes [id number] TAKE 1 Univers OL 750 mg 2-07 TABLET BY ity o f tablet 00:00: MOUTH [place] 00 EVERY 6 Medical HOURS Branch NEEDED FOR MUSCLE SPASM METHOCARBAM 2023-0 Yes [id number] TAKE 1 Univers OL 750 mg 2-07 TABLET BY ity o f tablet 00:00: MOUTH [place] 00 EVERY 6 Medical HOURS Branch NEEDED FOR MUSCLE SPASM METHOCARBAM 2023-0 Yes [id number] TAKE 1 Univers OL 750 mg 2-07 TABLET BY ity o f tablet 00:00: MOUTH [place] 00 EVERY 6 Medical HOURS Branch NEEDED FOR MUSCLE SPASM METHOCARBAM 2023-0 Yes [id number] TAKE 1 Univers OL 750 mg 2-07 TABLET BY ity o f tablet 00:00: MOUTH [place] 00 EVERY 6 Medical HOURS Branch NEEDED FOR MUSCLE SPASM METHOCARBAM 2023-0 Yes [id number] TAKE 1 Univers OL 750 mg 2-07 TABLET BY ity o f tablet 00:00: MOUTH 00 EVERY 6 Medical HOURS Branch NEEDED FOR MUSCLE SPASM METHOCARBAM 2023-0 Yes [id number] TAKE 1 Univers OL 750 mg 2-07 TABLET BY ity o f tablet 00:00: MOUTH [place] 00 EVERY 6 Medical HOURS Branch NEEDED FOR MUSCLE SPASM METHOCARBAM 2023-0 Yes [id number] TAKE 1 Univers OL 750 mg 2-07 TABLET BY ity o f tablet 00:00: MOUTH 00 EVERY 6 Medical HOURS Branch NEEDED FOR MUSCLE SPASM METHOCARBAM 2023-0 Yes [id number] TAKE 1 Univers OL 750 mg 2-07 TABLET BY ity o f tablet 00:00: MOUTH 00 EVERY 6 Medical HOURS Branch NEEDED FOR MUSCLE SPASM METHOCARBAM 2023-0 Yes [id number] TAKE 1 Univers OL 750 mg 2-07 TABLET BY ity o f tablet 00:00: MOUTH 00 EVERY 6 Medical HOURS Branch NEEDED FOR MUSCLE SPASM METHOCARBAM 2023-0 Yes [id number] TAKE 1 Univers OL 750 mg 2-07 TABLET BY ity o f tablet 00:00: MOUTH 00 EVERY 6 Medical HOURS Branch NEEDED FOR MUSCLE SPASM METHOCARBAM 2023-0 Yes [id number] TAKE 1 Univers OL 750 mg 2-07 TABLET BY ity o f tablet 00:00: MOUTH [place] 00 EVERY 6 Medical HOURS Branch NEEDED FOR MUSCLE SPASM METHOCARBAM 2023-0 Yes [id number] TAKE 1 Univers OL 750 mg 2-07 TABLET BY ity o f tablet 00:00: MOUTH 00 EVERY 6 Medical HOURS Branch NEEDED FOR MUSCLE SPASM METHOCARBAM 2023-0 Yes [id number] TAKE 1 Univers OL 750 mg 2-07 TABLET BY ity o f tablet 00:00: MOUTH 00 EVERY 6 Medical HOURS Branch NEEDED FOR MUSCLE SPASM METHOCARBAM 2023-0 Yes [id number] TAKE 1 Univers OL 750 mg 2-07 TABLET BY ity o f tablet 00:00: MOUTH [place] 00 EVERY 6 Medical HOURS Branch NEEDED FOR MUSCLE SPASM METHOCARBAM 2023-0 Yes [id number] TAKE 1 Univers OL 750 mg 2-07 TABLET BY ity o f tablet 00:00: MOUTH [place] 00 EVERY 6 Medical HOURS Branch NEEDED FOR MUSCLE SPASM METHOCARBAM 2023-0 Yes [id number] TAKE 1 Univers OL 750 mg 2-07 TABLET BY ity o f tablet 00:00: MOUTH [place] 00 EVERY 6 Medical HOURS Branch NEEDED FOR MUSCLE SPASM METHOCARBAM 2023-0 Yes [id number] TAKE 1 Univers OL 750 mg 2-07 TABLET BY ity o f tablet 00:00: MOUTH [place] 00 EVERY 6 Medical HOURS Branch NEEDED FOR MUSCLE SPASM METHOCARBAM 2023-0 Yes [id number] TAKE 1 Univers OL 750 mg 2-07 TABLET BY ity o f tablet 00:00: MOUTH [place] 00 EVERY 6 Medical HOURS Branch NEEDED FOR MUSCLE SPASM METHOCARBAM 2023-0 Yes [id number] TAKE 1 Univers OL 750 mg 1-17 TABLET BY ity o f tablet 00:00: MOUTH [place] 00 EVERY 6 Medical HOURS Branch NEEDED FOR MUSCLE SPASM METHOCARBAM 2023-0 Yes [id number] TAKE 1 Univers OL 750 mg 1-17 TABLET BY ity o f tablet 00:00: MOUTH [place] 00 EVERY 6 Medical HOURS Branch NEEDED FOR MUSCLE SPASM METHOCARBAM 2023-0 Yes [id number] TAKE 1 Univers OL 750 mg 1-17 TABLET BY ity o f tablet 00:00: MOUTH [place] 00 EVERY 6 Medical HOURS Branch NEEDED FOR MUSCLE SPASM METHOCARBAM 2023-0 Yes [id number] TAKE 1 Univers OL 750 mg 1-17 TABLET BY ity o f tablet 00:00: MOUTH [place] 00 EVERY 6 Medical HOURS Branch NEEDED FOR MUSCLE SPASM METHOCARBAM 2023-0 Yes [id number] TAKE 1 Univers OL 750 mg 1-17 TABLET BY ity o f tablet 00:00: MOUTH [place] 00 EVERY 6 Medical HOURS Branch NEEDED FOR MUSCLE SPASM METHOCARBAM 2023-0 3- No [id number] TAKE 1 Univers OL 750 mg 1-17 02-07 TABLET BY ity of tablet 00:00: 00:00 MOUTH [place] 00 :00 EVERY 6 Medical HOURS Branch NEEDED FOR MUSCLE SPASM Lidocaine 5 2021-1 Yes [id number] APPLY 5 Univers % cream 2-08 GRAM TO ity of 00:00: AREA(S) 2 [place] 00 (TWO) Medical TIMES Branch DAILY NEEDED FOR PAIN (SCALE 4-6) NEEDED Diclofenac 2021-10 Yes [id number] Apply to Univers Sodium 2-08 area(s) 4 ity of (VOLTAREN) 00:00: (four) [place] 1 % gel 00 times Medical daily. Branch Apply 4 g qid ezetimibe 2021-10 Yes [id number] 10mg Take 1 U nivers 10 mg 2-08 tablet by ity of tablet 00:00: mouth in [place] 00 the Medical morning. Branch atorvastati 2021-10 Yes [id number] 20mg Take 1 Univers n 20 mg 2-08 tablet by ity of tablet 00:00: mouth at [place] [address] bedtime. Medical Branch allopurinoL 2021-10 Yes [id number] 100mg Take 1 Univers 100 mg 2-08 tablet by ity of tablet 00:00: mouth in [place] the Medical morning. Branch amLODIPine 2021-10 Yes [id number] 5mg Take 1 U nivers 5 mg tablet 2-08 tablet by ity of 00:00: mouth in [place] the Medical morning. Branch atenoloL 2021-10 Yes [id number] 100mg Take 1 Un daly 100 mg 2-08 tablet by ity of tablet 00:00: mouth in [place] the Medical morning. Branch triamterene 2021-10 Yes [id number] .5{tbl} Take 0.5 Univers -hydrochlor 2-08 tablets by it y of othiazid 00:00: mouth in [place] 37.5-25 mg 00 the Medical tablet morning. Branch metFORMIN 2021-10 Yes [id number] 1000mg Take 1 Univers 1,000 mg 2-08 tablet by ity of tablet 00:00: mouth in [place] 00 the Medical morning Branch and 1 tablet in the evening. Take with meals. glipiZIDE 5 2021-10 Yes [id number] 5mg Take 1 Univers mg tablet 2-08 tablet by ity o f 00:00: mouth in [place] 00 the Medical morning. Branch PEG 2021-10 Yes [id number] 1[drp] Place 1 U nivers 400-Hyprome 2-08 9109 Drop in ity o f llose-Glyce 00:00: each eye 2 [place] rin (DRY 00 (two) Medical EYE RELIEF) times Branch 1-0.2-0.2 % daily as Drop needed (Dry Eye). Lidocaine 5 2021-10 Yes [id number] APPLY 5 Univers % cream 2-08 GRAM TO ity of 00:00: AREA(S) 2 [place] 00 (TWO) Medical TIMES Branch DAILY NEEDED FOR PAIN (SCALE 4-6) NEEDED Diclofenac 2021-10 Yes [id number] Apply to Univers Sodium 2-08 area(s) 4 ity of (VOLTAREN) 00:00: (four) [place] 1 % gel 00 times Medical daily. Branch Apply 4 g qid ezetimibe 2021-10 Yes [id number] 10mg Take 1 U nivers 10 mg 2-08 tablet by ity of tablet 00:00: mouth in [place] 00 the Medical morning. Branch atorvastati 2021-10 Yes [id number] 20mg Take 1 Univers n 20 mg 2-08 tablet by ity of tablet 00:00: mouth at [place] 00 bedtime. Medical Branch allopurinoL 2021-10 Yes [id number] 100mg Take 1 Univers 100 mg 2-08 tablet by ity of tablet 00:00: mouth in [place] 00 the Medical morning. Branch amLODIPine 2021-10 Yes [id number] 5mg Take 1 U nivers 5 mg tablet 2-08 tablet by ity of 00:00: mouth in [place] 00 the Medical morning. Branch atenoloL 2021-10 Yes [id number] 100mg Take 1 Un daly 100 mg 2-08 tablet by ity of tablet 00:00: mouth in [place] 00 the Medical morning. Branch triamterene 2021-10 Yes [id number] .5{tbl} Take 0.5 Univers -hydrochlor 2-08 tablets by it y of othiazid 00:00: mouth in [place] 37.5-25 mg 00 the Medical tablet morning. Branch metFORMIN 2021-10 Yes [id number] 1000mg Take 1 Univers 1,000 mg 2-08 tablet by ity of tablet 00:00: mouth in [place] 00 the Medical morning Branch and 1 tablet in the evening. Take with meals. glipiZIDE 5 2021-10 Yes [id number] 5mg Take 1 [facility] mg tablet 2-08 tablet by [facility] o f 00:00: mouth in [place] 00 the Medical morning. Branch PEG 2021-10 Yes [id number] 1[drp] Place 1 [facility] nivers 400-Hyprome 2-08 9109 Drop in ity o f llose-Glyce 00:00: each eye 2 [place] rin (DRY 00 (two) Medical EYE RELIEF) times Branch 1-0.2-0.2 % daily as Drop needed (Dry Eye). Lidocaine 5 2021-10 Yes [id number] APPLY 5 [facility] % cream 2-08 GRAM TO ity of 00:00: AREA(S) 2 [place] 00 (TWO) Medical TIMES Branch DAILY NEEDED FOR PAIN (SCALE 4-6) NEEDED Diclofenac 2021-10 Yes [id number] Apply to [facility] Sodium 2-08 area(s) 4 ity of (VOLTAREN) 00:00: (four) [place] 1 % gel 00 times Medical daily. Branch Apply 4 g qid ezetimibe 2021-10 Yes [id number] 10mg Take 1 [facility] 10 mg 2-08 tablet by [facility] of tablet 00:00: mouth in [place] 00 the Medical morning. Branch atorvastati 2021-10 Yes [id number] 20mg Take 1 [facility] n 20 mg 2-08 tablet by [facility] of tablet 00:00: mouth at [place] 00 bedtime. Medical Branch allopurinoL 2021-10 Yes [id number] 100mg Take 1 [facility] 100 mg 2-08 tablet by [facility] of tablet 00:00: mouth in [place] 00 the Medical morning. Branch amLODIPine 2021-10 Yes [id number] 5mg Take 1 [facility] 5 mg tablet 2-08 tablet by [facility] of 00:00: mouth in [place] 00 the Medical morning. Branch atenoloL 2021-10 Yes [id number] 100mg Take 1 [facility] 100 mg 2-08 tablet by [facility] of tablet 00:00: mouth in [place] 00 the Medical morning. Branch triamterene 2021-10 Yes [id number] .5{tbl} Take 0.5 [facility] -hydrochlor 2-08 tablets by it y of othiazid 00:00: mouth in [place] 37.5-25 mg 00 the Medical tablet morning. Branch metFORMIN 2021-10 Yes [id number] 1000mg Take 1 [facility] 1,000 mg 2-08 tablet by ity of tablet 00:00: mouth in [place] 00 the Medical morning Branch and 1 tablet in the evening. Take with meals. glipiZIDE 5 2021-10 Yes [id number] 5mg Take 1 [facility] mg tablet 2-08 tablet by ity o f 00:00: mouth in [place] 00 the Medical morning. Branch PEG 2021-10 Yes [id number] 1[drp] Place 1 [facility] nivers 400-Hyprome 2-08 9109 Drop in ity o f llose-Glyce 00:00: each eye 2 [place] rin (DRY 00 (two) Medical EYE RELIEF) times Branch 1-0.2-0.2 % daily as Drop needed (Dry Eye). Lidocaine 5 2021-10 Yes [id number] APPLY 5 [facility] % cream 2-08 GRAM TO ity of 00:00: AREA(S) 2 [place] 00 (TWO) Medical TIMES Branch DAILY NEEDED FOR PAIN (SCALE 4-6) NEEDED Diclofenac 2021-10 Yes [id number] Apply to [facility] Sodium 2-08 area(s) 4 ity of (VOLTAREN) 00:00: (four) [place] 1 % gel 00 times Medical daily. Branch Apply 4 g qid ezetimibe 2021-10 Yes [id number] 10mg Take 1 [facility] 10 mg 2-08 tablet by [facility] of tablet 00:00: mouth in [place] 00 the Medical morning. Branch atorvastati 2021-10 Yes [id number] 20mg Take 1 [facility] n 20 mg 2-08 tablet by [facility] of tablet 00:00: mouth at [place] 00 bedtime. Medical Branch allopurinoL 2021-10 Yes [id number] 100mg Take 1 [facility] 100 mg 2-08 tablet by it[facility] of tablet 00:00: mouth in [place] 00 the Medical morning. Branch amLODIPine 2021-10 Yes [id number] 5mg Take 1 [facility] 5 mg tablet 2-08 tablet by [facility] of 00:00: mouth in [place] 00 the Medical morning. Branch atenoloL 2021-10 Yes [id number] 100mg Take 1 [facility] 100 mg 2-08 tablet by [facility] of tablet 00:00: mouth in [place] 00 the Medical morning. Branch triamterene 2021-10 Yes [id number] .5{tbl} Take 0.5 [facility] -hydrochlor 2-08 tablets by it y of othiazid 00:00: mouth in [place] 37.5-25 mg 00 the Medical tablet morning. Branch metFORMIN 2021-10 Yes [id number] 1000mg Take 1 [facility] 1,000 mg 2-08 tablet by [facility]y of tablet 00:00: mouth in [place] 00 the Medical morning Branch and 1 tablet in the evening. Take with meals. glipiZIDE 5 2021-10 Yes [id number] 5mg Take 1 [facility] mg tablet 2-08 tablet by ity o f 00:00: mouth in [place] 00 the Medical morning. Branch PEG 2021-10 Yes [id number] 1[drp] Place 1 [facility] nivers 400-Hyprome 2-08 9109 Drop in ity o f llose-Glyce 00:00: each eye 2 [place] rin (DRY 00 (two) Medical EYE RELIEF) times Branch 1-0.2-0.2 % daily as Drop needed (Dry Eye). Lidocaine 5 2021-10 Yes [id number] APPLY 5 [facility] % cream 2-08 GRAM TO ity of 00:00: AREA(S) 2 [place] 00 (TWO) Medical TIMES Branch DAILY NEEDED FOR PAIN (SCALE 4-6) NEEDED Diclofenac 2021-10 Yes [id number] Apply to [facility] Sodium 2-08 area(s) 4 ity of (VOLTAREN) 00:00: (four) [place] 1 % gel 00 times Medical daily. Branch Apply 4 g qid ezetimibe 2021-10 Yes [id number] 10mg Take 1 [facility] 10 mg 2-08 tablet by ity of tablet 00:00: mouth in [place] 00 the Medical morning. Branch atorvastati 2021-10 Yes [id number] 20mg Take 1 [facility] n 20 mg 2-08 tablet by ity of tablet 00:00: mouth at [place] 00 bedtime. Medical Branch allopurinoL 2021-10 Yes [id number] 100mg Take 1 [facility] 100 mg 2-08 tablet by ity of tablet 00:00: mouth in [place] 00 the Medical morning. Branch amLODIPine 2021-10 Yes [id number] 5mg Take 1 [facility] 5 mg tablet 2-08 tablet by it[facility] of 00:00: mouth in [place] 00 the Medical morning. Branch atenoloL 2021-10 Yes [id number] 100mg Take 1 [facility] 100 mg 2-08 tablet by [facility] of tablet 00:00: mouth in [place] 00 the Medical morning. Branch triamterene 2021-10 Yes [id number] .5{tbl} Take 0.5 [facility] -hydrochlor 2-08 tablets by it y of othiazid 00:00: mouth in [place] 37.5-25 mg 00 the Medical tablet morning. Branch metFORMIN 2021-10 Yes [id number] 1000mg Take 1 [facility] 1,000 mg 2-08 tablet by ity of tablet 00:00: mouth in [place] 00 the Medical morning Branch and 1 tablet in the evening. Take with meals. glipiZIDE 5 2021-10 Yes [id number] 5mg Take 1 [facility] mg tablet 2-08 tablet by ity o f 00:00: mouth in [place] 00 the Medical morning. Branch PEG 2021-10 Yes [id number] 1[drp] Place 1 U nivers 400-Hyprome 2-08 9109 Drop in ity o f llose-Glyce 00:00: each eye 2 [place] rin (DRY 00 (two) Medical EYE RELIEF) times Branch 1-0.2-0.2 % daily as Drop needed (Dry Eye). Lidocaine 5 2021-10 Yes [id number] APPLY 5 [facility] % cream 2-08 GRAM TO ity of 00:00: AREA(S) 2 [place] 00 (TWO) Medical TIMES Branch DAILY NEEDED FOR PAIN (SCALE 4-6) NEEDED Diclofenac 2021-10 Yes [id number] Apply to [facility] Sodium 2-08 area(s) 4 ity of (VOLTAREN) 00:00: (four) [place] 1 % gel 00 times Medical daily. Branch Apply 4 g qid ezetimibe 2021-10 Yes [id number] 10mg Take 1 [facility] 10 mg 2-08 tablet by it[facility] of tablet 00:00: mouth in [place] 00 the Medical morning. Branch atorvastati 2021-10 Yes [id number] 20mg Take 1 [facility] n 20 mg 2-08 tablet by ity of tablet 00:00: mouth at [place] 00 bedtime. Medical Branch allopurinoL 2021-10 Yes [id number] 100mg Take 1 [facility] 100 mg 2-08 tablet by ity of tablet 00:00: mouth in [place] 00 the Medical morning. Branch amLODIPine 2021-10 Yes [id number] 5mg Take 1 [facility] 5 mg tablet 2-08 tablet by ity of 00:00: mouth in [place] 00 the Medical morning. Branch atenoloL 2021-10 Yes [id number] 100mg Take 1 [facility] 100 mg 2-08 tablet by [facility] of tablet 00:00: mouth in [place] 00 the Medical morning. Branch triamterene 2021-10 Yes [id number] .5{tbl} Take 0.5 [facility] -hydrochlor 2-08 tablets by it y of othiazid 00:00: mouth in [place] 37.5-25 mg 00 the Medical tablet morning. Branch metFORMIN 2021-10 Yes [id number] 1000mg Take 1 [facility] 1,000 mg 2-08 tablet by ity of tablet 00:00: mouth in [place] 00 the Medical morning Branch and 1 tablet in the evening. Take with meals. glipiZIDE 5 2021-10 Yes [id number] 5mg Take 1 [facility] mg tablet 2-08 tablet by ity o f 00:00: mouth in [place] 00 the Medical morning. Branch PEG 2021-10 Yes [id number] 1[drp] Place 1 [facility] n[facility] 400-Hyprome 2-08 9109 Drop in ity o f llose-Glyce 00:00: each eye 2 [place] rin (DRY 00 (two) Medical EYE RELIEF) times Branch 1-0.2-0.2 % daily as Drop needed (Dry Eye). Lidocaine 5 2021-10 Yes [id number] APPLY 5 [facility] % cream 2-08 GRAM TO ity of 00:00: AREA(S) 2 [place] 00 (TWO) Medical TIMES Branch DAILY NEEDED FOR PAIN (SCALE 4-6) NEEDED Diclofenac 2021-10 Yes [id number] Apply to [facility] Sodium 2-08 area(s) 4 ity of (VOLTAREN) 00:00: (four) [place] 1 % gel 00 times Medical daily. Branch Apply 4 g qid ezetimibe 2021-10 Yes [id number] 10mg Take 1 [facility] 10 mg 2-08 tablet by ity of tablet 00:00: mouth in [place] 00 the Medical morning. Branch atorvastati 2021-10 Yes [id number] 20mg Take 1 [facility] n 20 mg 2-08 tablet by ity of tablet 00:00: mouth at [place] 00 bedtime. Medical Branch allopurinoL 2021-10 Yes [id number] 100mg Take 1 [facility] 100 mg 2-08 tablet by ity of tablet 00:00: mouth in [place] 00 the Medical morning. Branch amLODIPine 2021-10 Yes [id number] 5mg Take 1 [facility] 5 mg tablet 2-08 tablet by [facility] of 00:00: mouth in [place] 00 the Medical morning. Branch atenoloL 2021-10 Yes [id number] 100mg Take 1 [facility] 100 mg 2-08 tablet by [facility] of tablet 00:00: mouth in [place] 00 the Medical morning. Branch triamterene 2021-10 Yes [id number] .5{tbl} Take 0.5 [facility] -hydrochlor 2-08 tablets by it y of othiazid 00:00: mouth in [place] 37.5-25 mg 00 the Medical tablet morning. Branch metFORMIN 2021-10 Yes [id number] 1000mg Take 1 [facility] 1,000 mg 2-08 tablet by ity of tablet 00:00: mouth in [place] 00 the Medical morning Branch and 1 tablet in the evening. Take with meals. glipiZIDE 5 2021-10 Yes [id number] 5mg Take 1 [facility] mg tablet 2-08 tablet by ity o f 00:00: mouth in [place] 00 the Medical morning. Branch PEG 2021-10 Yes [id number] 1[drp] Place 1 U nivers 400-Hyprome 2-08 9109 Drop in ity o f llose-Glyce 00:00: each eye 2 [place] rin (DRY 00 (two) Medical EYE RELIEF) times Branch 1-0.2-0.2 % daily as Drop needed (Dry Eye). Lidocaine 5 2021-10 Yes [id number] APPLY 5 [facility] % cream 2-08 GRAM TO ity of 00:00: AREA(S) 2 [place] 00 (TWO) Medical TIMES Branch DAILY NEEDED FOR PAIN (SCALE 4-6) NEEDED Diclofenac 2021-10 Yes [id number] Apply to [facility] Sodium 2-08 area(s) 4 ity of (VOLTAREN) 00:00: (four) [place] 1 % gel 00 times Medical daily. Branch Apply 4 g qid ezetimibe 2021-10 Yes [id number] 10mg Take 1 [facility] 10 mg 2-08 tablet by ity of tablet 00:00: mouth in [place] 00 the Medical morning. Branch atorvastati 2021-10 Yes [id number] 20mg Take 1 [facility] n 20 mg 2-08 tablet by ity of tablet 00:00: mouth at [place] 00 bedtime. Medical Branch allopurinoL 2021-10 Yes [id number] 100mg Take 1 [facility] 100 mg 2-08 tablet by ity of tablet 00:00: mouth in [place] 00 the Medical morning. Branch amLODIPine 2021-10 Yes [id number] 5mg Take 1 [facility] 5 mg tablet 2-08 tablet by ity of 00:00: mouth in [place] 00 the Medical morning. Branch atenoloL 2021-10 Yes [id number] 100mg Take 1 [facility] 100 mg 2-08 tablet by [facility] of tablet 00:00: mouth in [place] 00 the Medical morning. Branch triamterene 2021-10 Yes [id number] .5{tbl} Take 0.5 [facility] -hydrochlor 2-08 tablets by it y of othiazid 00:00: mouth in [place] 37.5-25 mg 00 the Medical tablet morning. Branch metFORMIN 2021-10 Yes [id number] 1000mg Take 1 [facility] 1,000 mg 2-08 tablet by ity of tablet 00:00: mouth in [place] 00 the Medical morning Branch and 1 tablet in the evening. Take with meals. glipiZIDE 5 2021-10 Yes [id number] 5mg Take 1 [facility] mg tablet 2-08 tablet by ity o f 00:00: mouth in [place] 00 the Medical morning. Branch PEG 2021-10 Yes [id number] 1[drp] Place 1 [facility] nivers 400-Hyprome 2-08 9109 Drop in ity o f llose-Glyce 00:00: each eye 2 [place] rin (DRY 00 (two) Medical EYE RELIEF) times Branch 1-0.2-0.2 % daily as Drop needed (Dry Eye). Lidocaine 5 2021-10 Yes [id number] APPLY 5 [facility] % cream 2-08 GRAM TO ity of 00:00: AREA(S) 2 [place] 00 (TWO) Medical TIMES Branch DAILY NEEDED FOR PAIN (SCALE 4-6) NEEDED Diclofenac 2021-10 Yes [id number] Apply to [facility] Sodium 2-08 area(s) 4 ity of (VOLTAREN) 00:00: (four) [place] 1 % gel 00 times Medical daily. Branch Apply 4 g qid ezetimibe 2021-10 Yes [id number] 10mg Take 1 [facility] 10 mg 2-08 tablet by ity of tablet 00:00: mouth in [place] 00 the Medical morning. Branch atorvastati 2021-10 Yes [id number] 20mg Take 1 [facility] n 20 mg 2-08 tablet by ity of tablet 00:00: mouth at [place] 00 bedtime. Medical Branch allopurinoL 2021-10 Yes [id number] 100mg Take 1 [facility] 100 mg 2-08 tablet by ity of tablet 00:00: mouth in [place] 00 the Medical morning. Branch amLODIPine 2021-10 Yes [id number] 5mg Take 1 [facility] 5 mg tablet 2-08 tablet by ity of 00:00: mouth in [place] 00 the Medical morning. Branch atenoloL 2021-10 Yes [id number] 100mg Take 1 [facility] 100 mg 2-08 tablet by it[facility] of tablet 00:00: mouth in [place] 00 the Medical morning. Branch triamterene 2021-10 Yes [id number] .5{tbl} Take 0.5 [facility] -hydrochlor 2-08 tablets by it y of othiazid 00:00: mouth in [place] 37.5-25 mg 00 the Medical tablet morning. Branch metFORMIN 2021-10 Yes [id number] 1000mg Take 1 [facility] 1,000 mg 2-08 tablet by ity of tablet 00:00: mouth in [place] 00 the Medical morning Branch and 1 tablet in the evening. Take with meals. glipiZIDE 5 2021-10 Yes [id number] 5mg Take 1 [facility] mg tablet 2-08 tablet by ity o f 00:00: mouth in [place] 00 the Medical morning. Branch PEG 2021-10 Yes [id number] 1[drp] Place 1 U nivers 400-Hyprome 2-08 9109 Drop in ity o f llose-Glyce 00:00: each eye 2 [place] rin (DRY 00 (two) Medical EYE RELIEF) times Branch 1-0.2-0.2 % daily as Drop needed (Dry Eye). Lidocaine 5 2021-10 Yes [id number] APPLY 5 [facility] % cream 2-08 GRAM TO ity of 00:00: AREA(S) 2 [place] 00 (TWO) Medical TIMES Branch DAILY NEEDED FOR PAIN (SCALE 4-6) NEEDED Diclofenac 2021-10 Yes [id number] Apply to [facility] Sodium 2-08 area(s) 4 ity of (VOLTAREN) 00:00: (four) [place] 1 % gel 00 times Medical daily. Branch Apply 4 g qid ezetimibe 2021-10 Yes [id number] 10mg Take 1 [facility] 10 mg 2-08 tablet by ity of tablet 00:00: mouth in [place] 00 the Medical morning. Branch atorvastati 2021-10 Yes [id number] 20mg Take 1 [facility] n 20 mg 2-08 tablet by ity of tablet 00:00: mouth at [place] [address] bedtime. Medical Branch allopurinoL 2021-10 Yes [id number] 100mg Take 1 [facility] 100 mg 2-08 tablet by ity of tablet 00:00: mouth in [place] the Medical morning. Branch amLODIPine 2021-10 Yes [id number] 5mg Take 1 [facility] 5 mg tablet 2-08 tablet by ity of 00:00: mouth in [place] 00 the Medical morning. Branch atenoloL 2021-10 Yes [id number] 100mg Take 1 [facility] 100 mg 2-08 tablet by ity of tablet 00:00: mouth in [place] the Medical morning. Branch triamterene 2021-10 Yes [id number] .5{tbl} Take 0.5 [facility] -hydrochlor 2-08 tablets by it y of othiazid 00:00: mouth in [place] 37.5-25 mg 00 the Medical tablet morning. Branch metFORMIN 2021-10 Yes [id number] 1000mg Take 1 [facility] 1,000 mg 2-08 tablet by ity of tablet 00:00: mouth in [place] 00 the Medical morning Branch and 1 tablet in the evening. Take with meals. glipiZIDE 5 2021-10 Yes [id number] 5mg Take 1 [facility] mg tablet 2-08 tablet by ity o f 00:00: mouth in [place] 00 the Medical morning. Branch PEG 2021-10 Yes [id number] 1[drp] Place 1 U nivers 400-Hyprome 2-08 9109 Drop in ity o f llose-Glyce 00:00: each eye 2 [place] rin (DRY 00 (two) Medical EYE RELIEF) times Branch 1-0.2-0.2 % daily as Drop needed (Dry Eye). Lidocaine 5 2021-10 Yes [id number] APPLY 5 [facility] % cream 2-08 GRAM TO ity of 00:00: AREA(S) 2 [place] 00 (TWO) Medical TIMES Branch DAILY NEEDED FOR PAIN (SCALE 4-6) NEEDED Diclofenac 2021-10 Yes [id number] Apply to [facility] Sodium 2-08 area(s) 4 ity of (VOLTAREN) 00:00: (four) [place] 1 % gel 00 times Medical daily. Branch Apply 4 g qid ezetimibe 2021-10 Yes [id number] 10mg Take 1 [facility] 10 mg 2-08 tablet by ity of tablet 00:00: mouth in [place] 00 the Medical morning. Branch atorvastati 2021-10 Yes [id number] 20mg Take 1 [facility] n 20 mg 2-08 tablet by ity of tablet 00:00: mouth at [place] [address] bedtime. Medical Branch allopurinoL 2021-10 Yes [id number] 100mg Take 1 [facility] 100 mg 2-08 tablet by ity of tablet 00:00: mouth in [place] the Medical morning. Branch amLODIPine 2021-10 Yes [id number] 5mg Take 1 [facility] 5 mg tablet 2-08 tablet by ity of 00:00: mouth in [place] the Medical morning. Branch atenoloL 2021-10 Yes [id number] 100mg Take 1 [facility] 100 mg 2-08 tablet by ity of tablet 00:00: mouth in [place] the Medical morning. Branch triamterene 2021-10 Yes [id number] .5{tbl} Take 0.5 [facility] -hydrochlor 2-08 tablets by it y of othiazid 00:00: mouth in [place] 37.5-25 mg 00 the Medical tablet morning. Branch metFORMIN 2021-10 Yes [id number] 1000mg Take 1 [facility] 1,000 mg 2-08 tablet by ity of tablet 00:00: mouth in [place] 00 the Medical morning Branch and 1 tablet in the evening. Take with meals. glipiZIDE 5 2021-10 Yes [id number] 5mg Take 1 [facility] mg tablet 2-08 tablet by ity o f 00:00: mouth in [place] 00 the Medical morning. Branch PEG 2021-10 Yes [id number] 1[drp] Place 1 U nivers 400-Hyprome 2-08 9109 Drop in ity o f llose-Glyce 00:00: each eye 2 [place] rin (DRY 00 (two) Medical EYE RELIEF) times Branch 1-0.2-0.2 % daily as Drop needed (Dry Eye). Lidocaine 5 2021-10 Yes [id number] APPLY 5 [facility] % cream 2-08 GRAM TO ity of 00:00: AREA(S) 2 [place] 00 (TWO) Medical TIMES Branch DAILY NEEDED FOR PAIN (SCALE 4-6) NEEDED Diclofenac 2021-10 Yes [id number] Apply to [facility] Sodium 2-08 area(s) 4 ity of (VOLTAREN) 00:00: (four) [place] 1 % gel 00 times Medical daily. Branch Apply 4 g qid ezetimibe 2021-10 Yes [id number] 10mg Take 1 [facility] 10 mg 2-08 tablet by ity of tablet 00:00: mouth in [place] 00 the Medical morning. Branch atorvastati 2021-10 Yes [id number] 20mg Take 1 [facility] n 20 mg 2-08 tablet by ity of tablet 00:00: mouth at [place] 00 bedtime. Medical Branch allopurinoL 2021-10 Yes [id number] 100mg Take 1 [facility] 100 mg 2-08 tablet by ity of tablet 00:00: mouth in [place] 00 the Medical morning. Branch amLODIPine 2021-10 Yes [id number] 5mg Take 1 [facility] 5 mg tablet 2-08 tablet by ity of 00:00: mouth in [place] 00 the Medical morning. Branch atenoloL 2021-10 Yes [id number] 100mg Take 1 [facility] 100 mg 2-08 tablet by ity of tablet 00:00: mouth in [place] 00 the Medical morning. Branch triamterene 2021-10 Yes [id number] .5{tbl} Take 0.5 [facility] -hydrochlor 2-08 tablets by it y of othiazid 00:00: mouth in [place] 37.5-25 mg 00 the Medical tablet morning. Branch metFORMIN 2021-10 Yes [id number] 1000mg Take 1 [facility] 1,000 mg 2-08 tablet by ity of tablet 00:00: mouth in [place] 00 the Medical morning Branch and 1 tablet in the evening. Take with meals. glipiZIDE 5 2021-10 Yes [id number] 5mg Take 1 [facility] mg tablet 2-08 tablet by ity o f 00:00: mouth in [place] 00 the Medical morning. Branch PEG 2021-10 Yes [id number] 1[drp] Place 1 U nivers 400-Hyprome 2-08 9109 Drop in ity o f llose-Glyce 00:00: each eye 2 [place] rin (DRY 00 (two) Medical EYE RELIEF) times Branch 1-0.2-0.2 % daily as Drop needed (Dry Eye). Lidocaine 5 2021-10 Yes [id number] APPLY 5 [facility] % cream 2-08 GRAM TO ity of 00:00: AREA(S) 2 [place] 00 (TWO) Medical TIMES Branch DAILY NEEDED FOR PAIN (SCALE 4-6) NEEDED Diclofenac 2021-10 Yes [id number] Apply to [facility] Sodium 2-08 area(s) 4 ity of (VOLTAREN) 00:00: (four) [place] 1 % gel 00 times Medical daily. Branch Apply 4 g qid ezetimibe 2021-10 Yes [id number] 10mg Take 1 [facility] 10 mg 2-08 tablet by ity of tablet 00:00: mouth in [place] 00 the Medical morning. Branch atorvastati 2021-10 Yes [id number] 20mg Take 1 [facility] n 20 mg 2-08 tablet by ity of tablet 00:00: mouth at [place] 00 bedtime. Medical Branch allopurinoL 2021-10 Yes [id number] 100mg Take 1 [facility] 100 mg 2-08 tablet by ity of tablet 00:00: mouth in [place] 00 the Medical morning. Branch amLODIPine 2021-10 Yes [id number] 5mg Take 1 [facility] 5 mg tablet 2-08 tablet by ity of 00:00: mouth in [place] 00 the Medical morning. Branch atenoloL 2021-10 Yes [id number] 100mg Take 1 [facility] 100 mg 2-08 tablet by ity of tablet 00:00: mouth in [place] 00 the Medical morning. Branch triamterene 2021-10 Yes [id number] .5{tbl} Take 0.5 [facility] -hydrochlor 2-08 tablets by it y of othiazid 00:00: mouth in [place] 37.5-25 mg 00 the Medical tablet morning. Branch metFORMIN 2021-10 Yes [id number] 1000mg Take 1 [facility] 1,000 mg 2-08 tablet by ity of tablet 00:00: mouth in [place] 00 the Medical morning Branch and 1 tablet in the evening. Take with meals. glipiZIDE 5 2021-10 Yes [id number] 5mg Take 1 [facility] mg tablet 2-08 tablet by ity o f 00:00: mouth in [place] 00 the Medical morning. Branch PEG 2021-10 Yes [id number] 1[drp] Place 1 U nivers 400-Hyprome 2-08 9109 Drop in ity o f llose-Glyce 00:00: each eye 2 [place] rin (DRY 00 (two) Medical EYE RELIEF) times Branch 1-0.2-0.2 % daily as Drop needed (Dry Eye). Lidocaine 5 2021-10 Yes [id number] APPLY 5 [facility] % cream 2-08 GRAM TO ity of 00:00: AREA(S) 2 [place] 00 (TWO) Medical TIMES Branch DAILY NEEDED FOR PAIN (SCALE 4-6) NEEDED Diclofenac 2021-10 Yes [id number] Apply to [facility] Sodium 2-08 area(s) 4 ity of (VOLTAREN) 00:00: (four) [place] 1 % gel 00 times Medical daily. Branch Apply 4 g qid ezetimibe 2021-10 Yes [id number] 10mg Take 1 [facility] n[facility] 10 mg 2-08 tablet by ity of tablet 00:00: mouth in [place] 00 the Medical morning. Branch atorvastati 2021-10 Yes [id number] 20mg Take 1 [facility] n 20 mg 2-08 tablet by ity of tablet 00:00: mouth at [place] 00 bedtime. Medical Branch allopurinoL 2021-10 Yes [id number] 100mg Take 1 [facility] 100 mg 2-08 tablet by ity of tablet 00:00: mouth in [place] 00 the Medical morning. Branch amLODIPine 2021-10 Yes [id number] 5mg Take 1 [facility] n[facility] 5 mg tablet 2-08 tablet by ity of 00:00: mouth in [place] 00 the Medical morning. Branch atenoloL 2021-10 Yes [id number] 100mg Take 1 [facility] 100 mg 2-08 tablet by [facility] of tablet 00:00: mouth in [place] 00 the Medical morning. Branch triamterene 2021-10 Yes [id number] .5{tbl} Take 0.5 [facility] -hydrochlor 2-08 tablets by it y of othiazid 00:00: mouth in [place] 37.5-25 mg 00 the Medical tablet morning. Branch metFORMIN 2021-10 Yes [id number] 1000mg Take 1 [facility] 1,000 mg 2-08 tablet by ity of tablet 00:00: mouth in [place] 00 the Medical morning Branch and 1 tablet in the evening. Take with meals. glipiZIDE 5 2021-10 Yes [id number] 5mg Take 1 [facility] mg tablet 2-08 tablet by ity o f 00:00: mouth in [place] 00 the Medical morning. Branch PEG 2021-10 Yes [id number] 1[drp] Place 1 U nivers 400-Hyprome 2-08 9109 Drop in ity o f llose-Glyce 00:00: each eye 2 [place] rin (DRY 00 (two) Medical EYE RELIEF) times Branch 1-0.2-0.2 % daily as Drop needed (Dry Eye). Lidocaine 5 2021-10 Yes [id number] APPLY 5 [facility] % cream 2-08 GRAM TO ity of 00:00: AREA(S) 2 [place] 00 (TWO) Medical TIMES Branch DAILY NEEDED FOR PAIN (SCALE 4-6) NEEDED Diclofenac 2021-10 Yes [id number] Apply to [facility] Sodium 2-08 area(s) 4 ity of (VOLTAREN) 00:00: (four) [place] 1 % gel 00 times Medical daily. Branch Apply 4 g qid ezetimibe 2021-10 Yes [id number] 10mg Take 1 [facility] n[facility] 10 mg 2-08 tablet by ity of tablet 00:00: mouth in [place] 00 the Medical morning. Branch atorvastati 2021-10 Yes [id number] 20mg Take 1 [facility] n 20 mg 2-08 tablet by ity of tablet 00:00: mouth at [place] 00 bedtime. Medical Branch allopurinoL 2021-10 Yes [id number] 100mg Take 1 [facility] 100 mg 2-08 tablet by ity of tablet 00:00: mouth in [place] 00 the Medical morning. Branch amLODIPine 2021-10 Yes [id number] 5mg Take 1 [facility] n[facility] 5 mg tablet 2-08 tablet by ity of 00:00: mouth in [place] 00 the Medical morning. Branch atenoloL 2021-10 Yes [id number] 100mg Take 1 [facility] 100 mg 2-08 tablet by [facility] of tablet 00:00: mouth in [place] 00 the Medical morning. Branch triamterene 2021-10 Yes [id number] .5{tbl} Take 0.5 [facility] -hydrochlor 2-08 tablets by it y of othiazid 00:00: mouth in [place] 37.5-25 mg 00 the Medical tablet morning. Branch metFORMIN 2021-10 Yes [id number] 1000mg Take 1 [facility] 1,000 mg 2-08 tablet by ity of tablet 00:00: mouth in [place] 00 the Medical morning Branch and 1 tablet in the evening. Take with meals. glipiZIDE 5 2021-10 Yes [id number] 5mg Take 1 [facility] mg tablet 2-08 tablet by ity o f 00:00: mouth in [place] 00 the Medical morning. Branch PEG 2021-10 Yes [id number] 1[drp] Place 1 U nivers 400-Hyprome 2-08 9109 Drop in ity o f llose-Glyce 00:00: each eye 2 [place] rin (DRY 00 (two) Medical EYE RELIEF) times Branch 1-0.2-0.2 % daily as Drop needed (Dry Eye). Lidocaine 5 2021-10 Yes [id number] APPLY 5 [facility] % cream 2-08 GRAM TO ity of 00:00: AREA(S) 2 [place] 00 (TWO) Medical TIMES Branch DAILY NEEDED FOR PAIN (SCALE 4-6) NEEDED Diclofenac 2021-10 Yes [id number] Apply to [facility] Sodium 2-08 area(s) 4 ity of (VOLTAREN) 00:00: (four) [place] 1 % gel 00 times Medical daily. Branch Apply 4 g qid ezetimibe 2021-10 Yes [id number] 10mg Take 1 [facility] nivers 10 mg 2-08 tablet by [facility]y of tablet 00:00: mouth in [place] 00 the Medical morning. Branch atorvastati 2021-10 Yes [id number] 20mg Take 1 [facility] 20 mg 2-08 tablet by [facility] tablet 00:00: mouth at [place] 00 bedtime. Medical Branch allopurinoL 2021-10 Yes [id number] 100mg Take 1 [facility] 100 mg 2-08 tablet by [facility] of tablet 00:00: mouth in [place] 00 the Medical morning. Branch amLODIPine 2021-10 Yes [id number] 5mg Take 1 [facility] 5 mg tablet 2-08 tablet by [facility] of 00:00: mouth in [place] 00 the Medical morning. Branch atenoloL 2021-10 Yes [id number] 100mg Take 1 [facility] 100 mg 2-08 tablet by [facility] of tablet 00:00: mouth in [place] 00 the Medical morning. Branch triamterene 2021-10 Yes [id number] .5{tbl} Take 0.5 [facility] -hydrochlor 2-08 tablets by it y of othiazid 00:00: mouth in [place] 37.5-25 mg 00 the Medical tablet morning. Branch metFORMIN 2021-10 Yes [id number] 1000mg Take 1 [facility] 1,000 mg 2-08 tablet by [facility] of tablet 00:00: mouth in [place] 00 the Medical morning Branch and 1 tablet in the evening. Take with meals. glipiZIDE 5 2021-10 Yes [id number] 5mg Take 1 [facility] mg tablet 2-08 tablet by ity o f 00:00: mouth in [place] 00 the Medical morning. Branch PEG 2021-10 Yes [id number] 1[drp] Place 1 [facility] nivers 400-Hyprome 2-08 9109 Drop in ity o f llose-Glyce 00:00: each eye 2 [place] rin (DRY 00 (two) Medical EYE RELIEF) times Branch 1-0.2-0.2 % daily as Drop needed (Dry Eye). Lidocaine 5 2021-10 Yes [id number] APPLY 5 [facility] % cream 2-08 GRAM TO ity of 00:00: AREA(S) 2 [place] 00 (TWO) Medical TIMES Branch DAILY NEEDED FOR PAIN (SCALE 4-6) NEEDED Diclofenac 2021-10 Yes [id number] Apply to [facility] Sodium 2-08 area(s) 4 ity of (VOLTAREN) 00:00: (four) [place] 1 % gel 00 times Medical daily. Branch Apply 4 g qid ezetimibe 2021-10 Yes [id number] 10mg Take 1 [facility] 10 mg 2-08 tablet by [facility] of tablet 00:00: mouth in [place] 00 the Medical morning. Branch atorvastati 2021-10 Yes [id number] 20mg Take 1 [facility] n 20 mg 2-08 tablet by [facility] of tablet 00:00: mouth at [place] 00 bedtime. Medical Branch allopurinoL 2021-10 Yes [id number] 100mg Take 1 [facility] 100 mg 2-08 tablet by [facility] of tablet 00:00: mouth in [place] 00 the Medical morning. Branch amLODIPine 2021-10 Yes [id number] 5mg Take 1 [facility] 5 mg tablet 2-08 tablet by [facility] of 00:00: mouth in [place] 00 the Medical morning. Branch atenoloL 2021-10 Yes [id number] 100mg Take 1 [facility] 100 mg 2-08 tablet by [facility] of tablet 00:00: mouth in [place] 00 the Medical morning. Branch triamterene 2021-10 Yes [id number] .5{tbl} Take 0.5 [facility] -hydrochlor 2-08 tablets by it y of othiazid 00:00: mouth in [place] 37.5-25 mg 00 the Medical tablet morning. Branch metFORMIN 2021-10 Yes [id number] 1000mg Take 1 [facility] 1,000 mg 2-08 tablet by [facility] of tablet 00:00: mouth in [place] 00 the Medical morning Branch and 1 tablet in the evening. Take with meals. glipiZIDE 5 2021-10 Yes [id number] 5mg Take 1 [facility] mg tablet 2-08 tablet by ity o f 00:00: mouth in [place] 00 the Medical morning. Branch PEG 2021-10 Yes [id number] 1[drp] Place 1 [facility] nivers 400-Hyprome 2-08 9109 Drop in ity o f llose-Glyce 00:00: each eye 2 [place] rin (DRY 00 (two) Medical EYE RELIEF) times Branch 1-0.2-0.2 % daily as Drop needed (Dry Eye). Lidocaine 5 2021-10 Yes [id number] APPLY 5 [facility] % cream 2-08 GRAM TO ity of 00:00: AREA(S) 2 [place] 00 (TWO) Medical TIMES Branch DAILY NEEDED FOR PAIN (SCALE 4-6) NEEDED Diclofenac 2021-10 Yes [id number] Apply to [facility] Sodium 2-08 area(s) 4 ity of (VOLTAREN) 00:00: (four) [place] 1 % gel 00 times Medical daily. Branch Apply 4 g qid ezetimibe 2021-10 Yes [id number] 10mg Take 1 [facility] 10 mg 2-08 tablet by [facility] of tablet 00:00: mouth in [place] 00 the Medical morning. Branch atorvastati 2021-10 Yes [id number] 20mg Take 1 [facility] n 20 mg 2-08 tablet by [facility] of tablet 00:00: mouth at [place] [address] bedtime. Medical Branch allopurinoL 2021-10 Yes [id number] 100mg Take 1 [facility] 100 mg 2-08 tablet by [facility] of tablet 00:00: mouth in [place] 00 the Medical morning. Branch amLODIPine 2021-10 Yes [id number] 5mg Take 1 [facility] 5 mg tablet 2-08 tablet by [facility] of 00:00: mouth in [place] 00 the Medical morning. Branch atenoloL 2021-10 Yes [id number] 100mg Take 1 [facility] 100 mg 2-08 tablet by [facility] of tablet 00:00: mouth in [place] 00 the Medical morning. Branch triamterene 2021-10 Yes [id number] .5{tbl} Take 0.5 [facility] -hydrochlor 2-08 tablets by it y of othiazid 00:00: mouth in [place] 37.5-25 mg 00 the Medical tablet morning. Branch metFORMIN 2021-10 Yes [id number] 1000mg Take 1 [facility] 1,000 mg 2-08 tablet by [facility] of tablet 00:00: mouth in [place] 00 the Medical morning Branch and 1 tablet in the evening. Take with meals. glipiZIDE 5 2021-10 Yes [id number] 5mg Take 1 [facility] mg tablet 2-08 tablet by ity o f 00:00: mouth in [place] 00 the Medical morning. Branch PEG 2021-10 Yes [id number] 1[drp] Place 1 [facility] nivers 400-Hyprome 2-08 9109 Drop in ity o f llose-Glyce 00:00: each eye 2 [place] rin (DRY 00 (two) Medical EYE RELIEF) times Branch 1-0.2-0.2 % daily as Drop needed (Dry Eye). Lidocaine 5 2021-10 Yes [id number] APPLY 5 [facility] % cream 2-08 GRAM TO ity of 00:00: AREA(S) 2 [place] 00 (TWO) Medical TIMES Branch DAILY NEEDED FOR PAIN (SCALE 4-6) NEEDED Diclofenac 2021-10 Yes [id number] Apply to [facility] Sodium 2-08 area(s) 4 ity of (VOLTAREN) 00:00: (four) [place] 1 % gel 00 times Medical daily. Branch Apply 4 g qid ezetimibe 2021-10 Yes [id number] 10mg Take 1 [facility] 10 mg 2-08 tablet by [facility] of tablet 00:00: mouth in [place] 00 the Medical morning. Branch atorvastati 2021-10 Yes [id number] 20mg Take 1 [facility] n 20 mg 2-08 tablet by [facility] of tablet 00:00: mouth at [place] 00 bedtime. Medical Branch allopurinoL 2021-10 Yes [id number] 100mg Take 1 [facility] 100 mg 2-08 tablet by it[facility] of tablet 00:00: mouth in [place] 00 the Medical morning. Branch amLODIPine 2021-10 Yes [id number] 5mg Take 1 [facility] 5 mg tablet 2-08 tablet by [facility] of 00:00: mouth in [place] 00 the Medical morning. Branch atenoloL 2021-10 Yes [id number] 100mg Take 1 [facility] 100 mg 2-08 tablet by [facility] of tablet 00:00: mouth in [place] 00 the Medical morning. Branch triamterene 2021-10 Yes [id number] .5{tbl} Take 0.5 [facility] -hydrochlor 2-08 tablets by it y of othiazid 00:00: mouth in [place] 37.5-25 mg 00 the Medical tablet morning. Branch metFORMIN 2021-10 Yes [id number] 1000mg Take 1 [facility] 1,000 mg 2-08 tablet by ity of tablet 00:00: mouth in [place] 00 the Medical morning Branch and 1 tablet in the evening. Take with meals. glipiZIDE 5 2021-10 Yes [id number] 5mg Take 1 [facility] mg tablet 2-08 tablet by ity o f 00:00: mouth in [place] 00 the Medical morning. Branch PEG 2021-10 Yes [id number] 1[drp] Place 1 [facility] n[facility] 400-Hyprome 2-08 9109 Drop in ity o f llose-Glyce 00:00: each eye 2 [place] rin (DRY 00 (two) Medical EYE RELIEF) times Branch 1-0.2-0.2 % daily as Drop needed (Dry Eye). Lidocaine 5 2021-10 Yes [id number] APPLY 5 [facility] % cream 2-08 GRAM TO ity of 00:00: AREA(S) 2 [place] 00 (TWO) Medical TIMES Branch DAILY NEEDED FOR PAIN (SCALE 4-6) NEEDED Diclofenac 2021-10 Yes [id number] Apply to [facility] Sodium 2-08 area(s) 4 ity of (VOLTAREN) 00:00: (four) [place] 1 % gel 00 times Medical daily. Branch Apply 4 g qid ezetimibe 2021-10 Yes [id number] 10mg Take 1 [facility] 10 mg 2-08 tablet by [facility]y of tablet 00:00: mouth in [place] 00 the Medical morning. Branch atorvastati 2021-10 Yes [id number] 20mg Take 1 [facility] n 20 mg 2-08 tablet by [facility] of tablet 00:00: mouth at [place] [address] bedtime. Medical Branch allopurinoL 2021-10 Yes [id number] 100mg Take 1 [facility] 100 mg 2-08 tablet by it[facility] of tablet 00:00: mouth in [place] 00 the Medical morning. Branch amLODIPine 2021-10 Yes [id number] 5mg Take 1 [facility] 5 mg tablet 2-08 tablet by [facility] of 00:00: mouth in [place] 00 the Medical morning. Branch atenoloL 2021-10 Yes [id number] 100mg Take 1 [facility] 100 mg 2-08 tablet by [facility] of tablet 00:00: mouth in [place] 00 the Medical morning. Branch triamterene 2021-10 Yes [id number] .5{tbl} Take 0.5 [facility] -hydrochlor 2-08 tablets by it y of othiazid 00:00: mouth in [place] 37.5-25 mg 00 the Medical tablet morning. Branch metFORMIN 2021-10 Yes [id number] 1000mg Take 1 [facility] 1,000 mg 2-08 tablet by [facility] of tablet 00:00: mouth in [place] 00 the Medical morning Branch and 1 tablet in the evening. Take with meals. glipiZIDE 5 2021-10 Yes [id number] 5mg Take 1 [facility] mg tablet 2-08 tablet by ity o f 00:00: mouth in [place] 00 the Medical morning. Branch PEG 2021-10 Yes [id number] 1[drp] Place 1 [facility] n[facility] 400-Hyprome 2-08 9109 Drop in ity o f llose-Glyce 00:00: each eye 2 [place] rin (DRY 00 (two) Medical EYE RELIEF) times Branch 1-0.2-0.2 % daily as Drop needed (Dry Eye). Lidocaine 5 2021-10 Yes [id number] APPLY 5 [facility] % cream 2-08 GRAM TO ity of 00:00: AREA(S) 2 [place] 00 (TWO) Medical TIMES Branch DAILY NEEDED FOR PAIN (SCALE 4-6) NEEDED Diclofenac 2021-10 Yes [id number] Apply to [facility] Sodium 2-08 area(s) 4 ity of (VOLTAREN) 00:00: (four) [place] 1 % gel 00 times Medical daily. Branch Apply 4 g qid ezetimibe 2021-10 Yes [id number] 10mg Take 1 [facility] 10 mg 2-08 tablet by ity of tablet 00:00: mouth in [place] 00 the Medical morning. Branch atorvastati 2021-10 Yes [id number] 20mg Take 1 [facility] n 20 mg 2-08 tablet by [facility] of tablet 00:00: mouth at [place] 00 bedtime. Medical Branch allopurinoL 2021-10 Yes [id number] 100mg Take 1 [facility] 100 mg 2-08 tablet by ity of tablet 00:00: mouth in [place] 00 the Medical morning. Branch amLODIPine 2021-10 Yes [id number] 5mg Take 1 [facility] 5 mg tablet 2-08 tablet by it[facility] of 00:00: mouth in [place] 00 the Medical morning. Branch atenoloL 2021-10 Yes [id number] 100mg Take 1 [facility] 100 mg 2-08 tablet by [facility] of tablet 00:00: mouth in [place] 00 the Medical morning. Branch triamterene 2021-10 Yes [id number] .5{tbl} Take 0.5 [facility] -hydrochlor 2-08 tablets by it y of othiazid 00:00: mouth in [place] 37.5-25 mg 00 the Medical tablet morning. Branch metFORMIN 2021-10 Yes [id number] 1000mg Take 1 [facility] 1,000 mg 2-08 tablet by ity of tablet 00:00: mouth in [place] 00 the Medical morning Branch and 1 tablet in the evening. Take with meals. glipiZIDE 5 2021-10 Yes [id number] 5mg Take 1 [facility] mg tablet 2-08 tablet by ity o f 00:00: mouth in [place] 00 the Medical morning. Branch PEG 2021-10 Yes [id number] 1[drp] Place 1 [facility] n[facility] 400-Hyprome 2-08 9109 Drop in ity o f llose-Glyce 00:00: each eye 2 [place] rin (DRY 00 (two) Medical EYE RELIEF) times Branch 1-0.2-0.2 % daily as Drop needed (Dry Eye). Lidocaine 5 2021-10 Yes [id number] APPLY 5 [facility] % cream 2-08 GRAM TO ity of 00:00: AREA(S) 2 [place] 00 (TWO) Medical TIMES Branch DAILY NEEDED FOR PAIN (SCALE 4-6) NEEDED Diclofenac 2021-10 Yes [id number] Apply to [facility] Sodium 2-08 area(s) 4 ity of (VOLTAREN) 00:00: (four) [place] 1 % gel 00 times Medical daily. Branch Apply 4 g qid ezetimibe 2021-10 Yes [id number] 10mg Take 1 [facility] 10 mg 2-08 tablet by ity of tablet 00:00: mouth in [place] 00 the Medical morning. Branch atorvastati 2021-10 Yes [id number] 20mg Take 1 [facility] n 20 mg 2-08 tablet by it[facility] of tablet 00:00: mouth at [place] [address] bedtime. Medical Branch allopurinoL 2021-10 Yes [id number] 100mg Take 1 [facility] 100 mg 2-08 tablet by ity of tablet 00:00: mouth in [place] 00 the Medical morning. Branch amLODIPine 2021-10 Yes [id number] 5mg Take 1 [facility] 5 mg tablet 2-08 tablet by it[facility] of 00:00: mouth in [place] 00 the Medical morning. Branch atenoloL 2021-10 Yes [id number] 100mg Take 1 [facility] 100 mg 2-08 tablet by [facility] of tablet 00:00: mouth in [place] 00 the Medical morning. Branch triamterene 2021-10 Yes [id number] .5{tbl} Take 0.5 [facility] -hydrochlor 2-08 tablets by it y of othiazid 00:00: mouth in [place] 37.5-25 mg 00 the Medical tablet morning. Branch metFORMIN 2021-10 Yes [id number] 1000mg Take 1 [facility] 1,000 mg 2-08 tablet by ity of tablet 00:00: mouth in [place] 00 the Medical morning Branch and 1 tablet in the evening. Take with meals. glipiZIDE 5 2021-10 Yes [id number] 5mg Take 1 [facility] mg tablet 2-08 tablet by ity o f 00:00: mouth in [place] 00 the Medical morning. Branch PEG 2021-10 Yes [id number] 1[drp] Place 1 [facility] nivers 400-Hyprome 2-08 9109 Drop in ity o f llose-Glyce 00:00: each eye 2 [place] rin (DRY 00 (two) Medical EYE RELIEF) times Branch 1-0.2-0.2 % daily as Drop needed (Dry Eye). Lidocaine 5 2021-10 Yes [id number] APPLY 5 [facility] % cream 2-08 GRAM TO ity of 00:00: AREA(S) 2 [place] 00 (TWO) Medical TIMES Branch DAILY NEEDED FOR PAIN (SCALE 4-6) NEEDED Diclofenac 2021-10 Yes [id number] Apply to [facility] Sodium 2-08 area(s) 4 ity of (VOLTAREN) 00:00: (four) [place] 1 % gel 00 times Medical daily. Branch Apply 4 g qid ezetimibe 2021-10 Yes [id number] 10mg Take 1 [facility] 10 mg 2-08 tablet by ity of tablet 00:00: mouth in [place] 00 the Medical morning. Branch atorvastati 2021-10 Yes [id number] 20mg Take 1 [facility] n 20 mg 2-08 tablet by it[facility] of tablet 00:00: mouth at [place] 00 bedtime. Medical Branch allopurinoL 2021-10 Yes [id number] 100mg Take 1 [facility] 100 mg 2-08 tablet by it[facility] of tablet 00:00: mouth in [place] 00 the Medical morning. Branch amLODIPine 2021-10 Yes [id number] 5mg Take 1 [facility] 5 mg tablet 2-08 tablet by ity of 00:00: mouth in [place] 00 the Medical morning. Branch atenoloL 2021-10 Yes [id number] 100mg Take 1 [facility] 100 mg 2-08 tablet by [facility] of tablet 00:00: mouth in [place] 00 the Medical morning. Branch triamterene 2021-10 Yes [id number] .5{tbl} Take 0.5 [facility] -hydrochlor 2-08 tablets by it y of othiazid 00:00: mouth in [place] 37.5-25 mg 00 the Medical tablet morning. Branch metFORMIN 2021-10 Yes [id number] 1000mg Take 1 [facility] 1,000 mg 2-08 tablet by ity of tablet 00:00: mouth in [place] 00 the Medical morning Branch and 1 tablet in the evening. Take with meals. glipiZIDE 5 2021-10 Yes [id number] 5mg Take 1 [facility] mg tablet 2-08 tablet by ity o f 00:00: mouth in [place] 00 the Medical morning. Branch PEG 2021-10 Yes [id number] 1[drp] Place 1 [facility] nivers 400-Hyprome 2-08 9109 Drop in ity o f llose-Glyce 00:00: each eye 2 [place] rin (DRY 00 (two) Medical EYE RELIEF) times Branch 1-0.2-0.2 % daily as Drop needed (Dry Eye). Lidocaine 5 2021-10 Yes [id number] APPLY 5 [facility] % cream 2-08 GRAM TO ity of 00:00: AREA(S) 2 [place] 00 (TWO) Medical TIMES Branch DAILY NEEDED FOR PAIN (SCALE 4-6) NEEDED Diclofenac 2021-10 Yes [id number] Apply to [facility] Sodium 2-08 area(s) 4 ity of (VOLTAREN) 00:00: (four) [place] 1 % gel 00 times Medical daily. Branch Apply 4 g qid ezetimibe 2021-10 Yes [id number] 10mg Take 1 [facility] 10 mg 2-08 tablet by ity of tablet 00:00: mouth in [place] 00 the Medical morning. Branch atorvastati 2021-10 Yes [id number] 20mg Take 1 [facility] n 20 mg 2-08 tablet by ity of tablet 00:00: mouth at [place] 00 bedtime. Medical Branch allopurinoL 2021-10 Yes [id number] 100mg Take 1 [facility] 100 mg 2-08 tablet by ity of tablet 00:00: mouth in [place] 00 the Medical morning. Branch amLODIPine 2021-10 Yes [id number] 5mg Take 1 [facility] 5 mg tablet 2-08 tablet by ity of 00:00: mouth in [place] 00 the Medical morning. Branch atenoloL 2021-10 Yes [id number] 100mg Take 1 [facility] 100 mg 2-08 tablet by [facility] of tablet 00:00: mouth in [place] 00 the Medical morning. Branch triamterene 2021-10 Yes [id number] .5{tbl} Take 0.5 [facility] -hydrochlor 2-08 tablets by it y of othiazid 00:00: mouth in [place] 37.5-25 mg 00 the Medical tablet morning. Branch metFORMIN 2021-10 Yes [id number] 1000mg Take 1 [facility] 1,000 mg 2-08 tablet by ity of tablet 00:00: mouth in [place] 00 the Medical morning Branch and 1 tablet in the evening. Take with meals. glipiZIDE 5 2021-10 Yes [id number] 5mg Take 1 [facility] mg tablet 2-08 tablet by ity o f 00:00: mouth in [place] 00 the Medical morning. Branch PEG 2021-10 Yes [id number] 1[drp] Place 1 U nivers 400-Hyprome 2-08 9109 Drop in ity o f llose-Glyce 00:00: each eye 2 [place] rin (DRY 00 (two) Medical EYE RELIEF) times Branch 1-0.2-0.2 % daily as Drop needed (Dry Eye). Lidocaine 5 2021-10 Yes [id number] APPLY 5 [facility] % cream 2-08 GRAM TO ity of 00:00: AREA(S) 2 [place] 00 (TWO) Medical TIMES Branch DAILY NEEDED FOR PAIN (SCALE 4-6) NEEDED Diclofenac 2021-10 Yes [id number] Apply to [facility] Sodium 2-08 area(s) 4 ity of (VOLTAREN) 00:00: (four) [place] 1 % gel 00 times Medical daily. Branch Apply 4 g qid ezetimibe 2021-10 Yes [id number] 10mg Take 1 [facility] 10 mg 2-08 tablet by ity of tablet 00:00: mouth in [place] 00 the Medical morning. Branch atorvastati 2021-10 Yes [id number] 20mg Take 1 [facility] n 20 mg 2-08 tablet by ity of tablet 00:00: mouth at [place] [address] bedtime. Medical Branch allopurinoL 2021-10 Yes [id number] 100mg Take 1 [facility] 100 mg 2-08 tablet by ity of tablet 00:00: mouth in [place] 00 the Medical morning. Branch amLODIPine 2021-10 Yes [id number] 5mg Take 1 [facility] 5 mg tablet 2-08 tablet by ity of 00:00: mouth in [place] 00 the Medical morning. Branch atenoloL 2021-10 Yes [id number] 100mg Take 1 [facility] 100 mg 2-08 tablet by [facility] of tablet 00:00: mouth in [place] 00 the Medical morning. Branch triamterene 2021-10 Yes [id number] .5{tbl} Take 0.5 [facility] -hydrochlor 2-08 tablets by it y of othiazid 00:00: mouth in [place] 37.5-25 mg 00 the Medical tablet morning. Branch metFORMIN 2021-10 Yes [id number] 1000mg Take 1 [facility] 1,000 mg 2-08 tablet by ity of tablet 00:00: mouth in [place] 00 the Medical morning Branch and 1 tablet in the evening. Take with meals. glipiZIDE 5 2021-10 Yes [id number] 5mg Take 1 [facility] mg tablet 2-08 tablet by ity o f 00:00: mouth in [place] 00 the Medical morning. Branch PEG 2021-10 Yes [id number] 1[drp] Place 1 U nivers 400-Hyprome 2-08 9109 Drop in ity o f llose-Glyce 00:00: each eye 2 [place] rin (DRY 00 (two) Medical EYE RELIEF) times Branch 1-0.2-0.2 % daily as Drop needed (Dry Eye). Lidocaine 5 2021-10 Yes [id number] APPLY 5 [facility] % cream 2-08 GRAM TO ity of 00:00: AREA(S) 2 [place] 00 (TWO) Medical TIMES Branch DAILY NEEDED FOR PAIN (SCALE 4-6) NEEDED Diclofenac 2021-10 Yes [id number] Apply to [facility] Sodium 2-08 area(s) 4 ity of (VOLTAREN) 00:00: (four) [place] 1 % gel 00 times Medical daily. Branch Apply 4 g qid ezetimibe 2021-10 Yes [id number] 10mg Take 1 [facility] 10 mg 2-08 tablet by ity of tablet 00:00: mouth in [place] 00 the Medical morning. Branch atorvastati 2021-10 Yes [id number] 20mg Take 1 [facility] n 20 mg 2-08 tablet by ity of tablet 00:00: mouth at [place] 00 bedtime. Medical Branch allopurinoL 2021-10 Yes [id number] 100mg Take 1 [facility] 100 mg 2-08 tablet by ity of tablet 00:00: mouth in [place] 00 the Medical morning. Branch amLODIPine 2021-10 Yes [id number] 5mg Take 1 [facility] 5 mg tablet 2-08 tablet by ity of 00:00: mouth in [place] 00 the Medical morning. Branch atenoloL 2021-10 Yes [id number] 100mg Take 1 [facility] 100 mg 2-08 tablet by [facility] of tablet 00:00: mouth in [place] 00 the Medical morning. Branch triamterene 2021-10 Yes [id number] .5{tbl} Take 0.5 [facility] -hydrochlor 2-08 tablets by it y of othiazid 00:00: mouth in [place] 37.5-25 mg 00 the Medical tablet morning. Branch metFORMIN 2021-10 Yes [id number] 1000mg Take 1 [facility] 1,000 mg 2-08 tablet by ity of tablet 00:00: mouth in [place] 00 the Medical morning Branch and 1 tablet in the evening. Take with meals. glipiZIDE 5 2021-10 Yes [id number] 5mg Take 1 [facility] mg tablet 2-08 tablet by ity o f 00:00: mouth in [place] 00 the Medical morning. Branch PEG 2021-10 Yes [id number] 1[drp] Place 1 U nivers 400-Hyprome 2-08 9109 Drop in ity o f llose-Glyce 00:00: each eye 2 [place] rin (DRY 00 (two) Medical EYE RELIEF) times Branch 1-0.2-0.2 % daily as Drop needed (Dry Eye). Lidocaine 5 2021-10 Yes [id number] APPLY 5 [facility] % cream 2-08 GRAM TO ity of 00:00: AREA(S) 2 [place] 00 (TWO) Medical TIMES Branch DAILY NEEDED FOR PAIN (SCALE 4-6) NEEDED Diclofenac 2021-10 Yes [id number] Apply to [facility] Sodium 2-08 area(s) 4 ity of (VOLTAREN) 00:00: (four) [place] 1 % gel 00 times Medical daily. Branch Apply 4 g qid ezetimibe 2021-10 Yes [id number] 10mg Take 1 [facility] n[facility] 10 mg 2-08 tablet by ity of tablet 00:00: mouth in [place] 00 the Medical morning. Branch atorvastati 2021-10 Yes [id number] 20mg Take 1 [facility] n 20 mg 2-08 tablet by ity of tablet 00:00: mouth at [place] 00 bedtime. Medical Branch allopurinoL 2021-10 Yes [id number] 100mg Take 1 [facility] 100 mg 2-08 tablet by ity of tablet 00:00: mouth in [place] 00 the Medical morning. Branch amLODIPine 2021-10 Yes [id number] 5mg Take 1 [facility] 5 mg tablet 2-08 tablet by ity of 00:00: mouth in [place] 00 the Medical morning. Branch atenoloL 2021-10 Yes [id number] 100mg Take 1 [facility] 100 mg 2-08 tablet by [facility] of tablet 00:00: mouth in [place] 00 the Medical morning. Branch triamterene 2021-10 Yes [id number] .5{tbl} Take 0.5 [facility] -hydrochlor 2-08 tablets by it y of othiazid 00:00: mouth in [place] 37.5-25 mg 00 the Medical tablet morning. Branch metFORMIN 2021-10 Yes [id number] 1000mg Take 1 [facility] 1,000 mg 2-08 tablet by ity of tablet 00:00: mouth in [place] 00 the Medical morning Branch and 1 tablet in the evening. Take with meals. glipiZIDE 5 2021-10 Yes [id number] 5mg Take 1 [facility] mg tablet 2-08 tablet by ity o f 00:00: mouth in [place] 00 the Medical morning. Branch PEG 2021-10 Yes [id number] 1[drp] Place 1 U nivers 400-Hyprome 2-08 9109 Drop in ity o f llose-Glyce 00:00: each eye 2 [place] rin (DRY 00 (two) Medical EYE RELIEF) times Branch 1-0.2-0.2 % daily as Drop needed (Dry Eye). Lidocaine 5 2021-10 Yes [id number] APPLY 5 [facility] % cream 2-08 GRAM TO ity of 00:00: AREA(S) 2 [place] 00 (TWO) Medical TIMES Branch DAILY NEEDED FOR PAIN (SCALE 4-6) NEEDED Diclofenac 2021-10 Yes [id number] Apply to [facility] Sodium 2-08 area(s) 4 ity of (VOLTAREN) 00:00: (four) [place] 1 % gel 00 times Medical daily. Branch Apply 4 g qid ezetimibe 2021-10 Yes [id number] 10mg Take 1 [facility] 10 mg 2-08 tablet by [facility]y of tablet 00:00: mouth in [place] 00 the Medical morning. Branch atorvastati 2021-10 Yes [id number] 20mg Take 1 [facility] n 20 mg 2-08 tablet by ity of tablet 00:00: mouth at [place] 00 bedtime. Medical Branch allopurinoL 2021-10 Yes [id number] 100mg Take 1 [facility] 100 mg 2-08 tablet by ity of tablet 00:00: mouth in [place] 00 the Medical morning. Branch amLODIPine 2021-10 Yes [id number] 5mg Take 1 [facility] 5 mg tablet 2-08 tablet by ity of 00:00: mouth in [place] 00 the Medical morning. Branch atenoloL 2021-10 Yes [id number] 100mg Take 1 [facility] 100 mg 2-08 tablet by [facility] of tablet 00:00: mouth in [place] 00 the Medical morning. Branch triamterene 2021-10 Yes [id number] .5{tbl} Take 0.5 [facility] -hydrochlor 2-08 tablets by it y of othiazid 00:00: mouth in [place] 37.5-25 mg 00 the Medical tablet morning. Branch metFORMIN 2021-10 Yes [id number] 1000mg Take 1 [facility] 1,000 mg 2-08 tablet by ity of tablet 00:00: mouth in [place] 00 the Medical morning Branch and 1 tablet in the evening. Take with meals. PEG 2021-10 Yes [id number] 1[drp] Place 1 U nivers 400-Hyprome 2-08 9109 Drop in ity o f llose-Glyce 00:00: each eye 2 [place] rin (DRY 00 (two) Medical EYE RELIEF) times Branch 1-0.2-0.2 % daily as Drop needed (Dry Eye). Lidocaine 5 2021-10 Yes [id number] APPLY 5 [facility] % cream 2-08 GRAM TO ity of 00:00: AREA(S) 2 [place] 00 (TWO) Medical TIMES Branch DAILY NEEDED FOR PAIN (SCALE 4-6) NEEDED Diclofenac 2021-10 Yes [id number] Apply to [facility] Sodium 2-08 area(s) 4 ity of (VOLTAREN) 00:00: (four) [place] 1 % gel 00 times Medical daily. Branch Apply 4 g qid ezetimibe 2021-10 Yes [id number] 10mg Take 1 [facility] 10 mg 2-08 tablet by [facility] of tablet 00:00: mouth in [place] 00 the Medical morning. Branch atorvastati 2021-10 Yes [id number] 20mg Take 1 [facility] n 20 mg 2-08 tablet by [facility] of tablet 00:00: mouth at [place] 00 bedtime. Medical Branch allopurinoL 2021-10 Yes [id number] 100mg Take 1 [facility] 100 mg 2-08 tablet by [facility] of tablet 00:00: mouth in [place] 00 the Medical morning. Branch amLODIPine 2021-10 Yes [id number] 5mg Take 1 [facility] 5 mg tablet 2-08 tablet by [facility] of 00:00: mouth in [place] 00 the Medical morning. Branch atenoloL 2021-10 Yes [id number] 100mg Take 1 [facility] 100 mg 2-08 tablet by [facility] of tablet 00:00: mouth in [place] 00 the Medical morning. Branch triamterene 2021-10 Yes [id number] .5{tbl} Take 0.5 [facility] -hydrochlor 2-08 tablets by it y of othiazid 00:00: mouth in [place] 37.5-25 mg 00 the Medical tablet morning. Branch metFORMIN 2021-10 Yes [id number] 1000mg Take 1 [facility] 1,000 mg 2-08 tablet by ity of tablet 00:00: mouth in [place] 00 the Medical morning Branch and 1 tablet in the evening. Take with meals. PEG 2021-10 Yes [id number] 1[drp] Place 1 U nivers 400-Hyprome 2-08 9109 Drop in ity o f llose-Glyce 00:00: each eye 2 [place] rin (DRY 00 (two) Medical EYE RELIEF) times Branch 1-0.2-0.2 % daily as Drop needed (Dry Eye). Lidocaine 5 2021-10 Yes [id number] APPLY 5 [facility] % cream 2-08 GRAM TO ity of 00:00: AREA(S) 2 [place] 00 (TWO) Medical TIMES Branch DAILY NEEDED FOR PAIN (SCALE 4-6) NEEDED Diclofenac 2021-10 Yes [id number] Apply to [facility] Sodium 2-08 area(s) 4 ity of (VOLTAREN) 00:00: (four) [place] 1 % gel 00 times Medical daily. Branch Apply 4 g qid ezetimibe 2021-10 Yes [id number] 10mg Take 1 [facility] nivers 10 mg 2-08 tablet by ity of tablet 00:00: mouth in [place] 00 the Medical morning. Branch atorvastati 2021-10 Yes [id number] 20mg Take 1 [facility] n 20 mg 2-08 tablet by ity of tablet 00:00: mouth at [place] 00 bedtime. Medical Branch allopurinoL 2021-10 Yes [id number] 100mg Take 1 [facility] 100 mg 2-08 tablet by ity of tablet 00:00: mouth in [place] 00 the Medical morning. Branch amLODIPine 2021-10 Yes [id number] 5mg Take 1 [facility] n[facility] 5 mg tablet 2-08 tablet by ity of 00:00: mouth in [place] 00 the Medical morning. Branch atenoloL 2021-10 Yes [id number] 100mg Take 1 [facility] daly 100 mg 2-08 tablet by ity of tablet 00:00: mouth in [place] 00 the Medical morning. Branch triamterene 2021-10 Yes [id number] .5{tbl} Take 0.5 [facility] -hydrochlor 2-08 tablets by it y of othiazid 00:00: mouth in [place] 37.5-25 mg 00 the Medical tablet morning. Branch metFORMIN 2021-10 Yes [id number] 1000mg Take 1 [facility] 1,000 mg 2-08 tablet by ity of tablet 00:00: mouth in [place] 00 the Medical morning Branch and 1 tablet in the evening. Take with meals. PEG 2021-10 Yes [id number] 1[drp] Place 1 U nivers 400-Hyprome 2-08 9109 Drop in ity o f llose-Glyce 00:00: each eye 2 [place] rin (DRY 00 (two) Medical EYE RELIEF) times Branch 1-0.2-0.2 % daily as Drop needed (Dry Eye). Lidocaine 5 2021-10 Yes [id number] APPLY 5 [facility] % cream 2-08 GRAM TO ity of 00:00: AREA(S) 2 [place] 00 (TWO) Medical TIMES Branch DAILY NEEDED FOR PAIN (SCALE 4-6) NEEDED Diclofenac 2021-10 Yes [id number] Apply to [facility] Sodium 2-08 area(s) 4 ity of (VOLTAREN) 00:00: (four) [place] 1 % gel 00 times Medical daily. Branch Apply 4 g qid ezetimibe 2021-10 Yes [id number] 10mg Take 1 [facility] nivers 10 mg 2-08 tablet by ity of tablet 00:00: mouth in [place] 00 the Medical morning. Branch atorvastati 2021-10 Yes [id number] 20mg Take 1 [facility] n 20 mg 2-08 tablet by ity of tablet 00:00: mouth at [place] 00 bedtime. Medical Branch allopurinoL 2021-10 Yes [id number] 100mg Take 1 [facility] 100 mg 2-08 tablet by ity of tablet 00:00: mouth in [place] 00 the Medical morning. Branch amLODIPine 2021-10 Yes [id number] 5mg Take 1 [facility] n[facility] 5 mg tablet 2-08 tablet by ity of 00:00: mouth in [place] 00 the Medical morning. Branch atenoloL 2021-10 Yes [id number] 100mg Take 1 [facility] d[facility] 100 mg 2-08 tablet by ity of tablet 00:00: mouth in [place] 00 the Medical morning. Branch triamterene 2021-10 Yes [id number] .5{tbl} Take 0.5 [facility] -hydrochlor 2-08 tablets by it y of othiazid 00:00: mouth in [place] 37.5-25 mg 00 the Medical tablet morning. Branch metFORMIN 2021-10 Yes [id number] 1000mg Take 1 [facility] 1,000 mg 2-08 tablet by ity of tablet 00:00: mouth in [place] 00 the Medical morning Branch and 1 tablet in the evening. Take with meals. PEG 2021-10 Yes [id number] 1[drp] Place 1 U nivers 400-Hyprome 2-08 9109 Drop in ity o f llose-Glyce 00:00: each eye 2 [place] rin (DRY 00 (two) Medical EYE RELIEF) times Branch 1-0.2-0.2 % daily as Drop needed (Dry Eye). Lidocaine 5 2021-10 Yes [id number] APPLY 5 [facility] % cream 2-08 GRAM TO ity of 00:00: AREA(S) 2 [place] 00 (TWO) Medical TIMES Branch DAILY NEEDED FOR PAIN (SCALE 4-6) NEEDED Diclofenac 2021-10 Yes [id number] Apply to [facility] Sodium 2-08 area(s) 4 ity of (VOLTAREN) 00:00: (four) [place] 1 % gel 00 times Medical daily. Branch Apply 4 g qid ezetimibe 2021-10 Yes [id number] 10mg Take 1 [facility] nivers 10 mg 2-08 tablet by ity of tablet 00:00: mouth in [place] 00 the Medical morning. Branch atorvastati 2021-10 Yes [id number] 20mg Take 1 [facility] n 20 mg 2-08 tablet by ity of tablet 00:00: mouth at [place] 00 bedtime. Medical Branch allopurinoL 2021-10 Yes [id number] 100mg Take 1 [facility] 100 mg 2-08 tablet by ity of tablet 00:00: mouth in [place] 00 the Medical morning. Branch amLODIPine 2021-10 Yes [id number] 5mg Take 1 [facility] n[facility] 5 mg tablet 2-08 tablet by ity of 00:00: mouth in [place] 00 the Medical morning. Branch atenoloL 2021-10 Yes [id number] 100mg Take 1 [facility] 100 mg 2-08 tablet by ity of tablet 00:00: mouth in [place] 00 the Medical morning. Branch triamterene 2021-10 Yes [id number] .5{tbl} Take 0.5 [facility] -hydrochlor 2-08 tablets by it y of othiazid 00:00: mouth in [place] 37.5-25 mg 00 the Medical tablet morning. Branch metFORMIN 2021-10 Yes [id number] 1000mg Take 1 [facility] 1,000 mg 2-08 tablet by ity of tablet 00:00: mouth in [place] 00 the Medical morning Branch and 1 tablet in the evening. Take with meals. PEG 2021-10 Yes [id number] 1[drp] Place 1 U nivers 400-Hyprome 2-08 9109 Drop in ity o f llose-Glyce 00:00: each eye 2 [place] rin (DRY 00 (two) Medical EYE RELIEF) times Branch 1-0.2-0.2 % daily as Drop needed (Dry Eye). Lidocaine 5 2021-10 Yes [id number] APPLY 5 [facility] % cream 2-08 GRAM TO ity of 00:00: AREA(S) 2 [place] 00 (TWO) Medical TIMES Branch DAILY NEEDED FOR PAIN (SCALE 4-6) NEEDED Diclofenac 2021-10 Yes [id number] Apply to [facility] Sodium 2-08 area(s) 4 ity of (VOLTAREN) 00:00: (four) [place] 1 % gel 00 times Medical daily. Branch Apply 4 g qid ezetimibe 2021-10 Yes [id number] 10mg Take 1 [facility] nivers 10 mg 2-08 tablet by ity of tablet 00:00: mouth in [place] 00 the Medical morning. Branch atorvastati 2021-10 Yes [id number] 20mg Take 1 [facility] n 20 mg 2-08 tablet by ity of tablet 00:00: mouth at [place] 00 bedtime. Medical Branch allopurinoL 2021-10 Yes [id number] 100mg Take 1 [facility] 100 mg 2-08 tablet by ity of tablet 00:00: mouth in [place] 00 the Medical morning. Branch amLODIPine 2021-10 Yes [id number] 5mg Take 1 [facility] nivers 5 mg tablet 2-08 tablet by ity of 00:00: mouth in [place] 00 the Medical morning. Branch atenoloL 2021-10 Yes [id number] 100mg Take 1 [facility] d[facility] 100 mg 2-08 tablet by ity of tablet 00:00: mouth in [place] 00 the Medical morning. Branch metFORMIN 2021-10 Yes [id number] 1000mg Take 1 [facility] 1,000 mg 2-08 tablet by ity of tablet 00:00: mouth in [place] 00 the Medical morning Branch and 1 tablet in the evening. Take with meals. PEG 2021-10 Yes [id number] 1[drp] Place 1 U nivers 400-Hyprome 2-08 9109 Drop in ity o f llose-Glyce 00:00: each eye 2 [place] rin (DRY 00 (two) Medical EYE RELIEF) times Branch 1-0.2-0.2 % daily as Drop needed (Dry Eye). Lidocaine 5 2021-10 Yes [id number] APPLY 5 [facility] % cream 2-08 GRAM TO ity of 00:00: AREA(S) 2 [place] 00 (TWO) Medical TIMES Branch DAILY NEEDED FOR PAIN (SCALE 4-6) NEEDED Diclofenac 2021-10 Yes [id number] Apply to [facility] Sodium 2-08 area(s) 4 ity of (VOLTAREN) 00:00: (four) [place] 1 % gel 00 times Medical daily. Branch Apply 4 g qid ezetimibe 2021-10 Yes [id number] 10mg Take 1 [facility] nivers 10 mg 2-08 tablet by ity of tablet 00:00: mouth in [place] 00 the Medical morning. Branch atorvastati 2021-10 Yes [id number] 20mg Take 1 [facility] n 20 mg 2-08 tablet by ity of tablet 00:00: mouth at [place] [address] bedtime. Medical Branch allopurinoL 2021-10 Yes [id number] 100mg Take 1 [facility] 100 mg 2-08 tablet by ity of tablet 00:00: mouth in [place] 00 the Medical morning. Branch amLODIPine 2021-10 Yes [id number] 5mg Take 1 [facility] nivers 5 mg tablet 2-08 tablet by ity of 00:00: mouth in [place] the Medical morning. Branch atenoloL 2021-10 Yes [id number] 100mg Take 1 [facility] d[facility] 100 mg 2-08 tablet by ity of tablet 00:00: mouth in [place] 00 the Medical morning. Branch metFORMIN 2021-10 Yes [id number] 1000mg Take 1 [facility] 1,000 mg 2-08 tablet by ity of tablet 00:00: mouth in [place] 00 the Medical morning Branch and 1 tablet in the evening. Take with meals. PEG 2021-10 Yes [id number] 1[drp] Place 1 U nivers 400-Hyprome 2-08 9109 Drop in ity o f llose-Glyce 00:00: each eye 2 [place] rin (DRY 00 (two) Medical EYE RELIEF) times Branch 1-0.2-0.2 % daily as Drop needed (Dry Eye). Lidocaine 5 2021-10 Yes [id number] APPLY 5 [facility] % cream 2-08 GRAM TO ity of 00:00: AREA(S) 2 [place] 00 (TWO) Medical TIMES Branch DAILY NEEDED FOR PAIN (SCALE 4-6) NEEDED Diclofenac 2021-10 Yes [id number] Apply to [facility] Sodium 2-08 area(s) 4 ity of (VOLTAREN) 00:00: (four) [place] 1 % gel 00 times Medical daily. Branch Apply 4 g qid ezetimibe 2021-10 Yes [id number] 10mg Take 1 [facility] nivers 10 mg 2-08 tablet by ity of tablet 00:00: mouth in [place] 00 the Medical morning. Branch atorvastati 2021-10 Yes [id number] 20mg Take 1 [facility] n 20 mg 2-08 tablet by ity of tablet 00:00: mouth at [place] [address] bedtime. Medical Branch allopurinoL 2021-10 Yes [id number] 100mg Take 1 [facility] 100 mg 2-08 tablet by ity of tablet 00:00: mouth in [place] 00 the Medical morning. Branch amLODIPine 2021-10 Yes [id number] 5mg Take 1 [facility] nivers 5 mg tablet 2-08 tablet by ity of 00:00: mouth in [place] 00 the Medical morning. Branch atenoloL 2021-10 Yes [id number] 100mg Take 1 [facility] d[facility] 100 mg 2-08 tablet by ity of tablet 00:00: mouth in [place] 00 the Medical morning. Branch triamterene 2021-10 Yes [id number] .5{tbl} Take 0.5 [facility] -hydrochlor 2-08 tablets by it y of othiazid 00:00: mouth in [place] 37.5-25 mg 00 the Medical tablet morning. Branch methocarbam 2021-10 Yes [id number] 750mg Take 1 [facility] oL 750 mg 2-08 tablet by ity o f tablet 00:00: mouth [place] 00 every 6 Medical (six) Branch hours as needed (MUSCLE SPASM). metFORMIN 2021-10 Yes [id number] 1000mg Take 1 [facility] 1,000 mg 2-08 tablet by ity of tablet 00:00: mouth in [place] 00 the Medical morning Branch and 1 tablet in the evening. Take with meals. glipiZIDE 5 2021-10 Yes [id number] 5mg Take 1 [facility] mg tablet 2-08 tablet by ity o f 00:00: mouth in [place] 00 the Medical morning. Branch PEG 2021-10 Yes [id number] 1[drp] Place 1 U nivers 400-Hyprome 2-08 9109 Drop in ity o f llose-Glyce 00:00: each eye 2 [place] rin (DRY 00 (two) Medical EYE RELIEF) times Branch 1-0.2-0.2 % daily as Drop needed (Dry Eye). Lidocaine 5 2021-10 Yes [id number] APPLY 5 [facility] % cream 2-08 GRAM TO ity of 00:00: AREA(S) 2 [place] 00 (TWO) Medical TIMES Branch DAILY NEEDED FOR PAIN (SCALE 4-6) NEEDED Diclofenac 2021-10 Yes [id number] Apply to [facility] Sodium 2-08 area(s) 4 ity of (VOLTAREN) 00:00: (four) [place] 1 % gel 00 times Medical daily. Branch Apply 4 g qid ezetimibe 2021-10 Yes [id number] 10mg Take 1 [facility] nivers 10 mg 2-08 tablet by ity of tablet 00:00: mouth in [place] 00 the Medical morning. Branch atorvastati 2021-10 Yes [id number] 20mg Take 1 [facility] n 20 mg 2-08 tablet by ity of tablet 00:00: mouth at [place] 00 bedtime. Medical Branch allopurinoL 2021-10 Yes [id number] 100mg Take 1 [facility] 100 mg 2-08 tablet by ity of tablet 00:00: mouth in [place] 00 the Medical morning. Branch amLODIPine 2021-10 Yes [id number] 5mg Take 1 [facility] nivers 5 mg tablet 2-08 tablet by ity of 00:00: mouth in [place] 00 the Medical morning. Branch atenoloL 2021-10 Yes [id number] 100mg Take 1 [facility] d[facility] 100 mg 2-08 tablet by ity of tablet 00:00: mouth in [place] 00 the Medical morning. Branch triamterene 2021-10 Yes [id number] .5{tbl} Take 0.5 [facility] -hydrochlor 2-08 tablets by it y of othiazid 00:00: mouth in [place] 37.5-25 mg 00 the Medical tablet morning. Branch methocarbam 2021-10 Yes [id number] 750mg Take 1 [facility] oL 750 mg 2-08 tablet by ity o f tablet 00:00: mouth [place] 00 every 6 Medical (six) Branch hours as needed (MUSCLE SPASM). metFORMIN 2021-10 Yes [id number] 1000mg Take 1 [facility] 1,000 mg 2-08 tablet by ity of tablet 00:00: mouth in [place] 00 the Medical morning Branch and 1 tablet in the evening. Take with meals. glipiZIDE 5 2021-10 Yes [id number] 5mg Take 1 [facility] mg tablet 2-08 tablet by ity o f 00:00: mouth in [place] 00 the Medical morning. Branch PEG 2021-10 Yes [id number] 1[drp] Place 1 U nivers 400-Hyprome 2-08 9109 Drop in ity o f llose-Glyce 00:00: each eye 2 [place] rin (DRY 00 (two) Medical EYE RELIEF) times Branch 1-0.2-0.2 % daily as Drop needed (Dry Eye). Lidocaine 5 2021-10 Yes [id number] APPLY 5 [facility] % cream 2-08 GRAM TO ity of 00:00: AREA(S) 2 [place] 00 (TWO) Medical TIMES Branch DAILY NEEDED FOR PAIN (SCALE 4-6) NEEDED Diclofenac 2021-10 Yes [id number] Apply to [facility] Sodium 2-08 area(s) 4 ity of (VOLTAREN) 00:00: (four) [place] 1 % gel 00 times Medical daily. Branch Apply 4 g qid ezetimibe 2021-10 Yes [id number] 10mg Take 1 [facility] nivers 10 mg 2-08 tablet by ity of tablet 00:00: mouth in [place] 00 the Medical morning. Branch atorvastati 2021-10 Yes [id number] 20mg Take 1 [facility] n 20 mg 2-08 tablet by ity of tablet 00:00: mouth at [place] 00 bedtime. Medical Branch allopurinoL 2021-10 Yes [id number] 100mg Take 1 [facility] 100 mg 2-08 tablet by ity of tablet 00:00: mouth in [place] 00 the Medical morning. Branch amLODIPine 2021-10 Yes [id number] 5mg Take 1 [facility] nivers 5 mg tablet 2-08 tablet by ity of 00:00: mouth in [place] 00 the Medical morning. Branch atenoloL 2021-10 Yes [id number] 100mg Take 1 [facility] d[facility] 100 mg 2-08 tablet by ity of tablet 00:00: mouth in [place] 00 the Medical morning. Branch triamterene 2021-10 Yes [id number] .5{tbl} Take 0.5 [facility] -hydrochlor 2-08 tablets by it y of othiazid 00:00: mouth in [place] 37.5-25 mg 00 the Medical tablet morning. Branch methocarbam 2021-10 Yes [id number] 750mg Take 1 [facility] oL 750 mg 2-08 tablet by ity o f tablet 00:00: mouth [place] 00 every 6 Medical (six) Branch hours as needed (MUSCLE SPASM). metFORMIN 2021-10 Yes [id number] 1000mg Take 1 [facility] 1,000 mg 2-08 tablet by ity of tablet 00:00: mouth in [place] 00 the Medical morning Branch and 1 tablet in the evening. Take with meals. glipiZIDE 5 2021-10 Yes [id number] 5mg Take 1 [facility] mg tablet 2-08 tablet by ity o f 00:00: mouth in [place] 00 the Medical morning. Branch PEG 2021-10 Yes [id number] 1[drp] Place 1 U nivers 400-Hyprome 2-08 9109 Drop in ity o f llose-Glyce 00:00: each eye 2 [place] rin (DRY 00 (two) Medical EYE RELIEF) times Branch 1-0.2-0.2 % daily as Drop needed (Dry Eye). Lidocaine 5 2021-10 Yes [id number] APPLY 5 [facility] % cream 2-08 GRAM TO ity of 00:00: AREA(S) 2 [place] 00 (TWO) Medical TIMES Branch DAILY NEEDED FOR PAIN (SCALE 4-6) NEEDED Diclofenac 2021-10 Yes [id number] Apply to [facility] Sodium 2-08 area(s) 4 ity of (VOLTAREN) 00:00: (four) [place] 1 % gel 00 times Medical daily. Branch Apply 4 g qid ezetimibe 2021-10 Yes [id number] 10mg Take 1 [facility] nivers 10 mg 2-08 tablet by ity of tablet 00:00: mouth in [place] 00 the Medical morning. Branch atorvastati 2021-10 Yes [id number] 20mg Take 1 [facility] n 20 mg 2-08 tablet by ity of tablet 00:00: mouth at [place] 00 bedtime. Medical Branch allopurinoL 2021-10 Yes [id number] 100mg Take 1 [facility] 100 mg 2-08 tablet by ity of tablet 00:00: mouth in [place] 00 the Medical morning. Branch amLODIPine 2021-10 Yes [id number] 5mg Take 1 [facility] nivers 5 mg tablet 2-08 tablet by ity of 00:00: mouth in [place] 00 the Medical morning. Branch atenoloL 2021-10 Yes [id number] 100mg Take 1 Un daly 100 mg 2-08 tablet by ity of tablet 00:00: mouth in [place] 00 the Medical morning. Branch triamterene 2021-10 Yes [id number] .5{tbl} Take 0.5 [facility] -hydrochlor 2-08 tablets by it y of othiazid 00:00: mouth in [place] 37.5-25 mg 00 the Medical tablet morning. Branch methocarbam 2021-10 Yes [id number] 750mg Take 1 [facility] oL 750 mg 2-08 tablet by ity o f tablet 00:00: mouth [place] 00 every 6 Medical (six) Branch hours as needed (MUSCLE SPASM). metFORMIN 2021-10 Yes [id number] 1000mg Take 1 [facility] 1,000 mg 2-08 tablet by ity of tablet 00:00: mouth in [place] 00 the Medical morning Branch and 1 tablet in the evening. Take with meals. glipiZIDE 5 2021-10 Yes [id number] 5mg Take 1 [facility] mg tablet 2-08 tablet by ity o f 00:00: mouth in [place] 00 the Medical morning. Branch PEG 2021-10 Yes [id number] 1[drp] Place 1 U nivers 400-Hyprome 2-08 9109 Drop in ity o f llose-Glyce 00:00: each eye 2 [place] rin (DRY 00 (two) Medical EYE RELIEF) times Branch 1-0.2-0.2 % daily as Drop needed (Dry Eye). Lidocaine 5 2021-10 Yes [id number] APPLY 5 [facility] % cream 2-08 GRAM TO ity of 00:00: AREA(S) 2 [place] 00 (TWO) Medical TIMES Branch DAILY NEEDED FOR PAIN (SCALE 4-6) NEEDED Diclofenac 2021-10 Yes [id number] Apply to [facility] Sodium 2-08 area(s) 4 ity of (VOLTAREN) 00:00: (four) [place] 1 % gel 00 times Medical daily. Branch Apply 4 g qid ezetimibe 2021-10 Yes [id number] 10mg Take 1 U nivers 10 mg 2-08 tablet by ity of tablet 00:00: mouth in [place] 00 the Medical morning. Branch atorvastati 2021-10 Yes [id number] 20mg Take 1 [facility] n 20 mg 2-08 tablet by ity of tablet 00:00: mouth at [place] 00 bedtime. Medical Branch allopurinoL 2021-10 Yes [id number] 100mg Take 1 [facility] 100 mg 2-08 tablet by ity of tablet 00:00: mouth in [place] 00 the Medical morning. Branch amLODIPine 2021-10 Yes [id number] 5mg Take 1 U nivers 5 mg tablet 2-08 tablet by ity of 00:00: mouth in [place] 00 the Medical morning. Branch atenoloL 2021-10 Yes [id number] 100mg Take 1 Un daly 100 mg 2-08 tablet by ity of tablet 00:00: mouth in [place] 00 the Medical morning. Branch triamterene 2021-10 Yes [id number] .5{tbl} Take 0.5 [facility] -hydrochlor 2-08 tablets by it y of othiazid 00:00: mouth in [place] 37.5-25 mg 00 the Medical tablet morning. Branch metFORMIN 2021-10 Yes [id number] 1000mg Take 1 [facility] 1,000 mg 2-08 tablet by ity of tablet 00:00: mouth in [place] 00 the Medical morning Branch and 1 tablet in the evening. Take with meals. glipiZIDE 5 2021-10 Yes [id number] 5mg Take 1 [facility] mg tablet 2-08 tablet by ity o f 00:00: mouth in [place] 00 the Medical morning. Branch PEG 2021-10 Yes [id number] 1[drp] Place 1 U nivers 400-Hyprome 2-08 9109 Drop in ity o f llose-Glyce 00:00: each eye 2 [place] rin (DRY 00 (two) Medical EYE RELIEF) times Branch 1-0.2-0.2 % daily as Drop needed (Dry Eye). Lidocaine 5 2021-10 Yes [id number] APPLY 5 [facility] % cream 2-08 GRAM TO ity of 00:00: AREA(S) 2 [place] 00 (TWO) Medical TIMES Branch DAILY NEEDED FOR PAIN (SCALE 4-6) NEEDED Diclofenac 2021-10 Yes [id number] Apply to [facility] Sodium 2-08 area(s) 4 ity of (VOLTAREN) 00:00: (four) [place] 1 % gel 00 times Medical daily. Branch Apply 4 g qid ezetimibe 2021-10 Yes [id number] 10mg Take 1 U nivers 10 mg 2-08 tablet by ity of tablet 00:00: mouth in [place] 00 the Medical morning. Branch atorvastati 2021-10 Yes [id number] 20mg Take 1 [facility] n 20 mg 2-08 tablet by ity of tablet 00:00: mouth at [place] 00 bedtime. Medical Branch allopurinoL 2021-10 Yes [id number] 100mg Take 1 [facility] 100 mg 2-08 tablet by ity of tablet 00:00: mouth in [place] 00 the Medical morning. Branch amLODIPine 2021-10 Yes [id number] 5mg Take 1 U nivers 5 mg tablet 2-08 tablet by ity of 00:00: mouth in [place] 00 the Medical morning. Branch atenoloL 2021-10 Yes [id number] 100mg Take 1 Un daly 100 mg 2-08 tablet by ity of tablet 00:00: mouth in [place] 00 the Medical morning. Branch triamterene 2021-10 Yes [id number] .5{tbl} Take 0.5 [facility] -hydrochlor 2-08 tablets by it y of othiazid 00:00: mouth in [place] 37.5-25 mg 00 the Medical tablet morning. Branch metFORMIN 2021-10 Yes [id number] 1000mg Take 1 [facility] 1,000 mg 2-08 tablet by ity of tablet 00:00: mouth in [place] 00 the Medical morning Branch and 1 tablet in the evening. Take with meals. glipiZIDE 5 2021-10 Yes [id number] 5mg Take 1 [facility] mg tablet 2-08 tablet by ity o f 00:00: mouth in [place] 00 the Medical morning. Branch PEG 2021-10 Yes [id number] 1[drp] Place 1 U nivers 400-Hyprome 2- 9109 Drop in ity o f llose-Glyce 00:00: each eye 2 [place] rin (DRY 00 (two) Medical EYE RELIEF) times Branch 1-0.2-0.2 % daily as Drop needed (Dry Eye). triamterene 2021-10- No [id number] .5{tbl} Take 0.5 [facility] -hydrochlor 2-08 07-03 tablets by i ty of othiazid 00:00: 00:00 mouth in [facility] s 37.5-25 mg 00 :00 the Medical tablet morning. Branch glipiZIDE 5 2021-10- No [id number] 5mg Take 1 [facility] mg tablet 2-05 19-12 tablet by ity of 00:00: 00:00 mouth in [place] 00 :00 the Medical morning. Branch glipiZIDE 5 2021-10- No [id number] 5mg Take 1 [facility] mg tablet 2-08 -12 tablet by ity of 00:00: 00:00 mouth in [place] 00 :00 the Medical morning. Branch methocarbam 2021-10- No [id number] 750mg Take 1 [facility] oL 750 mg 2-05 14-17 tablet by ity of tablet 00:00: 00:00 mouth [place] 00 :00 every 6 Medical (six) Branch hours as needed (MUSCLE SPASM). ATORVASTATI 2021-10 Yes [id number] TAKE 1 [facility] N 20 mg 0-03 TABLET BY ity of tablet 00:00: MOUTH [place] 00 EVERYDAY Medical AT BEDTIME Branch ATORVASTATI 2021-10 Yes [id number] TAKE 1 [facility] N 20 mg 0-03 TABLET BY ity of tablet 00:00: MOUTH [place] 00 EVERYDAY Medical AT BEDTIME [facility] 2021-10 Yes [id number] TAKE 1 [facility] N 20 mg 0-03 TABLET BY ity of tablet 00:00: MOUTH [place] 00 EVERYDAY Medical AT [facility] 2021-10 Yes [id number] TAKE 1 [facility] N 20 mg 0-03 TABLET BY ity of tablet 00:00: MOUTH [place] 00 EVERYDAY Medical AT BEDTIME [facility] 2021-10 Yes [id number] TAKE 1 [facility] N 20 mg 0-03 TABLET BY ity of tablet 00:00: MOUTH [place] 00 EVERYDAY Medical AT BEDTIME [facility] 2021-10 Yes [id number] TAKE 1 [facility] N 20 mg 0-03 TABLET BY ity of tablet 00:00: MOUTH [place] EVERYDAY Medical AT [facility] 2021-10 Yes [id number] TAKE 1 [facility] N 20 mg 0-03 TABLET BY ity of tablet 00:00: MOUTH [place] [facility]10 Yes [id number] TAKE 1 [facility] N 20 mg 0-03 TABLET BY ity of tablet 00:00: MOUTH [place] 00 [facility]10 Yes [id number] TAKE 1 [facility] N 20 mg 0-03 TABLET BY ity of tablet 00:00: MOUTH [place] 00 EVERYDAY Medical AT [facility] 2021-10 Yes [id number] TAKE 1 [facility] N 20 mg 0-03 TABLET BY ity of tablet 00:00: MOUTH [place] 00 EVERYDAY Medical AT BEDTIME [facility] 2021-10 Yes [id number] TAKE 1 [facility] N 20 mg 0-03 TABLET BY ity of tablet 00:00: MOUTH [place] 00 EVERYDAY Medical AT BEDTIME [facility] 2021-2021- No [id number] TAKE 1 [facility] N 20 mg 0-03 12-08 TABLET BY ity of tablet 00:00: 00:00 MOUTH [place] 00 :00 EVERYDAY Medical AT BEDTIME [facility] 2021-2021- No [id number] TAKE 1 [facility] N 20 mg 0-03 12-08 TABLET BY ity of tablet 00:00: 00:00 MOUTH [place] 00 :00 EVERYDAY Medical AT BEDTIME Branch CHOLECALCIF 2021-0 Yes [id number] TAKE 1 [facility] LILLI, 9-30 CAPSULE BY ity of VITAMIN D3, 00:00: MOUTH [place] 50 mcg 00 EVERY DAY Medical (2,000 Branch unit) capsule fluticasone 2021-0 Yes [id number] SPRAY 1 [facility] propionate 9-30 SPRAY INTO ity of 50 00:00: EACH [place] mcg/actuati 00 NOSTRIL Medic al on nasal EVERY DAY Branch spray METFORMIN 2021-0 Yes [id number] TAKE 1 U nivers 1,000 mg 9-30 TABLET BY ity of tablet 00:00: MOUTH [place] 00 TWICE A Medical DAY WITH Branch MEALS ATENOLOL 2021-0 Yes [id number] TAKE 1 [facility] vers 100 mg 9-30 TABLET BY ity of tablet 00:00: MOUTH [place] 00 EVERY DAY Medical Branch CHOLECALCIF 2021-0 Yes [id number] TAKE 1 [facility] LILLI, 9-30 CAPSULE BY ity of VITAMIN D3, 00:00: MOUTH [place] 50 mcg 00 EVERY DAY Medical (2,000 Branch unit) capsule fluticasone 2021-0 Yes [id number] SPRAY 1 [facility] propionate 9-30 SPRAY INTO ity of 50 00:00: EACH [place] mcg/actuati 00 NOSTRIL Medic al on nasal EVERY DAY Branch spray METFORMIN 2021-0 Yes [id number] TAKE 1 U nivers 1,000 mg 9-30 TABLET BY ity of tablet 00:00: MOUTH [place] 00 TWICE A Medical DAY WITH Branch MEALS ATENOLOL 2021-0 Yes [id number] TAKE 1 [facility] vers 100 mg 9-30 TABLET BY ity of tablet 00:00: MOUTH [place] 00 EVERY DAY Medical Branch CHOLECALCIF 2021-0 Yes [id number] TAKE 1 [facility] LILLI, 9-30 CAPSULE BY ity of VITAMIN D3, 00:00: MOUTH [place] 50 mcg 00 EVERY DAY Medical (2,000 Branch unit) capsule fluticasone 2021-0 Yes [id number] SPRAY 1 [facility] propionate 9-30 SPRAY INTO ity of 50 00:00: EACH [place] mcg/actuati 00 NOSTRIL Medic al on nasal EVERY DAY Branch spray METFORMIN 2-0 Yes [id number] TAKE 1 U nivers 1,000 mg 9-30 TABLET BY ity of tablet 00:00: MOUTH [place] 00 TWICE A Medical DAY WITH Branch MEALS ATENOLOL 2021-0 Yes [id number] TAKE 1 [facility] vers 100 mg 9-30 TABLET BY ity of tablet 00:00: MOUTH [place] 00 EVERY DAY Medical Branch CHOLECALCIF 2021-0 Yes [id number] TAKE 1 [facility] LILLI, 9-30 CAPSULE BY ity of VITAMIN D3, 00:00: MOUTH [place] 50 mcg 00 EVERY DAY Medical (2,000 Branch unit) capsule fluticasone 2021-0 Yes [id number] SPRAY 1 [facility] propionate 9-30 SPRAY INTO ity of 50 00:00: EACH [place] mcg/actuati 00 NOSTRIL Medic al on nasal EVERY DAY Branch spray METFORMIN 2021-0 Yes [id number] TAKE 1 [facility] nivers 1,000 mg 9-30 TABLET BY ity of tablet 00:00: MOUTH [place] TWICE A Medical DAY WITH Branch MEALS ATENOLOL 2021-0 Yes [id number] TAKE 1 [facility] vers 100 mg 9-30 TABLET BY ity of tablet 00:00: MOUTH [place] 00 EVERY DAY Medical Branch CHOLECALCIF 2021-0 Yes [id number] TAKE 1 [facility] LILLI, 9-30 CAPSULE BY ity of VITAMIN D3, 00:00: MOUTH [place] 50 mcg 00 EVERY DAY Medical (2,000 Branch unit) capsule fluticasone 2021-0 Yes [id number] SPRAY 1 [facility] propionate 9-30 SPRAY INTO ity of 50 00:00: EACH [place] mcg/actuati 00 NOSTRIL Medic al on nasal EVERY DAY Branch spray METFORMIN 2021-0 Yes [id number] TAKE 1 [facility] nivers 1,000 mg 9-30 TABLET BY ity of tablet 00:00: MOUTH [place] TWICE A Medical DAY WITH Branch MEALS ATENOLOL 2021-0 Yes [id number] TAKE 1 [facility] vers 100 mg 9-30 TABLET BY ity of tablet 00:00: MOUTH [place] 00 EVERY DAY Medical Branch CHOLECALCIF 2021-0 Yes [id number] TAKE 1 [facility] LILLI, 9-30 CAPSULE BY ity of VITAMIN D3, 00:00: MOUTH [place] 50 mcg 00 EVERY DAY Medical (2,000 Branch unit) capsule fluticasone 2021-0 Yes [id number] SPRAY 1 [facility] propionate 9-30 SPRAY INTO ity of 50 00:00: EACH [place] mcg/actuati 00 NOSTRIL Medic al on nasal EVERY DAY Branch spray METFORMIN 2021-0 Yes [id number] TAKE 1 [facility] nivers 1,000 mg 9-30 TABLET BY ity of tablet 00:00: MOUTH [place] 00 TWICE A Medical DAY WITH Branch MEALS ATENOLOL 2021-0 Yes [id number] TAKE 1 [facility] vers 100 mg 9-30 TABLET BY ity of tablet 00:00: MOUTH [place] 00 EVERY DAY Medical Branch CHOLECALCIF 2021-0 Yes [id number] TAKE 1 [facility] LILLI, 9-30 CAPSULE BY ity of VITAMIN D3, 00:00: MOUTH [place] 50 mcg 00 EVERY DAY Medical (2,000 Branch unit) capsule fluticasone 2021-0 Yes [id number] SPRAY 1 [facility] propionate 9-30 SPRAY INTO ity of 50 00:00: EACH [place] mcg/actuati 00 NOSTRIL Medic al on nasal EVERY DAY Branch spray METFORMIN 2021-0 Yes [id number] TAKE 1 [facility] nivers 1,000 mg 9-30 TABLET BY ity of tablet 00:00: MOUTH [place] 00 TWICE A Medical DAY WITH Branch MEALS ATENOLOL 2021-0 Yes [id number] TAKE 1 [facility] vers 100 mg 9-30 TABLET BY ity of tablet 00:00: MOUTH [place] 00 EVERY DAY Medical Branch CHOLECALCIF 2021-0 Yes [id number] TAKE 1 [facility] LILLI, 9-30 CAPSULE BY ity of VITAMIN D3, 00:00: MOUTH [place] 50 mcg 00 EVERY DAY Medical (2,000 Branch unit) capsule fluticasone 2021-0 Yes [id number] SPRAY 1 [facility] propionate 9-30 SPRAY INTO ity of 50 00:00: EACH [place] mcg/actuati 00 NOSTRIL Medic al on nasal EVERY DAY Branch spray METFORMIN 2021-0 Yes [id number] TAKE 1 [facility]ivers 1,000 mg 9-30 TABLET BY ity of tablet 00:00: MOUTH [place] 00 TWICE A Medical DAY WITH Branch MEALS ATENOLOL 2021-0 Yes [id number] TAKE 1 [facility] vers 100 mg 9-30 TABLET BY ity of tablet 00:00: MOUTH [place] 00 EVERY DAY Medical Branch CHOLECALCIF 2021-0 Yes [id number] TAKE 1 [facility] LILLI, 9-30 CAPSULE BY ity of VITAMIN D3, 00:00: MOUTH [place] 50 mcg 00 EVERY DAY Medical (2,000 Branch unit) capsule fluticasone 2022-0 Yes [id number] SPRAY 1 [facility] propionate 9-30 SPRAY INTO ity of 50 00:00: EACH [place] mcg/actuati 00 NOSTRIL Medic al on nasal EVERY DAY Branch spray METFORMIN 2021-0 Yes [id number] TAKE 1 [facility] nivers 1,000 mg 9-30 TABLET BY ity of tablet 00:00: MOUTH [place] 00 TWICE A Medical DAY WITH Branch MEALS ATENOLOL 2021-0 Yes [id number] TAKE 1 [facility] vers 100 mg 9-30 TABLET BY ity of tablet 00:00: MOUTH [place] 00 EVERY DAY Medical Branch CHOLECALCIF 2021-0 Yes [id number] TAKE 1 [facility] LILLI, 9-30 CAPSULE BY ity of VITAMIN D3, 00:00: MOUTH [place] 50 mcg 00 EVERY DAY Medical (2,000 Branch unit) capsule fluticasone 2021-0 Yes [id number] SPRAY 1 [facility] propionate 9-30 SPRAY INTO ity of 50 00:00: EACH [place] mcg/actuati 00 NOSTRIL Medic al on nasal EVERY DAY Branch spray METFORMIN 2021-0 Yes [id number] TAKE 1 [facility] nivers 1,000 mg 9-30 TABLET BY ity of tablet 00:00: MOUTH [place] 00 TWICE A Medical DAY WITH Branch MEALS ATENOLOL 2021-0 Yes [id number] TAKE 1 [facility] vers 100 mg 9-30 TABLET BY ity of tablet 00:00: MOUTH [place] 00 EVERY DAY Medical Branch CHOLECALCIF 2021-0 Yes [id number] TAKE 1 [facility] LILLI, 9-30 CAPSULE BY ity of VITAMIN D3, 00:00: MOUTH [place] 50 mcg 00 EVERY DAY Medical (2,000 Branch unit) capsule fluticasone 2021-0 Yes [id number] SPRAY 1 [facility] propionate 9-30 SPRAY INTO ity of 50 00:00: EACH [place] mcg/actuati 00 NOSTRIL Medic al on nasal EVERY DAY Branch spray METFORMIN 2021-0 Yes [id number] TAKE 1 [facility] nivers 1,000 mg 9-30 TABLET BY ity of tablet 00:00: MOUTH [place] 00 TWICE A Medical DAY WITH Branch MEALS ATENOLOL 2021-0 Yes [id number] TAKE 1 [facility] vers 100 mg 9-30 TABLET BY ity of tablet 00:00: MOUTH [place] 00 EVERY DAY Medical Branch CHOLECALCIF 2021-0 Yes [id number] TAKE 1 [facility] LILLI, 9-30 CAPSULE BY ity of VITAMIN D3, 00:00: MOUTH [place] 50 mcg 00 EVERY DAY Medical (2,000 Branch unit) capsule fluticasone 2022-0 Yes [id number] SPRAY 1 [facility] propionate 9-30 SPRAY INTO ity of 50 00:00: EACH [place] mcg/actuati 00 NOSTRIL Medic al on nasal EVERY DAY Branch spray CHOLECALCIF 2022-0 Yes [id number] TAKE 1 [facility] LILLI, 9-30 CAPSULE BY ity of VITAMIN D3, 00:00: MOUTH [place] 50 mcg 00 EVERY DAY Medical (2,000 Branch unit) capsule fluticasone 2022-0 Yes [id number] SPRAY 1 [facility] propionate 9-30 SPRAY INTO ity of 50 00:00: EACH [place] mcg/actuati 00 NOSTRIL Medic al on nasal EVERY DAY Branch spray CHOLECALCIF 2022-0 Yes [id number] TAKE 1 [facility] LILLI, 9-30 CAPSULE BY ity of VITAMIN D3, 00:00: MOUTH [place] 50 mcg 00 EVERY DAY Medical (2,000 Branch unit) capsule fluticasone 2022-0 Yes [id number] SPRAY 1 [facility] propionate 9-30 SPRAY INTO ity of 50 00:00: EACH [place] mcg/actuati 00 NOSTRIL Medic al on nasal EVERY DAY Branch spray CHOLECALCIF 2022-0 Yes [id number] TAKE 1 [facility] LILLI, 9-30 CAPSULE BY ity of VITAMIN D3, 00:00: MOUTH [place] 50 mcg 00 EVERY DAY Medical (2,000 Branch unit) capsule fluticasone 2022-0 Yes [id number] SPRAY 1 [facility] propionate 9-30 SPRAY INTO ity of 50 00:00: EACH [place] mcg/actuati 00 NOSTRIL Medic al on nasal EVERY DAY Branch spray CHOLECALCIF 2022-0 Yes [id number] TAKE 1 [facility] LILLI, 9-30 CAPSULE BY ity of VITAMIN D3, 00:00: MOUTH [place] 50 mcg 00 EVERY DAY Medical (2,000 Branch unit) capsule fluticasone 2022-0 Yes [id number] SPRAY 1 [facility] propionate 9-30 SPRAY INTO ity of 50 00:00: EACH [place] mcg/actuati 00 NOSTRIL Medic al on nasal EVERY DAY Branch spray CHOLECALCIF 2022-0 Yes [id number] TAKE 1 [facility] LILLI, 9-30 CAPSULE BY ity of VITAMIN D3, 00:00: MOUTH [place] 50 mcg 00 EVERY DAY Medical (2,000 Branch unit) capsule fluticasone 2022-0 Yes [id number] SPRAY 1 [facility] propionate 9-30 SPRAY INTO ity of 50 00:00: EACH [place] mcg/actuati 00 NOSTRIL Medic al on nasal EVERY DAY Branch spray CHOLECALCIF 2022-0 Yes [id number] TAKE 1 [facility] LILLI, 9-30 CAPSULE BY ity of VITAMIN D3, 00:00: MOUTH [place] 50 mcg 00 EVERY DAY Medical (2,000 Branch unit) capsule fluticasone 2022-0 Yes [id number] SPRAY 1 [facility] propionate 9-30 SPRAY INTO ity of 50 00:00: EACH [place] mcg/actuati 00 NOSTRIL Medic al on nasal EVERY DAY Branch spray CHOLECALCIF 2022-0 Yes [id number] TAKE 1 [facility] LILLI, 9-30 CAPSULE BY ity of VITAMIN D3, 00:00: MOUTH [place] 50 mcg 00 EVERY DAY Medical (2,000 Branch unit) capsule fluticasone 2022-0 Yes [id number] SPRAY 1 [facility] propionate 9-30 SPRAY INTO ity of 50 00:00: EACH [place] mcg/actuati 00 NOSTRIL Medic al on nasal EVERY DAY Branch spray CHOLECALCIF 2022-0 Yes [id number] TAKE 1 [facility] LILLI, 9-30 CAPSULE BY ity of VITAMIN D3, 00:00: MOUTH [place] 50 mcg 00 EVERY DAY Medical (2,000 Branch unit) capsule fluticasone 2022-0 Yes [id number] SPRAY 1 [facility] propionate 9-30 SPRAY INTO ity of 50 00:00: EACH [place] mcg/actuati 00 NOSTRIL Medic al on nasal EVERY DAY Branch spray CHOLECALCIF 2022-0 Yes [id number] TAKE 1 [facility] LILLI, 9-30 CAPSULE BY ity of VITAMIN D3, 00:00: MOUTH [place] 50 mcg 00 EVERY DAY Medical (2,000 Branch unit) capsule fluticasone 2022-0 Yes [id number] SPRAY 1 [facility] propionate 9-30 SPRAY INTO ity of 50 00:00: EACH [place] mcg/actuati 00 NOSTRIL Medic al on nasal EVERY DAY Branch spray CHOLECALCIF 2022-0 Yes [id number] TAKE 1 [facility] LILLI, 9-30 CAPSULE BY ity of VITAMIN D3, 00:00: MOUTH [place] 50 mcg 00 EVERY DAY Medical (2,000 Branch unit) capsule fluticasone 2022-0 Yes [id number] SPRAY 1 [facility] propionate 9-30 SPRAY INTO ity of 50 00:00: EACH [place] mcg/actuati 00 NOSTRIL Medic al on nasal EVERY DAY Branch spray CHOLECALCIF 2022-0 Yes [id number] TAKE 1 [facility] LILLI, 9-30 CAPSULE BY ity of VITAMIN D3, 00:00: MOUTH [place] 50 mcg 00 EVERY DAY Medical (2,000 Branch unit) capsule fluticasone 2022-0 Yes [id number] SPRAY 1 [facility] propionate 9-30 SPRAY INTO ity of 50 00:00: EACH [place] mcg/actuati 00 NOSTRIL Medic al on nasal EVERY DAY Branch spray CHOLECALCIF 2022-0 Yes [id number] TAKE 1 [facility] LILLI, 9-30 CAPSULE BY ity of VITAMIN D3, 00:00: MOUTH [place] 50 mcg 00 EVERY DAY Medical (2,000 Branch unit) capsule fluticasone 2022-0 Yes [id number] SPRAY 1 [facility] propionate 9-30 SPRAY INTO ity of 50 00:00: EACH [place] mcg/actuati 00 NOSTRIL Medic al on nasal EVERY DAY Branch spray CHOLECALCIF 2022-0 Yes [id number] TAKE 1 [facility] LILLI, 9-30 CAPSULE BY ity of VITAMIN D3, 00:00: MOUTH [place] 50 mcg 00 EVERY DAY Medical (2,000 Branch unit) capsule fluticasone 2022-0 Yes [id number] SPRAY 1 [facility] propionate 9-30 SPRAY INTO ity of 50 00:00: EACH [place] mcg/actuati 00 NOSTRIL Medic al on nasal EVERY DAY Branch spray CHOLECALCIF 2022-0 Yes [id number] TAKE 1 [facility] LILLI, 9-30 CAPSULE BY ity of VITAMIN D3, 00:00: MOUTH [place] 50 mcg 00 EVERY DAY Medical (2,000 Branch unit) capsule fluticasone 2022-0 Yes [id number] SPRAY 1 [facility] propionate 9-30 SPRAY INTO ity of 50 00:00: EACH [place] mcg/actuati 00 NOSTRIL Medic al on nasal EVERY DAY Branch spray CHOLECALCIF 2022-0 Yes [id number] TAKE 1 [facility] LILLI, 9-30 CAPSULE BY ity of VITAMIN D3, 00:00: MOUTH [place] 50 mcg 00 EVERY DAY Medical (2,000 Branch unit) capsule fluticasone 2022-0 Yes [id number] SPRAY 1 [facility] propionate 9-30 SPRAY INTO ity of 50 00:00: EACH [place] mcg/actuati 00 NOSTRIL Medic al on nasal EVERY DAY Branch spray CHOLECALCIF 2022-0 Yes [id number] TAKE 1 [facility] LILLI, 9-30 CAPSULE BY ity of VITAMIN D3, 00:00: MOUTH [place] 50 mcg 00 EVERY DAY Medical (2,000 Branch unit) capsule fluticasone 2022-0 Yes [id number] SPRAY 1 [facility] propionate 9-30 SPRAY INTO ity of 50 00:00: EACH [place] mcg/actuati 00 NOSTRIL Medic al on nasal EVERY DAY Branch spray CHOLECALCIF 2022-0 Yes [id number] TAKE 1 [facility] LILLI, 9-30 CAPSULE BY ity of VITAMIN D3, 00:00: MOUTH [place] 50 mcg 00 EVERY DAY Medical (2,000 Branch unit) capsule fluticasone 2022-0 Yes [id number] SPRAY 1 [facility] propionate 9-30 SPRAY INTO ity of 50 00:00: EACH [place] mcg/actuati 00 NOSTRIL Medic al on nasal EVERY DAY Branch spray CHOLECALCIF 2022-0 Yes [id number] TAKE 1 [facility] LILLI, 9-30 CAPSULE BY ity of VITAMIN D3, 00:00: MOUTH [place] 50 mcg 00 EVERY DAY Medical (2,000 Branch unit) capsule fluticasone 2022-0 Yes [id number] SPRAY 1 [facility] propionate 9-30 SPRAY INTO ity of 50 00:00: EACH [place] mcg/actuati 00 NOSTRIL Medic al on nasal EVERY DAY Branch spray CHOLECALCIF 2022-0 Yes [id number] TAKE 1 [facility] LILLI, 9-30 CAPSULE BY ity of VITAMIN D3, 00:00: MOUTH [place] 50 mcg 00 EVERY DAY Medical (2,000 Branch unit) capsule fluticasone 2022-0 Yes [id number] SPRAY 1 [facility] propionate 9-30 SPRAY INTO ity of 50 00:00: EACH [place] mcg/actuati 00 NOSTRIL Medic al on nasal EVERY DAY Branch spray CHOLECALCIF 2022-0 Yes [id number] TAKE 1 [facility] LILLI, 9-30 CAPSULE BY ity of VITAMIN D3, 00:00: MOUTH [place] 50 mcg 00 EVERY DAY Medical (2,000 Branch unit) capsule fluticasone 2022-0 Yes [id number] SPRAY 1 [facility] propionate 9-30 SPRAY INTO ity of 50 00:00: EACH [place] mcg/actuati 00 NOSTRIL Medic al on nasal EVERY DAY Branch spray CHOLECALCIF 2022-0 Yes [id number] TAKE 1 [facility] LILLI, 9-30 CAPSULE BY ity of VITAMIN D3, 00:00: MOUTH [place] 50 mcg 00 EVERY DAY Medical (2,000 Branch unit) capsule fluticasone 2022-0 Yes [id number] SPRAY 1 [facility] propionate 9-30 SPRAY INTO ity of 50 00:00: EACH [place] mcg/actuati 00 NOSTRIL Medic al on nasal EVERY DAY Branch spray CHOLECALCIF 2022-0 Yes [id number] TAKE 1 [facility] LILLI, 9-30 CAPSULE BY ity of VITAMIN D3, 00:00: MOUTH [place] 50 mcg 00 EVERY DAY Medical (2,000 Branch unit) capsule fluticasone 2022-0 Yes [id number] SPRAY 1 [facility] propionate 9-30 SPRAY INTO ity of 50 00:00: EACH [place] mcg/actuati 00 NOSTRIL Medic al on nasal EVERY DAY Branch spray CHOLECALCIF 2022-0 Yes [id number] TAKE 1 [facility] LILLI, 9-30 CAPSULE BY ity of VITAMIN D3, 00:00: MOUTH [place] 50 mcg 00 EVERY DAY Medical (2,000 Branch unit) capsule fluticasone 2022-0 Yes [id number] SPRAY 1 [facility] propionate 9-30 SPRAY INTO ity of 50 00:00: EACH [place] mcg/actuati 00 NOSTRIL Medic al on nasal EVERY DAY Branch spray CHOLECALCIF 2022-0 Yes [id number] TAKE 1 [facility] LILLI, 9-30 CAPSULE BY ity of VITAMIN D3, 00:00: MOUTH [place] 50 mcg 00 EVERY DAY Medical (2,000 Branch unit) capsule fluticasone 2022-0 Yes [id number] SPRAY 1 [facility] propionate 9-30 SPRAY INTO ity of 50 00:00: EACH [place] mcg/actuati 00 NOSTRIL Medic al on nasal EVERY DAY Branch spray CHOLECALCIF 2022-0 Yes [id number] TAKE 1 [facility] LILLI, 9-30 CAPSULE BY ity of VITAMIN D3, 00:00: MOUTH [place] 50 mcg 00 EVERY DAY Medical (2,000 Branch unit) capsule fluticasone 2022-0 Yes [id number] SPRAY 1 [facility] propionate 9-30 SPRAY INTO ity of 50 00:00: EACH [place] mcg/actuati 00 NOSTRIL Medic al on nasal EVERY DAY Branch spray CHOLECALCIF 2022-0 Yes [id number] TAKE 1 [facility] LILLI, 9-30 CAPSULE BY ity of VITAMIN D3, 00:00: MOUTH [place] 50 mcg 00 EVERY DAY Medical (2,000 Branch unit) capsule fluticasone 2022-0 Yes [id number] SPRAY 1 [facility] propionate 9-30 SPRAY INTO ity of 50 00:00: EACH [place] mcg/actuati 00 NOSTRIL Medic al on nasal EVERY DAY Branch spray CHOLECALCIF 2022-0 Yes [id number] TAKE 1 [facility] LILLI, 9-30 CAPSULE BY ity of VITAMIN D3, 00:00: MOUTH [place] 50 mcg 00 EVERY DAY Medical (2,000 Branch unit) capsule fluticasone 2022-0 Yes [id number] SPRAY 1 [facility] propionate 9-30 SPRAY INTO ity of 50 00:00: EACH [place] mcg/actuati 00 NOSTRIL Medic al on nasal EVERY DAY Branch spray CHOLECALCIF 2022-0 Yes [id number] TAKE 1 [facility] LILLI, 9-30 CAPSULE BY ity of VITAMIN D3, 00:00: MOUTH [place] 50 mcg 00 EVERY DAY Medical (2,000 Branch unit) capsule fluticasone 2022-0 Yes [id number] SPRAY 1 [facility] propionate 9-30 SPRAY INTO ity of 50 00:00: EACH [place] mcg/actuati 00 NOSTRIL Medic al on nasal EVERY DAY Branch spray CHOLECALCIF 2022-0 Yes [id number] TAKE 1 [facility] LILLI, 9-30 CAPSULE BY ity of VITAMIN D3, 00:00: MOUTH [place] 50 mcg 00 EVERY DAY Medical (2,000 Branch unit) capsule fluticasone 2022-0 Yes [id number] SPRAY 1 [facility] propionate 9-30 SPRAY INTO ity of 50 00:00: EACH [place] mcg/actuati 00 NOSTRIL Medic al on nasal EVERY DAY Branch spray CHOLECALCIF 2022-0 Yes [id number] TAKE 1 [facility] LILLI, 9-30 CAPSULE BY ity of VITAMIN D3, 00:00: MOUTH [place] 50 mcg 00 EVERY DAY Medical (2,000 Branch unit) capsule fluticasone 2022-0 Yes [id number] SPRAY 1 [facility] propionate 9-30 SPRAY INTO ity of 50 00:00: EACH [place] mcg/actuati 00 NOSTRIL Medic al on nasal EVERY DAY Branch spray CHOLECALCIF 2022-0 Yes [id number] TAKE 1 [facility] LILLI, 9-30 CAPSULE BY ity of VITAMIN D3, 00:00: MOUTH [place] 50 mcg 00 EVERY DAY Medical (2,000 Branch unit) capsule fluticasone 2022-0 Yes [id number] SPRAY 1 [facility] propionate 9-30 SPRAY INTO ity of 50 00:00: EACH [place] mcg/actuati 00 NOSTRIL Medic al on nasal EVERY DAY Branch spray CHOLECALCIF 2022-0 Yes [id number] TAKE 1 [facility] LILLI, 9-30 CAPSULE BY ity of VITAMIN D3, 00:00: MOUTH [place] 50 mcg 00 EVERY DAY Medical (2,000 Branch unit) capsule fluticasone 2022-0 Yes [id number] SPRAY 1 [facility] propionate 9-30 SPRAY INTO ity of 50 00:00: EACH [place] mcg/actuati 00 NOSTRIL Medic al on nasal EVERY DAY Branch spray CHOLECALCIF 2022-0 Yes [id number] TAKE 1 [facility] LILLI, 9-30 CAPSULE BY ity of VITAMIN D3, 00:00: MOUTH [place] 50 mcg 00 EVERY DAY Medical (2,000 Branch unit) capsule fluticasone 2022-0 Yes [id number] SPRAY 1 [facility] propionate 9-30 SPRAY INTO ity of 50 00:00: EACH [place] mcg/actuati 00 NOSTRIL Medic al on nasal EVERY DAY Branch spray CHOLECALCIF 2022-0 Yes [id number] TAKE 1 [facility] LILLI, 9-30 CAPSULE BY ity of VITAMIN D3, 00:00: MOUTH [place] 50 mcg 00 EVERY DAY Medical (2,000 Branch unit) capsule fluticasone 2022-0 Yes [id number] SPRAY 1 [facility] propionate 9-30 SPRAY INTO ity of 50 00:00: EACH [place] mcg/actuati 00 NOSTRIL Medic al on nasal EVERY DAY Branch spray CHOLECALCIF 2022-0 Yes [id number] TAKE 1 [facility] LILLI, 9-30 CAPSULE BY ity of VITAMIN D3, 00:00: MOUTH [place] 50 mcg 00 EVERY DAY Medical (2,000 Branch unit) capsule fluticasone 2022-0 Yes [id number] SPRAY 1 [facility] propionate 9-30 SPRAY INTO ity of 50 00:00: EACH [place] mcg/actuati 00 NOSTRIL Medic al on nasal EVERY DAY Branch spray CHOLECALCIF 2022-0 Yes [id number] TAKE 1 [facility] LILLI, 9-30 CAPSULE BY ity of VITAMIN D3, 00:00: MOUTH [place] 50 mcg 00 EVERY DAY Medical (2,000 Branch unit) capsule fluticasone 2022-0 Yes [id number] SPRAY 1 [facility] propionate 9-30 SPRAY INTO ity of 50 00:00: EACH [place] mcg/actuati 00 NOSTRIL Medic al on nasal EVERY DAY Branch spray CHOLECALCIF 0 Yes [id number] TAKE 1 [facility] LILLI, 9-30 CAPSULE BY ity of VITAMIN D3, 00:00: MOUTH [place] 50 mcg 00 EVERY DAY Medical (2,000 Branch unit) capsule CHOLECALCIF 0 Yes [id number] TAKE 1 [facility] LILLI, 9-30 CAPSULE BY ity of VITAMIN D3, 00:00: MOUTH [place] 50 mcg 00 EVERY DAY Medical (2,000 Branch unit) capsule CHOLECALCIF 0 Yes [id number] TAKE 1 [facility] LILLI, 9-30 CAPSULE BY ity of VITAMIN D3, 00:00: MOUTH [place] 50 mcg 00 EVERY DAY Medical (2,000 Branch unit) capsule fluticasone 2022- No [id number] SPRAY 1 [facility] propionate 07-13 SPRAY INTO it y of 50 00:00: 00:00 EACH [place] mcg/actuati 00 :00 NOSTRIL Medic al on nasal EVERY DAY Branch spray METFORMIN 2021- No [id number] TAKE 1 [facility] 1,000 mg 9-30 12-08 TABLET BY ity o f tablet 00:00: 00:00 MOUTH [place] 00 :00 TWICE A Medical DAY WITH Branch MEALS ATENOLOL 2021- No [id number] TAKE 1 [facility] daly 100 mg 9-30 12-08 TABLET BY ity of tablet 00:00: 00:00 MOUTH [place] 00 :00 EVERY DAY Medical Branch METFORMIN 2021-2021- No [id number] TAKE 1 [facility] 1,000 mg 9-30 12-08 TABLET BY ity o f tablet 00:00: 00:00 MOUTH [place] 00 :00 TWICE A Medical DAY WITH Branch MEALS ATENOLOL 0 2021- No [id number] TAKE 1 Un daly 100 mg 9-30 12-08 TABLET BY ity of tablet 00:00: [...] IV ity of PF 23:45: 23:42 [place], [place] injection 00 :00 ONCE, 1 Medical 10 [...] 07/06/22 at 1800, Routine colchicine 2021- No [id number] .6mg Take 1 [facility] 0.6 mg 07-06 tablet by ity of tablet 00:00: 04:59 mouth in [place] 00 :00 the Medical morning Branch and 1 tablet in the evening. Do all this for 3 days. methylPREDN 2021- No [id number] 80mg [facility] ISolone 06-21 ity of acetate 22:45: 16:08 [place] (DEPO-MEDRO 00 :00 Medical L) Branch injection 80 mg methylPREDN 2021- No [id number] 80mg 80 mg, [facility] ISolone 06-21 Intra-jovanna ity o f acetate 22:45: 16:08 [place], [place] (DEPO-MEDRO 00 :00 ONCE, 1 Medic al L) dose, On Branch injection Danni 06/21/22 80 mg at 1745, Routine amoxicillin 2021-0 Yes [id number] 1{tbl} Take 1 [facility] -clavulanat 06-14 tablet by ity of e 00:00: mouth in [place] (AUGMENTIN) 00 the Medical 875-125 mg morning Branch per tablet and 1 tablet in the evening. TRIAMTERENE Yes [id number] TAKE 1/2 [facility] -HYDROCHLOR - TABLET BY ity of OTHIAZID 00:00: MOUTH [place] 37.5-25 mg 00 EVERY DAY Medi terri tablet Branch amoxicillin 2022-0 Yes [id number] 1{tbl} Take 1 [facility] -clavulanat 9-01 tablet by ity of e 00:00: mouth in [place] (AUGMENTIN) 00 the Medical 875-125 mg morning Branch per tablet and 1 tablet in the evening. TRIAMTERENE 2022-0 Yes [id number] TAKE 1/2 [facility] -HYDROCHLOR 9-01 TABLET BY ity of OTHIAZID 00:00: MOUTH [place] 37.5-25 mg 00 EVERY DAY Medi terri tablet Branch amoxicillin 2022-0 Yes [id number] 1{tbl} Take 1 [facility] -clavulanat 9-01 tablet by ity of e 00:00: mouth in [place] (AUGMENTIN) 00 the Medical 875-125 mg morning Branch per tablet and 1 tablet in the evening. TRIAMTERENE 2022-0 Yes [id number] TAKE 1/2 [facility] -HYDROCHLOR 9-01 TABLET BY ity of OTHIAZID 00:00: MOUTH [place] 37.5-25 mg 00 EVERY DAY Medi terri tablet Branch amoxicillin 2022-0 Yes [id number] 1{tbl} Take 1 [facility] -clavulanat 9-01 tablet by ity of e 00:00: mouth in [place] (AUGMENTIN) 00 the Medical 875-125 mg morning Branch per tablet and 1 tablet in the evening. TRIAMTERENE 2022-0 Yes [id number] TAKE 1/2 [facility] -HYDROCHLOR 9-01 TABLET BY ity of OTHIAZID 00:00: MOUTH [place] 37.5-25 mg 00 EVERY DAY Medi terri tablet Branch amoxicillin 2022-0 Yes [id number] 1{tbl} Take 1 [facility] -clavulanat 9-01 tablet by ity of e 00:00: mouth in [place] (AUGMENTIN) 00 the Medical 875-125 mg morning Branch per tablet and 1 tablet in the evening. TRIAMTERENE 2022-0 Yes [id number] TAKE 1/2 [facility] -HYDROCHLOR 9-01 TABLET BY ity of OTHIAZID 00:00: MOUTH [place] 37.5-25 mg 00 EVERY DAY Medi terri tablet Branch amoxicillin 2022-0 Yes [id number] 1{tbl} Take 1 [facility] -clavulanat 9-01 tablet by ity of e 00:00: mouth in [place] (AUGMENTIN) 00 the Medical 875-125 mg morning Branch per tablet and 1 tablet in the evening. TRIAMTERENE 2022-0 Yes [id number] TAKE 1/2 [facility] -HYDROCHLOR 9-01 TABLET BY ity of OTHIAZID 00:00: MOUTH [place] 37.5-25 mg 00 EVERY DAY Medi terri tablet Branch amoxicillin 2022-0 Yes [id number] 1{tbl} Take 1 [facility] -clavulanat 9-01 tablet by ity of e 00:00: mouth in [place] (AUGMENTIN) 00 the Medical 875-125 mg morning Branch per tablet and 1 tablet in the evening. TRIAMTERENE 2022-0 Yes [id number] TAKE 1/2 [facility] -HYDROCHLOR 9-01 TABLET BY ity of OTHIAZID 00:00: MOUTH [place] 37.5-25 mg 00 EVERY DAY Medi terri tablet Branch amoxicillin 2022-0 Yes [id number] 1{tbl} Take 1 [facility] -clavulanat 9-01 tablet by ity of e 00:00: mouth in [place] (AUGMENTIN) 00 the Medical 875-125 mg morning Branch per tablet and 1 tablet in the evening. TRIAMTERENE 2-0 Yes [id number] TAKE 1/2 [facility] -HYDROCHLOR 9-01 TABLET BY ity of OTHIAZID 00:00: MOUTH [place] 37.5-25 mg 00 EVERY DAY Medi terri tablet Branch amoxicillin 2022-0 Yes [id number] 1{tbl} Take 1 [facility] -clavulanat 9-01 tablet by ity of e 00:00: mouth in [place] (AUGMENTIN) 00 the Medical 875-125 mg morning Branch per tablet and 1 tablet in the evening. TRIAMTERENE 2-0 Yes [id number] TAKE 1/2 [facility] -HYDROCHLOR 9-01 TABLET BY ity of OTHIAZID 00:00: MOUTH [place] 37.5-25 mg 00 EVERY DAY Medi terri tablet Branch amoxicillin 2022-0 Yes [id number] 1{tbl} Take 1 [facility] -clavulanat 9-01 tablet by ity of e 00:00: mouth in [place] (AUGMENTIN) 00 the Medical 875-125 mg morning Branch per tablet and 1 tablet in the evening. TRIAMTERENE 2022-0 Yes [id number] TAKE 1/2 [facility] -HYDROCHLOR 9-01 TABLET BY ity of OTHIAZID 00:00: MOUTH [place] 37.5-25 mg 00 EVERY DAY Medi terri tablet Branch amoxicillin 2022-0 Yes [id number] 1{tbl} Take 1 [facility] -clavulanat 9-01 tablet by ity of e 00:00: mouth in [place] (AUGMENTIN) 00 the Medical 875-125 mg morning Branch per tablet and 1 tablet in the evening. TRIAMTERENE 2022-0 Yes [id number] TAKE 1/2 [facility] -HYDROCHLOR 9-01 TABLET BY ity of OTHIAZID 00:00: MOUTH [place] 37.5-25 mg 00 EVERY DAY Medi terri tablet Branch amoxicillin 2022-0 Yes [id number] 1{tbl} Take 1 [facility] -clavulanat 9-01 tablet by ity of e 00:00: mouth in [place] (AUGMENTIN) 00 the Medical 875-125 mg morning Branch per tablet and 1 tablet in the evening. TRIAMTERENE 2022-0 Yes [id number] TAKE 1/2 [facility] -HYDROCHLOR 9-01 TABLET BY ity of OTHIAZID 00:00: MOUTH [place] 37.5-25 mg 00 EVERY DAY Medi terri tablet Branch amoxicillin 2022-0 Yes [id number] 1{tbl} Take 1 [facility] -clavulanat 9-01 tablet by ity of e 00:00: mouth in [place] (AUGMENTIN) 00 the Medical 875-125 mg morning Branch per tablet and 1 tablet in the evening. TRIAMTERENE 2022-0 Yes [id number] TAKE 1/2 [facility] -HYDROCHLOR 9-01 TABLET BY ity of OTHIAZID 00:00: MOUTH [place] 37.5-25 mg 00 EVERY DAY Medi terri tablet Branch amoxicillin 2022-0 Yes [id number] 1{tbl} Take 1 [facility] -clavulanat 9-01 tablet by ity of e 00:00: mouth in [place] (AUGMENTIN) 00 the Medical 875-125 mg morning Branch per tablet and 1 tablet in the evening. TRIAMTERENE 2022-0 Yes [id number] TAKE 1/2 [facility] -HYDROCHLOR 9-01 TABLET BY ity of OTHIAZID 00:00: MOUTH [place] 37.5-25 mg 00 EVERY DAY Medi terri tablet Branch amoxicillin 2022-0 Yes [id number] 1{tbl} Take 1 [facility] -clavulanat 9-01 tablet by ity of e 00:00: mouth in [place] (AUGMENTIN) 00 the Medical 875-125 mg morning Branch per tablet and 1 tablet in the evening. TRIAMTERENE Yes [id number] TAKE 1/2 [facility] -HYDROCHLOR 9- TABLET BY ity of OTHIAZID 00:00: MOUTH [place] 37.5-25 mg 00 EVERY DAY Medi terri tablet Branch amoxicillin 2021- No [id number] 1{tbl} Take 1 [facility] -clavulanat 9- 12-08 tablet by it y of e 00:00: 00:00 mouth in [place] (AUGMENTIN) 00 :00 the Medical 875-125 mg morning Branch per tablet and 1 tablet in the evening. TRIAMTERENE 2021- No [id number] TAKE 1/2 [facility] -HYDROCHLOR 9- 12- TABLET BY it y of OTHIAZID 00:00: 00:00 MOUTH [place] 37.5-25 mg 00 :00 EVERY DAY Medi terri tablet Branch amoxicillin 2021- No [id number] 1{tbl} Take 1 [facility] -clavulanat -10 25- tablet by it y of e 00:00: 00:00 mouth in [place] (AUGMENTIN) 00 :00 the Medical 875-125 mg morning Branch per tablet and 1 tablet in the evening. TRIAMTERENE 2021- No [id number] TAKE 1/2 [facility] -HYDROCHLOR -10 25- TABLET BY it y of OTHIAZID 00:00: 00:00 MOUTH [place] 37.5-25 mg 00 :00 EVERY DAY Medi terri tablet Branch LIDOCAINE 5 2021-0 Yes [id number] APPLY 5 [facility] % cream 8-19 GRAM TO ity of 00:00: AREA(S) 2 [place] 00 (TWO) Medical TIMES Branch DAILY NEEDED FOR PAIN (SCALE 4-6) NEEDED LIDOCAINE 5 2021-0 Yes [id number] APPLY 5 [facility] % cream 8-19 GRAM TO ity of 00:00: AREA(S) 2 [place] 00 (TWO) Medical TIMES Branch DAILY NEEDED FOR PAIN (SCALE 4-6) NEEDED LIDOCAINE 5 2021-0 Yes [id number] APPLY 5 [facility] % cream 8-19 GRAM TO ity of 00:00: AREA(S) 2 [place] [address] (TWO) Medical TIMES Branch DAILY NEEDED FOR PAIN (SCALE 4-6) NEEDED LIDOCAINE 5 2021-0 Yes [id number] APPLY 5 [facility] % cream 8-19 GRAM TO ity of 00:00: AREA(S) 2 [place] (TWO) Medical TIMES Branch DAILY NEEDED FOR PAIN (SCALE 4-6) NEEDED LIDOCAINE 5 2021-0 Yes [id number] APPLY 5 [facility] % cream 8-19 GRAM TO ity of 00:00: AREA(S) 2 [place] (TWO) Medical TIMES Branch DAILY NEEDED FOR PAIN (SCALE 4-6) NEEDED LIDOCAINE 5 2021-0 Yes [id number] APPLY 5 [facility] % cream 8-19 GRAM TO ity of 00:00: AREA(S) 2 [place] (TWO) Medical TIMES Branch DAILY NEEDED FOR PAIN (SCALE 4-6) NEEDED LIDOCAINE 5 2021-0 Yes [id number] APPLY 5 [facility] % cream 8-19 GRAM TO ity of 00:00: AREA(S) 2 [place] (TWO) Medical TIMES Branch DAILY NEEDED FOR PAIN (SCALE 4-6) NEEDED LIDOCAINE 5 2021-0 Yes [id number] APPLY 5 [facility] % cream 8-19 GRAM TO ity of 00:00: AREA(S) 2 [place] (TWO) Medical TIMES Branch DAILY NEEDED FOR PAIN (SCALE 4-6) NEEDED LIDOCAINE 5 2021-0 Yes [id number] APPLY 5 [facility] % cream 8-19 GRAM TO ity of 00:00: AREA(S) 2 [place] 00 (TWO) Medical TIMES Branch DAILY NEEDED FOR PAIN (SCALE 4-6) NEEDED LIDOCAINE 5 2021-0 Yes [id number] APPLY 5 [facility] % cream 8-19 GRAM TO ity of 00:00: AREA(S) 2 [place] (TWO) Medical TIMES Branch DAILY NEEDED FOR PAIN (SCALE 4-6) NEEDED LIDOCAINE 5 2021-0 Yes [id number] APPLY 5 [facility] % cream 8-19 GRAM TO ity of 00:00: AREA(S) 2 [place] (TWO) Medical TIMES Branch DAILY NEEDED FOR PAIN (SCALE 4-6) NEEDED LIDOCAINE 5 2021-0 Yes [id number] APPLY 5 [facility] % cream 8-19 GRAM TO ity of 00:00: AREA(S) 2 [place] (TWO) Medical TIMES Branch DAILY NEEDED FOR PAIN (SCALE 4-6) NEEDED LIDOCAINE 5 2021-0 Yes [id number] APPLY 5 [facility] % cream 8-19 GRAM TO ity of 00:00: AREA(S) 2 [place] 00 (TWO) Medical TIMES Branch DAILY NEEDED FOR PAIN (SCALE 4-6) NEEDED LIDOCAINE 5 2021-0 Yes [id number] APPLY 5 [facility] % cream 8-19 GRAM TO ity of 00:00: AREA(S) 2 [place] 00 (TWO) Medical TIMES Branch DAILY NEEDED FOR PAIN (SCALE 4-6) NEEDED LIDOCAINE 5 2021-0 Yes [id number] APPLY 5 [facility] % cream 8-19 GRAM TO ity of 00:00: AREA(S) 2 [place] 00 (TWO) Medical TIMES Branch DAILY NEEDED FOR PAIN (SCALE 4-6) NEEDED LIDOCAINE 5 2021-0 202- No [id number] APPLY 5 [facility] % cream 8-19 12-08 GRAM TO ity of 00:00: 00:00 AREA(S) 2 [place] 00 :00 (TWO) Medical TIMES Branch DAILY NEEDED FOR PAIN (SCALE 4-6) NEEDED LIDOCAINE 5 2021-0 2021- No [id number] APPLY 5 [facility] % cream 8-19 12-08 GRAM TO ity of 00:00: 00:00 AREA(S) 2 [place] 00 :00 (TWO) Medical TIMES Branch DAILY NEEDED FOR PAIN (SCALE 4-6) NEEDED methocarbam 2022-0 Yes [id number] 750mg Take 1 [facility] oL 750 mg 8-17 tablet by ity o f tablet 00:00: mouth 4 [place] 00 (four) Medical times Branch daily. Diclofenac 2022-0 Yes [id number] Apply to [facility] Sodium 8-17 area(s) 4 ity of (VOLTAREN) 00:00: (four) [place] 1 % gel 00 times Medical daily. Branch Apply 4 g qid methocarbam 2022-0 Yes [id number] 750mg Take 1 [facility] oL 750 mg 8-17 tablet by ity o f tablet 00:00: mouth 4 [place] 00 (four) Medical times Branch daily. Diclofenac 2022-0 Yes [id number] Apply to [facility] Sodium 8-17 area(s) 4 ity of (VOLTAREN) 00:00: (four) [place] 1 % gel 00 times Medical daily. Branch Apply 4 g qid methocarbam 2022-0 Yes [id number] 750mg Take 1 [facility] oL 750 mg 8-17 tablet by ity o f tablet 00:00: mouth 4 00 (four) Medical times Branch daily. Diclofenac 2022-0 Yes [id number] Apply to [facility] Sodium 8-17 area(s) 4 ity of (VOLTAREN) 00:00: (four) [place] 1 % gel 00 times Medical daily. Branch Apply 4 g qid methocarbam 2022-0 Yes [id number] 750mg Take 1 [facility] oL 750 mg 8-17 tablet by ity o f tablet 00:00: mouth 4 00 (four) Medical times Branch daily. Diclofenac 2022-0 Yes [id number] Apply to [facility] Sodium 8-17 area(s) 4 ity of (VOLTAREN) 00:00: (four) [place] 1 % gel 00 times Medical daily. Branch Apply 4 g qid methocarbam 2022-0 Yes [id number] 750mg Take 1 [facility] oL 750 mg 8-17 tablet by ity o f tablet 00:00: mouth 4 (four) Medical times Branch daily. Diclofenac 2022-0 Yes [id number] Apply to [facility] Sodium 8-17 area(s) 4 ity of (VOLTAREN) 00:00: (four) [place] 1 % gel 00 times Medical daily. Branch Apply 4 g qid methocarbam 2022-0 Yes [id number] 750mg Take 1 [facility] oL 750 mg 8-17 tablet by ity o f tablet 00:00: mouth 4 (four) Medical times Branch daily. Diclofenac 2022-0 Yes [id number] Apply to [facility] Sodium 8-17 area(s) 4 ity of (VOLTAREN) 00:00: (four) [place] 1 % gel 00 times Medical daily. Branch Apply 4 g qid methocarbam 2022-0 Yes [id number] 750mg Take 1 [facility] oL 750 mg 8-17 tablet by ity o f tablet 00:00: mouth 4 (four) Medical times Branch daily. Diclofenac 2022-0 Yes [id number] Apply to [facility] Sodium 8-17 area(s) 4 ity of (VOLTAREN) 00:00: (four) [place] 1 % gel 00 times Medical daily. Branch Apply 4 g qid methocarbam 2022-0 Yes [id number] 750mg Take 1 [facility] oL 750 mg 8-17 tablet by ity o f tablet 00:00: mouth 4 [place] 00 (four) Medical times Branch daily. Diclofenac 2022-0 Yes [id number] Apply to [facility] Sodium 8-17 area(s) 4 ity of (VOLTAREN) 00:00: (four) [place] 1 % gel 00 times Medical daily. Branch Apply 4 g qid methocarbam 2022-0 Yes [id number] 750mg Take 1 [facility] oL 750 mg 8-17 tablet by ity o f tablet 00:00: mouth 4 [place] 00 (four) Medical times Branch daily. Diclofenac 2022-0 Yes [id number] Apply to [facility] Sodium 8-17 area(s) 4 ity of (VOLTAREN) 00:00: (four) [place] 1 % gel 00 times Medical daily. Branch Apply 4 g qid methocarbam 2022-0 Yes [id number] 750mg Take 1 [facility] oL 750 mg 8-17 tablet by ity o f tablet 00:00: mouth 4 [place] 00 (four) Medical times Branch daily. Diclofenac 2022-0 Yes [id number] Apply to [facility] Sodium 8-17 area(s) 4 ity of (VOLTAREN) 00:00: (four) [place] 1 % gel 00 times Medical daily. Branch Apply 4 g qid methocarbam 2022-0 Yes [id number] 750mg Take 1 [facility] oL 750 mg 8-17 tablet by ity o f tablet 00:00: mouth 4 (four) Medical times Branch daily. Diclofenac 2022-0 Yes [id number] Apply to [facility] Sodium 8-17 area(s) 4 ity of (VOLTAREN) 00:00: (four) [place] 1 % gel 00 times Medical daily. Branch Apply 4 g qid methocarbam 2022-0 Yes [id number] 750mg Take 1 [facility] oL 750 mg 8-17 tablet by ity o f tablet 00:00: mouth 4 [place] 00 (four) Medical times Branch daily. Diclofenac 2022-0 Yes [id number] Apply to [facility] Sodium 8-17 area(s) 4 ity of (VOLTAREN) 00:00: (four) [place] 1 % gel 00 times Medical daily. Branch Apply 4 g qid methocarbam 2022-0 Yes [id number] 750mg Take 1 [facility] oL 750 mg 8-17 tablet by ity o f tablet 00:00: mouth 4 [place] 00 (four) Medical times Branch daily. Diclofenac 2022-0 Yes [id number] Apply to [facility] Sodium 8-17 area(s) 4 ity of (VOLTAREN) 00:00: (four) [place] 1 % gel 00 times Medical daily. Branch Apply 4 g qid methocarbam 2021-0 Yes [id number] 750mg Take 1 [facility] oL 750 mg 8-17 tablet by ity o f tablet 00:00: mouth 4 [place] 00 (four) Medical times Branch daily. Diclofenac 2021-0 Yes [id number] Apply to [facility] Sodium 8-17 area(s) 4 ity of (VOLTAREN) 00:00: (four) [place] 1 % gel 00 times Medical daily. Branch Apply 4 g qid methocarbam 2021-0 Yes [id number] 750mg Take 1 [facility] oL 750 mg 8-17 tablet by ity o f tablet 00:00: mouth 4 [place] 00 (four) Medical times Branch daily. Diclofenac 2021-0 Yes [id number] Apply to [facility] Sodium 8-17 area(s) 4 ity of (VOLTAREN) 00:00: (four) [place] 1 % gel 00 times Medical daily. Branch Apply 4 g qid methocarbam 2021-0 Yes [id number] 750mg Take 1 [facility] oL 750 mg 8-17 tablet by ity o f tablet 00:00: mouth 4 [place] (four) Medical times Branch daily. methocarbam 2021-0 Yes [id number] 750mg Take 1 [facility] oL 750 mg 8-17 tablet by ity o f tablet 00:00: mouth 4 [place] 00 (four) Medical times Branch daily. methocarbam 2021-0 Yes [id number] 750mg Take 1 [facility] oL 750 mg 8-17 tablet by ity o f tablet 00:00: mouth 4 [place] (four) Medical times Branch daily. methocarbam 2021-0 Yes [id number] 750mg Take 1 [facility] oL 750 mg 8-17 tablet by ity o f tablet 00:00: mouth 4 [place] (four) Medical times Branch daily. methocarbam 2021-0 2022- No [id number] 750mg Take 1 [facility] oL 750 mg 8-17 01-17 tablet by ity of tablet 00:00: 00:00 mouth 4 [place] 00 :00 (four) Medical times Branch daily. Diclofenac 2021-0 2021- No [id number] Apply to [facility] Sodium 8-17 12-08 area(s) 4 ity of (VOLTAREN) 00:00: 00:00 (four) [place] 1 % gel 00 :00 times Medical daily. Branch Apply 4 g qid Diclofenac 0 2021- No [id number] Apply to [facility] Sodium 17 09-20 area(s) 4 ity of (VOLTAREN) 00:00: 00:00 (four) [place] 1 % gel 00 :00 times Medical daily. Branch Apply 4 g qid AMLODIPINE 0 Yes [id number] TAKE 1 [facility] n[facility] 5 mg tablet 7-11 TABLET BY ity of 00:00: MOUTH [place] 00 EVERY DAY Medical Branch ALLOPURINOL 2021-0 Yes [id number] TAKE 1 [facility] 100 mg 7-11 TABLET BY ity of tablet 00:00: MOUTH [place] 00 EVERY DAY Medical Branch AMLODIPINE 2021-0 Yes [id number] TAKE 1 U nivers 5 mg tablet 7-11 TABLET BY ity of 00:00: MOUTH [place] 00 EVERY DAY Medical Branch ALLOPURINOL 2021-0 Yes [id number] TAKE 1 [facility] 100 mg 7-11 TABLET BY ity of tablet 00:00: MOUTH [place] 00 EVERY DAY Medical Branch AMLODIPINE 2021-0 Yes [id number] TAKE 1 U nivers 5 mg tablet 7-11 TABLET BY ity of 00:00: MOUTH [place] 00 EVERY DAY Medical Branch ALLOPURINOL 2021-0 Yes [id number] TAKE 1 [facility] 100 mg 7-11 TABLET BY ity of tablet 00:00: MOUTH [place] 00 EVERY DAY Medical Branch AMLODIPINE 2021-0 Yes [id number] TAKE 1 U nivers 5 mg tablet 7-11 TABLET BY ity of 00:00: MOUTH [place] 00 EVERY DAY Medical Branch ALLOPURINOL 2021-0 Yes [id number] TAKE 1 [facility] 100 mg 7-11 TABLET BY ity of tablet 00:00: MOUTH [place] 00 EVERY DAY Medical Branch AMLODIPINE 2021-0 Yes [id number] TAKE 1 U nivers 5 mg tablet 7-11 TABLET BY ity of 00:00: MOUTH [place] 00 EVERY DAY Medical Branch ALLOPURINOL 2021-0 Yes [id number] TAKE 1 [facility] 100 mg 7-11 TABLET BY ity of tablet 00:00: MOUTH [place] 00 EVERY DAY Medical Branch AMLODIPINE 2021-0 Yes [id number] TAKE 1 U nivers 5 mg tablet 7-11 TABLET BY ity of 00:00: MOUTH 00 EVERY DAY Medical Branch ALLOPURINOL 2022-0 Yes [id number] TAKE 1 [facility] 100 mg 7-11 TABLET BY ity of tablet 00:00: MOUTH 00 EVERY DAY Medical Branch AMLODIPINE 2-0 Yes [id number] TAKE 1 U nivers 5 mg tablet 7-11 TABLET BY ity of 00:00: MOUTH EVERY DAY Medical Branch ALLOPURINOL 2-0 Yes [id number] TAKE 1 [facility] 100 mg 7-11 TABLET BY ity of tablet 00:00: MOUTH 00 EVERY DAY Medical Branch AMLODIPINE 2-0 Yes [id number] TAKE 1 U nivers 5 mg tablet 7-11 TABLET BY ity of 00:00: MOUTH EVERY DAY Medical Branch ALLOPURINOL 2-0 Yes [id number] TAKE 1 [facility] 100 mg 7-11 TABLET BY ity of tablet 00:00: MOUTH EVERY DAY Medical Branch AMLODIPINE 2-0 Yes [id number] TAKE 1 U nivers 5 mg tablet 7-11 TABLET BY ity of 00:00: MOUTH EVERY DAY Medical Branch ALLOPURINOL 2-0 Yes [id number] TAKE 1 [facility] 100 mg 7-11 TABLET BY ity of tablet 00:00: MOUTH 00 EVERY DAY Medical Branch AMLODIPINE 2-0 Yes [id number] TAKE 1 U nivers 5 mg tablet 7-11 TABLET BY ity of 00:00: MOUTH EVERY DAY Medical Branch ALLOPURINOL 2-0 Yes [id number] TAKE 1 [facility] 100 mg 7-11 TABLET BY ity of tablet 00:00: MOUTH EVERY DAY Medical Branch AMLODIPINE 2022-0 Yes [id number] TAKE 1 U nivers 5 mg tablet 7-11 TABLET BY ity of 00:00: MOUTH 00 EVERY DAY Medical Branch ALLOPURINOL 2022-0 Yes [id number] TAKE 1 [facility] 100 mg 7-11 TABLET BY ity of tablet 00:00: MOUTH 00 EVERY DAY Medical Branch AMLODIPINE 2022-0 Yes [id number] TAKE 1 U nivers 5 mg tablet 7-11 TABLET BY ity of 00:00: MOUTH 00 EVERY DAY Medical Branch ALLOPURINOL 2022-0 Yes [id number] TAKE 1 [facility] 100 mg 7-11 TABLET BY ity of tablet 00:00: MOUTH 00 EVERY DAY Medical Branch AMLODIPINE 2022-0 Yes [id number] TAKE 1 U nivers 5 mg tablet 7-11 TABLET BY ity of 00:00: [facility] EVERY DAY Medical Branch ALLOPURINOL 2021-0 Yes [id number] TAKE 1 [facility] 100 mg 7-11 TABLET BY ity of tablet 00:00: [facility] EVERY DAY Medical Branch AMLODIPINE 2021-0 Yes [id number] TAKE 1 U nivers 5 mg tablet 7-11 TABLET BY ity of 00:00: [facility] EVERY DAY Medical Branch ALLOPURINOL 2021-0 Yes [id number] TAKE 1 [facility] 100 mg 7-11 TABLET BY ity of tablet 00:00: [facility] 00 EVERY DAY Medical Branch AMLODIPINE 2021-0 Yes [id number] TAKE 1 U nivers 5 mg tablet 7-11 TABLET BY ity of 00:00: [facility] EVERY DAY Medical Branch ALLOPURINOL 2021-0 Yes [id number] TAKE 1 [facility] 100 mg 7-11 TABLET BY ity of tablet 00:00: [facility] 00 EVERY DAY Medical Branch AMLODIPINE 2021-0 2021- No [id number] TAKE 1 [facility] 5 mg tablet 7-11 12-08 TABLET BY it y of 00:00: 00:00 [facility] 00 :00 EVERY DAY Medical Branch ALLOPURINOL 2021-0 2021- No [id number] TAKE 1 [facility] 100 mg 7-11 12-08 TABLET BY ity of tablet 00:00: 00:00 [facility] 00 :00 EVERY DAY Medical Branch AMLODIPINE 2021-0 2- No [id number] TAKE 1 [facility] 5 mg tablet 7-11 12-08 TABLET BY it y of 00:00: 00:00 [facility] 00 :00 EVERY DAY Medical Branch ALLOPURINOL 2021-0 2- No [id number] TAKE 1 [facility] 100 mg 7-11 12-08 TABLET BY ity of tablet 00:00: 00:00 [facility] 00 :00 EVERY DAY Medical Branch FLUTICASONE 2021-0 Yes [id number] SPRAY 1 [facility] PROPIONATE 6-02 SPRAY INTO ity of 50 00:00: EACH [place] mcg/actuati 00 NOSTRIL Medic al on nasal EVERY DAY Branch spray FLUTICASONE 2021-0 Yes [id number] SPRAY 1 [facility] PROPIONATE 6-02 SPRAY INTO ity of 50 00:00: EACH [place] mcg/actuati 00 NOSTRIL Medic al on nasal EVERY DAY Branch spray FLUTICASONE 0 Yes [id number] SPRAY 1 [facility] PROPIONATE 6-02 SPRAY INTO ity of 50 00:00: EACH [place] mcg/actuati 00 NOSTRIL Medic al on nasal EVERY DAY Branch spray FLUTICASONE 0 Yes [id number] SPRAY 1 [facility] PROPIONATE 6-02 SPRAY INTO ity of 50 00:00: EACH [place] mcg/actuati 00 NOSTRIL Medic al on nasal EVERY DAY Branch spray atenoloL 0 Yes [id number] 100mg Take 1 Un daly 100 mg 5-31 tablet by ity of tablet 00:00: mouth [place] 00 daily. Medical Branch atorvastati 0 Yes [id number] 20mg Take 1 [facility] n 20 mg 5-31 tablet by ity of tablet 00:00: mouth at [place] 00 bedtime. Medical Branch metFORMIN 0 Yes [id number] 1000mg Take 1 [facility] 1,000 mg 5-31 tablet by ity of tablet 00:00: mouth 2 (two) Medical times Branch daily with meals. ezetimibe 0 Yes [id number] 10mg Take 1 U nivers 10 mg 5-31 tablet by ity of tablet 00:00: mouth 00 daily. Medical Branch atenoloL 0 Yes [id number] 100mg Take 1 Un daly 100 mg 5-31 tablet by ity of tablet 00:00: mouth [place] 00 daily. Medical Branch atorvastati 0 Yes [id number] 20mg Take 1 [facility] n 20 mg 5-31 tablet by ity of tablet 00:00: mouth at [place] 00 bedtime. Medical Branch metFORMIN 2021-0 Yes [id number] 1000mg Take 1 [facility] 1,000 mg 5-31 tablet by ity of tablet 00:00: mouth 2 [place] (two) Medical times Branch daily with meals. ezetimibe 2021-0 Yes [id number] 10mg Take 1 U nivers 10 mg 5-31 tablet by ity of tablet 00:00: mouth [place] 00 daily. Medical Branch atenoloL 2021-0 Yes [id number] 100mg Take 1 Un daly 100 mg 5-31 tablet by ity of tablet 00:00: mouth [place] 00 daily. Medical Branch atorvastati 2021-0 Yes [id number] 20mg Take 1 [facility] n 20 mg 5-31 tablet by ity of tablet 00:00: mouth at [place] 00 bedtime. Medical Branch metFORMIN 2021-0 Yes [id number] 1000mg Take 1 [facility] 1,000 mg 5-31 tablet by ity of tablet 00:00: mouth 2 [place] 00 (two) Medical times Branch daily with meals. ezetimibe 2021-0 Yes [id number] 10mg Take 1 U nivers 10 mg 5-31 tablet by ity of tablet 00:00: mouth [place] 00 daily. Medical Branch atenoloL 2021-0 Yes [id number] 100mg Take 1 Un daly 100 mg 5-31 tablet by ity of tablet 00:00: mouth [place] 00 daily. Medical Branch atorvastati 2021-0 Yes [id number] 20mg Take 1 [facility] n 20 mg 5-31 tablet by ity of tablet 00:00: mouth at [place] 00 bedtime. Medical Branch metFORMIN 2021-0 Yes [id number] 1000mg Take 1 [facility] 1,000 mg 5-31 tablet by ity of tablet 00:00: mouth 2 00 (two) Medical times Branch daily with meals. ezetimibe 2021-0 Yes [id number] 10mg Take 1 U nivers 10 mg 5-31 tablet by ity of tablet 00:00: mouth [place] 00 daily. Medical Branch ezetimibe 2021-0 Yes [id number] 10mg Take 1 U nivers 10 mg 5-31 tablet by ity of tablet 00:00: mouth [place] 00 daily. Medical Branch ezetimibe 2021-0 Yes [id number] 10mg Take 1 U nivers 10 mg 5-31 tablet by ity of tablet 00:00: mouth [place] 00 daily. Medical Branch ezetimibe 2021-0 Yes [id number] 10mg Take 1 U nivers 10 mg 5-31 tablet by ity of tablet 00:00: mouth [place] 00 daily. Medical Branch ezetimibe 2021-0 Yes [id number] 10mg Take 1 U nivers 10 mg 5-31 tablet by ity of tablet 00:00: mouth [place] 00 daily. Medical Branch ezetimibe 2021-0 Yes [id number] 10mg Take 1 U nivers 10 mg 5-31 tablet by ity of tablet 00:00: mouth [place] 00 daily. Medical Branch ezetimibe 0 Yes [id number] 10mg Take 1 U nivers 10 mg 5-31 tablet by ity of tablet 00:00: mouth [place] 00 daily. Medical Branch ezetimibe 0 Yes [id number] 10mg Take 1 U nivers 10 mg 5-31 tablet by ity of tablet 00:00: mouth [place] 00 daily. Medical Branch ezetimibe 2021-0 Yes [id number] 10mg Take 1 U nivers 10 mg 5-31 tablet by ity of tablet 00:00: mouth [place] 00 daily. Medical Branch ezetimibe 0 Yes [id number] 10mg Take 1 U nivers 10 mg 5-31 tablet by ity of tablet 00:00: mouth [place] 00 daily. Medical Branch ezetimibe 0 Yes [id number] 10mg Take 1 U nivers 10 mg 5-31 tablet by ity of tablet 00:00: mouth [place] 00 daily. Medical Branch ezetimibe 0 Yes [id number] 10mg Take 1 U nivers 10 mg 5-31 tablet by ity of tablet 00:00: mouth [place] 00 daily. Medical Branch ezetimibe 0 2021- No [id number] 10mg Take 1 [facility] 10 mg 5-31 12-08 tablet by ity of tablet 00:00: 00:00 mouth [place] 00 :00 daily. Medical Branch ezetimibe 0 2021- No [id number] 10mg Take 1 [facility] 10 mg 5-31 12-08 tablet by ity of tablet 00:00: 00:00 mouth [place] 00 :00 daily. Medical Branch atorvastati 2021-0 2021- No [id number] 20mg Take 1 [facility] n 20 mg 5-31 10-03 tablet by ity of tablet 00:00: 00:00 mouth at [place] 00 :00 bedtime. Medical Branch glipiZIDE 5 2021-0 Yes [id number] 5mg Take 1 [facility] mg tablet 5-01 tablet by ity o f 00:00: mouth [place] 00 daily. Medical Branch glipiZIDE 5 2021-0 Yes [id number] 5mg Take 1 [facility] mg tablet 5-01 tablet by ity o f 00:00: mouth [place] 00 daily. Medical Branch glipiZIDE 5 2022-0 Yes [id number] 5mg Take 1 [facility] mg tablet 5-01 tablet by ity o f 00:00: mouth [place] 00 daily. Medical Branch glipiZIDE 5 2021-0 Yes [id number] 5mg Take 1 [facility] mg tablet 5-01 tablet by ity o f 00:00: mouth [place] 00 daily. Medical Branch glipiZIDE 5 2021-0 Yes [id number] 5mg Take 1 [facility] mg tablet 5-01 tablet by ity o f 00:00: mouth [place] 00 daily. Medical Branch glipiZIDE 5 0 Yes [id number] 5mg Take 1 [facility] mg tablet 5-01 tablet by ity o f 00:00: mouth [place] 00 daily. Medical Branch glipiZIDE 5 0 Yes [id number] 5mg Take 1 [facility] mg tablet 5-01 tablet by ity o f 00:00: mouth [place] 00 daily. Medical Branch glipiZIDE 5 Yes [id number] 5mg Take 1 [facility] mg tablet 5-01 tablet by ity o f 00:00: mouth [place] 00 daily. Medical Branch glipiZIDE 5 Yes [id number] 5mg Take 1 [facility] mg tablet 5-01 tablet by ity o f 00:00: mouth [place] 00 daily. Medical Branch glipiZIDE 5 0 Yes [id number] 5mg Take 1 [facility] mg tablet 5-01 tablet by ity o f 00:00: mouth [place] 00 daily. Medical Branch glipiZIDE 5 0 Yes [id number] 5mg Take 1 [facility] mg tablet 5-01 tablet by ity o f 00:00: mouth [place] 00 daily. Medical Branch glipiZIDE 5 0 Yes [id number] 5mg Take 1 [facility] mg tablet 5-01 tablet by ity o f 00:00: mouth [place] 00 daily. Medical Branch glipiZIDE 5 2021-0 Yes [id number] 5mg Take 1 [facility] mg tablet 5-01 tablet by ity o f 00:00: mouth [place] 00 daily. Medical Branch glipiZIDE 5 2021-0 Yes [id number] 5mg Take 1 [facility] mg tablet 5-01 tablet by ity o f 00:00: mouth [place] 00 daily. Medical Branch glipiZIDE 5 0 Yes [id number] 5mg Take 1 [facility] mg tablet - tablet by ity o f 00:00: mouth [place] 00 daily. Medical Branch glipiZIDE 5 2021- No [id number] 5mg Take 1 [facility] mg tablet 02-11 tablet by ity of 00:00: 00:00 mouth [place] 00 :00 daily. Medical Branch glipiZIDE 5 2021- No [id number] 5mg Take 1 [facility] mg tablet 02-11 tablet by ity of 00:00: 00:00 mouth [place] 00 :00 daily. Medical Branch methocarbam 2021-0 Yes [id number] 750mg Take 1 [facility] oL 750 mg 4-22 tablet by ity o f tablet 00:00: mouth [place] 00 every 6 Medical (six) Branch hours as needed (MUSCLE SPASM). methocarbam 2021-0 Yes [id number] 750mg Take 1 [facility] oL 750 mg 4-22 tablet by ity o f tablet 00:00: mouth [place] 00 every 6 Medical (six) Branch hours as needed (MUSCLE SPASM). methocarbam 2021-0 Yes [id number] 750mg Take 1 [facility] oL 750 mg 4-22 tablet by ity o f tablet 00:00: mouth [place] 00 every 6 Medical (six) Branch hours as needed (MUSCLE SPASM). methocarbam 2021-0 Yes [id number] 750mg Take 1 [facility] oL 750 mg 4-22 tablet by ity o f tablet 00:00: mouth [place] 00 every 6 Medical (six) Branch hours as needed (MUSCLE SPASM). methocarbam 2021-0 Yes [id number] 750mg Take 1 [facility] oL 750 mg 4-22 tablet by ity o f tablet 00:00: mouth [place] 00 every 6 Medical (six) Branch hours as needed (MUSCLE SPASM). methocarbam 2021-0 Yes [id number] 750mg Take 1 [facility] oL 750 mg 4-22 tablet by ity o f tablet 00:00: mouth [place] 00 every 6 Medical (six) Branch hours as needed (MUSCLE SPASM). methocarbam 2021-0 Yes [id number] 750mg Take 1 [facility] oL 750 mg 4-22 tablet by ity o f tablet 00:00: mouth [place] 00 every 6 Medical (six) Branch hours as needed (MUSCLE SPASM). methocarbam 2022-0 Yes [id number] 750mg Take 1 [facility] oL 750 mg 4-22 tablet by ity o f tablet 00:00: mouth [place] 00 every 6 Medical (six) Branch hours as needed (MUSCLE SPASM). methocarbam 2-0 Yes [id number] 750mg Take 1 [facility] oL 750 mg 4-22 tablet by ity o f tablet 00:00: mouth [place] 00 every 6 Medical (six) Branch hours as needed (MUSCLE SPASM). methocarbam 2021-0 Yes [id number] 750mg Take 1 [facility] oL 750 mg 4-22 tablet by ity o f tablet 00:00: mouth [place] 00 every 6 Medical (six) Branch hours as needed (MUSCLE SPASM). methocarbam 2021-0 Yes [id number] 750mg Take 1 [facility] oL 750 mg 4-22 tablet by ity o f tablet 00:00: mouth [place] 00 every 6 Medical (six) Branch hours as needed (MUSCLE SPASM). methocarbam 2021-0 Yes [id number] 750mg Take 1 [facility] oL 750 mg 4-22 tablet by ity o f tablet 00:00: mouth [place] 00 every 6 Medical (six) Branch hours as needed (MUSCLE SPASM). methocarbam 2021-0 Yes [id number] 750mg Take 1 [facility] oL 750 mg 4-22 tablet by ity o f tablet 00:00: mouth [place] 00 every 6 Medical (six) Branch hours as needed (MUSCLE SPASM). methocarbam 2021-0 Yes [id number] 750mg Take 1 [facility] oL 750 mg 4-22 tablet by ity o f tablet 00:00: mouth [place] 00 every 6 Medical (six) Branch hours as needed (MUSCLE SPASM). methocarbam 2021-0 Yes [id number] 750mg Take 1 [facility] oL 750 mg 4-22 tablet by ity o f tablet 00:00: mouth [place] 00 every 6 Medical (six) Branch hours as needed (MUSCLE SPASM). methocarbam 2-0 2022- No [id number] 750mg Take 1 [facility] oL 750 mg 4-22 12-08 tablet by ity of tablet 00:00: 00:00 mouth [place] 00 :00 every 6 Medical (six) Branch hours as needed (MUSCLE SPASM). methocarbam 2-0 2022- No [id number] 750mg Take 1 [facility] oL 750 mg 4-22 12-08 tablet by ity of tablet 00:00: 00:00 mouth [place] 00 :00 every 6 Medical (six) Branch hours as needed (MUSCLE SPASM). doxepin 25 2021-0 Yes [id number] 25mg Take 1 [facility] mg capsule 4-21 capsule by ity of 00:00: mouth at [place] [address] bedtime. Medical Branch Cholecalcif 2021-0 Yes [id number] 2000U Take 1 [facility] lilli, 4-21 tablet by ity of Vitamin D3, 00:00: mouth [place] (VITAMIN 00 daily. Medical D3) 50 mcg Branch (2,000 unit) tablet doxepin 25 2021-0 Yes [id number] 25mg Take 1 [facility] mg capsule 4-21 capsule by ity of 00:00: mouth at [place] [address] bedtime. Medical Branch Cholecalcif 2021-0 Yes [id number] 2000U Take 1 [facility] lilli, 4-21 tablet by ity of Vitamin D3, 00:00: mouth [place] (VITAMIN 00 daily. Medical D3) 50 mcg Branch (2,000 unit) tablet doxepin 25 2021-0 Yes [id number] 25mg Take 1 [facility] mg capsule 4-21 capsule by ity of 00:00: mouth at [place] [address] bedtime. Medical Branch Cholecalcif 2021-0 Yes [id number] 2000U Take 1 [facility] lilli, 4-21 tablet by ity of Vitamin D3, 00:00: mouth [place] (VITAMIN 00 daily. Medical D3) 50 mcg Branch (2,000 unit) tablet doxepin 25 2021-0 Yes [id number] 25mg Take 1 [facility] mg capsule 4-21 capsule by ity of 00:00: mouth at [place] [address] bedtime. Medical Branch Cholecalcif 2021-0 Yes [id number] 2000U Take 1 [facility] lilli, 4-21 tablet by ity of Vitamin D3, 00:00: mouth [place] (VITAMIN 00 daily. Medical D3) 50 mcg Branch (2,000 unit) tablet doxepin 25 2021-0 Yes [id number] 25mg Take 1 [facility] mg capsule 4-21 capsule by ity of 00:00: mouth at [place] [address] bedtime. Medical Branch doxepin 25 2021-0 Yes [id number] 25mg Take 1 [facility] mg capsule 4-21 capsule by ity of 00:00: mouth at [place] [address] bedtime. Medical Branch doxepin 25 0 Yes [id number] 25mg Take 1 [facility] mg capsule 4-21 capsule by ity of 00:00: mouth at [place] [address] bedtime. Medical Branch doxepin 25 0 Yes [id number] 25mg Take 1 [facility] mg capsule 4-21 capsule by ity of 00:00: mouth at [place] bedtime. Medical Branch doxepin 25 0 Yes [id number] 25mg Take 1 [facility] mg capsule 4-21 capsule by ity of 00:00: mouth at [place] bedtime. Medical Branch doxepin 25 0 Yes [id number] 25mg Take 1 [facility] mg capsule 4-21 capsule by ity of 00:00: mouth at [place] [address] bedtime. Medical Branch doxepin 25 0 Yes [id number] 25mg Take 1 [facility] mg capsule 4-21 capsule by ity of 00:00: mouth at [place] [address] bedtime. Medical Branch doxepin 25 0 Yes [id number] 25mg Take 1 [facility] mg capsule 4-21 capsule by ity of 00:00: mouth at [place] [address] bedtime. Medical Branch doxepin 25 0 Yes [id number] 25mg Take 1 [facility] mg capsule 4-21 capsule by ity of 00:00: mouth at [place] [address] bedtime. Medical Branch doxepin 25 0 Yes [id number] 25mg Take 1 [facility] mg capsule 4-21 capsule by ity of 00:00: mouth at [place] [address] bedtime. Medical Branch doxepin 25 0 Yes [id number] 25mg Take 1 [facility] mg capsule 4-21 capsule by ity of 00:00: mouth at [place] [address] bedtime. Medical Branch doxepin 25 0 Yes [id number] 25mg Take 1 [facility] mg capsule 4-21 capsule by ity of 00:00: mouth at [place] [address] bedtime. Medical Branch doxepin 25 0 Yes [id number] 25mg Take 1 [facility] mg capsule 4-21 capsule by ity of 00:00: mouth at [place] [address] bedtime. Medical Branch doxepin 25 2021-0 Yes [id number] 25mg Take 1 [facility] mg capsule 4-21 capsule by ity of 00:00: mouth at [place] [address] bedtime. Medical Branch doxepin 25 2021-0 Yes [id number] 25mg Take 1 [facility] mg capsule 4-21 capsule by ity of 00:00: mouth at [place] bedtime. Medical Branch doxepin 25 2021-0 Yes [id number] 25mg Take 1 [facility] mg capsule 4-21 capsule by ity of 00:00: mouth at [place] bedtime. Medical Branch doxepin 25 2021-0 Yes [id number] 25mg Take 1 [facility] mg capsule 4-21 capsule by ity of 00:00: mouth at [place] bedtime. Medical Branch doxepin 25 2021-0 Yes [id number] 25mg Take 1 [facility] mg capsule 4-21 capsule by ity of 00:00: mouth at [place] bedtime. Medical Branch doxepin 25 2021-0 Yes [id number] 25mg Take 1 [facility] mg capsule 4-21 capsule by ity of 00:00: mouth at [place] [address] bedtime. Medical Branch doxepin 25 2021-0 Yes [id number] 25mg Take 1 [facility] mg capsule 4-21 capsule by ity of 00:00: mouth at [place] [address] bedtime. Medical Branch doxepin 25 0 Yes [id number] 25mg Take 1 [facility] mg capsule 4-21 capsule by ity of 00:00: mouth at [place] [address] bedtime. Medical Branch doxepin 25 0 Yes [id number] 25mg Take 1 [facility] mg capsule 4-21 capsule by ity of 00:00: mouth at [place] [address] bedtime. Medical Branch doxepin 25 2021-0 Yes [id number] 25mg Take 1 [facility] mg capsule 4-21 capsule by ity of 00:00: mouth at [place] [address] bedtime. Medical Branch doxepin 25 2021-0 Yes [id number] 25mg Take 1 [facility] mg capsule 4-21 capsule by ity of 00:00: mouth at [place] [address] bedtime. Medical Branch doxepin 25 2021-0 Yes [id number] 25mg Take 1 [facility] mg capsule 4-21 capsule by ity of 00:00: mouth at [place] [address] bedtime. Medical Branch doxepin 25 2021-0 Yes [id number] 25mg Take 1 [facility] mg capsule 4-21 capsule by ity of 00:00: mouth at [place] [address] bedtime. Medical Branch doxepin 25 2021-0 Yes [id number] 25mg Take 1 [facility] mg capsule 4-21 capsule by ity of 00:00: mouth at [place] [address] bedtime. Medical Branch doxepin 25 2021-0 Yes [id number] 25mg Take 1 [facility] mg capsule 4-21 capsule by ity of 00:00: mouth at [place] [address] bedtime. Medical Branch doxepin 25 2021-0 Yes [id number] 25mg Take 1 [facility] mg capsule 4-21 capsule by ity of 00:00: mouth at [place] [address] bedtime. Medical Branch doxepin 25 2021-0 Yes [id number] 25mg Take 1 [facility] mg capsule 4-21 capsule by ity of 00:00: mouth at [place] [address] bedtime. Medical Branch doxepin 25 2021-0 Yes [id number] 25mg Take 1 [facility] mg capsule 4-21 capsule by ity of 00:00: mouth at [place] [address] bedtime. Medical Branch doxepin 25 2021-0 Yes [id number] 25mg Take 1 [facility] mg capsule 4-21 capsule by ity of 00:00: mouth at [place] [address] bedtime. Medical Branch doxepin 25 2021-0 Yes [id number] 25mg Take 1 [facility] mg capsule 4-21 capsule by ity of 00:00: mouth at [place] [address] bedtime. Medical Branch doxepin 25 2021-0 Yes [id number] 25mg Take 1 [facility] mg capsule 4-21 capsule by ity of 00:00: mouth at [place] [address] bedtime. Medical Branch doxepin 25 2021-0 Yes [id number] 25mg Take 1 [facility] mg capsule 4-21 capsule by ity of 00:00: mouth at [place] [address] bedtime. Medical Branch doxepin 25 2021-0 Yes [id number] 25mg Take 1 [facility] mg capsule 4-21 capsule by ity of 00:00: mouth at [place] [address] bedtime. Medical Branch doxepin 25 2021-0 Yes [id number] 25mg Take 1 [facility] mg capsule 4-21 capsule by ity of 00:00: mouth at [place] [address] bedtime. Medical Branch doxepin 25 2021-0 Yes [id number] 25mg Take 1 [facility] mg capsule 4-21 capsule by ity of 00:00: mouth at [place] [address] bedtime. Medical Branch doxepin 25 0 Yes [id number] 25mg Take 1 [facility] mg capsule 4-21 capsule by ity of 00:00: mouth at [place] [address] bedtime. Medical Branch doxepin 25 2021-0 Yes [id number] 25mg Take 1 [facility] mg capsule 4-21 capsule by ity of 00:00: mouth at [place] [address] bedtime. Medical Branch doxepin 25 2021-0 Yes [id number] 25mg Take 1 [facility] mg capsule 4-21 capsule by ity of 00:00: mouth at [place] [address] bedtime. Medical Branch doxepin 25 0 Yes [id number] 25mg Take 1 [facility] mg capsule 4-21 capsule by ity of 00:00: mouth at [place] [address] bedtime. Medical Branch doxepin 25 0 Yes [id number] 25mg Take 1 [facility] mg capsule 4-21 capsule by ity of 00:00: mouth at [place] [address] bedtime. Medical Branch doxepin 25 0 Yes [id number] 25mg Take 1 [facility] mg capsule 4-21 capsule by ity of 00:00: mouth at [place] [address] bedtime. Medical Branch doxepin 0 Yes [id number] 25mg Take 1 [facility] mg capsule 4-21 capsule by ity of 00:00: mouth at [place] [address] bedtime. Medical Branch doxepin 25 0 Yes [id number] 25mg Take 1 [facility] mg capsule 4-21 capsule by ity of 00:00: mouth at [place] [address] bedtime. Medical Branch doxepin 25 0 Yes [id number] 25mg Take 1 [facility] mg capsule 4-21 capsule by ity of 00:00: mouth at [place] [address] bedtime. Medical Branch doxepin 25 2021-0 Yes [id number] 25mg Take 1 [facility] mg capsule 4-21 capsule by ity of 00:00: mouth at [place] [address] bedtime. Medical Branch doxepin 25 2021-0 Yes [id number] 25mg Take 1 [facility] mg capsule 4-21 capsule by ity of 00:00: mouth at [place] [address] bedtime. Medical Branch doxepin 25 2021-0 Yes [id number] 25mg Take 1 [facility] mg capsule 4-21 capsule by ity of 00:00: mouth at [place] 00 bedtime. Medical Branch doxepin 25 2021-0 Yes [id number] 25mg Take 1 [facility] mg capsule 4-21 capsule by ity of 00:00: mouth at [place] 00 bedtime. Medical Branch acetaminoph 2020-0 Yes [id number] 1{tbl} Take 1 [facility] en-codeine 6-24 tablet by ity of 300-30 mg 00:00: mouth [place] tablet 00 every 6 Medical (six) Branch hours as needed for Pain (scale 7-10). Indication s: acute pain ondansetron 2020-0 Yes [id number] 4mg Take 1 [facility] (ZOFRAN 6-24 tablet [...] Indication s: acute pain ondansetron 2020-0 Yes [id number] 4mg Take 1 [facility] (ZOFRAN 6-24 tablet [...] Indication s: acute pain ondansetron 2020-0 Yes [id number] 4mg Take 1 [facility] (ZOFRAN 6-24 tablet [...] Indication s: acute pain ondansetron 2021-0 Yes [id number] 4mg Take 1 [facility] (ZOFRAN 6-24 tablet [...] Indication s: acute pain ondansetron 2021-0 Yes [id number] 4mg Take 1 [facility] (ZOFRAN 6-24 tablet [...] Indication s: acute pain ondansetron 2021-0 Yes [id number] 4mg Take 1 [facility] (ZOFRAN 6-24 tablet [...] Indication s: acute pain ondansetron 2021-0 Yes [id number] 4mg Take 1 [facility] (ZOFRAN 6-24 tablet [...] Indication s: acute pain ondansetron 2021-0 Yes [id number] 4mg Take 1 [facility] (ZOFRAN 6-24 tablet [...] Indication s: acute pain ondansetron 2021-0 Yes [id number] 4mg Take 1 [facility] (ZOFRAN 6-24 tablet [...] Indication s: acute pain ondansetron 2021-0 Yes [id number] 4mg Take 1 [facility] (ZOFRAN 6-24 tablet [...] Indication s: acute pain ondansetron 2021-0 Yes [id number] 4mg Take 1 [facility] (ZOFRAN 6-24 tablet [...] Indication s: acute pain ondansetron 2021-0 Yes [id number] 4mg Take 1 [facility] (ZOFRAN 6-24 tablet [...] Indication s: acute pain ondansetron 2020-0 Yes [id number] 4mg Take 1 [facility] (ZOFRAN 6-24 tablet [...] Indication s: acute pain ondansetron 1-0 Yes [id number] 4mg Take 1 [facility] (ZOFRAN 6-24 tablet [...] Indication s: acute pain ondansetron 2021-0 Yes [id number] 4mg Take 1 [facility] (ZOFRAN 6-24 tablet [...] Indication s: acute pain ondansetron 2021-0 Yes [id number] 4mg Take 1 [facility] (ZOFRAN 6-24 tablet [...] Indication s: acute pain ondansetron 1-0 Yes [id number] 4mg Take 1 [facility] (ZOFRAN 6-24 tablet [...] Indication s: acute pain ondansetron 2021-0 Yes [id number] 4mg Take 1 [facility] (ZOFRAN 6-24 tablet [...] Indication s: acute pain ondansetron 2021-0 Yes [id number] 4mg Take 1 [facility] (ZOFRAN 6-24 tablet [...] Indication s: acute pain ondansetron 2021-0 Yes [id number] 4mg Take 1 [facility] (ZOFRAN 6-24 tablet [...] Indication s: acute pain ondansetron 2021-0 Yes [id number] 4mg Take 1 [facility] (ZOFRAN 6-24 tablet [...] Indication s: acute pain ondansetron 2021-0 Yes [id number] 4mg Take 1 [facility] (ZOFRAN 6-24 tablet [...] Indication s: acute pain ondansetron 2021-0 Yes [id number] 4mg Take 1 [facility] (ZOFRAN 6-24 tablet [...] Indication s: acute pain ondansetron 2021-0 Yes [id number] 4mg Take 1 [facility] (ZOFRAN 6-24 tablet [...] Indication s: acute pain ondansetron 2021-0 Yes [id number] 4mg Take 1 [facility] (ZOFRAN 6-24 tablet [...] Indication s: acute pain ondansetron 2021-0 Yes [id number] 4mg Take 1 [facility] (ZOFRAN 6-24 tablet [...] Indication s: acute pain ondansetron 2020-0 Yes [id number] 4mg Take 1 [facility] (ZOFRAN 6-24 tablet [...] Indication s: acute pain ondansetron 2020-0 Yes [id number] 4mg Take 1 [facility] (ZOFRAN 6-24 tablet [...] Indication s: acute pain ondansetron 2020-0 Yes [id number] 4mg Take 1 [facility] (ZOFRAN 6-24 tablet [...] Indication s: acute pain ondansetron 2021-0 Yes [id number] 4mg Take 1 [facility] (ZOFRAN 6-24 tablet [...] Indication s: acute pain ondansetron 2021-0 Yes [id number] 4mg Take 1 [facility] (ZOFRAN 6-24 tablet [...] Indication s: acute pain ondansetron 2021-0 Yes [id number] 4mg Take 1 [facility] (ZOFRAN 6-24 tablet [...] Indication s: acute pain ondansetron 2021-0 Yes [id number] 4mg Take 1 [facility] (ZOFRAN 6-24 tablet [...] Indication s: acute pain ondansetron 2021-0 Yes [id number] 4mg Take 1 [facility] (ZOFRAN 6-24 tablet [...] Indication s: acute pain ondansetron 2021-0 Yes [id number] 4mg Take 1 [facility] (ZOFRAN 6-24 tablet [...] Indication s: acute pain ondansetron 2021-0 Yes [id number] 4mg Take 1 [facility] (ZOFRAN 6-24 tablet [...] Indication s: acute pain ondansetron 2021-0 Yes [id number] 4mg Take 1 [facility] (ZOFRAN 6-24 tablet [...] Indication s: acute pain ondansetron 2021-0 Yes [id number] 4mg Take 1 [facility] (ZOFRAN 6-24 tablet [...] Indication s: acute pain ondansetron 2021-0 Yes [id number] 4mg Take 1 [facility] (ZOFRAN 6-24 tablet [...] Indication s: acute pain ondansetron 2021-0 Yes [id number] 4mg Take 1 [facility] (ZOFRAN 6-24 tablet [...] Indication s: acute pain ondansetron 2021-0 Yes [id number] 4mg Take 1 [facility] (ZOFRAN 6-24 tablet [...] Indication s: acute pain ondansetron 2021-0 Yes [id number] 4mg Take 1 [facility] (ZOFRAN 6-24 tablet [...] Indication s: acute pain ondansetron 2021-0 Yes [id number] 4mg Take 1 [facility] (ZOFRAN 6-24 tablet [...] Indication s: acute pain ondansetron 2021-0 Yes [id number] 4mg Take 1 Univers (ZOFRAN 6-24 tablet [...] Indication s: acute pain ondansetron 2021-0 Yes [id number] 4mg Take 1 Univers (ZOFRAN 6-24 tablet [...] Indication s: acute pain ondansetron 2021-0 Yes [id number] 4mg Take 1 Univers (ZOFRAN 6-24 tablet [...] Indication s: acute pain ondansetron 2021-0 Yes [id number] 4mg Take 1 Univers (ZOFRAN 6-24 tablet [...] Indication s: acute pain ondansetron 2021-0 Yes [id number] 4mg Take 1 Univers (ZOFRAN 6-24 tablet [...] Indication s: acute pain ondansetron 2021-0 Yes [id number] 4mg Take 1 Univers (ZOFRAN 6-24 tablet [...] Indication s: acute pain ondansetron 2021-0 Yes [id number] 4mg Take 1 Univers (ZOFRAN 6-24 tablet [...] Indication s: acute pain ondansetron 2021-0 Yes [id number] 4mg Take 1 [facility] (ZOFRAN 6-24 tablet [...] Indication s: acute pain ondansetron 2021-0 Yes [id number] 4mg Take 1 Univers (ZOFRAN 6-24 tablet by ity of ODT) 4 mg 00:00: mouth [place] disintegrat 00 every 8 Medic al ing tablet (eight) Branch hours as needed for Nausea and Vomiting (N/V). acetaminoph 202-0 Yes [id number] 1{tbl} Take 1 Un daly en-codeine 6-24 tablet by ity of 300-30 mg 00:00: mouth [place] tablet 00 every 6 Medical (six) Branch hours as needed for Pain (scale 7-10). Indication s: acute pain ondansetron 2020-0 Yes [id number] 4mg Take 1 Univers (ZOFRAN 6-24 tablet [...] Indication s: acute pain ondansetron 2020-0 Yes [id number] 4mg Take 1 Univers (ZOFRAN 6-24 tablet [...] Indication s: acute pain ondansetron 2020-0 Yes [id number] 4mg Take 1 [facility] (ZOFRAN 6-24 tablet by ity of ODT) 4 mg 00:00: mouth [place] disintegrat 00 every 8 Medic al ing tablet (eight) Branch hours as needed for Nausea and Vomiting (N/V). HYDROcodone 2020-0 Yes TAKE ONE Un daly -acetaminop 6-19 (1) ity of hen 5-325 00:00: TABLET(S) [place] mg tablet 00 BY MOUTH Medica l EVERY SIX Branch HOURS NEEDED FOR PAIN (SCALE 4 TO 6) OR (SCALE 7 TO 10). HYDROcodone 2021-0 Yes TAKE ONE Un daly -acetaminop 6-19 (1) ity of hen 5-325 00:00: TABLET(S) [place] as mg tablet 00 BY MOUTH Medica [...] metFORMIN HCl 1000 MG HCl 1000 MG 6-07 t_with_ HCl 1000 00:00: a_meal} MG 00 Atorvastati Atorvastati No 1{table QD Atorvastat n Calcium n Calcium 6-07 t} in Calcium 20 MG 20 MG 00:00: 20 MG 00 metFORMIN metFORMIN No 1{table BID metFORMIN HCl 1000 MG HCl 1000 MG 6-07 t_with_ HCl 1000 00:00: a_meal} MG 00 Atorvastati Atorvastati No 1{table QD Atorvastat n Calcium n Calcium 6-07 t} in Calcium 20 MG 20 MG 00:00: 20 MG 00 metFORMIN metFORMIN No 1{table BID metFORMIN HCl 1000 MG HCl 1000 MG 6-07 t_with_ HCl 1000 00:00: a_meal} MG 00 Lisinopril- Lisinopril- No 1{table QD Lisinopril hydroCHLORO hydroCHLORO 5-28 t} -hydroCHLO thiazide thiazide 00:00: ROthiazide 10-12.5 MG 10-12.5 MG 00 10-12.5 MG Naproxen Naproxen 2020- 1{table BID Naproxen 250 MG 250 MG 03-10 t_with_ 250 MG 00:00: 00:00 food_or 00 :00 _milk} methylPREDN methylPREDN QD methylPRED ISolone 4 ISolone 4 03-10 NISolone 4 MG MG 00:00: 00:00 MG 00 :00 atorvastati 10mg Take 10 mg Univers n (LIPITOR) 04-25 by mouth ity of 10 mg 19:36: 00:00 at [place] tablet 30 :00 bedtime. Medical Branch lisinopril 10mg Take 10 mg Univers (PRINIVIL,Z 04-25 by mouth ity of ESTRIL) 10 19:36: 00:00 [place]. [place] mg tablet 30 :00 [facility] Branch atorvastati 10mg Take 10 mg Univers n (LIPITOR) 04-25 by mouth ity of 10 mg 19:36: 00:00 at [place] tablet 30 :00 bedtime. [facility] Branch lisinopril 10mg Take 10 mg Univers (PRINIVIL,Z 04-25 by mouth ity of ESTRIL) 10 19:36: 00:[place]. [place] mg tablet 30 :00 Medical Branch white 2015-10 No .5[in_u Place 0.5 Uni vers petrolatum- 004-25 s] Inches in it y of mineral oil 00:00: 00:00 both eyes [place] (REFRESH 00 :00 at [facility]) bedtime. Bran ch 56.8-42.5 % ophthalmic ointment artificial 2015-10 No 1[drp] Place 1 U nivers tears,hypro 004-25 Drop in ity of mellose, 00:00: 00:00 both eyes [place] (ISOPTO-TEA 00 :00 4 (four) Medi terri RS) 0.5 % times Branch ophthalmic daily. drops white 2016-1 2017- No .5[in_u Place 0.5 Uni vers petrolatum- 0- 07-13 s] Inches in it y of mineral oil 00:00: 00:00 both eyes [place] (REFRESH 00 :00 at [facility]) bedtime. Bran ch 56.8-42.5 % ophthalmic ointment artificial 2015-10- No 1[drp] Place 1 U nivers tears,hypro 0- Drop in ity of mellose, 00:00: 00:00 both eyes [place] (ISOPTO-TEA 00 :00 4 (four) Medi terri RS) 0.5 % times Branch ophthalmic daily. drops Olopatadine 2016- No 1[drp] Place 1 Univers ([facility]) 04-11- Drop in ity of 0.2 % 00:00: 00:00 each eye [place] ophthalmic 00 :00 daily.X 6 Medi terri drops MOS.HG.KOP Branch Olopatadine 2016- No 1[drp] Place 1 Univers ([facility]) 04-11- Drop in ity of 0.2 % 00:00: [...] Universit y of Vaccine Quad IM, 00:00:00 [place] Me dical Preserv and ABX Branch Free 6 MO-64 YRS Influenza Virus 2022-08-22 Completed Universit y of Vaccine Quad IM, 00:00:00 [place] Me dical Preserv and ABX Branch Free 6 MO-64 YRS Influenza Virus 2022-08-22 Completed Universit y of Vaccine Quad IM, 00:00:00 [place] Me dical Preserv and ABX Branch Free 6 MO-64 YRS Influenza Virus 2022-08-22 Completed Universit y of Vaccine Quad IM, 00:00:00 [place] Me dical Preserv and ABX Branch Free 6 MO-64 YRS Influenza Virus 2022-08-22 Completed Universit y of Vaccine Quad IM, 00:00:00 [place] Me dical Preserv and ABX Branch Free 6 MO-64 YRS Influenza Virus 2016-08-18 Completed Universit y of Vaccine 00:00:00 [facility] Influenza Virus 2016-08-18 Completed Universit y of Vaccine 00:00:00 [facility] Influenza Virus 2016-08-18 Completed Universit y of Vaccine 00:00:00 [facility] Influenza Virus 2016-08-18 Completed Universit y of Vaccine 00:00:00 [facility] Influenza Virus 2016-08-18 Completed Universit y of Vaccine 00:00:00 [facility] Influenza Virus 2016-08-18 Completed Universit y of Vaccine 00:00:00 [facility] Influenza Virus 2016-08-18 Completed Universit y of Vaccine 00:00:00 [facility] Influenza Virus 2016-08-18 Completed Universit y of Vaccine 00:00:00 [facility] Influenza Virus 2016-08-18 Completed Universit y of Vaccine 00:00:00 [facility] Influenza Virus 2016-08-18 Completed Universit y of Vaccine 00:00:00 [facility] Influenza Virus 2016-08-18 Completed Universit y of Vaccine 00:00:00 [facility] Influenza Virus 2016-08-18 Completed Universit y of Vaccine 00:00:00 [facility] Influenza Virus 2016-08-18 Completed Universit y of Vaccine 00:00:00 [facility] Influenza Virus 2016-08-18 Completed Universit y of Vaccine 00:00:00 [facility] Influenza Virus 2016-08-18 Completed Universit y of Vaccine 00:00:00 [facility] Influenza Virus 2016-08-18 Completed Universit y of Vaccine 00:00:00 [facility] Influenza Virus 2016-08-18 Completed Universit y of Vaccine 00:00:00 [facility] Influenza Virus 2016-08-18 Completed Universit y of Vaccine 00:00:00 [facility] Influenza Virus 2016-08-18 Completed Universit y of Vaccine 00:00:00 [facility] Influenza Virus 2016-08-18 Completed Universit y of Vaccine 00:00:00 [facility] Influenza Virus 2016-08-18 Completed Universit y of Vaccine 00:00:00 [facility] Influenza Virus 2016-08-18 Completed Universit y of Vaccine 00:00:00 [facility] Influenza Virus 2016-08-18 Completed Universit y of Vaccine 00:00:00 [facility] Influenza Virus 2016-08-18 Completed Universit y of Vaccine 00:00:00 [facility] Influenza Virus 2016-08-18 Completed Universit y of Vaccine 00:00:00 [facility] Influenza Virus 2016-08-18 Completed Universit y of Vaccine 00:00:00 [facility] Influenza Virus 2016-08-18 Completed Universit y of Vaccine 00:00:00 [facility] Influenza Virus 2016-08-18 Completed Universit y of Vaccine 00:00:00 [facility] Influenza Virus 2016-08-18 Completed Universit y of Vaccine 00:00:00 [facility] Influenza Virus 2016-08-18 Completed Universit y of Vaccine 00:00:00 [facility] Influenza Virus 2016-08-18 Completed Universit y of Vaccine 00:00:00 [facility] Influenza Virus 2016-08-18 Completed Universit y of Vaccine 00:00:00 [facility] Influenza Virus 2016-08-18 Completed Universit y of Vaccine 00:00:00 [facility] Influenza Virus 2016-08-18 Completed Universit y of Vaccine 00:00:00 [facility] Influenza Virus 2016-08-18 Completed Universit y of Vaccine 00:00:00 [facility] Influenza Virus 2016-08-18 Completed Universit y of Vaccine 00:00:00 [facility] Influenza Virus 2016-08-18 Completed Universit y of Vaccine 00:00:00 [facility] Influenza Virus 2016-08-18 Completed Universit y of Vaccine 00:00:00 [facility] Influenza Virus 2016-08-18 Completed Universit y of Vaccine 00:00:00 [facility] Influenza Virus 2016-08-18 Completed Universit y of Vaccine 00:00:00 [facility] Influenza Virus 2016-08-18 Completed Universit y of Vaccine 00:00:00 [facility] Influenza Virus 2016-08-18 Completed Universit y of Vaccine 00:00:00 [facility] Influenza Virus 2016-08-18 Completed Universit y of Vaccine 00:00:00 [facility] Influenza Virus 2016-08-18 Completed Universit y of Vaccine 00:00:00 [facility] Influenza Virus 2016-08-18 Completed Universit y of Vaccine 00:00:00 [facility] Influenza Virus 2016-08-18 Completed Universit y of Vaccine 00:00:00 [facility] Influenza Virus 2016-08-18 Completed Universit y of Vaccine 00:00:00 [facility] Influenza Virus 2016-08-18 Completed Universit y of Vaccine 00:00:00 [facility] Influenza Virus 2016-08-18 Completed Universit y of Vaccine 00:00:00 [facility] Influenza Virus 2016-08-18 Completed Universit y of Vaccine 00:00:00 [facility] Influenza Virus 2016-08-18 Completed Universit y of Vaccine 00:00:00 [facility] Influenza Virus 2016-08-18 Completed Universit y of Vaccine 00:00:00 [facility] Influenza Virus 2016-08-18 Completed Universit y of Vaccine 00:00:00 [facility] Influenza Virus 2016-08-18 Completed Universit y of Vaccine 00:00:00 [facility] Influenza Virus 2016-08-18 Completed Universit y of Vaccine 00:00:00 [facility] Influenza Virus 2016-08-18 Completed Universit y of Vaccine 00:00:00 [facility] Influenza Virus 2016-08-18 Completed Universit y of Vaccine 00:00:00 [facility] Pneumococcal 2013-03-24 Completed University o f Polysaccharide, [...] 2013-03-24 Completed University o f Polysaccharide, 00:00:00 [place] [facility] PPSV23 (PNEUMOVAX) Branch Vital Signs Vital Name Observation Time Observation Value Comments Source Systolic blood 2023-03-19 18:35:00 124 mm[Hg] Univer sity of pressure [facility] Diastolic blood 2023-03-19 18:35:00 72 mm[Hg] Unive [facility] Heart rate 2023-03-19 18:35:00 60 /min [facility] Respiratory rate 2023-03-19 18:35:00 17 /min [facility] Oxygen saturation in 2023-03-19 18:35:00 98 /min [facility] Arterial blood by [facility] Pulse oximetry Branch Body temperature 2023-03-19 17:16:00 36.67 Laurie [facility] Body height 2023-03-19 16:10:00 177.8 cm [facility] Body weight 2023-03-19 16:10:00 119.75 kg [facility] BMI 2023-03-19 16:10:00 37.88 kg/m2 [facility] Systolic blood 2023-03-19 14:56:00 141 mm[Hg] Univer sity of pressure [facility] Diastolic blood 2023-03-19 14:56:00 97 mm[Hg] Unive rsity of pressure [facility] Heart rate 2023-03-19 14:53:00 59 /min [facility]i ty [facility] Body temperature 2023-03-19 14:53:00 36.67 Laurie Univ ersity of [facility] Body height 2023-03-19 14:53:00 177.8 cm [facility] Body weight 2023-03-19 14:53:00 119.75 kg [facility]i [facility] BMI 2023-03-19 14:53:00 37.88 kg/m2 [facility] Oxygen saturation in 2023-03-19 14:53:00 94 /min University of Arterial blood by [place] [employer] terri Pulse oximetry Branch Body weight 2023-01-14 19:23:00 118.842 kg Universi ty [facility] BMI 2023-01-14 19:23:00 37.59 kg/m2 [facility] Systolic blood 2022-12-31 15:44:00 137 mm[Hg] Univer sity of pressure [facility] Diastolic blood 2022-12-31 15:44:00 83 mm[Hg] Unive rsity of pressure [facility] Heart rate 2022-12-31 15:44:00 55 /min [facility] Body temperature 2022-12-31 15:44:00 35.94 Laurie Univ ersity of [facility] Respiratory rate 2022-12-31 15:44:00 18 /min Univ ersity of [facility] Body height 2022-12-31 15:44:00 177.8 cm [facility] Body weight 2022-12-31 15:44:00 119.251 kg [facility] BMI 2022-12-31 15:44:00 37.72 kg/m2 [facility] Oxygen saturation in 2022-12-31 15:44:00 93 /min University of Arterial blood by [place] [employer] terri Pulse oximetry Branch Systolic blood 2022-12-11 15:07:00 127 mm[Hg] Univer sity of pressure [facility] Diastolic blood 2022-12-11 15:07:00 85 mm[Hg] Unive rsity of pressure [facility] Heart rate 2022-12-11 15:07:00 54 /min Universi ty [facility] Body temperature 2022-12-11 15:07:00 36.11 Laurie Univ ersity of [facility] Body height 2022-12-11 15:07:00 177.8 cm Universi [facility] Body weight 2022-12-11 15:07:00 118.253 kg [facility]i [facility] BMI 2022-12-11 15:07:00 37.41 kg/m2 Universi ty [facility] Oxygen saturation in 2022-12-11 15:07:00 96 /min University Arterial blood by [facility] Pulse oximetry Branch Systolic blood 2022-09-20 21:40:00 113 mm[Hg] Univer sity of pressure [facility] Diastolic blood 2022-09-20 21:40:00 75 mm[Hg] Unive rsity of pressure [facility] Heart rate 2022-09-20 21:40:00 67 /min [facility]i [facility] Body temperature 2022-09-20 21:40:00 36.11 Laurie Univ ersity of [facility] Body height 2022-09-20 21:40:00 177.8 cm Universi ty [facility] Body weight 2022-09-20 21:40:00 124.195 kg [facility] BMI 2022-09-20 21:40:00 39.29 kg/m2 [facility] Systolic blood 2022-09-20 15:41:00 129 mm[Hg] Univer sity of pressure [facility] Diastolic blood 2022-09-20 15:41:00 87 mm[Hg] Unive rsity of pressure [facility] Heart rate 2022-09-20 15:41:00 60 /min [facility]i [facility] Body temperature 2022-09-20 15:41:00 36.22 Laurie Univ ersity of [facility] Respiratory rate 2022-09-20 15:41:00 18 /min Univ ersity of [facility] Body height 2022-09-20 15:41:00 177.8 cm [facility] Body weight 2022-09-20 15:41:00 123.787 kg Universi ty of [facility] BMI 2022-09-20 15:41:00 39.16 kg/m2 Universi ty [facility] Oxygen saturation in 2022-09-20 15:41:00 97 /min University of Arterial blood by [facility] terri Pulse oximetry Branch Systolic blood 2022-08-22 21:37:00 119 mm[Hg] Univer sity of pressure [facility] Diastolic blood 2022-08-22 21:37:00 78 mm[Hg] Unive rsity of pressure [facility] Heart rate 2022-08-22 21:37:00 64 /min [facility]i [facility] Respiratory rate 2022-08-22 21:37:00 18 /min Univ ersity of [facility] Body height 2022-08-22 21:37:00 177.8 cm [facility] Body weight 2022-08-22 21:37:00 130.001 kg [facility] BMI 2022-08-22 21:37:00 41.12 kg/m2 [facility] Oxygen saturation in 2022-08-22 21:37:00 90 /min University of Arterial blood by [facility] Pulse oximetry Branch Systolic blood 2022-07-07 00:00:00 116 mm[Hg] Univer sity of pressure [facility] Diastolic blood 2022-07-07 00:00:00 71 mm[Hg] Unive rsity of pressure [facility] Heart rate 2022-07-07 00:00:00 67 /min [facility]i ty [facility] Respiratory rate 2022-07-07 00:00:00 18 /min Univ ersity of [facility] Oxygen saturation in 2022-07-07 00:00:00 96 /min University of Arterial blood by [facility] terri Pulse oximetry Branch Body temperature 2022-07-06 21:41:00 36.72 Laurie Univ ersity of [facility] Body height 2022-07-06 21:41:00 177.8 cm Universi ty [facility] Body weight 2022-07-06 21:41:00 131.543 kg [facility] ty [facility] BMI 2022-07-06 21:41:00 41.61 kg/m2 [facility] ty [facility] Systolic blood 2022-06-21 21:00:00 126 mm[Hg] Univer sity of pressure [facility] Diastolic blood 2022-06-21 21:00:00 85 mm[Hg] Unive rsity of [facility] Heart rate 2022-06-21 21:00:00 84 /min [facility] Body temperature 2022-06-21 21:00:00 35.94 Laurie [facility] height 2022-06-21 21:00:00 177.8 cm [facility] Body weight 2022-06-21 21:00:00 131.997 kg [facility] BMI 2022-06-21 21:00:00 41.75 kg/m2 [facility] height 2021-04-12 16:00:00 70.00 [in_i] [facility] weight 2021-04-12 16:00:00 295.0 [lb_av] [facility] temperature 2021-04-12 16:00:00 97.4 [degF] [facility] bmi 2021-04-12 16:00:00 42.32 kg/m2 [facility] oximetry 2021-04-12 16:00:00 97 % [facility] respiratory rate 2021-04-12 16:00:00 16 /min Comm on [facility] blood pressure 2021-04-12 16:00:00 120 mm[Hg] Common [facility] - systolic [facility] blood pressure 2021-04-12 16:00:00 72 mm[Hg] Common [facility] - diastolic [facility] height 2021-03-20 13:30:00 70.00 [in_i] Common [facility] weight 2021-03-20 13:30:00 299 [lb_av] [facility] bmi 2021-03-20 13:30:00 42.9 kg/m2 [facility] blood pressure 2021-03-20 13:30:00 144 mm[Hg] Common [facility] - systolic [facility] blood pressure 2021-03-20 13:30:00 99 mm[Hg] Common [facility] - diastolic [facility] respiratory rate 2021-03-20 15:00:00 16 /min Comm on [facility] blood pressure 2021-03-20 15:00:00 132 mm[Hg] Common [facility] - systolic [facility] blood pressure 2021-03-20 15:00:00 76 mm[Hg] Common [facility] - diastolic [facility] height 2021-03-20 15:00:00 70.00 [in_i] Common [facility] weight 2021-03-20 15:00:00 298.0 [lb_av] [facility] temperature 2021-03-20 15:00:00 97.7 [degF] [facility] bmi 2021-03-20 15:00:00 42.75 kg/m2 [facility] oximetry 2021-03-20 15:00:00 96 % [facility] height 2021-03-09 08:30:00 70.00 [in_i] [facility] weight 2021-03-09 08:30:00 299.2 [lb_av] [facility] temperature 2021-03-09 08:30:00 98.1 [degF] [facility] bmi 2021-03-09 08:30:00 42.93 kg/m2 [facility] oximetry 2021-03-09 08:30:00 95 % [facility] respiratory rate 2021-03-09 08:30:00 16 /min Comm on [facility] blood pressure 2021-03-09 08:30:00 136 mm[Hg] [facility] - systolic [facility] blood pressure 2021-03-09 08:30:00 78 mm[Hg] Common [facility] - diastolic [facility] Systolic blood 2017-04-24 16:27:00 117 mm[Hg] [facility] sity of pressure [facility] Diastolic blood 2017-04-24 16:27:00 67 mm[Hg] [facility] Heart rate 2017-04-24 16:27:00 61 /min [facility] Body temperature 2017-04-24 16:27:00 36.83 Laurie [facility] Respiratory rate 2017-04-24 16:27:00 18 /min [facility] Body height 2017-04-24 16:27:00 177.8 cm [facility] Body weight 2017-04-24 16:27:00 117.482 kg [facility] BMI 2017-04-24 16:27:00 37.16 kg/m2 [facility] Oxygen saturation in 2017-04-24 16:27:00 95 /min [facility] Arterial blood by [facility] Pulse oximetry Branch Procedures Procedure Date / Time Performing Clinician Source Performed BASIC METABOLIC PANEL 2023-03-26 14:55:00 Sundar Ngozi [facility] (NA, K, CL, CO2, [facility] GLUCOSE, BUN, CREATININE, CA) ALPHA FETOPROTEIN 2023-03-26 14:55:00 Sundar [facility] CBC WITH DIFF 2023-03-26 14:55:00 Sundar [facility] PROTHROMBIN TIME / INR 2023-03-26 14:55:00 Sundar Ngozi [facility] EKG-12 LEAD 2023-03-19 19:45:21 Elsi Dimas [facility] XR CHEST 2 VW 2023-03-19 17:58:00 Quan [facility] POCT GLUCOSE (AUTOMATED) 2023-03-19 17:18:00 [facility]si [facility]IP[facility] 2023-03-19 16:56:00 Quan [facility] TROPONIN I 2023-03-19 16:56:00 Quan Elsi [facility] COMP. METABOLIC PANEL 2023-03-19 16:56:00 Elsi Dimas [facility] ([id number]) Medical Branch URINALYSIS 2023-03-19 16:56:00 Quan [facility] N-TERMINAL PRO-BNP 2023-03-19 16:56:00 Elsi Dimas [facility] POCT GLUCOSE (AUTOMATED) 2023-03-19 16:13:00 Elsi Dimas [facility] CONSENT/REFUSAL FOR 2023-03-19 16:05:36 Doctor Unassigned, No [facility] Name Medical [place] CREATININE 2023-03-19 15:45:00 Sundar [facility] AMYLASE 2023-03-19 15:45:00 Sundar [facility] LIPASE 2023-03-19 15:45[facility] 2023-03-19 15:45:00 [facility] ([id number]) (ALB,T.PRO,BILI Medical Branch T,BU/BC,ALT,AST,ALK PHOS) MEDICAL 2023-01-03 05:01:00 Doctor Unassigned, No [facility] RELEASE/CLEARANCE FORMS Name Medical Branch HB ECG ROUTINE & RHYTHM 2022-12-31 15:47:56 Nilton Cain [facility] PATIENT FINANCIAL 2022-12-31 15:34:24 Doctor Unassigned, No [facility] POLICY Name Medical Branch AUTHORIZATION FOR 2022-11-13 06:01:00 Doctor Unassigned, No [facility] RELEASE OF [facility] Name Medical Branch AUTHORIZATION FOR 2022-09-12 06:01:00 Doctor Unassigned, No [facility] RELEASE OF [facility] Name Medical Branch AUTHORIZATION FOR 2022-08-29 06:01:00 Doctor Unassigned, No [facility] RELEASE OF [facility] Name Medical Branch FLU VACC ([id number]), 6 2022-08-22 21:55:16 Poncho Barlow [facility] MO-63 YRS, .5ML, IM, Medical Bra nch QUAD (FLUCELVAX) DME/SUPPLY JUSTIFICATION 2022-08-22 06:01:00 Doctor Unassigned, No [facility] SLEEP STUDY DATA REPORT 2022-08-11 05:01:00 Doctor Unassigned, N o [facility] AUTHORIZATION FOR 2022-07-16 05:01:00 Doctor Unassigned, No [facility] RELEASE OF PHI [facility] URIC ACID 2022-07-06 22:31:00 Kerri Fuentes [facility] COMP. METABOLIC PANEL 2022-07-06 22:31:00 Kerri Fuentes [facility] ([id number]) Medical [place] SEDIMENTATION RATE 2022-07-06 22:31:00 Kerri Fuentes [facility] CBC WITH DIFF 2022-07-06 22:31:00 Kerri Fuentes [facility] XR ELBOW <3 VW RIGHT 2022-07-06 22:00:20 Kerri Fuentes [facility] CONSENT/REFUSAL FOR 2022-07-06 21:33:37 Doctor Unassigned, No [facility] DIAGNOSIS AND TREATMENT [facility] PATIENT QUESTIONNAIRE 2022-06-21 05:01:00 Doctor Unassigned, No [facility] PAIN MANAGEMENT 2022-06-21 05:01:00 Doctor Unassigned, No [facility] AGREEMENT & INFORMED [facility] Medical [facility] CONSENT EKG-12 LEAD 2017-04-24 16:45:14 Chon Cabrera [place] [facility] Plan of Care Planned Activity Planned Date Details Comments Source Future Scheduled 2023-04-01 SHINGLES VACCINES Method [facility] Hospital Test 17:40:16 (1 of 2) [code = SHINGLES VACCINES (1 of 2)] Future Scheduled 2023-04-01 INFLUENZA VACCINE Method [facility] Hospital Test 17:40:16 [code = INFLUENZA VACCINE] Future Scheduled 2023-04-01 [facility]IS B [facility] 17:40:16 VACCINES (1 of 3 - 3-dose series) [code = HEPATITIS B VACCINES (1 of 3 - 3-dose series)] Future Scheduled 2023-04-01 [facility]16 (#1) [code = COVID-19 VACCINE (#1)] Future Scheduled 2023-04-01 Hepatitis C [facility] Test 17:40:16 screening (procedure) [code = 437356217] Future Scheduled 2023-04-01 HEPATITIS B [facility] Test 17:40:16 VACCINES (1 of 3 - 3-dose series) [code = HEPATITIS B VACCINES (1 of 3 - 3-dose series)] Future Scheduled 2023-04-01 COVID-[address] [facility] Test 17:40:16 (#1) [code = COVID-19 VACCINE (#1)] Future Scheduled 2023-04-01 Hepatitis C [facility] Test 17:40:16 screening (procedure) [code = 493100360] Future Scheduled 2023-04-01 SHINGLES VACCINES Method ist Hospital Test 17:40:16 (1 of 2) [code = SHINGLES VACCINES (1 of 2)] Future Scheduled 2023-04-01 INFLUENZA VACCINE Method ist Hospital Test 17:40:16 [code = INFLUENZA VACCINE] Encounters Start End Encounter Admission Attending Care Care Encounter Source Date/Time Date/Time Type Type Clinicians Facility Department ID 2021-11-08 [facility] [id number] Common 13:17:16 Avnee [id number] [facility] 2021-11-08 Outpatient Redman, [facility] [id number] Common 13:15:38 Avnee [id number] [facility] 2021-11-08 Outpatient Redman, [facility] [id number] Common 13:11:33 Avnee [id number] [facility] 2021-11-08 Outpatient Redman, [facility] [id number] Common 13:10:06 Avnee [id number] [facility] 2021-11-08 Outpatient Redman, [facility] [id number] Common 13:08:07 Avnee [id number] [facility] 2021-08-15 Outpatient Westley DE PAZ, [facility] MAMADOU [id number] Univers 02:59:05 [place] [facility] 2021-08-14 Emergency [facility] [id number] Univers 03:43:53 [facility] 2021-08-14 Emergency [facility] [id number] Univers 02:00:39 ity of [facility] 2023-04-14 2023-04-14 [facility] [id number] Univers 00:00:00 00:00:00 Zack CERDA [id number] i ty [place] [id number] Md dical NAL 044 [facility] 2023-04-03 2023-04-03 [facility] [id number] Univers 00:00:00 00:00:00 Zack CERDA [id number] i ty of [id number] [id number] Md dical NAL 044 [facility] 2023-03-28 2023-03-28 Telephone JUAN Kwok [id number] Univers 00:00:00 00:00:00 Ngozi [facility] [id number] i ty [place] [id number] [address] 2023-03-26 2023-03-26 Outpatient R SUNDAR [facility] [id number] Univers 08:38:05 23:59:00 NGOZI ity [facility] 2023-03-26 2023-03-26 [facility] Sundar [facility] 1.2.840.114 [id number] Univers 08:38:05 23:59:00 Encounter Ngozi SPECIALTY [id number] it[place] [id number] Md sirena BURNS 801 [facility] 2023-03-26 2023-03-26 Swing Type Lathe Operator Lab, [facility] 1.2.840.114 [id number] Univers 09:15:00 09:30:00 Visit Justice Kwoka SPECIALTY [id number] it[place] [id number] Md sirena BURNS 353 [facility] 2023-03-23 2023-03-23 Refboris Lunsforddaniidinora [facility] 1.2.840.114 [id number] Univers 00:00:00 00:00:00 Zack CERDA 350.1.13.10 i ty [place] [id number] Md dical NAL 044 [facility] 2023-03-21 2023-03-21 Telephone Sundar [facility] [id number] Univers 00:00:00 00:00:00 Ngozi SPECIALTY 350.1.13.10 it[place] [id number] Md sirena ERINTonny 072 [facility] 2023-03-19 2023-03-19 Emergency X DIMASELSI [facility] ERT 1 [id number] Univers 11:14:00 14:57:00 ELSI DIMAS [facility] 2023-03-19 2023-03-19 Emergency Quan [facility] [id number] Univers 11:14:00 14:57:00 [facility] 350.1.13.10 it y of [place] [facility] [id number] [address] ([facility]) 2023-03-19 2023-03-19 Office Sundar [facility] 1.2.840.114 [id number] Univers 10:00:00 13:28:34 Visit Ngozi SPECIALTY 350.1.13.10 it[place] [id number] Md sirena BURNS 072 [facility] 2023-03-19 2023-03-19 Swing Type Lathe Operator Lab, [facility] 1.2.840.114 [id number] Univers 10:45:00 11:00:00 Visit Ngozi Kwok 350.1.13.10 it[place] [id number] Md sirena BURNS 353 [facility] 2023-03-19 2023-03-19 Outpatient R SUNDAR [facility] [id number] Univers 10:45:00 10:45:00 NGOZI ity [facility] 2023-02-07 2023-02-07 Outpatient R MIKEDANIIDINORA, [facility] [id number] Univers 15:00:00 15:00:00 ZACK brendantonny [facility] 2023-01-14 2023-01-14 Outpatient R CARI, [facility] [id number] [facility] 14:00:00 15:11:11 GOLDIE brendany o f [facility] 2023-01-14 2023-01-14 [facility] [id number] [facility] 14:00:00 15:11:11 Visit Goldie Culp 350.1.13.10 i ty of [facility] 4.2.7.2.686 Selvin as BANK [id number] [facility] BLDG. [address] [place] [address] 2023-01-04 2023-01-04 Telephone [facility] [id number] Univers 00:00:00 00:00:00 Nilton [place] 350.1.13.10 ity [place] [id number] Md dical NAL [address] [place] [address] 2023-01-03 2023-01-03 Telephone [facility] [id number] Univers 00:00:00 00:00:00 Qiavernajun [place] 350.1.13.10 ity of [facility] 4.[place] [id number] Md dical NAL [address] [place] [address] 2023-01-03 2023-01-03 Telephone [facility] [id number] Univers 00:00:00 00:00:00 Qiavernajun [place] 350.1.13.10 ity of [facility] 4.2.[place] [id number] Md dicwy NAL [address] [place] [address] 2023-01-03 2023-01-03 Orders Doctor [place] 1.2.840.114 [id number] Univers 00:00:00 00:00:00 Only Unassigned, ALEX 350.1.13.10 ity of [facility] 4.2.7.2.686 Selvin as [id number] [address] 2023-01-02 2023-01-02 Outpatient R [facility] [id number] Univers 13:10:33 23:59:00 NILTON garcía o f [facility] 2022-12-31 2022-12-31 Outpatient R [facility] [id number] Univers 11:00:00 11:02:27 NILTON garcía o f [facility] 2022-12-31 2022-12-31 Office [facility] 1.2.840.114 [id number] Univers 11:00:00 11:02:27 Visit Nilton CERDA 350.1.13.10 it[place] of [place] [id number] [address] 2022-12-31 2022-12-31 Orders Doctor ENA 1.2.840.114 [id number] Univers 00:00:00 00:00:00 Only Unassigned, ALEX 350.1.13.10 ity of [facility] 4.2.7.2.686 Selvin as [id number] [address] 2022-12-31 2022-12-31 Telephone [facility] [id number] Univers 00:00:00 00:00:00 Nilton CERDA 350.1.13.10 it[place] of [place] [id number] [address] 2022-12-20 2022-12-20 [id number] Univers 13:40:00 13:40:00 ZACK garcía [facility] 2022-12-19 2022-12-19 [facility] [id number] Univers 10:20:00 10:20:00 ZACK garcía [facility] 2022-12-12 2022-12-12 Outpatient R [facility] [id number] Univers 10:00:00 10:00:00 ity of [facility] 2022-12-11 2022-12-11 Swing Type Lathe Operator Draw, Clc-Bls Lab [facility] 1.2.8 40.114 [id number] Univers 10:15:00 10:30:00 Visit Ngozi Kwok 350.1.13.10 [place]OM[place] [id number] [address] OFFICE BUILDING 2022-12-11 2022-12-11 Outpatient R SUNDAR [facility] [id number] Univers 08:30:00 09:30:06 NGOZI ity of [facility] 2022-12-11 2022-12-11 Office Sundar [facility] 1.2.840.114 [id number] Univers 08:30:00 09:30:06 Visit Ngozi [place] 350.1.13.10 ity of [facility] 4[place].7.2.[place] AT [id number] Md sirena [address] 2022-12-10 2022-12-10 Refill Jeri [facility] 1.2.840.114 [id number] Univers 00:00:00 00:00:00 Zack CERDA 350.1.13.10 i ty of [place] [id number] Md dicwy NAL [address] [place] [address] 2022-11-18 2022-11-18 Refboris Sneed [facility] 1.2.840.114 10 [id number] Univers 00:00:00 00:00:00 , Diamond CERDA 350.1.13.10 ity of [place] [id number] Md robertwy NAL [address] [place] [address] 2022-11-15 2022-11-15 Telephone Team, [facility] ENA 1.2.840.114 1 [id number] Univers 00:00:00 00:00:00 Health ALEX 350.1.13.10 it y of [facility] 4.2.7.2.686 [place] [id number] [facility] [address] [place] 2022-11-13 2022-11-13 Telephone Jeri [facility] 1.2.840.114 1 [id number] Univers 00:00:00 00:00:00 Zack CERDA 350.1.13.10 i ty of [place] [id number] Md sirena SUAZO 044 [facility] 2022-11-13 2022-11-13 Telephone [facility] 1.2.840.114 1 [id number] Univers 00:00:00 00:00:00 Zack CERDA 350.1.13.10 i ty of [place] 4.[place] [id number] Md sirena SUAZO [address] [place] [address] 2022-11-13 2022-11-13 Orders Doctor ENA 1.2.840.114 [id number] Univers 00:00:00 00:00:00 Only Unassigned, ALEX 350.1.13.10 ity of [place] [facility] 4.2.7.2.686 Selvin as [id number] [address] 2022-10-30 2022-10-30 Outpatient [facility] [id number] Univers 13:30:00 13:30:00 GOLDIE [facility] 2022-10-27 2022-10-27 Refill [facility] 1.2.840.114 [id number] Univers 00:00:00 00:00:00 Zack CERDA 350.1.13.10 i ty of [place] 4.[place].7.[place] [id number] Md sirena SUAZO 044 [facility] 2022-09-20 2022-09-20 Office [facility] 1.2.545.089 [id number] Univers 16:20:00 16:30:00 Visit Collette HAMILTON 350.1.13.10 ity of [facility] [place]2.7.2.[place] AT [phone] Md robertkirsten BURNS [address] [place] [address] 2022-09-20 2022-09-20 Outpatient [facility] [id number] Univers 16:20:00 16:20:00 COLLETTE garcía of [facility] 2022-09-20 2022-09-20 Outpatient R JERI [facility] [id number] Univers 09:40:00 10:16:17 ZACK ity of [facility] 2022-09-20 2022-09-20 Office [facility] 1.2.840.114 [id number] [facility] 09:40:00 10:16:17 Visit Zack CERDA 350.1.13.10 i ty of [place] 4.2.7.2.[place] [id number] Md dical NAL 044 [facility] 2022-09-12 2022-09-12 Orders Doctor ENA 1.2.840.114 [id number] Univers 00:00:00 00:00:00 Only Unassigned, ALEX 350.1.13.10 ity of [place] [facility] 4.2.7.2.686 Selvin as [id number] [address] 2022-09-11 2022-09-11 Telephone [facility] 1.2.840.114 [id number] Univers 00:00:00 00:00:00 Juniorl Divina CERDA 350.1.13.10 ity of [place].7.2.[place] [id number] Md dicwy NAL 085 [facility] 2022-08-29 2022-08-29 Orders Doctor ENA 1.2.840.114 [id number] Univers 00:00:00 00:00:00 Only Unassigned, ALEX 350.1.13.10 ity of [place] [facility]OSPITAL 4.2.7.2.686 Selvin as [id number] [address] 2022-08-22 2022-08-22 Office [facility] 1.2.899.025 [id number] Univers 16:00:00 16:30:00 Visit Poncho CERDA 350.1.13.10 ity of [place] 4.[place].7.2.[place] [id number] Md dical NAL 085 [facility] 2022-08-22 2022-08-22 Outpatient R PONCHO BARLOW [facility] [id number] Univers 16:00:00 16:00:00 PONCHO BARLOW ittonny [facility] 2022-08-22 2022-08-22 Orders Doctor ENA 1.2.840.114 [id number] Univers 00:00:00 00:00:00 Only Unassigned, ALEX 350.1.13.10 ity [facility] 4.2.7.2.686 [place] as [id number] [address] 2022-08-11 2022-08-11 Swing Type Lathe Operator 1, [facility] Sleep Lab Bed [facility] 1. 2.840.114 [id number] Univers 20:00:00 22:30:00 Visit JakobFlaviomoses Divina PRASHANT 350.1.13. 10 ity [facility] 4.2.7.2.686 [facility] [id number] [facility] [address] 2022-08-11 2022-08-11 Outpatient R JAKOBJUNIORLisa [facility] [id number] Univers 20:00:00 20:00:00 PONCHO BARLOW ittonny [facility] 2022-08-11 2022-08-11 Orders Doctor ENA 1.2.840.114 [id number] Univers 00:00:00 00:00:00 Only Unassigned, ALEX 350.1.13.10 ity of [facility] 4.2.7.2.686 Selvin as [id number] [address] 2022-08-07 2022-08-07 Outpatient R JAKOBJUNIORLisa [facility] [id number] Univers 15:45:00 15:45:00 PONCHO BARLOW ity [facility] 2022-08-05 2022-08-05 Emergency E GABRIELLE, [facility] 12:39:00 19:45:00 JYOTI 2022-08-04 2022-08-04 Outpatient R [facility] [id number] Univers 20:00:00 20:00:00 ity [facility] 2022-08-02 2022-08-02 Outpatient R [facility] [id number] Univers 11:00:00 11:00:00 ity [facility] 2022-07-25 2022-07-25 Outpatient [facility] [id number] Univers 10:40:00 10:40:00 ZACK tonny [facility] 2022-07-20 2022-07-20 Outpatient [facility] [id number] Univers 10:30:00 10:30:00 PRAVEENA garcía [facility] 2022-07-17 2022-07-17 Outpatient Efrain Sousa HCACL LABO G00 [id number] [facility] 22:40:00 22:40:00 67 [facility] 2022-07-17 2022-07-17 Emergency EM Efrain Sousa HCAPM CELESTE LA00 [id number] [facility] 13:59:00 16:49:00 61 [facility] 2022-07-16 2022-07-16 Orders Doctor [place] 1.2.840.114 [id number] Univers 00:00:00 00:00:00 Only Unassigned, ALEX 350.1.13.10 ity of [facility] 4.2.7.2.686 Selvin as [id number] [facility] [address] [place] 2022-07-14 2022-07-14 Refill [facility] 1.2.840.114 [id number] Univers 00:00:00 00:00:00 Zack CERDA 350.1.13.10 i ty of [place].2.[place] [id number] [address] 2022-07-06 2022-07-06 Emergency X GLADIS, [facility] ERT [id number] Univers 16:42:00 19:33:00 KERRI cardonatonny [facility] 2022-07-06 2022-07-06 Emergency [facility] 1.2.840.114 [id number] Univers 16:42:00 19:33:00 Kerri CERDA 350.1.13.10 i ty of [place] 4.2.7.2.[place] [id number] [facility] [address] [place] 2022-07-06 2022-07-06 Orders Doctor [place] 1.2.840.114 [id number] Univers 00:00:00 00:00:00 Only Unassigned, ALEX 350.1.13.10 ity of [place] [facility] 4.2.7.2.686 Selvin as [id number] [address] 2022-07-05 2022-07-05 Outpatient R [facility] [id number] Univers 14:30:00 14:30:00 ity of [facility] 2022-06-29 2022-06-29 Outpatient [facility] [id number] Univers 14:00:00 14:00:00 ZACK garcía [facility] 2022-06-21 2022-06-21 Outpatient R [facility] [id number] Univers 16:10:00 16:36:40 COLLETTE garcía [facility] 2022-06-21 2022-06-21 Office [facility] 1.2.024.015 [id number] Univers 16:10:00 16:36:40 Visit Collette SPECIALTY 350.1.13.10 ity of [facility] [place]2.7.2.[place] AT [id number] [address] 2022-06-21 2022-06-21 Outpatient R [facility] [id number] Univers 16:10:00 16:36:40 COLLETTE cardonatonny [facility] 2022-06-21 2022-06-21 Outpatient R [facility] [id number] Univers 13:00:00 13:00:00 ity [facility] 2022-06-21 2022-06-21 Orders Doctor [place] 1.2.840.114 [id number] Univers 00:00:00 00:00:00 Only Unassigned, ALEX 350.1.13.10 ity of [place] [facility] 4.2.7.2.686 Selvin as [id number] [address] 2022-06-19 2022-06-19 Outpatient R [facility] [id number] Univers 09:50:00 09:50:00 COLLETTE garcía [facility] 2022-06-15 2022-06-15 Outpatient [facility] [id number] Univers 10:15:00 10:15:00 FELIPE ittonny [facility] 2022-06-14 2022-06-14 Outpatient R JERI [facility] [id number] Univers 11:20:00 12:43:04 ZACK raquel [facility] 2022-06-14 2022-06-14 Office [facility] 1.2.840.114 [id number] Univers 11:20:00 12:43:04 Visit Zack CERDA 350.1.13.10 i ty of [place].2.[place] [id number] Md dical NAL 044 [facility] 2022-06-14 2022-06-14 Refill [facility] 1.2.840.114 [id number] Univers 00:00:00 00:00:00 Zack CERDA 350.1.13.10 i ty [facility] 4.2.7.2.[place] [id number] Md dical [address] 2022-06-13 2022-06-13 Outpatient R LEEANN [facility] [id number] Univers 14:30:00 14:30:00 FELIPE tonny [facility] 2022-06-13 2022-06-13 Outpatient R LEEANN [facility] [id number] Univers 14:30:00 14:30:00 FELIPE garcía [facility] 2022-06-13 2022-06-13 Telephone Toribio [facility] 1.2.754.928 [id number] Univers 00:00:00 00:00:00 [facility] 350.1.13.10 ity [facility] [place].2.7.2.[place] [id number] [facility] AND [address] [facility] 2022-06-08 2022-06-08 Telephone [facility] 1.2.840.114 [id number] Univers 00:00:00 00:00:00 Zack CERDA 350.1.13.10 i ty of [facility] 4.2.7.2.[place] [id number] Md dical NAL 231 [facility] 2022-06-07 2022-06-07 Outpatient R BE CASEY [facility] [id number] Univers 07:39:24 23:59:00 BE CASEY ity [facility] 2022-06-07 2022-06-07 [facility] 1.2.840.114 [id number] Univers 07:39:24 23:59:00 Encounter Be CERDA 350.1.13.10 ity of [facility] 4.2.7.2.[place] [id number] [address] 2022-06-06 2022-06-06 [facility] 1.2.840.114 [id number] Univers 15:30:00 23:59:00 Encounter Zack CERDA 350.1.13.10 ity of [facility] 4.2.7.2.[place] [id number] [address] 2022-06-06 2022-06-06 Office Jakob [facility] 1.2.607.946 [id number] Univers 16:20:00 16:40:00 Visit Poncho CERDA 350.1.13.10 ity of [facility] 4.2.7.2.[place] [id number] Md sirena SUAZO 5 [facility] 2022-06-06 2022-06-06 Outpatient R PONCHO BARLOW [facility] [id number] Univers 16:20:00 16:20:00 PONCHO BARLOW [facility] 2022-06-06 2022-06-06 Office [facility] 1.2.840.114 [id number] Univers 10:00:00 10:57:44 Visit [facility] 350.1.13.10 it y of [facility] 4.2.7.2.686 [place]vin as JAYA?BLEA [id number] Md dickirsten GALLEGOS 198 [facility] OFFICE [facility] 2022-06-06 2022-06-06 Outpatient [facility] [id number] Univers 10:00:00 10:57:44 ADAM raquel [facility] 2022-06-06 2022-06-06 Outpatient R LEEANN [facility] [id number] Univers 10:05:00 10:05:00 FELIPE tonny [facility] 2022-06-06 2022-06-06 Outpatient R NISA [facility] [id number] Univers 10:00:00 10:00:00 ADAM garcía [facility] 2022-06-05 2022-06-05 Telephone [facility] 1.2.840.114 [id number] Univers 00:00:00 00:00:00 Zack CERDA 350.1.13.10 i ty of [place] 4.2.7.2.[place] [id number] Md dical NAL 231 [facility] 2022-05-31 2022-05-31 Outpatient R BE CASEY [facility] [id number] Univers 00:00:00 00:00:00 BE CASEY [facility] 2022-05-30 2022-05-30 Outpatient [facility] [id number] Univers 15:40:00 16:52:42 ZACK raquel [facility] 2022-05-30 2022-05-30 Office [facility] 1.2.840.114 [id number] Univers 15:40:00 16:52:42 Visit Zack CERDA 350.1.13.10 i ty of [place] 4.2.7.2.[place] [id number] Md dical NAL 044 [facility] 2022-05-30 2022-05-30 Orders Doctor ENA 1.2.840.114 [id number] Univers 00:00:00 00:00:00 Only Unassigned, ALEX 350.1.13.10 ity of [place] [facility] 4.2.7.2.686 [place]vin as [id number] [address] 2022-05-30 2022-05-30 Telephone [facility] 1.2.840.114 [id number] Univers 00:00:00 00:00:00 Zack CERDA 350.1.13.10 i ty of [place] 4.2.7.2.686 [place] [id number] Md dical NAL 353 [facility] 2022-05-30 2022-05-30 [facility]ill [facility] 1.2.840.114 [id number] Univers 00:00:00 00:00:00 Zack CERDA 350.1.13.10 i ty of [facility] 4.2.7.2.[place] [id number] Md dical NAL 044 [facility] 2022-05-29 2022-05-29 Telephone [facility] 1.2.840.114 [id number] Univers 00:00:00 00:00:00 Zack CERDA 350.1.13.10 i ty of [facility] 4.2.7.2.[place] [id number] Md dicwy NAL [address] [place] [address] 2022-05-14 2022-05-14 Outpatient R DOLORES [facility] [id number] Univers 14:00:00 14:00:00 PAIGE [facility] 2022-05-14 2022-05-14 Case JUAN Casey 1.2.459.214 [id number] Univers 00:00:00 00:00:00 Management [facility] 350.1.13.10 ity of CLINICS 4.2.7.2.[place] [id number] [facility] [address] [place] 2022-05-10 2022-05-10 Swing Type Lathe Operator [facility] 1.2.840.114 [id number] Univers 16:45:00 17:00:00 Visit Be Casey [facility] 350.1.13.10 ity of CL[place] 4.2.7.2.[place] [id number] [facility] [address] 2022-05-10 2022-05-10 Outpatient R BE CASEY [facility] [id number] Univers 16:45:00 16:45:00 BE CASEY [facility] 2022-05-10 2022-05-10 Office JUAN Casey 1.2.700.904 [id number] Univers 15:00:00 16:00:00 Visit [facility] 350.1.13.10 i ty of [place] 4[place]2.7.2.[place] [id number] [address] 2022-05-10 2022-05-10 Outpatient R BE CASEY [facility] [id number] Univers 15:00:00 15:00:00 BE CASEY tonny [facility] 2022-05-10 2022-05-10 Outpatient R BE CASEY [facility] [id number] Univers 15:00:00 15:00:00 BE CASEY tonny [facility] 2022-05-10 2022-05-10 Outpatient R SANG CASEYE [facility] [id number] Univers 15:00:00 15:00:00 BE CASEY [facility] 2022-05-10 2022-05-10 Outpatient R SANG CASEYE [facility] [id number] Univers 15:00:00 15:00:00 BE CASEY [facility] 2022-05-10 2022-05-10 Outpatient R JERI [facility] [id number] Univers 10:00:00 10:00:00 ZACK raquel [facility] 2022-05-10 2022-05-10 Outpatient R JERI [facility] [id number] Univers 10:00:00 10:00:00 ZACK [facility] 2022-04-26 2022-04-26 Telephone JUAN Casey 1.2.840.114 [id number] Univers 00:00:00 00:00:00 Be [facility] 350.1.13.10 i ty of [facility] 4.2.7.2.686 [place] [id number] [address] 2022-04-23 2022-04-23 Refill [facility] 1.2.840.114 [id number] Univers 00:00:00 00:00:00 Zack CERDA 350.1.13.10 i ty of [place] 4.2.7.2.[place] [id number] [facility] 044 [facility] 2022-04-18 2022-04-18 Outpatient R SHOAIB [facility] [id number] Univers 10:00:00 10:00:00 SHAW cardonay [facility] 2022-04-17 2022-04-17 [facility] [id number] Univers 08:00:00 08:00:00 ZACK tonny [facility] 2022-04-17 2022-04-17 Telephone [facility] 1.2.840.114 [id number] Univers 00:00:00 00:00:00 Zack CERDA 350.1.13.10 i ty of [place] 4.2.7.2.686 [place] [id number] Md dical NAL 044 [facility] 2022-03-28 2022-03-28 Outpatient [facility] [id number] Univers 12:42:42 23:59:00 ZACK raquel [facility] 2022-03-28 2022-03-28 [facility] 1.2.840.114 [id number] Univers 12:42:42 23:59:00 Encounter Zack CERDA 350.1.13.10 ity [facility] 4.2.7.2.[place] [id number] [facility] [address] [place] [address] 2022-03-27 2022-03-27 Outpatient [facility] [id number] Univers 13:00:00 13:00:00 ZACK tonny [facility] 2022-03-27 2022-03-27 Outpatient [facility] [id number] Univers 13:00:00 13:00:00 ZACK tonny [facility] 2022-03-14 2022-03-14 Refill [facility] 1.2.840.114 [id number] Univers 00:00:00 00:00:00 Zack CERDA 350.1.13.10 i ty of [facility] 4.2.7.2.686 [place] [id number] Md dical NAL 044 [facility] 2022-03-13 2022-03-13 Swing Type Lathe Operator 2, Adc Lab [facility] 1.2.840.114 [id number] Univers 14:45:00 15:00:00 Visit Zack Wilcox 350.1.13.10 ity of [place] 4.2.7.2.[place] [id number] Md dicwy NAL 353 [facility] 2022-03-13 2022-03-13 Office [facility] 1.2.840.114 [id number] Univers 13:00:00 14:32:17 Visit Zack CERDA 350.1.13.10 i ty of [place] 4.2.7.2.[place] [id number] [facility] 044 [facility] 2022-03-13 2022-03-13 Outpatient R JERI [facility] [id number] [facility] 13:00:00 14:32:17 ZACK garcía [facility] 2022-03-13 2022-03-13 Orders Doctor ENA 1.2.840.114 [id number] Univers 00:00:00 00:00:00 Only Unassigned, ALEX 350.1.13.10 ity [facility] 4.2.7.2.686 [place] [id number] [address] 2022-03-08 2022-03-08 Telephone [facility] 1.2.840.114 [id number] Univers 00:00:00 00:00:00 Zack CERDA 350.1.13.10 i ty of [place] 4.2.7.2.[place] [id number] [facility] 231 [facility] 2022-03-06 2022-03-06 Refill [facility] 1.2.840.114 [id number] Univers 00:00:00 00:00:00 Zack CERDA 350.1.13.10 i ty of [place] 4.2.7.2.[place] [id number] [facility] 044 [facility] 2022-02-28 2022-03-01 Emergency REHRER, [facility] [id number] [place] 00:00:00 00:00:[address] 2022-02-15 2022-02-15 Outpatient R DOLORES [facility] [id number] Univers 13:30:00 13:30:00 PAIGE ity [facility] 2022-02-09 2022-02-09 [facility] 1.2.840.114 [id number] Univers 00:00:00 00:00:00 Zack CERDA 350.1.13.10 i ty of [place] 4.2.7.2.[place] [id number] [address] 2022-02-06 2022-02-06 [facility] 1.2.840.114 [id number] Univers 00:00:00 00:00:00 Zack CERDA 350.1.13.10 i ty of [place] 4.[place].7.2.[place] [id number] [address] 2022-02-02 2022-02-02 Emergency X [facility] ERT [id number] Univers 20:19:00 22:57:00 [facility] 2022-[facility]-02 2022-02-02 [facility] 1.2.115.010 [id number] Univers 20:19:00 22:57:00 Spencer CERDA 350.1.13.10 ity of [place].2.7.2.[place] [id number] [address] 2022-02-02 2022-02-02 [facility] 1.2.840.114 [id number] Univers 00:00:00 00:00:00 Zack CERDA 350.1.13.10 i ty of [place] 4.2.7.2.[place] [id number] [address] 2022-02-01 2022-02-01 [facility] 1.2.840.114 [id number] Univers 14:20:00 16:03:49 Visit Zack CERDA 350.1.13.10 i ty of [place] 4.2.7.2.[place] [id number] [address] 2022-02-01 2022-02-01 Outpatient R JERI [facility] [id number] Univers 14:20:00 16:03:49 ZACK garcía [facility] 2022-02-01 2022-02-01 Outpatient R JERI [facility] [id number] Univers 14:20:00 14:20:00 ZACK tonny [facility] 2022-02-01 2022-02-01 [facility] [id number] Univers 14:20:00 14:20:00 ZACK tonny [facility] 2022-02-01 2022-02-01 Letter [facility] 1..840.114 [id number] Univers 00:00:00 00:00:00 (Out) Zack CERDA 350.1.13.10 i ty of [place] 4.2.7.2.[place] [id number] Md dical NAL 044 [facility] 2022-02-01 2022-02-01 Telephone [facility] 1..840.114 [id number] Univers 00:00:00 00:00:00 Zack CERDA 350.1.13.10 i ty [facility] [place] [phone] Md dical NAL 044 [facility] 2022-01-18 2022-01-18 Swing Type Lathe Operator 2, Adc Lab [facility] 1.2.840.114 [id number] Univers 11:30:00 11:45:00 Visit Zack Wilcox 350.1.13.10 ity [facility] [place] [phone] Md dical NAL 353 [facility] 2022-01-18 2022-01-18 Outpatient R JERI [facility] [id number] Univers 10:00:00 11:08:00 ZACK raquel [facility] 2022-01-18 2022-01-18 [facility] ..840.114 [id number] Univers 10:00:00 11:08:00 Visit Zack CERDA 350.1.13.10 i ty [facility] [place] [phone] Md dical NAL 044 [facility] 2022-01-18 2022-01-18 [facility] 1.2.840.114 [id number] Univers 00:00:00 00:00:00 Zack CERDA 350.1.13.10 i ty [facility] [place] [phone] Md dical NAL 044 [facility] 2022-01-04 2022-01-04 [facility] [id number] Univers 09:00:00 23:59:00 HOLLY garcía [facility] 2022-01-04 2022-01-04 [facility] [id number] Univers 09:00:00 23:59:00 HOLLY garcía [facility] 2022-01-04 2022-01-04 [facility] 1.2.840. 114 [id number] Univers 08:34:09 23:59:00 Encounter [facility] 350.1.13.10 ity of [place] 4.2.7.2.686 [facility] [phone] [facility] [address] ([facility]) 2021-12-21 2021-12-21 Office [facility] 1.2.988.091 [id number] Univers 10:30:00 11:03:57 Visit Holly CERDA 350.1.13.10 i ty [facility] [place] [id number] Md dical NAL 188 [facility] 2021-12-21 2021-12-21 [facility] [id number] Univers 10:30:00 11:03:57 HOLLY garcía [facility] 2021-12-21 2021-12-21 Out[facility] [id number] Univers 10:30:00 10:30:00 HOLLY garcía [facility] 2021-12-13 2021-12-13 Emergency X Jb TOBAR [facility] ERT [id number] Univers 19:42:00 21:34:00 ity of [facility] 2021-12-13 2021-12-13 Emergency Jb Tobar [facility] 1.2.840.114 [id number] Univers 19:42:00 21:34:00 Mercedez PRASHANT 350.1.13.10 i ty [facility] 4[place] [id number] [facility] [address] 2021-12-01 2021-12-01 Outpatient R [facility] MAMADOU [id number] Univers 08:07:00 11:14:00 HOLLY ity of [facility] 2021-12-01 2021-12-01 [facility] 1.2.840.114 [id number] Univers 08:07:00 11:14:00 Encounter Holly CERDA 350.1.13.10 ity [place] [phone] [facility] [address] 2021-12-01 2021-12-01 Surgery [facility] 1.2.844.208 [id number] Univers 09:19:00 10:14:00 Holly CERDA 350.1.13.10 i ty of [place]ICAL [phone] [facility] [address] 2021-12-01 2021-12-01 Orders Doctor ENA 1.2.840.114 [id number] Univers 00:00:00 00:00:00 Only Unassigned, ALEX 350.1.13.10 ity of [place] [facility] 4.2.7.2.686 Selvin as [phone] [facility] [address] 2021-11-30 2021-11-30 Telephone [facility] 1.2.840.114 [id number] Univers 00:00:00 00:00:00 Holly PRASHANT 350.1.13.10 i ty of [place] PROF[place] [phone] Md dical NAL [address] BUILDING 2021-10-19 2021-10-19 Laboratory Only, Adc Test [facility] 1.2.840. 114 [id number] Univers 09:30:00 09:45:00 Only Holly De Paz 350.1.13.10 it[facility] [place] [phone] [facility] [address] 2021-10-19 2021-10-19 Outpatient R BALDEV [facility] [id number] Univers 09:30:00 09:30:00 HOLLY ittonny of [facility] 2021-10-19 2021-10-19 Orders Doctor ENA 1.2.840.114 [id number] Univers 00:00:00 00:00:00 Only Unassigned, ALEX 350.1.13.10 ity of [place] [facility] 4.2.7.2.686 Selvin as [phone] [facility] [address] [place] 2021-10-19 2021-10-19 Telephone [facility] 1.2.521.687 [id number] Univers 00:00:00 00:00:00 Johanny CERDA 350.1.13.10 ity of [place] [phone] Md dical NAL 204 [facility] 2021-08-02 2021-08-02 [facility] 1.2.840.114 [id number] Univers 00:00:00 00:00:00 Holly Cerda 350.1.13.10 i ty of [place] [phone] Md dical nal 188 [facility] 2021-07-21 2021-07-21 Telephone [facility] 1.2.672.502 [id number] Univers 00:00:00 00:00:00 Johanny Cerda 350.1.13.10 ity of [place] [phone] Md dical nal 204 [facility] 2021-07-20 2021-07-20 Outpatient R BALDEV [facility] [id number] Univers 15:00:00 15:00:00 HOLLY garcía of [facility] 2021-07-182021-07-18 Outpatient R BALDEV [facility] [id number] Univers 15:45:00 15:45:00 HOLLY garcía [facility] 2021-07-13 2021-07-13 Outpatient R SHANNON [facility] [id number] Univers 15:00:00 15:00:00 KEVIN garcía [facility] 2021-05-25 2021-05-25 Outpatient R BALDEV [facility] [id number] Univers 14:30:00 14:30:00 HOLLY garcía [facility] 2021-05-16 2021-05-16 Outpatient R BALDEV [facility] [id number] Univers 14:00:00 14:00:00 HOLLY garcía [facility] 2021-04-27 2021-04-27 Outpatient R [facility] [id number] Univers 16:00:00 16:00:00 [facility] 2021-04-24 2021-04-24 (TEL) STLMLC STLMLC [id number] Co mmon 00:00:00 00:00:00 [facility] 2021-04-19 2021-04-19 (TEL) STLMLC STLMLC [id number] Co mmon 00:00:00 00:00:00 [facility] 2021-04-17 2021-04-17 Outpatient R PEDRO [facility] [id number] Univers 09:45:00 09:45:00 TALHA raquel [facility] 2021-04-14 2021-04-14 Outpatient R DOLORES [facility] [id number] Univers 00:00:00 00:00:00 PAIGE raquel [facility] 2021-04-13 2021-04-13 (TEL) STLMLC STLMLC [id number] Co mmon 00:00:00 00:00:00 [facility] 2021-04-12 2021-04-12 OFFICE STLMLC STLMLC [id number] Co mmon 00:00:00 00:00:00 VISIT EST Spir it PT LEVEL 3 - [facility] 2021-04-10 2021-04-10 [facility] [id number] Univers 13:00:00 13:00:00 [facility] 2021-04-06 2021-04-06 (TEL) STLMLC STLMLC [id number] Co mmon 00:00:00 00:00:00 [facility] 2021-04-05 2021-04-05 (TEL) STLMLC STLMLC [id number] Co mmon 00:00:00 00:00:00 [facility] 2021-04-05 2021-04-05 (TEL) STLMLC STLMLC [id number] Co mmon 00:00:00 00:00:00 [facility] 2021-04-03 2021-04-03 OFFICE STLMLC STLMLC [id number] Co mmon 00:00:00 00:00:00 VISIT EST Spir it PT LEVEL 3 [facility] 2021-03-22 2021-03-22 (TEL) STLMLC STLMLC [id number] Co mmon 00:00:00 00:00:00 [facility] 2021-03-20 2021-03-20 CONSULT - STLMLC STLMLC [id number] Common 00:00:00 00:00:00 OFFICE, L3 Spi rit [facility] 2021-03-20 2021-03-20 OFFICE STLMLC STLMLC [id number] Co mmon 00:00:00 00:00:00 VISIT Spirit ESTAB PT - [facility] LEVEL 4 [facility] 2021-03-09 2021-03-09 (TEL) STLMLC STLMLC [id number] Co mmon 00:00:00 00:00:00 [facility] 2021-03-09 2021-03-09 OFFICE STLMLC STLMLC [id number] Co mmon 00:00:00 00:00:00 VISIT NEW Spir it PT LEVEL 4 [facility] 2020-09-28 2020-09-28 Laboratory Lab, Adc [facility] 1.2.840.114 [id number] 10:19:14 10:39:14 Only Fam b I Health 350.1.13.10 [place] 4.2.7.2.686 Professio [phone] nal [address] 2020-09-28 2020-09-28 Outpatient R LEEANN, [facility] [id number] Univers 10:20:00 10:20:00 CHUYITAJOSE MANUEL garcía [facility] 2020-09-28 2020-09-28 Letter Doctor ENA 1.2.840.114 [id number] 00:00:00 00:00:00 (Out) Unassigned, ALEX 350.1.13.10 [place] [facility] 4.2.7.2.686 [id number] 2020-05-19 2020-05-19 Laboratory Lab, [facility] 1.2.840.114 [id number] 09:26:05 09:46:05 Only Fam Pob I Health 350.1.13.10 [place] 4.2.7.2.686 Professio [phone] nal 044 Office [facility] One 2020-05-19 2020-05-19 Outpatient R VALERIEFILIBERTO, [facility] [id number] Univers 09:20:00 09:20:00 ALIDA garcía [facility] 2020-05-19 2020-05-19 Letter Doctor [place] 1.2.840.114 [id number] 00:00:00 00:00:00 (Out) Unassigned, ALEX 350.1.13.10 [place] [facility] 4.2.7.2.686 [id number] 044 2020-05-19 2020-05-19 Letter Doctor [place] 1.2.840.114 [id number] 00:00:00 00:00:00 (Out) Unassigned, ALEX 350.1.13.10 [place] [facility] 4.2.7.2.686 [id number] 044 2017-04-24 2017-04-24 Office Cardiology, [facility] 1.2.840.11 4 [id number] [facility] 13:00:00 15:51:19 Visit Michelle Douglass [facility] 350.1.13.10 ity of [place] 4.2.7.2.686 [place] [phone] [address] Results Test Description Test Time Test Comments Results Result Comments Source POCT GLUCOSE (AUTOMATED) 2023-03-19 17:20:05 Test Item Value Reference Range Interpretation Comme nts POCT GLU (test code = 8962274951) 93 mg/dL 70-110 Lab Interpretation (test code = 76186-2) [facility]19 16:17:04 Test Item Value Reference Range Interpretation Comments POCT GLU (test code = 1244140480) 55 mg/dL 70-110 L Lab Interpretation (test code = Abnormal 41814-1) [facility] IH [id number] 15:31:00 Test Item Value Reference Range Interpretation Comments COVID 19 Asymptomatic NEGATIVE Negative Per ma nufacturer, IH AG (test code = negative results [...] with COVID-19. UA RFLX MICR CULT IF [id number] 15:20:00 Test Item Value Reference Range Interpretation [...] MUCU) Indication for culture: Flank PainBASIC METABOLIC [id number] 15:14:00 Test Item Value Reference Range Interpretation [...] CA) 9.3 MG/DL 8.5-10.1 N HEPATIC FUNCTION [id number] 15:14:00 Test Item Value Reference Range Interpretation [...] 66 Unit/L 50-136 N code = ALKP) [id number] 15:14:00 Test Item Value Reference Range Interpretation Comments LIPASE (test code = LIP) 85 Unit/L 114-286 L CBC W/AUTO [id number] 15:13:00 Test Item Value Reference Range Interpretation [...] code NO DIFF/SCN CRITERIA = MDIFF) SEDIMENTATION [id number] 00:02:14 Test Item Value Reference Range Interpretation Comments ESR (test code = See_Comment H [Automated message] 16206-6) The system [employer] generated this result transmitted ref erence range: 0 - 10 m m/HR. The reference r tommie was not used to interpret this result as normal/abnor mal. Lab Interpretation (test Abnormal code = 02164-4) [facility] (20583)2022-07-06 23:30:09 Test Item Value Reference Range Interpretation Comments NA (test code = 137 mmol/L 135-145 2249925868) K (test code = 4.5 mmol/L 3.5-5 9416453554) CL (test code = 102 mmol/L 98-108 7724987348) CO2 TOTAL (test code 24 mmol/L 23-31 = 5355467477) AGAP (test code = 2-16 5427461657) BUN (test code = 18 mg/dL 7-23 9558657391) GLUCOSE (test code = 86 mg/dL 70-110 3090000741) CREATININE (test code 0.91 mg/dL 0.6-1.25 = 0953807454) TOTAL BILI (test code 0.4 mg/dL 0.1-1.1 = 1329276089) CALCIUM (test code = 9.5 mg/dL 8.6-10.6 7682649023) T PROTEIN (test code 7.1 g/dL 6.3-8.2 = 3947640363) ALBUMIN (test code = 4.5 g/dL 3.5-5 9103610983) ALK PHOS (test code = 54 U/L 34-122 8807746167) ALTv (test code = 33 U/L 5-50 1742-6) AST(SGOT) (test code 25 U/L 13-40 = 3274810605) eGFR (test code = mL/min/1.73m2 1387730850) NAYELI (test code = NAYELI) Association of [...] or urine or abnormalities in imaging tests). [facility] [id number] 23:29:48 Test Item Value Reference Range Interpretation Comments URIC ACID (test code = 9987307450) 6.2 mg/dL 3.6-8 Lab Interpretation (test code = Normal 77615-2) [facility] WITH [id number] 23:21:05 Test Item Value Reference Range Interpretation Comments WBC (test code = See_Comment [Automated 9690-2) message] The sy stem which generated this result transmitted reference range : 4.20 - 10.70 10*3/?L. The reference range was not used to interpret this result as normal/abnormal . RBC (test code = See_Comment [Automated 789-8) message] The sy stem which generated this [...] RDW-SD (test code = 43.8 fL 38.5-51.6 76292-6) RDW-CV (test code = 12.5 % 12.1-15.4 788-0) PLT (test code = See_Comment [Automated 777-3) message] The sy stem which generated this result transmitted reference range : 150 - 328 10*3/ ?L. The reference r tommie was not used to interpret this result as normal/abnormal . MPV (test code = 10.9 fL 9.8-13 55656-8) NRBC/100 WBC (test See_Comment [Automat ed code = 6078995936) message] The system which generated this result transmitted reference range : 0.0 - 10.0 /100 WBCs. The refer ence range was not u sed to interpret th is result as normal/abnormal . NRBC x10^3 (test code See_Comment [Auto mated = 1034019607) message] The s ystem which generated this result transmitted reference range : 10*3/?L. The reference range was not used to interpret this result as normal/abnormal . GRAN MAT (NEUT) % 60.4 % (test code = 770-8) IMM GRAN % (test code 0.60 % = 7614073790) LYMPH % (test code = 26.8 % 736-9) MONO % (test code = 9.5 % 5905-5) EOS % (test code = 2.1 % 713-8) BASO % (test code = 0.6 % 706-2) GRAN MAT x10^3(ANC) 6.15 10*3/uL 1.99-6.95 (test code = 2689420284) IMM GRAN x10^3 (test 0.06 10*3/uL 0-0.06 code = 5214651326) LYMPH x10^3 (test code 2.73 10*3/uL 1.09-3.23 = 731-0) MONO x10^3 (test code 0.97 10*3/uL 0.36-1.02 = 742-7) EOS x10^3 (test code = 0.21 10*3/uL 0.06-0.53 711-2) BASO x10^3 (test code 0.06 10*3/uL 0.01-0.09 = 704-7) Lab Interpretation Abnormal (test code = 13159-9) [facility] [id number] 10:54:12 Test Item Value Reference Range Interpretation [...] = AST) 28 IntlUnit/L 10-34 Comprehensive Metabolic [id number] 10:54:12 Test Item Value Reference Range Interpretation [...] >60 mL/min/1.73 m2 N AA) Comprehensive Metabolic [id number] 10:54:12 Test Item Value Reference Range Interpretation [...] m2 N eGFR Non-AA) CT Brain/Head w/o [id number] 10:40:27Patient: PADMINI ENG Date/Time04/06/2019 10:30 CDTReason for [...] Signature): 04/06/2019 10:40 amComplete Blood Count with [id number] 10:36:20 Test Item Value Reference Range Interpretation [...] = Slide Review) GL_SET_SLIDE _REVIEW_A UTO Automated [id number] 10:36:20 Test Item Value Reference Range Interpretation Comments Neutro Auto (test code = Neutro Auto) 66.4 % N Lymph Auto (test code = Lymph Auto) 20.4 % N [place] Auto (test code = [place] Auto) 9.2 % N Eos, Auto (test code = Eos, Auto) 2.9 % N Basophil Auto (test code = Basophil 1.1 % N Auto) Neutro Absolute (test code = Neutro 4.9 x10 2.7-7.3 Absolute) Lymph Absolute (test code = Lymph 1.5 x10 0.8-3.5 Absolute) [place] Absolute (test code = [place] 0.7 x10 0.3-0.9 Absolute) Eos Absolute (test code = Eos 0.2 x10 0.0-0.3 Absolute) Baso Absolute (test code = Baso 0.1 x10 0.0-0.1 Absolute) Notes Date/Time Note Provider Source 2022-07-17 14:21:00-00:00 [id number] [address] PATIENT NAME: PADMINI ENG JUNIOR ADMIT DATE: ACCOUNT NO: [id number] ROOM NO: AGE: 51 REPORT TYPE: eELECTROCARDIOGRAM SEX: M ADMITTING PHYSICIAN: ATTENDING PHYSICIAN: Order: [id number] Test Reason : ABD PAIN Test Date/Time [...] NAME: PADMINI ENG JUNIOR ACCOUNT #: [id number] 2022-07-17 14:19:00-00:00 [facility] EMERGENCY PROVIDER REPORT REPORT#:[id number] REPORT STATUS: Signed DATE:07/17/22 TIME:1418 PATIENT: PADMNII ENG JUNIOR UNIT #: [id number] ROOM/BED: : 69 AGE: 51 SEX: M PCP PHYS: Zack Wilcox MD SERVICE AUTHOR: Efrain Sousa DO * ALL edits or amendments must be made on the Field Dailies/computer document * BGL-Fbh-Ygrn Illness General Confirmed Patient Yes Initial Greet [...] 07/17 1646 O2 Delivery Room air 07/17 164 Temp 98.7 07/17 164 Pulse 68 07/17 1646 Resp 16 07/17 [...] (Auto) (20.5 - 51.1 %) 12.7 L [place] % (Auto) (1.7 - 9.3 %) 8.3 Eos % (Auto) (0.0 - 6.0 %) 1.6 Baso % (Auto) (0.0 - 2.0 %) 0.4 Neut # (Auto) (1.8 - 7.6 K/mm3) 8.6 H Lymph # (Auto) (0.6 - 3.0 K/mm3) 1.4 [place] # (Auto) (0.2 - 1.5 K/mm3) 0.9 Eos # (Auto) (0.0 - 0.4 K/mm3) 0.2 Baso # (Auto) (0.0 - 0.2 K/mm3) 0.0 Abs Immat Gran (auto) (0.00 - 0.03 x10 3/uL) 0. 03 Add Manual Diff (CRITERIA DIFF/SCN) NO Immature Gran % (0.0 - 5.0 %) 0.3 Nucleated RBC % (0.0 - 1.0 /100WBC%) 0.0 Serology SARS-CoV-2 Ag (Rapid) (Negative) NEGATIVE 07/17 1419 Urines Urine Color (YEL/STRAW discript) YELLOW Urine Appearance (CLEAR discript) CLOUDY H Urine pH (5.0 - 7.0 pH UNITS) 7.0 Ur Specific [place] (1.005 - 1.030 SG) 1.015 Urine Protein [...] Date/Time Procedure - Status Source Growth 07/17 152 Urine Culture - RECD URINE 07/17 142 [...] 1,000 MG X1ED STA 07/17 1636 DC 1 0/04 PO 07/17 1637 1641 Ketorolac 30 MG X1ED STA 07/17 1518 DC 10 Tromethamine IV 07/17 1519 1527 Patient Discharge [...] (ZOFRAN ODT) 4 MG PO Q6H PRN NC N NAUSEA/VOMITING #15 TABS CEFDINIR (OMNICEF) 300 MG PO Q12H CEFDINIR (OMNICEF) 300 MG PO Q12H #14 CAPS Patient Instructions Urinary Tract Infections in Men Additional Instructions Follow up with your primary care physcian in 1 w kletsel dehe wintun. Referrals Provider Referral: Cornell Sepulveda DO Follow-Up: 1 Week Address: [address] [facility] [address] [place] [address] Provider Referral: Jefry Painting MD Follow-Up: As Needed Address: [address] [place] [id number] Electronically Signed by Efrain Sousa DO on at [facility] #: [id number] END OF REPORT"
[2023-04-29 19:13] VITALS: BP 135/96; TEMP 97.2; O2SAT 99
== END 2023-04-29 10:08 | disposition home or self-care (01) ==
LOC: ER 09:52
DX: Z48.02 Encounter for removal of sutures (principal)
CPT/HCPCS: 99282